=== PATIENT | female | born 1955 | race Caucasian/White ===

== ENCOUNTER 2021-01-25 14:47 | Emergency (ER) | payer OTHER, SELFPAY ==
--- NOTE | ~2021-01-25 | XR_ITS ---
EXAMINATION: XR CHEST CLINICAL INFORMATION: Upper back pain COMPARISON: None TECHNIQUE: Frontal view of the chest was obtained. FINDINGS: Lungs are well-inflated and clear. Trachea is midline in position. No interstitial disease, consolidation or mass. No pulmonary edema, pleural effusion or pneumothorax. Cardiac silhouette and pulmonary vessels are normal in size. The mediastinum and den have normal contour. The visualized bones, and upper abdomen, are unremarkable. XR/XR chest 1V IMPRESSION: No acute cardiopulmonary abnormality.
[2021-01-25 14:55] VITALS: BP 208/93; PULSE 73; RESP 18; TEMP 36.6; O2SAT 96; BMI 36.3
[2021-01-25 15:13] LABS: Glucose Urine UA NEG (NEG); Leukocyte Esterase Urine NEG (NEG); Nitrite Urine NEG (NEG); PH 6.5 (5.0-8.0); Urine Blood NEG (NEG); Urine Ketones NEG (NEG); Urine Protein NEG (NEG-TRACE)
[2021-01-25 15:16] LABS: Appearance Urine CLEAR; Color Urine YELLOW
--- NOTE | 2021-01-25 16:07 | ED.GENADULT ---
HPI - General Adult General Chief complaint: General Medical Stated complaint: HIGH BLOOD PRESSURE Time Seen by Provider: 01/25/21 15:59 History of Present Illness HPI narrative: Patient had gone to urgent care for some left upper back pain worse with movement for past 4 days without injury, and started gradually and feeling like her urine had a bad smell today they did vital signs at urgent care and noticed that she had elevated blood pressure and was sent to the ER She has no symptoms of this blood pressure she has no chest pain no shortness of breath no headache no weakness She has no radiation of the back pain there is no numbness weakness or tingling there is no chest pain or abdominal pain, there is no changes to bowel or bladder, pain is not present at rest but with movement She had an odor to the urine she thought but there is no frequency of urination no burning with urination no pain with urination no flank pain no abdominal pain no vomiting Related Data Previous Rx's Medication Instructions Recorded cyclobenzaprine 10 mg PO TID PRN #10 tab 01/25/21 ibuprofen 600 mg PO Q6H PRN #20 tab 01/25/21 oxycodone-acetaminophen [Percocet] 1 tab PO Q4-6H PRN #10 tab 01/25/21 Allergies Allergy/AdvReac Type Severity Reaction Status Date / Time No Known Allergies Allergy Verified 01/25/21 15:05 Review of Systems Review of Systems: Review of systems is positive for different smelling urine and left upper back pain Negatives are no fever no chills no dizziness no weakness no fainting no feeling faint no numbness weakness or tingling no changes to bowel or bladder no incontinence no dysuria , there is no headache no neck pain no vision changes there is no chest pain no shortness of breath no palpitations there is no abdominal pain no nausea vomiting or diarrhea there is no skin rash there is no leg swelling no calf pain or swelling, no numbness no weakness Yes all other systems are reviewed and are negative PMFSH Past Medical History [facility] Narrative: Patient is not aware of any significant medical history and has not seen a doctor in a long time until she went to the urgent care today for her 4 days of left upper back pain Source: nursing notes reviewed Medical History (Updated 01/25/21 @ 17:46 by EKATERINA Cortes) Arthritis Surgical History (Updated 01/25/21 @ 15:00 by Franki Pena) History of hysterectomy Social History Social History Advance Directives: No Advance Directives Information Provided: No Physical Exam Vital Signs: Vital Signs: Last Vital Signs Temp 98 F 01/25/21 14:55 Pulse 73 01/25/21 14:55 Resp 18 01/25/21 14:55 BP 208/93 H 01/25/21 14:55 Pulse Ox 96 01/25/21 14:55 Body Mass Index 36.3 General appearance no acute distress A&O x3 comfortable relaxed and cooperative Head is normocephalic atraumatic Pupils equal round reactive to light Extraocular motions are intact Neck is supple The chest is clear to auscultation bilateral with full symmetric equal breath sounds The heart rate with a regular no murmur Abdomen soft nontender The back exam is the left upper lumbar paraspinal area is tender with muscle spasm, no redness or warmth to the skin no focal bony tenderness, no CVA tenderness, pain is easily reproduced with movement and palpation and is relieved at rest Extremities no edema, no calf swelling no calf tenderness Skin no rash Neuro no focal deficit, motor is 5 over 5 times for sensation is intact and symmetrical, gait is normal and balance is normal, conversation has normal speech and comprehension, cranial nerves 2-12 intact as tested, cerebellar normal Course Course Course Narrative: A 1st blood pressure was 208/93 but a repeat was 170/80 No concern for hypertensive emergency at this point as patient has no chest pain no headache no weakness no acute kidney failure no abdominal pain no chest pain and is comfortable and asymptomatic from hypertension, there is no hypertensive emergency No treatment was initiated here as elevated blood pressure could be from stress of being in the hospital or from pain in her back It is is discussed with her that there are many risks of untreated hypertension but we are not ready to start meds now as we want to confirm the diagnosis so she is advised to get a home blood pressure cuff and over the next 2 weeks keep a log twice a day of the readings and she says on Wednesday she will look for a primary care physician No acute lab abnormality, renal function was normal, chest x-ray was normal Pain in the back is most likely musculoskeletal as it is tender in 1 spot and easily reproduced with movement Urine was normal Patient is treated for musculoskeletal back pain and is strongly advised to follow with soon as possible with primary care and keep a log of her blood pressures Medical Decision Making Lab Data Lab results reviewed: Yes I reviewed the patient's lab results. Lab results narrative: Result diagrams: 01/25/21 16:21 01/25/21 16:21 Labs: Lab Results 01/25/21 01/25/21 01/25/21 Range/Units 15:07 16:21 16:21 WBC 8.2 (4.8-10.8) X10*3/uL RBC 5.46 (4.20-5.50) X10*6/uL Hgb 17.2 H (12.0-16.0) g/dl Hct 50.2 H (37-47) % MCV 91.9 (80-98) fL MCH 31.5 (27.0-33.0) pg MCHC 34.3 (31.0-35.0) g/dl RDW 12.6 (11.0-16.0) % Plt Count 189 (160-400) X10*3/uL MPV 9.3 L (9.4-12.3) fL Immature Gran % (Auto) 0.2 (0.0-0.4) % Neut % (Auto) 61.1 (45-73) % Lymph % (Auto) 28.1 (20-40) % [place] % (Auto) 8.1 (2-11) % Eos % (Auto) 1.6 (0-4) % Baso % (Auto) 0.9 (0-2) % Lymph # (Auto) 2.3 (1.2-4.9) X10*3/uL [place] # (Auto) 0.7 (0.1-1.2) X10*3/uL Eos # (Auto) 0.1 (0.0-0.4) X10*3/uL Baso # (Auto) 0.1 (0.0-0.2) X10*3/uL Abs Immat Gran (auto) 0.02 (0.00-0.03) X10*3/uL Absolute Neuts (auto) 5.0 (2.0-8.3) X10*3/uL Absolute Nucleated RBC 0.000 (0.0-0.012) X10*3/uL Nucleated RBC % (auto) 0.0 (0.0-0.2) /100WBC Sodium 140 (135-145) mmol/L Potassium 4.1 (3.3-5.1) mmol/L Chloride 105 (96-108) mmol/L Carbon Dioxide 28 (22-29) mmol/L Anion Gap 11 L (12-20) BUN 10 (9-16) mg/dL Creatinine 0.71 (0.5-1.4) mg/dL Estim Creat Clear Calc 96.5 Estimated GFR > 60 Random Glucose 92 (60-115) mg/dL Calcium 9.1 (8.4-10.2) mg/dL Total Bilirubin 0.5 (0.0-1.0) mg/dL Direct Bilirubin 0.2 (0.0-0.5) mg/dL AST 34 H (5-31) U/L ALT 43 H (0-31) U/L Alkaline Phosphatase 82 (39-117) U/L Total Protein 7.4 (6.5-8.0) g/dL Albumin 4.3 (3.5-5.0) g/dL Urine Color YELLOW Urine Appearance CLEAR Urine pH 6.5 (5.0-8.0) Ur Specific [place] 1.020 (1.005-1.025) Urine Protein NEG (NEG-TRACE) MG/DL Urine Glucose (UA) NEG (NEG) MG/DL Urine Ketones NEG (NEG) MG/DL Urine Blood NEG (NEG) Urine Nitrite NEG (NEG) Ur Leukocyte Esterase NEG (NEG) Discharge Plan Discharge Clinical Impression: Elevated blood pressure reading Back pain Qualifiers: Back pain location: back pain in unspecified location Chronicity: acute Back pain laterality: left Qualified Code(s): M54.9 - Dorsalgia, unspecified Patient Disposition: Home, Self-Care Additional Instructions: You had 2 elevated blood pressure readings so we are concerned he may have high blood pressure so the best plan to know for sure is to buy a home blood pressure cuff and measure your blood pressure twice a day when you are calm and see if the numbers are high Normal blood pressure is below 140/80 Your urine test was normal The exam of her back for your back pain showed some muscle spasm and is consistent with muscle strain in her back so you can use the medications as prescribed This also will benefit from follow-up with primary care as they can refer you for physical therapy if it does not get better by itself Return to the ER any time for chest pain weakness abdominal pain any worse condition or any concerns You can contact our financial counselor on Wednesday for help applying for emergency [facility] Prescriptions: New oxycodone-acetaminophen [Percocet] 5-325 mg tablet 1 tab PO Q4-6H PRN (Reason: pain) Qty: 10 RF: 0 cyclobenzaprine 10 mg tablet 10 mg PO TID PRN (Reason: muscle spasm) Qty: 10 RF: 0 ibuprofen 600 mg tablet 600 mg PO Q6H PRN (Reason: pain) Qty: 20 RF: 0
[2021-01-25 16:25] LABS: MANUAL DIFF FLAG NO
[2021-01-25 16:27] LABS: Basophils Absolute Auto 0.1 X10*3/uL (0.0-0.2); Basophils Percent Auto 0.9 % (0-2); Eosinophils Absolute Auto 0.1 X10*3/uL (0.0-0.4); Eosinophils Percent Auto 1.6 % (0-4); Hematocrit 50.2 % (37-47); Hemoglobin 17.2 g/dl (12.0-16.0); Imm Gran Abs Auto 0.02 X10*3/uL (0.00-0.03); Imm Gran Pct Auto 0.2 % (0.0-0.4); Lymphocytes Absolute Auto 2.3 X10*3/uL (1.2-4.9); Lymphocytes Percent Auto 28.1 % (20-40); Mean Corpuscular HGB Conc 34.3 g/dl (31.0-35.0); Mean Corpuscular Hemoglobin 31.5 pg (27.0-33.0); Mean Corpuscular Volume 91.9 fL (80-98); Mean Platelet Volume 9.3 fL (9.4-12.3); Monocytes Absolute Auto 0.7 X10*3/uL (0.1-1.2); Monocytes Percent Auto 8.1 % (2-11); Neutrophils Percent Auto 61.1 % (45-73); Platelet Count 189 X10*3/uL (160-400); Red Blood Count 5.46 X10*6/uL (4.20-5.50); Red Cell Distribution Width 12.6 % (11.0-16.0); White Blood Count 8.2 X10*3/uL (4.8-10.8)
[2021-01-25 16:48] LABS: Alanine Aminotransferase 43 U/L (0-31); Albumin Level 4.3 g/dL (3.5-5.0); Alkaline Phosphatase 82 U/L (39-117); Anion Gap 11 (12-20); Aspartate Amino Transferase 34 U/L (5-31); Bilirubin Direct 0.2 mg/dL (0.0-0.5); Bilirubin Total 0.5 mg/dL (0.0-1.0); Blood Urea Nitrogen 10 mg/dL (9-16); Calcium 9.1 mg/dL (8.4-10.2); Carbon Dioxide 28 mmol/L (22-29); Chloride 105 mmol/L (96-108); Creatinine Clr Calc Pharmacy 96.5; Estimated Glomerular Filt Rate > 60; Glucose Random 92 mg/dL (60-115); Potassium 4.1 mmol/L (3.3-5.1); Sodium 140 mmol/L (135-145); Total Protein 7.4 g/dL (6.5-8.0)
[2021-01-25 17:42] VITALS: BP 171/105; PULSE 76; RESP 16; O2SAT 98
== END 2021-01-25 18:11 | disposition home or self-care (01) ==
PROVIDERS: Physician Assistant Medical; Emergency Provider Emergency Medicine
DX: R03.0 Elevated blood-pressure reading, without diagnosis of hypertension (principal); M54.9 Dorsalgia, unspecified
CPT/HCPCS: 36415; 71045; 80048; 80076; 81003; 85025; 99283

== ENCOUNTER 2021-03-22 07:16 | Outpatient (REF) | payer OTHER, SELFPAY ==
--- NOTE | ~2021-03-22 | XR_ITS ---
EXAMINATION: BILATERAL HAND. CLINICAL INFORMATION: Primary osteoarthritis. COMPARISON: None TECHNIQUE: 3 views each hand. FINDINGS: LEFT HAND: There is mild reduction in PIP and DIP joint space with periarticular spurring DIP joints. No visible fractures, dislocation or loose body seen. The soft tissues are normal. RIGHT HAND: There is loss of PIP and DIP joint space with periarticular spurring. No bony erosive changes seen. The soft tissues are normal. XR/XR hand RT 2V IMPRESSION: Mild degenerative arthritic changes bilateral hands. The MCP and intercarpal joint spaces are normal.
--- NOTE | ~2021-03-22 | XR_ITS ---
EXAMINATION: BILATERAL HAND. CLINICAL INFORMATION: Primary osteoarthritis. COMPARISON: None TECHNIQUE: 3 views each hand. FINDINGS: LEFT HAND: There is mild reduction in PIP and DIP joint space with periarticular spurring DIP joints. No visible fractures, dislocation or loose body seen. The soft tissues are normal. RIGHT HAND: There is loss of PIP and DIP joint space with periarticular spurring. No bony erosive changes seen. The soft tissues are normal. XR/XR hand LT 2V IMPRESSION: Mild degenerative arthritic changes bilateral hands. The MCP and intercarpal joint spaces are normal.
[2021-03-22 08:10] LABS: Alanine Aminotransferase 28 U/L (0-31); Albumin Level 4.3 g/dL (3.5-5.0); Alkaline Phosphatase 87 U/L (39-117); Anion Gap 11 (12-20); Aspartate Amino Transferase 25 U/L (5-31); Bilirubin Total 0.5 mg/dL (0.0-1.0); Blood Urea Nitrogen 15 mg/dL (9-16); Calcium 9.8 mg/dL (8.4-10.2); Carbon Dioxide 32 mmol/L (22-29); Chloride 101 mmol/L (96-108); Cholesterol 213 mg/dL; Estimated Glomerular Filt Rate > 60; Glucose Fasting 129 mg/dL (60-99); HDL Cholesterol 38 mg/dL; LDL Cholesterol Calculated 144 mg/dl; Potassium 4.1 mmol/L (3.3-5.1); Rheumatoid Factor < 15.0 IU/mL (<15.0); Sodium 140 mmol/L (135-145); Total Protein 7.4 g/dL (6.5-8.0); Triglycerides 156 mg/dL
[2021-03-22 08:31] LABS: TSH reflex Free T4 2.54 uIU/mL (0.32-4.0)
[2021-03-22 09:09] LABS: Appearance Urine HAZY; Color Urine YELLOW; Glucose Urine UA NEG (NEG); Leukocyte Esterase Urine NEG (NEG); Nitrite Urine NEG (NEG); Urine Blood NEG (NEG); Urine Ketones NEG (NEG); Urine Protein NEG (NEG-TRACE)
[2021-03-22 09:11] LABS: Erythrocyte Sedimentation Rate 12 MM/HR (0-20)
[2021-03-22 09:27] LABS: Creatinine Urine 194.72 mg/dL; Microalbum/Creatinine Ratio Ur 11.8 ug/mg cr
[2021-03-24 12:06] LABS: CRP High Sensitivity 9.5 mg/L
== END 2021-03-22 07:17 | disposition home or self-care (01) ==
LOC: HO.LAB 07:16
PROVIDERS: PCP Family Medicine; Visit Provider Family Medicine
DX: Z00.00 Encounter for general adult medical examination without abnormal findings (principal); I10 Essential (primary) hypertension; M19.042 Primary osteoarthritis, left hand; M19.041 Primary osteoarthritis, right hand
CPT/HCPCS: 36415; 73120; 80053; 80061; 81003; 82043; 84443; 85652; 86141; 86431

== ENCOUNTER 2021-04-02 13:17 | Outpatient (REF) | payer OTHER, SELFPAY ==
--- NOTE | ~2021-04-02 | US_ITS ---
EXAMINATION: US SOFT TISSUE HEAD/NECK CLINICAL INFORMATION: Localized swelling, mass and lump, head. COMPARISON: None TECHNIQUE: Ultrasound of the right mandibular soft tissues was performed with high-frequency montes-scale imaging and color Doppler. FINDINGS: Limited ultrasound imaging through hard palpable lump area was performed along the right mandible. There is an ill-defined isoechoic lesion measuring 0.9 x 0.8 x 0.6 cm. It is nonvascular and appears similar to the adjacent background. US/US soft tiss head and/or neck IMPRESSION: Small ill-defined solid lesion similar to background adjacent to the mandible. Differential diagnosis includes lipoma versus lymph node. However, it does not have typical lymph node appearance.
== END 2021-04-02 13:18 | disposition home or self-care (01) ==
LOC: HO.US 13:17
PROVIDERS: Visit Provider Family Medicine
DX: R22.0 Localized swelling, mass and lump, head (principal)
CPT/HCPCS: 76536

== ENCOUNTER 2021-04-16 12:00 | Outpatient (RCR) | payer OTHER, SELFPAY ==
[2021-04-09 10:55] VITALS: BP 160/100
--- NOTE | 2021-04-09 13:46 | MHC.PT.EP ---
[facility] [place] [facility] [place] Office [address] [place] [address] [phone] F: [phone] F: [phone] F: [phone] F: [phone] Physical Therapy Plan of Care Date of Evaluation: Date of Surgery: NA Diagnosis: Dorsalgia Assessment: Alanna is a 65 y.o. referred to PT for dorsalgia . On PT examination she presents with increased TTP and tightness in her lumbar paravertebrals and SI region L>R, decreased TrA activation, decreased B hip strength, decreased B knee strength, postural abnormalities, and gait deviations. She would benefit from skilled PT to address the aforementioned impairments to improve her tolerance for ADLs which would include standing for long periods of time and walking for more than 10 minutes. Her sacrum appears rotated, not significantly, but PT was unable to palpate d/t increased tenderness. We will reassess SI as needed. She appears to be motivated to participate in therapy. Frequency and Duration: The patient will be seen 2x week for 5 weeks Short Term Goals: 1. In 2 weeks patient will have decreased tissue tightness that will decrease her pain and improve her ability for dressing and self care. 2. In 3 weeks patient will be able to move her trunk through all planes of motion without pain which will improve her ability for cooking and cleaning at home. Stevedoring Supervisor Goals: 1. In 4 weeks patient will improve LE MMT and TrA strength by 1 grade to improve her ability to stand and walk for long periods of time. 2. In 5 weeks patient will be independent with HEP to for symptom management and maintenance after d/c. Treatment Plan: Modalities to reduce pain, spasms and effusion. Manual therapy to restore motion and function. Therapeutic exercise to improve strength and flexibility. Neuromuscular re-education for posture and balance. Therapeutic activities to return to functional activities of daily living. Electronically signed by: Susan García PT DPT Please sign and return to therapist. Thank you for your referral.
--- NOTE | 2021-05-16 14:59 | MHC.PT.DC ---
[facility] [place] Office [place] Office [place] Office [address] [place] [address] [phone] F: [phone] F: [phone] F: [phone] F: [phone] Physical Therapy Discharge Report Diagnosis: Dorsalgia Date of Surgery: NA Date of Evaluation: 04/09/21 Date of Discharge: 05/16/21 Treatments to Date: 2 Cancellations to Date: 3 No Shows to Date: 1 Discharge Status: Visit Non-compliance Discharge Summary: Alanna d/c from therapy for non compliance. She has had 3 cancellation and 1 no show. Electronically signed by: Susan García PT DPT Please sign and return to therapist. Thank you for your referral.
== END 2021-05-16 14:59 | disposition home or self-care (01) ==
LOC: HO.PT 12:00
PROVIDERS: PCP Family Medicine; Visit Provider Family Medicine
DX: M54.9 Dorsalgia, unspecified (principal); R42 Dizziness and giddiness
CPT/HCPCS: 95992; 97110; 97161

== ENCOUNTER 2021-10-09 13:58 | Outpatient (REF) | payer OTHER, SELFPAY ==
--- NOTE | ~2021-10-09 | MM_ITS ---
EXAMINATION: MM SCREENING DIGITAL BREAST TOMOSYNTHESIS, BILATERAL CLINICAL INFORMATION: Screening. Asymptomatic. The lifetime risk of breast cancer based on the Tyrer-Cuzick Model is 3.3%. COMPARISON: Mammography: None TECHNIQUE: Digital breast tomosynthesis is performed in both the craniocaudal and mediolateral oblique views along with computer-aided detection (CAD). Synthesized 2D images are generated from the tomosynthesis. FINDINGS: There are scattered areas of fibroglandular density (ACR BI-RADS breast composition Category b). There are no significant masses, abnormal calcifications, or other abnormalities. Some scattered calcifications are seen bilaterally with one grouping medially in the right breast being vascular. MM/MM tomosynthesis screening BI IMPRESSION: No specific mammographic evidence to suggest malignancy. ASSESSMENT: BI-RADS 1: Negative RECOMMENDATION: Routine annual mammography screening. This patient's information was entered into a reminder system with a target due date for their next mammogram.
== END 2021-10-09 13:59 | disposition home or self-care (01) ==
LOC: HO.MAMMO 13:58
PROVIDERS: Visit Provider Family Medicine
DX: Z12.31 Encounter for screening mammogram for malignant neoplasm of breast (principal)
CPT/HCPCS: 77063; 77067

== ENCOUNTER 2022-02-14 11:17 | Emergency (ER) | payer MEDICARE, SELFPAY ==
--- NOTE | ~2022-02-14 | CT_ITS ---
EXAMINATION: CT ABDOMEN AND PELVIS WITH CONTRAST CLINICAL INFORMATION: Right lower quadrant pain COMPARISON: None TECHNIQUE: Multidetector volumetric images were obtained from the superior aspect of the liver through the pubic symphysis following administration 85 mL of Omnipaque 350 intravenous contrast. Sagittal and coronal reformatted images were obtained on the technologist's workstation. Oral contrast: No This CT examination was performed using dose optimization techniques as appropriate, variously including the following: *Automated exposure control *Adjustment of mA and/or kV according to patient size (this includes techniques or standardized protocols for targeted exams where dose is matched to indication/reason for exam; i.e. extremities or head) *Use of iterative reconstruction technique DLP: 1072 mGy-cm FINDINGS: LUNG BASES: The visualized lung bases are unremarkable. LIVER, GALLBLADDER, AND BILIARY TREE: The liver is normal in size, shape, and attenuation. No focal hepatic lesion or biliary ductal dilatation is present. The gallbladder is unremarkable with no evidence of radiopaque gallstones, gallbladder wall thickening, or obvious pericholecystic inflammatory changes. PANCREAS: Unremarkable. SPLEEN: Unremarkable. ADRENAL GLANDS: Unremarkable. KIDNEYS AND URETERS: Kidneys normal in size. Symmetric bilateral enhancement. Numerous bilateral renal cysts, some of which definitively characterized as simple, others are too small to characterize. No further follow-up required. Nonobstructing 5 mm calculus, left kidney and nonobstructive 3 mm calculus, right kidney. Focal scarring along the lateral interpolar cortex of the right kidney, chronic. No hydronephrosis. No ureteral calculi. BLADDER: Unremarkable. GASTROINTESTINAL TRACT: Left colonic diverticulosis. No evidence of diverticulitis. Normal appendix. Stomach and small bowel unremarkable. ABDOMINAL WALL: No significant hernia is appreciated. LYMPH NODES: Normal. VASCULAR: Aorta is atherosclerotic but normal caliber. Patent vascular structures. PELVIC VISCERA: Hysterectomy. Ovaries unremarkable. OSSEOUS STRUCTURES: No acute or suspicious osseous abnormalities. CT/CT abdomen pelvis w con IMPRESSION: * No acute findings within the abdomen or pelvis. * Bilateral nonobstructive intrarenal calculi. No ureteral calculi or hydronephrosis left colonic diverticulosis without evidence of diverticulitis. * Hysterectomy.
[2022-02-14 11:27] VITALS: BP 125/92; PULSE 71; RESP 20; TEMP 36; O2SAT 95; BMI 35.5
--- NOTE | 2022-02-14 12:46 | ED.ABDPAIN ---
HPI - Abdominal Pain General Chief Complaint: Abdominal Pain Stated Complaint: R side abd pain Time Seen by Provider: 02/14/22 12:41 Source: patient Mode of arrival: ambulatory Limitations: no limitations History of Present Illness HPI narrative: this is a 66 years old of female presented to the ED with a chief complaint of right lower quadrant abdominal pain times 4 days, denies any vomiting any diarrhea MD elicited complaint: abdominal pain Pertinent past history: none Onset (ago): day(s) (4) Pain Consistency: constant Location: RLQ Severity: moderate Quality: aching Radiation: RLQ Migration to: no migration Exacerbating factors: nothing Relieving factors: nothing Related Data Previous Rx's Medication Instructions Recorded ibuprofen 600 mg tablet 600 mg PO Q6H PRN #20 tab 01/25/21 cetirizine 10 mg capsule (All Day 10 mg PO DAILY 30 Days #30 cap 01/21/22 Allergy (cetirizine)) guaifenesin 600 mg tablet, 600 mg PO BID 30 Days #60 tab 01/21/22 extended release 12 hr (Mucinex) lisinopril 20 1 tab PO DAILY 30 Days #30 tab 01/21/22 mg-hydrochlorothiazide 12.5 mg tablet meloxicam 15 mg tablet 15 mg PO DAILY 30 Days #30 tab 01/21/22 oxycodone 5 mg tablet 5 mg PO Q6H PRN #15 tab 02/14/22 Allergies Allergy/AdvReac Type Severity Reaction Status Date / Time No Known Allergies Allergy Verified 01/21/22 11:36 Review of Systems Review of Systems Yes all other systems are reviewed and are negative Cardiovascular: Reports no additional cardiovascular complaints Respiratory: Reports no additional respiratory complaints Gastrointestinal: Reports no additional gastrointestinal complaints Musculoskeletal: Reports no additional musculoskeletal complaints Reports system reviewed and no additional complaints, except as documented [facility] Past Medical History [facility] Narrative: she has history of hypertension Medical History (Updated 02/14/22 @ 15:28 by Jose Tomlin MD) Arthritis Surgical History History of bladder surgery History of hysterectomy Family History Family History Mother No problems noted. Father No problems noted. Social History Social History Housing: House Alcohol intake: former Patient Tobacco Use Status: Current everyday Tobacco user Cigarettes Per Day: 10 Advance Directives: No service: No Current occupational status: retired Physical Exam ED Vital Signs: Vital Signs - 24 hr 02/14/22 11:27 Temperature 96.8 F Pulse Rate 71 Respiratory Rate 20 Blood Pressure 125/92 H Pulse Oximetry 95 BMI result Body Mass Index 35.5 Const General: cooperative and healthy appearing Orientation/consciousness: patient oriented x3 Limitations: no limitations HENMT Head: Yes normal to inspection Ears: hearing grossly normal bilaterally General nose exam: Normal external nose present Face and sinus: Yes normal facial exam Mouth: Normal oral and palatal mucosa present Neck Neck: Yes normal visual inspection Resp Effort & Inspection: normal respiratory effort and able to speak in complete sentences Auscultation: clear to auscultation bilaterally Cardio Rate: regular rate GI Other: tenderness in the right lower quadrant no guarding and no rebound Skin General skin exam: no rashes or lesions noted, elasticity normal and turgor normal Rashes: no rashes Neuro General: patient oriented x3 Extrem General: Yes normal to inspection, Yes full ROM and Yes capillary refill normal Right upper extremity: normal to inspection and full ROM Right lower extremity: normal to inspection Left lower extremity: normal to inspection Course Reevaluation(s) Reevaluation #1: she is feeling better she is nontoxic appearing , CT scan is nondiagnostic,at this point we could discharge home the patient will follow-up with the primary care physician MDM - Abdominal Pain Lab Data Result diagrams: 02/14/22 13:09 02/14/22 13:09 Labs: Lab Results 02/14/22 02/14/22 02/14/22 Range/Units 13:09 13:09 13:09 WBC 7.9 (4.8-10.8) X10*3/uL RBC 5.62 H (4.20-5.50) X10*6/uL Hgb 17.5 H (12.0-16.0) g/dl Hct 51.2 H (37.0-47.0) % MCV 91.1 (80.0-98.0) fL MCH 31.1 (27.0-33.0) pg MCHC 34.2 (31.0-35.0) g/dl RDW 12.7 (11.0-16.0) % Plt Count 216 (160-400) X10*3/uL MPV 9.2 L (9.4-12.3) fL Immature Gran % (Auto) 0.3 (0.0-0.4) % Neut % (Auto) 55.5 (45-73) % Lymph % (Auto) 33.8 (20-40) % [place] % (Auto) 8.1 (2-11) % Eos % (Auto) 1.4 (0-4) % Baso % (Auto) 0.9 (0-2) % Lymph # (Auto) 2.7 (1.2-4.9) X10*3/uL [place] # (Auto) 0.6 (0.1-1.2) X10*3/uL Eos # (Auto) 0.1 (0.0-0.4) X10*3/uL Baso # (Auto) 0.1 (0.0-0.2) X10*3/uL Abs Immat Gran (auto) 0.02 (0.00-0.03) X10*3/uL Absolute Neuts (auto) 4.4 (2.0-8.3) x10*3/uL Absolute Nucleated RBC 0.000 (0.0-0.012) X10*3/uL Nucleated RBC % (auto) 0.0 (0.0-0.2) /100WBC Sodium 139 (135-145) mmol/L Potassium 3.9 (3.3-5.1) mmol/L Chloride 100 (96-108) mmol/L Carbon Dioxide 31 H (22-29) mmol/L Anion Gap 12 (12-20) BUN 13 (9-16) mg/dL Creatinine 0.80 (0.5-1.4) mg/dL Estim Creat Clear Calc 83.6 Estimated GFR > 60 Random Glucose 95 (60-115) mg/dL Calcium 10.0 (8.4-10.2) mg/dL Total Bilirubin 0.7 (0.0-1.0) mg/dL AST 32 H (5-31) U/L ALT 33 H (0-31) U/L Alkaline Phosphatase 71 (39-117) U/L Total Protein 7.7 (6.5-8.0) g/dL Albumin 4.5 (3.5-5.0) g/dL Lipase 20 (8-78) U/L Urine Color YELLOW Urine Appearance HAZY Urine pH 6.5 (5.0-8.0) Ur Specific [place] 1.010 (1.005-1.025) Urine Protein NEG (NEG-TRACE) MG/DL Urine Glucose (UA) NEG (NEG) MG/DL Urine Ketones NEG (NEG) MG/DL Urine Blood NEG (NEG) Urine Nitrite NEG (NEG) Ur Leukocyte Esterase NEG (NEG) Urine RBC 0 (0) /HPF Urine WBC 1-4 (0-4) /HPF Ur Squamous Epith Cells 1+ /LPF Urine Bacteria NONE /LPF Imaging Data CT scan - abdomen: Radiologist's impression: y, chronic. No hydronephrosis. No ureteral calculi.? BLADDER: Unremarkable.? GASTROINTESTINAL TRACT: Left colonic diverticulosis. No evidence of diverticulitis. Normal appendix. Stomach and small bowel unremarkable. ABDOMINAL WALL: No significant hernia is appreciated.? LYMPH NODES: Normal. VASCULAR: Aorta is atherosclerotic but normal caliber. Patent vascular structures. PELVIC VISCERA: Hysterectomy. Ovaries unremarkable.? OSSEOUS STRUCTURES: No acute or suspicious osseous abnormalities.? CT/CT abdomen pelvis w con IMPRESSION: *? No acute findings within the abdomen or pelvis. *? Bilateral nonobstructive intrarenal calculi. No ureteral calculi or hydronephrosis left colonic diverticulosis without evidence of diverticulitis. *? Hysterectomy.? Discharge Plan Discharge Clinical Impression: Abdominal pain Patient Disposition: Home, Self-Care Instructions: Abdominal Pain (ED) Prescriptions: New oxycodone 5 mg tablet 5 mg PO Q6H PRN (Reason: pain) Qty: 15 0RF Rx Instructions: partial filing upon pt request No Action ibuprofen 600 mg tablet 600 mg PO Q6H PRN (Reason: pain) Qty: 20 0RF meloxicam 15 mg tablet 15 mg PO DAILY 30 Days Qty: 30 1RF All Day Allergy (cetirizine) 10 mg capsule 10 mg PO DAILY 30 Days Qty: 30 1RF guaifenesin [Mucinex] 600 mg tablet extended release 12hr 600 mg PO BID 30 Days Qty: 60 1RF lisinopril-hydrochlorothiazide 20-12.5 mg tablet 1 tab PO DAILY 30 Days Qty: 30 1RF Referrals: Valeria,Alexis, MD [Primary Care Provider] - 02/16/22 Discharge Date/Time: 02/14/22 15:59
[2022-02-14] MEDS: Ketorolac Tromethamine 30 MG/ML VIAL IVPUSH (13:10)
[2022-02-14 13:15] LABS: MANUAL DIFF FLAG NO
--- NOTE | 2022-02-14 13:17 | PC.NURSE ---
Pt comes in from home with complaints of abd pain since wednesday, denies N/V/D, pain made better with BM, difficulty sleeping and laying flat from the pain. Pt is A&OX4, LCA, abd soft, TTP on R quadrants. Call caceres within reach, IV established, medicated as per MAR orders. Will cotinue to monitor.
[2022-02-14 13:24] LABS: Appearance Urine HAZY; Color Urine YELLOW; Glucose Urine UA NEG (NEG); Leukocyte Esterase Urine NEG (NEG); Nitrite Urine NEG (NEG); PH 6.5 (5.0-8.0); Urine Blood NEG (NEG); Urine Ketones NEG (NEG); Urine Protein NEG (NEG-TRACE)
[2022-02-14 13:25] LABS: Basophils Absolute Auto 0.1 X10*3/uL (0.0-0.2); Basophils Percent Auto 0.9 % (0-2); Eosinophils Absolute Auto 0.1 X10*3/uL (0.0-0.4); Eosinophils Percent Auto 1.4 % (0-4); Hematocrit 51.2 % (37.0-47.0); Hemoglobin 17.5 g/dl (12.0-16.0); Imm Gran Abs Auto 0.02 X10*3/uL (0.00-0.03); Imm Gran Pct Auto 0.3 % (0.0-0.4); Lymphocytes Absolute Auto 2.7 X10*3/uL (1.2-4.9); Lymphocytes Percent Auto 33.8 % (20-40); Mean Corpuscular HGB Conc 34.2 g/dl (31.0-35.0); Mean Corpuscular Hemoglobin 31.1 pg (27.0-33.0); Mean Corpuscular Volume 91.1 fL (80.0-98.0); Mean Platelet Volume 9.2 fL (9.4-12.3); Monocytes Absolute Auto 0.6 X10*3/uL (0.1-1.2); Monocytes Percent Auto 8.1 % (2-11); Neutrophils Absolute Auto 4.4 x10*3/uL (2.0-8.3); Neutrophils Percent Auto 55.5 % (45-73); Platelet Count 216 X10*3/uL (160-400); Red Blood Count 5.62 X10*6/uL (4.20-5.50); Red Cell Distribution Width 12.7 % (11.0-16.0); White Blood Count 7.9 X10*3/uL (4.8-10.8)
[2022-02-14 13:35] LABS: RBC Urine 0 /HPF (0); Squamous Epithelial Cell Urine 1+ /LPF
[2022-02-14 13:40] LABS: Alanine Aminotransferase 33 U/L (0-31); Albumin Level 4.5 g/dL (3.5-5.0); Alkaline Phosphatase 71 U/L (39-117); Anion Gap 12 (12-20); Aspartate Amino Transferase 32 U/L (5-31); Bilirubin Total 0.7 mg/dL (0.0-1.0); Blood Urea Nitrogen 13 mg/dL (9-16); Carbon Dioxide 31 mmol/L (22-29); Chloride 100 mmol/L (96-108); Creatinine Clr Calc Pharmacy 83.6; Estimated Glomerular Filt Rate > 60; Glucose Random 95 mg/dL (60-115); Lipase 20 U/L (8-78); Potassium 3.9 mmol/L (3.3-5.1); Sodium 139 mmol/L (135-145); Total Protein 7.7 g/dL (6.5-8.0)
[2022-02-14] MEDS: iohexoL 350 MG/ML 100 ML INFUS..BTL IV (14:01)
== END 2022-02-14 15:59 | disposition home or self-care (01) ==
PROVIDERS: Emergency Provider Emergency Medicine; PCP Family Medicine
DX: R10.31 Right lower quadrant pain (principal); Z79.899 Other long term (current) drug therapy; F17.210 Nicotine dependence, cigarettes, uncomplicated; Z71.6 Tobacco abuse counseling
CPT/HCPCS: 36415; 74177; 80053; 81001; 83690; 85025; 96374; 99284; 99285; J1885; Q9967

== ENCOUNTER 2022-03-21 07:16 | Outpatient (REF) | payer MEDICARE, SELFPAY ==
[2022-03-21 07:30] LABS: MANUAL DIFF FLAG NO
[2022-03-21 07:42] LABS: Basophils Absolute Auto 0.1 X10*3/uL (0.0-0.2); Basophils Percent Auto 0.8 % (0-2); Eosinophils Absolute Auto 0.2 X10*3/uL (0.0-0.4); Eosinophils Percent Auto 2.6 % (0-4); Hemoglobin 17.3 g/dl (12.0-16.0); Imm Gran Abs Auto 0.03 X10*3/uL (0.00-0.03); Imm Gran Pct Auto 0.4 % (0.0-0.4); Lymphocytes Absolute Auto 2.7 X10*3/uL (1.2-4.9); Lymphocytes Percent Auto 37.2 % (20-40); Mean Corpuscular HGB Conc 33.9 g/dl (31.0-35.0); Mean Corpuscular Hemoglobin 30.8 pg (27.0-33.0); Mean Corpuscular Volume 90.9 fL (80.0-98.0); Mean Platelet Volume 9.4 fL (9.4-12.3); Monocytes Absolute Auto 0.5 X10*3/uL (0.1-1.2); Monocytes Percent Auto 7.4 % (2-11); Neutrophils Absolute Auto 3.7 x10*3/uL (2.0-8.3); Neutrophils Percent Auto 51.6 % (45-73); Platelet Count 247 X10*3/uL (160-400); Red Blood Count 5.61 X10*6/uL (4.20-5.50); Red Cell Distribution Width 12.6 % (11.0-16.0); White Blood Count 7.2 X10*3/uL (4.8-10.8)
[2022-03-21 08:07] LABS: Alanine Aminotransferase 26 U/L (0-31); Albumin Level 4.2 g/dL (3.5-5.0); Alkaline Phosphatase 74 U/L (39-117); Anion Gap 13 (12-20); Aspartate Amino Transferase 25 U/L (5-31); Bilirubin Total 0.5 mg/dL (0.0-1.0); Blood Urea Nitrogen 15 mg/dL (9-16); Calcium 9.7 mg/dL (8.4-10.2); Carbon Dioxide 29 mmol/L (22-29); Chloride 105 mmol/L (96-108); Cholesterol 208 mg/dL; Estimated Glomerular Filt Rate > 60; Glucose Fasting 115 mg/dL (60-99); HDL Cholesterol 40 mg/dL; LDL Cholesterol Calculated 145 mg/dl; Potassium 4.6 mmol/L (3.3-5.1); Sodium 142 mmol/L (135-145); Total Protein 7.5 g/dL (6.5-8.0); Triglycerides 118 mg/dL
[2022-03-21 08:28] LABS: TSH reflex Free T4 1.87 uIU/mL (0.32-4.0)
[2022-03-21 09:57] LABS: Appearance Urine CLOUDY; Color Urine YELLOW; Glucose Urine UA NEG (NEG); Leukocyte Esterase Urine NEG (NEG); Nitrite Urine NEG (NEG); PH 5.5 (5.0-8.0); Specific Gravity - Urine 1.025 (1.005-1.025); Urine Blood NEG (NEG); Urine Ketones NEG (NEG); Urine Protein TRACE MG/DL (NEG-TRACE)
[2022-03-21 12:05] LABS: Creatinine Urine 293.53 mg/dL; Microalbum/Creatinine Ratio Ur 13.6 ug/mg cr
== END 2022-03-21 07:17 | disposition home or self-care (01) ==
LOC: HO.LAB 07:16
PROVIDERS: PCP Family Medicine; Visit Provider Family Medicine
DX: Z00.00 Encounter for general adult medical examination without abnormal findings (principal); Z13.820 Encounter for screening for osteoporosis; I10 Essential (primary) hypertension
CPT/HCPCS: 36415; 80053; 80061; 81003; 82043; 84443; 85025

== ENCOUNTER 2022-04-17 11:02 | Outpatient (REF) | payer MEDICARE, SELFPAY ==
--- NOTE | ~2022-04-17 | MM_ITS ---
EXAMINATION: BONE DENSITOMETRY CLINICAL INDICATION: Screening for osteoporosis. COMPARISON: This is the patient's baseline examination. TECHNIQUE: Using a [employer] DXA System (software version: 13.1) manufactured by [employer], dual-energy x-ray absorptiometry was performed of the lumbar spine and left hip. The images are of good technical quality. Summary results are attached. FINDINGS: AP SPINE L1-L2 (excluding L3 and L4): The data of L1-L4 has been changed to exclude the L3 and L4 vertebral bodies, because degenerative sclerosis at these levels may cause overestimation of lumbar spine density. BMD 1.342 g/cm2, Z-score 2.0, T-score 1.5, normal. LEFT FEMUR, NECK: BMD 1.082 g/cm2, Z-score 1.1, T-score 0.3, normal. LEFT FEMUR, TOTAL: BMD 1.173 g/cm2, Z-score 1.7, T-score 1.3, normal. IDENTIFIED RISK FACTORS: Early menopause, height loss, hysterectomy, right oophorectomy, secondary osteoporosis, Thiazide. HISTORY OF FRACTURE: None listed. MEDICATIONS: Vitamin D. MM/XR DEXA axial skeleton IMPRESSION: 1. DIAGNOSIS: Normal bone density based on the lowest T-score value of 0.3 in the femoral neck applying World Health Organization criteria. 2. 10-YEAR FRACTURE RISK PREDICTION, FRAX: Major osteoporotic fracture (clinical spine, forearm, hip or shoulder) 5.8%. Hip fracture 0.1%. 3. Treatment Recommendations: NOF guidelines recommend consideration for treatment in postmenopausal women and men age 50 and older presenting with the following: -A hip or vertebral (clinical or morphometric) fracture. -T-score less than or equal to -2.5 at the femoral neck or spine after appropriate evaluation to exclude secondary causes. -Low bone mass at the hip or spine and a 10-year fracture probability by FRAX of greater than or equal to 3% for hip fracture or greater than or equal to 20% for major osteoporotic fracture based on the [place] adapted WHO algorithm. 4. Other Recommendations: All treatment decisions require clinical judgment and consideration of individual patient factors, including patient preferences, comorbidities, previous drug use, risk factors not captured in the FRAX model (e.g. frailty, falls, vitamin D deficiency, increased bone turnover, interval significant decline in bone density) and possible under or overestimation of fracture risk by FRAX. FUTURE SCAN RECOMMENDATION: People with diagnosed cases of osteoporosis or at high risk for fracture should have regular bone mineral density tests. For patients eligible for Medicare, routine testing is allowed once every 2 years. The testing frequency can be increased to one year for patients who have rapidly progressing disease, those who are receiving or discontinuing medical therapy to restore bone mass, or have additional risk factors.
== END 2022-04-17 11:03 | disposition home or self-care (01) ==
LOC: HO.MAMMO 11:02
PROVIDERS: Visit Provider Family Medicine
DX: Z01.818 Encounter for other preprocedural examination (principal); Z13.820 Encounter for screening for osteoporosis; Z78.0 Asymptomatic menopausal state; K21.9 Gastro-esophageal reflux disease without esophagitis; K59.00 Constipation, unspecified
CPT/HCPCS: 77080; 99202

== ENCOUNTER 2022-06-01 08:36 | Outpatient (REF) | payer MEDICARE, SELFPAY ==
--- NOTE | ~2022-06-01 | FL_ITS ---
EXAMINATION: FL BARIUM SWALLOW CLINICAL INFORMATION: Dysphagia in proximal esophagus. COMPARISON: None TECHNIQUE: Barium swallow examination is performed using fluoroscopic evaluation in addition to multiple fluoroscopic spot views. The patient is imaged both upright and prone and using both thick and thin sulfate along with effervescent granules. Fluoroscopy time: 2.6 minutes DAP: 26.584 Gycm2 Images: 57 FINDINGS: Following oral administration of thick barium, there is normal propagation of bolus from the oral cavity through the pharynx, esophagus into stomach without any evidence of obstruction, narrowing or stricture. On oral administration of barium-coated turkey, there is normal oral mastication and propagation bolus from the oral cavity, pharynx and esophagus and stomach without any evidence of obstruction, narrowing or stricture. On placing patient prone lying, an oral administration of thin barium, there is good distention of the esophagus without intraluminal filling defect or extrinsic compression. There is no gastroesophageal reflux or hiatal hernia in supine lying position. FL/FL barium swallow IMPRESSION: Unremarkable barium swallow exam in upright and lying position.
== END 2022-06-01 08:37 | disposition home or self-care (01) ==
LOC: HO.XRAY 08:36
PROVIDERS: PCP Family Medicine; Visit Provider Nurse Practitioner
DX: K21.9 Gastro-esophageal reflux disease without esophagitis (principal)
CPT/HCPCS: 74220

== ENCOUNTER 2022-08-24 10:15 | Day surgery (SDC) | payer MEDICARE, SELFPAY ==
[2022-08-20 09:19] VITALS: BMI 34.2
[2022-08-24 10:33] VITALS: BP 165/86; PULSE 75; RESP 18; TEMP 36.1; O2SAT 94
[2022-08-24] MEDS: Lactated Ringers 1,000 ML 50 ML IVCONT (11:06)
--- NOTE | 2022-08-24 11:09 | HO.ANESPROP2 ---
HPI - Anesthesia Eval Consult details Narrative: Colonic Surveillance [facility] Active Problems Active Problems: All Active Problems (Updated 06/04/22 @ 15:07 by Travis Gusman) Lower extremity edema (Acute) Abnormal sensation of lower extremity (Acute) Tickle in throat (Acute) Paresthesia (Acute) Left knee pain (Acute) Colon cancer screening (Acute) GERD (gastroesophageal reflux disease) (Acute) Hypercholesterolemia (Acute) Screening for osteoporosis (Acute) Neoplasm of uncertain behavior of skin (Acute) Elevated liver enzymes (Acute) Polycythemia (Chronic) Difficulty sleeping (Acute) Constipation (Acute) Abdominal pain (Acute) Nasal congestion (Acute) Viral illness (Acute) Xanthelasma (Acute) Adult general medical exam (Acute) Sleep apnea (Acute) Pre-diabetes (Acute) Screening for colon cancer (Acute) Breast cancer screening by mammogram (Acute) Vertigo (Acute) Essential hypertension (Acute) Smoker (Acute) Mass of mandible (Acute) Arthritis of both hands (Acute) Back pain (Acute) Past Medical History Medical History Arthritis Family History Family History Mother No problems noted. Father No problems noted. Family history of problems with anesthesia: No Surgical History Surgical History History of bladder surgery History of hysterectomy History of Problems with Anesthesia: No Social History Social History Housing: House Alcohol intake: former Patient Tobacco Use Status: Former Tobacco user Quit Date: 5 months ago Tobacco use type: Cigarette e-Cigarette/Vaping Use: Never Used Second Hand Smoke Exposure: No Use of substances other than those prescribed or required for medical reasons: No Are you DNR?: No Advance Directives: No Advance Directives Information Provided: Yes Advance Directives on File: No service: No Current occupational status: retired Current occupational exposures/hazards: No Cognitive needs: No Hearing needs: No Vision needs: No Meds Allergies Allergy/AdvReac Type Severity Reaction Status Date / Time No Known Allergies Allergy Verified 06/04/22 14:45 Home Medications Medication Instructions Recorded Confirmed Last Taken Type cholecalciferol (vitamin D3) 25 25 mcg PO DAILY 04/03/22 04/03/22 Unknown History mcg (1,000 unit) tablet (Vitamin D3) psyllium husk 3.4 gram/5.4 gram 1 tbsp PO DAILY 04/03/22 04/03/22 Unknown History oral powder Exam Exam Date and Time: August 24, 2022 1109 Height,Weight and Vital Signs: Height 5 ft 6 in Weight 96.162 kg Last Vital Signs Temp 97.0 F 08/24/22 10:33 Pulse 75 08/24/22 10:33 Resp 18 08/24/22 10:33 BP 165/86 H 08/24/22 10:33 Pulse Ox 94 08/24/22 10:33 O2 Del Method 08/24/22 10:33 Airway Mallampati Class: III TM Dist: >3cm Neck ROM: Full Loose/Missing/Broken Teeth: No Heart: rrr+[id number] Lungs: cta b/l Assessment and Plan Assessment Anesthesia Assessment: Anesthesia Plan Discussed and Chart Reviewed Final Anesthetic Review Family History of Problems with Anesthesia: No History of Problems with Anesthesia: No NPO: Yes ASA Class: III Final Preanesthetic Review: No Changes in Pt Med Stat, Meds/Allgs Chart Reviewed and Consent Obtained/Reviewed Patient Risk: Intermediate Procedure Risk: Intermediate Assessment/Block/Sedation in SS: Assess/Block/Sedation-SS Anesthetic Plan Anesthetic Plan: MAC: and Agree w/ Assess. and Plan Disposition: Standard PACU
--- NOTE | 2022-08-24 11:30 | MHC.SHP ---
Pre-Procedural Eval Section A Date of Service: 08/24/22 The patient is an INPATIENT: No The History & Physical has been completed within 30 days and I have reviewed it.: No Section B Chief Complaint: constipation,screening Details of Present Illness: Colon cancer screening, chronic constipation Relevant Family History (Specify if Yes): No Relevant Social History: Tobacco Use (Former smoker) Present Medications: see Short Stay Collaborative assessment Medical History: Significant History (Hypertension MAKENZIE High cholesterol Elevated liver enzymes Polycythemia Mass of the mandible Smoker Vertigo Arthritis of the hands Back pain) History of Previous Operations: Relevant previous surgery/procedure and date(s) (History of bladder surgery History of hysterectomy) Allergies: Allergies Allergy/AdvReac Type Severity Reaction Status Date / Time No Known Allergies Allergy Verified 06/04/22 14:45 Review of Systems Sugical H&P ROS: Negative: Constitution, Cardiovascular, Respiratory and Gastrointestinal Exam Surgical H&P Exam: Normal: Heart, Normal: Lungs, Normal: Extremities and Normal: Abdomen Plan Diagnosis/Plan: Unchanged I have reviewed the history and physical and performed a pertinent physical examination on my patient. No changes have occurred unless specified.
--- NOTE | 2022-08-24 12:14 | PM.OP ---
Brief Operative Note Date of Service: 08/24/22 Pre-op diagnosis: Colon cancer screening, chronic constipation Post-op diagnosis: other (Colon polyps, diverticulosis, hemorrhoids) Procedure: COLONOSCOPY TO CECUM WITH BIOPSIES Surgeon: Yoel Escamilla MD Anesthesia: MAC Was an Customer Response Representative used for this Procedure?: Yes Customer Response Representative: Katt Ware Estimated blood loss (mL): 0 Pathology: other ( A) Polyp Cecum B) Polyp Rectum) Condition: stable Disposition: PACU
--- NOTE | 2022-08-24 12:15 | W.PM.OPN ---
Operative Note Operative Note Date of Service: 08/24/22 Narrative: Pre-op diagnosis: Colon cancer screening, chronic constipation Post-op diagnosis:?other (Colon polyps, diverticulosis, hemorrhoids) Surgeon: Yoel Escamilla MD Anesthesia:?MAC COLONOSCOPY TILL CECUM WITH BIOPSIES Consent: Indications for the procedure and potential complications of bleeding, perforation, reaction to medications and missed diagnosis were discussed with the patient and informed consent was obtained. Instrument: Olympus PCF H 190 L variable stiffness pediatric colonoscope Monitoring: Vital signs and clinical assessment, intermittent blood pressure monitoring, continuous EKG monitoring, Pulse oximetry and Carbon Dioxide monitoring were done throughout the procedure. Colon withdrawl time was 37 minutes. Procedure: The patient was placed in the left lateral decubitis position and pre-procedure medications were administered. After a digital rectal examination of the ano-rectum, the video colonoscope was inserted into the rectum and advanced through the colon to the cecum. The colonoscope was slowly withdrawn in a retrograde panoramic fashion and the colon mucosa was carefully examined including a retroflexed view of the rectum. Findings and interventions are described below. Procedure Difficulty: Without difficulty Findings: Terminal Ileum: Not evaluated Cecum: A 3-4 mm diminutive appearing polyp removed with a cold bx. Ascending Colon: Normal Transverse Colon: Normal Descending Colon: Moderate diverticulosis Sigmoid Colon: Moderate diverticulosis Rectum: A few 3-5 mm diminutive appearing polyps - two were removed with a cold bx Ano-rectum: Small internal hemorrhoids Colon preparation: Good after copious irrigation Impression and Post Procedure Diagnosis: Colonoscopy Findings: Three small polyps removed Moderate diverticulosis seen in the left colon Moderate hemorrhoids on retroflexed exam. Plan: Await pathology results Patient has an appointment on 09/08/22 in the [facility] with Nalini Pan NP. Repeat Colonoscopy interval based on path results - in 3-5 years if polyps are adenomatous and 10 years if polyps are hyperplastic. Above findings were reviewed with the patient and colon polyps and diverticulosis handouts were given in the discharge area
[2022-08-24 13:17] VITALS: BP 112/68; PULSE 74; RESP 16; TEMP 36.1; O2SAT 97
[2022-08-24 13:32] VITALS: BP 115/76; PULSE 69; RESP 20; TEMP 36.6; O2SAT 98
--- NOTE | 2022-08-24 13:34 | PC.NURSE ---
dr merrill at bedside speaking to pt
[2022-08-24 13:50] VITALS: BP 137/82; PULSE 74; RESP 18; TEMP 36.2; O2SAT 96
== END 2022-08-24 14:25 | disposition home or self-care (01) ==
PROVIDERS: PCP Family Medicine; Visit Provider Internal Medicine Gastroenterology
PROC: 0DJD8ZZ Inspection of Lower Intestinal Tract, Via Natural or Artificial Opening Endoscopic (ICD-10-PCS; CPT 45378; principal; 2022-08-24 11:50)
DX: Z12.11 Encounter for screening for malignant neoplasm of colon (principal); K63.5 Polyp of colon; K62.1 Rectal polyp; K57.30 Diverticulosis of large intestine without perforation or abscess without bleeding; K64.8 Other hemorrhoids; K59.00 Constipation, unspecified; K21.9 Gastro-esophageal reflux disease without esophagitis; I10 Essential (primary) hypertension; G47.33 Obstructive sleep apnea (adult) (pediatric); E78.00 Pure hypercholesterolemia, unspecified; D75.1 Secondary polycythemia; R74.8 Abnormal levels of other serum enzymes; Z79.899 Other long term (current) drug therapy; F17.210 Nicotine dependence, cigarettes, uncomplicated
CPT/HCPCS: 45380; 88305

== ENCOUNTER 2022-09-02 11:08 | Emergency (ER) | payer MEDICARE, SELFPAY ==
[2022-09-02 13:14] VITALS: BP 155/76; PULSE 75; RESP 16; TEMP 36.4; O2SAT 94; BMI 32.3
--- NOTE | 2022-09-02 13:16 | ED.GENADULT ---
HPI - General Adult General Chief complaint: Dental/Oral <EKATERINA Núñez - Last Filed: 09/07/22 15:23> Stated complaint: Dental Abscess <EKATERINA Núñez - Last Filed: 09/07/22 15:23> Time Seen by Provider: 09/02/22 13:52 <EKATERINA Núñez - Last Filed: 09/07/22 15:23> History of Present Illness HPI narrative: Patient complains of worsening dental infection She has a left upper molar which started hurting, went to primary doctor who prescribed penicillin, has been taking it for 3 days and it is somewhat worse with some facial swelling There is no fever there is no swelling under the tongue there is no impairment of breathing speaking or swallowing <EKATERINA Cortes - Last Filed: 09/02/22 18:21> Related Data Home medications: Home Medications Medication Instructions Recorded Confirmed cholecalciferol (vitamin D3) 25 25 mcg PO DAILY 04/03/22 04/03/22 mcg (1,000 unit) tablet (Vitamin D3) psyllium husk 3.4 gram/5.4 gram 1 tbsp PO DAILY 04/03/22 04/03/22 oral powder Previous Rx's Medication Instructions Recorded cetirizine 10 mg capsule (All Day 10 mg PO DAILY 30 days #30 caps 01/21/22 Allergy (cetirizine)) omeprazole 40 mg capsule,delayed 40 mg PO DAILY 30 days #30 caps 04/17/22 release meloxicam 15 mg tablet 15 mg PO DAILY 30 days #30 tabs 07/30/22 lisinopril 20 1 tab PO DAILY 30 days #30 tabs 07/31/22 mg-hydrochlorothiazide 12.5 mg tablet penicillin V potassium 500 mg 500 mg PO TID 10 days #30 tabs 08/31/22 tablet acetaminophen 500 mg tablet 1,000 mg PO QID PRN pain #30 tabs 09/02/22 amoxicillin 875 mg-potassium 1 tab PO BID 7 days #14 tabs 09/02/22 clavulanate 125 mg tablet clindamycin HCl 300 mg capsule 300 mg PO Q6H 7 days #28 caps 09/05/22 ibuprofen 600 mg tablet 600 mg PO Q8H PRN fever or pain 09/05/22 #20 tabs oxycodone 5 mg tablet 5 mg PO Q8H PRN severe pain (scale 11/12/22 score 7-10) #7 tabs <EKATERINA Núñez - Last Filed: 09/07/22 15:23> Allergies/adverse reactions: Allergies Allergy/AdvReac Type Severity Reaction Status Date / Time No Known Allergies Allergy Verified 09/03/22 11:51 <EKATERINA Núñez - Last Filed: 09/07/22 15:23> Review of Systems Review of Systems: Positive for dental infection Negatives are no fever no chills no dizziness no weakness no headache no neck pain no difficulty breathing or swallowing no voice change no drooling no swelling under the tongue no sore throat no stiff neck no chest pain no shortness of breath no vomiting no rash <EKATERINA Cortes - Last Filed: 09/02/22 18:21> Yes all other systems are reviewed and are negative <EKATERINA Cortes - Last Filed: 09/02/22 18:21> PMFSH Past Medical History Source: nursing notes reviewed <EKATERINA Cortes - Last Filed: 09/02/22 18:21> Medical History: Medical History Arthritis <EKATERINA Núñez - Last Filed: 09/07/22 15:23> Surgical History: Surgical History History of bladder surgery History of hysterectomy <EKATERINA Núñez - Last Filed: 09/07/22 15:23> Family History Family History: Family History Mother No problems noted. Father No problems noted. <EKATERINA Núñez - Last Filed: 09/07/22 15:23> Social History Social History: Social History Housing: House Alcohol intake: former Patient Tobacco Use Status: Former Tobacco user Quit Date: 5 months ago Tobacco use type: Cigarette e-Cigarette/Vaping Use: Never Used Second Hand Smoke Exposure: No service: No Current occupational status: retired Current occupational exposures/hazards: No Cognitive needs: No Hearing needs: No Vision needs: No <EKATERINA Núñez - Last Filed: 09/07/22 15:23> Physical Exam ED Vital Signs: Vital Signs - 24 hr 09/02/22 13:14 Temperature 97.5 F Pulse Rate 75 Respiratory Rate 16 Blood Pressure 155/76 H Pulse Oximetry 94 Oxygen Delivery Method Room Air BMI result Body Mass Index 32.3 <EKATERINA Núñez - Last Filed: 09/07/22 15:23> Vital Signs - 24 hr 09/02/22 13:14 Temperature 97.5 F Pulse Rate 75 Respiratory Rate 16 Blood Pressure 155/76 H Pulse Oximetry 94 Oxygen Delivery Method Room Air BMI result Body Mass Index 32.3 <EKATERINA Cortes - Last Filed: 09/02/22 18:21> General appearance no acute distress, comfortable appearing The ears are clear with no redness no narrowing of canal, normal tympanic membrane Eyes no redness or discharge there is no swelling around the orbits Facial exam there is mild redness around the left upper maxilla as well as some mild swelling and tenderness, no fluctuance Dental exam there is no swelling under the tongue there is no trismus no drooling, there is tenderness to the left upper molar area the gum is red but there was no obvious fluctuance, the tooth was broken and appear to be decayed The pharynx was clear with no redness swelling or exudate, mucous membranes were moist, voice was normal Neck is supple Chest clear to auscultation bilateral no respiratory distress Extremities for edge motion x4 Skin no rash <EKATERINA Cortes - Last Filed: 09/02/22 18:21> Course Course Course Narrative: DEBRA. Left sided facial swelling due to tooth ache. no drooling or foaming. upper molar pain. Patient upper facial swelling now radiating to lower mandible. VItal signs are stable. labs ordered in case ED provider would like soft tissue neck CT. CHeck kidney function. <EKATERINA Núñez - Last Filed: 09/07/22 15:23> DEBRA. Left sided facial swelling due to tooth ache. no drooling or foaming. upper molar pain. Patient upper facial swelling now radiating to lower mandible. VItal signs are stable. labs ordered in case ED provider would like soft tissue neck CT. CHeck kidney function. 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 swallowing, patient will return if redness and swelling worsened while taking the Augmentin or if any swelling under the tongue or in the neck She was comfortable and pain was relieved well enough with Tylenol She is advised to find a dentist if possible and be seen at earliest possible date and given a list of dentists <EKATERINA Cortes - Last Filed: 09/02/22 18:21> Medications Administered Discontinued Medications Generic Name Dose Route Start Last Admin Trade Name Freq PRN Reason Stop Dose Admin Acetaminophen 975 mg 09/02/22 14:34 09/02/22 14:39 Acetaminophen 325 Mg Tablet PO 09/02/22 14:35 975 mg ONCE ONE Administration Amoxicillin/Clavulanate Potassium 875 mg 09/02/22 14:34 09/02/22 14:39 Amoxicillin/Potassium Clav 875 Mg Tablet PO 09/02/22 14:35 875 mg ONCE ONE Administration <EKATERINA Núñez - Last Filed: 09/07/22 15:23> Medications Administered Discontinued Medications Generic Name Dose Route Start Last Admin Trade Name Freq PRN Reason Stop Dose Admin Acetaminophen 975 mg 09/02/22 14:34 09/02/22 14:39 Acetaminophen 325 Mg Tablet PO 09/02/22 14:35 975 mg ONCE ONE Administration Amoxicillin/Clavulanate Potassium 875 mg 09/02/22 14:34 09/02/22 14:39 Amoxicillin/Potassium Clav 875 Mg Tablet PO 09/02/22 14:35 875 mg ONCE ONE Administration <EKATERINA Cortes - Last Filed: 09/02/22 18:21> Medical Decision Making Lab Data Result diagrams: : 09/02/22 13:52 09/02/22 13:52 <EKATERINA Núñez - Last Filed: 09/07/22 15:23> Labs: Lab Results 09/02/22 09/02/22 Range/Units 13:52 13:52 WBC 4.6 L (4.8-10.8) X10*3/uL RBC 5.31 (4.20-5.50) X10*6/uL Hgb 16.1 H (12.0-16.0) g/dl Hct 47.1 H (37.0-47.0) % MCV 88.7 (80.0-98.0) fL MCH 30.3 (27.0-33.0) pg MCHC 34.2 (31.0-35.0) g/dl RDW 13.0 (11.0-16.0) % Plt Count 147 L D (160-400) X10*3/uL MPV 9.4 (9.4-12.3) fL Immature Gran % (Auto) 0.2 (0.0-0.4) % Neut % (Auto) 53.0 (45-73) % Lymph % (Auto) 36.7 (20-40) % [place] % (Auto) 9.0 (2-11) % Eos % (Auto) 0.4 (0-4) % Baso % (Auto) 0.7 (0-2) % Lymph # (Auto) 1.7 (1.2-4.9) X10*3/uL [place] # (Auto) 0.4 (0.1-1.2) X10*3/uL Eos # (Auto) 0.0 (0.0-0.4) X10*3/uL Baso # (Auto) 0.0 (0.0-0.2) X10*3/uL Abs Immat Gran (auto) 0.01 (0.00-0.03) X10*3/uL Absolute Neuts (auto) 2.4 (2.0-8.3) x10*3/uL Absolute Nucleated RBC 0.000 (0.0-0.012) X10*3/uL Nucleated RBC % (auto) 0.0 (0.0-0.2) /100WBC Sodium 141 (135-145) mmol/L Potassium 3.9 (3.3-5.1) mmol/L Chloride 101 (96-108) mmol/L Carbon Dioxide 28 (22-29) mmol/L Anion Gap 16 (12-20) BUN 13 (9-16) mg/dL Creatinine 0.77 (0.5-1.4) mg/dL Estim Creat Clear Calc 82.6 Estimated GFR > 60 Random Glucose 92 (60-115) mg/dL Calcium 9.1 D (8.4-10.2) mg/dL Total Bilirubin 0.6 (0.0-1.0) mg/dL AST 45 H D (5-31) U/L ALT 54 H (0-31) U/L Alkaline Phosphatase 72 (39-117) U/L Total Protein 7.4 (6.5-8.0) g/dL Albumin 4.3 (3.5-5.0) g/dL <EKATERINA Núñez - Last Filed: 09/07/22 15:23> Lab Results 09/02/22 09/02/22 Range/Units 13:52 13:52 WBC 4.6 L (4.8-10.8) X10*3/uL RBC 5.31 (4.20-5.50) X10*6/uL Hgb 16.1 H (12.0-16.0) g/dl Hct 47.1 H (37.0-47.0) % MCV 88.7 (80.0-98.0) fL MCH 30.3 (27.0-33.0) pg MCHC 34.2 (31.0-35.0) g/dl RDW 13.0 (11.0-16.0) % Plt Count 147 L D (160-400) X10*3/uL MPV 9.4 (9.4-12.3) fL Immature Gran % (Auto) 0.2 (0.0-0.4) % Neut % (Auto) 53.0 (45-73) % Lymph % (Auto) 36.7 (20-40) % [place] % (Auto) 9.0 (2-11) % Eos % (Auto) 0.4 (0-4) % Baso % (Auto) 0.7 (0-2) % Lymph # (Auto) 1.7 (1.2-4.9) X10*3/uL [place] # (Auto) 0.4 (0.1-1.2) X10*3/uL Eos # (Auto) 0.0 (0.0-0.4) X10*3/uL Baso # (Auto) 0.0 (0.0-0.2) X10*3/uL Abs Immat Gran (auto) 0.01 (0.00-0.03) X10*3/uL Absolute Neuts (auto) 2.4 (2.0-8.3) x10*3/uL Absolute Nucleated RBC 0.000 (0.0-0.012) X10*3/uL Nucleated RBC % (auto) 0.0 (0.0-0.2) /100WBC Sodium 141 (135-145) mmol/L Potassium 3.9 (3.3-5.1) mmol/L Chloride 101 (96-108) mmol/L Carbon Dioxide 28 (22-29) mmol/L Anion Gap 16 (12-20) BUN 13 (9-16) mg/dL Creatinine 0.77 (0.5-1.4) mg/dL Estim Creat Clear Calc 82.6 Estimated GFR > 60 Random Glucose 92 (60-115) mg/dL Calcium 9.1 D (8.4-10.2) mg/dL Total Bilirubin 0.6 (0.0-1.0) mg/dL AST 45 H D (5-31) U/L ALT 54 H (0-31) U/L Alkaline Phosphatase 72 (39-117) U/L Total Protein 7.4 (6.5-8.0) g/dL Albumin 4.3 (3.5-5.0) g/dL <EKATERINA Cortes - Last Filed: 09/02/22 18:21> Discharge Plan Discharge Clinical Impression: Abscess, dental <EKATERINA Núñez - Last Filed: 09/07/22 15:23> Patient Disposition: Home, Self-Care <EKATERINA Núñez - Last Filed: 09/07/22 15:23> Additional Instructions: Follow with dentist which is most important We are adding a stronger antibiotic Augmentin instead of the penicillin, so you can stop the penicillin and use the Augmentin It is a good idea to take probiotics with antibiotics to prevent diarrhea Return to the ER any time infection gets worse, spreading redness, increased pain and swelling, swelling under the tongue, difficulty speaking or swallowing, any worse condition or any concerns <EKATERINA Núñez - Last Filed: 09/07/22 15:23> Prescriptions: New amoxicillin-pot clavulanate 875-125 mg tablet 1 tab PO BID 7 Days Qty: 14 0RF acetaminophen 500 mg tablet 1,000 mg PO QID PRN (Reason: pain) Qty: 30 0RF No Action meloxicam 15 mg tablet 15 mg PO DAILY 30 Days Qty: 30 1RF lisinopril-hydrochlorothiazide 20-12.5 mg tablet 1 tab PO DAILY 30 Days Qty: 30 1RF cholecalciferol (vitamin D3) [Vitamin D3] 25 mcg (1,000 unit) Tablet 25 mcg PO DAILY psyllium husk 3.4 gram/5.4 gram Powder 1 tbsp PO DAILY Rx Instructions: mix into at least 8 oz of water or juice before administering clindamycin HCl 300 mg capsule 300 mg PO Q6H 7 Days Qty: 28 0RF ibuprofen 600 mg tablet 600 mg PO Q8H PRN (Reason: fever or pain) Qty: 20 0RF oxycodone 5 mg tablet 5 mg PO Q8H PRN (Reason: severe pain (scale score 7-10)) Qty: 7 0RF Rx Instructions: Partial Fill upon patient request. penicillin V potassium 500 mg tablet 500 mg PO TID 10 Days Qty: 30 0RF All Day Allergy (cetirizine) 10 mg capsule 10 mg PO DAILY 30 Days Qty: 30 1RF omeprazole 40 mg capsule,delayed release(DR/EC) 40 mg PO DAILY 30 Days Qty: 30 6RF <EKATERINA Núñez - Last Filed: 09/07/22 15:23> Interventions: ED Discharge Assessment Last Done: 09/02/22 15:12 <EKATERINA Núñez - Last Filed: 09/07/22 15:23> Discharge Date/Time: 09/02/22 15:10 <EKATERINA Núñez - Last Filed: 09/07/22 15:23>
[2022-09-02 13:56] LABS: MANUAL DIFF FLAG NO
[2022-09-02 13:58] LABS: Basophils Percent Auto 0.7 % (0-2); Eosinophils Percent Auto 0.4 % (0-4); Hematocrit 47.1 % (37.0-47.0); Hemoglobin 16.1 g/dl (12.0-16.0); Imm Gran Abs Auto 0.01 X10*3/uL (0.00-0.03); Imm Gran Pct Auto 0.2 % (0.0-0.4); Lymphocytes Absolute Auto 1.7 X10*3/uL (1.2-4.9); Lymphocytes Percent Auto 36.7 % (20-40); Mean Corpuscular HGB Conc 34.2 g/dl (31.0-35.0); Mean Corpuscular Hemoglobin 30.3 pg (27.0-33.0); Mean Corpuscular Volume 88.7 fL (80.0-98.0); Mean Platelet Volume 9.4 fL (9.4-12.3); Monocytes Absolute Auto 0.4 X10*3/uL (0.1-1.2); Neutrophils Absolute Auto 2.4 x10*3/uL (2.0-8.3); Red Blood Count 5.31 X10*6/uL (4.20-5.50); White Blood Count 4.6 X10*3/uL (4.8-10.8)
[2022-09-02 14:20] LABS: Alanine Aminotransferase 54 U/L (0-31); Albumin Level 4.3 g/dL (3.5-5.0); Alkaline Phosphatase 72 U/L (39-117); Anion Gap 16 (12-20); Aspartate Amino Transferase 45 U/L (5-31); Bilirubin Total 0.6 mg/dL (0.0-1.0); Blood Urea Nitrogen 13 mg/dL (9-16); Calcium 9.1 mg/dL (8.4-10.2); Carbon Dioxide 28 mmol/L (22-29); Chloride 101 mmol/L (96-108); Creatinine Clr Calc Pharmacy 82.6; Estimated Glomerular Filt Rate > 60; Glucose Random 92 mg/dL (60-115); Potassium 3.9 mmol/L (3.3-5.1); Sodium 141 mmol/L (135-145); Total Protein 7.4 g/dL (6.5-8.0)
[2022-09-02 14:31] LABS: Platelet Count 147 X10*3/uL (160-400)
[2022-09-02] MEDS: Amoxicillin/Potassium Clav 875 MG TABLET PO (14:39)
[2022-09-02] MEDS: Acetaminophen 325 MG TABLET 975 MG PO (14:39)
== END 2022-09-02 15:10 | disposition home or self-care (01) ==
PROVIDERS: Physician Assistant; Emergency Provider Emergency Medicine; PCP Family Medicine
DX: K04.7 Periapical abscess without sinus (principal); Z87.891 Personal history of nicotine dependence; Z79.899 Other long term (current) drug therapy
CPT/HCPCS: 36415; 80053; 85025; 99283

== ENCOUNTER 2022-09-05 07:33 | Emergency (ER) | payer MEDICARE, SELFPAY ==
--- NOTE | ~2022-09-05 | CT_ITS ---
CT SOFT TISSUE NECK WITH CONTRAST CLINICAL INFORMATION: Submandibular swelling status post tooth extraction. COMPARISON: None available. TECHNIQUE: Following the intravenous administration of 60 mL of Omnipaque 350 intravenous contrast, helical imaging was performed in the axial plane with generation of coronal and sagittal reformatted images. This CT examination was performed using dose optimization techniques as appropriate, variously including the following: *Automated exposure control *Adjustment of mA and/or kV according to patient size (this includes techniques or standardized protocols for targeted exams where dose is matched to indication/reason for exam; i.e. extremities or head) *Use of iterative reconstruction technique FINDINGS: Left second maxillary premolar extraction site containing gas. There is enhancing phlegmon within the left dina-maxillary soft tissues best seen on coronal image 13 of series 6. There is likely a very small left dina-maxillary abscess measuring 1 mm in thickness which is not drainable at this time best seen on axial image 37 of series 2 located just anterior to the extraction site. There is some cellulitis within the adjacent left facial soft tissues. The thyroid gland, the parotid glands, and the submandibular glands are unremarkable. No retropharyngeal fluid collections. Cervical arterial vasculature remains patent. No pathologic size criteria cervical lymphadenopathy. No superficial mucosal space lesions. There is multilevel cervical spondylosis. There is mild mucosal thickening throughout the paranasal sinuses. Small fluid level within the right sphenoid sinus. Small right mastoid effusion. TMJs are unremarkable. The imaged lungs are clear. Imaged upper mediastinum is unremarkable. The imaged intracranial compartment is unremarkable. CT/CT soft tissue neck w IV con IMPRESSION: Left second maxillary premolar extraction site containing gas. There is enhancing phlegmon within the left dina-maxillary soft tissues best seen on coronal image 13 of series 6. There is likely a very small left dina-maxillary abscess measuring 1 mm in thickness which is not drainable at this time best seen on axial image 37 of series 2 located just anterior to the extraction site. There is some cellulitis within the adjacent left facial soft tissues.
[2022-09-05 07:53] VITALS: BP 141/89; PULSE 72; RESP 16; O2SAT 94; BMI 35.5
--- NOTE | 2022-09-05 08:06 | ED_ITS ---
HPI - Dental/Oral General Chief complaint: Dental/Oral Stated complaint: tooth pain swelling Time Seen by Provider: 09/05/22 08:01 Source: patient Mode of arrival: ambulatory Limitations: no limitations History of Present Illness HPI Narrative: 66 yo female presents to the ER for evaluation of ongoing dental pain and swelling s/p extraction of upper left sided tooth on 09/03. She states she tasted foul drainage in her mouth today and is concerned about ongoing infection. She is already on Augmentin. She also reports some fullness under her chin and tenderness there as well. The dentist told her to get evaluated if she notices swelling had gotten worse. She states the swelling is persistent. It is not causing any issues with swallowing. She has any fever or chills. Denies trismus. She is worried about evolving infection. MD Complaint: tooth pain Teeth map: 1. Extraction site with erythema and tenderness. No visible drainage. Onset (ago): day(s) Duration: constant Severity: severe Relieving factors: NSAIDs Exacerbating factors: chewing and cold Context: trauma (mechanism) and poor dental care Treatment prior to arrival: none Related Data Home Medications Medication Instructions Recorded Confirmed cholecalciferol (vitamin D3) 25 25 mcg PO DAILY 04/03/22 04/03/22 mcg (1,000 unit) tablet (Vitamin D3) psyllium husk 3.4 gram/5.4 gram 1 tbsp PO DAILY 04/03/22 04/03/22 oral powder Previous Rx's Medication Instructions Recorded cetirizine 10 mg capsule (All Day 10 mg PO DAILY 30 days #30 caps 01/21/22 Allergy (cetirizine)) omeprazole 40 mg capsule,delayed 40 mg PO DAILY 30 days #30 caps 04/17/22 release meloxicam 15 mg tablet 15 mg PO DAILY 30 days #30 tabs 07/30/22 lisinopril 20 1 tab PO DAILY 30 days #30 tabs 07/31/22 mg-hydrochlorothiazide 12.5 mg tablet penicillin V potassium 500 mg 500 mg PO TID 10 days #30 tabs 08/31/22 tablet acetaminophen 500 mg tablet 1,000 mg PO QID PRN pain #30 tabs 09/02/22 amoxicillin 875 mg-potassium 1 tab PO BID 7 days #14 tabs 09/02/22 clavulanate 125 mg tablet clindamycin HCl 300 mg capsule 300 mg PO Q6H 7 days #28 caps 09/05/22 ibuprofen 600 mg tablet 600 mg PO Q8H PRN fever or pain 09/05/22 #20 tabs oxycodone 5 mg tablet 5 mg PO Q8H PRN severe pain (scale 09/05/22 score 7-10) #7 tabs Allergies Allergy/AdvReac Type Severity Reaction Status Date / Time No Known Allergies Allergy Verified 09/03/22 11:51 Review of Systems Review of Systems: Constitutional: No Fever, No Chills ENT/Mouth: No sore throat, No Rhinorrhea, No Swallowing Difficulty, +dental pain, +oral swelling, +facial swelling Eyes: No Eye Pain, No Swelling, No Redness Cardiovascular: No Chest Pain, No SOB, No Orthopnea, No Edema Respiratory: No Cough, No Sputum, Gastrointestinal: + Nausea, No Vomiting, No Diarrhea, No abdominal Pain Musculoskeletal: No joint pain, No Myalgias Skin: No Skin Lesions, No rash Neuro: No Weakness, No Numbness, No Dizziness, + Headache Psych: + Anxiety/Panic, + Depression Heme/Lymph: No Bruising, No Lymphadenopathy PMFSH Past Medical History Medical History Arthritis Surgical History History of bladder surgery History of hysterectomy Family History Family History Mother No problems noted. Father No problems noted. Social History Social History Housing: House Alcohol intake: former Patient Tobacco Use Status: Former Tobacco user Quit Date: 5 months ago Tobacco use type: Cigarette e-Cigarette/Vaping Use: Never Used Second Hand Smoke Exposure: No Advance Directives: No Advance Directives Information Provided: Yes service: No Current occupational status: retired Current occupational exposures/hazards: No Cognitive needs: No Hearing needs: No Vision needs: No Physical Exam Vital Signs: Vital Signs: Last Vital Signs Temp 98.7 F 09/05/22 10:09 Pulse 72 09/05/22 07:53 Resp 16 09/05/22 07:53 BP 141/89 H 09/05/22 07:53 Pulse Ox 94 09/05/22 07:53 O2 Del Method 09/05/22 07:53 BMI result Body Mass Index 35.5 Appearance: Alert. Oriented X3. No acute distress. Head/face: there is slight swelling and fullness of the left maxillary area with tenderness. No overlying erythema or warmth. Eyes: Pupils equal, round and reactive to light. ENT: Pharynx With moist mucous membranes. Left upper maxillary pre molar extraction site with erythema and tenderness, no area of fluctuance, no visible drainage. Normal inspection and range of motion of the tongue. Normal speech, handling secretions normally. Neck: Mild submandibular fullness and tenderness, no palpable abscess. No palpable lymphadenopathy. Neck supple. Normal range of motion. Trachea is midline. CVS: Normal heart rate and rhythm. Pulses normal. Respiratory: No respiratory distress. Breath sounds normal. Skin: Skin warm and dry. Normal skin color. Normal skin turgor. No rashes. Extremities: No lower extremity edema. Neuro: Oriented X 3. Grossly normal, nonfocal Course Course Course Narrative: 66 yo female s/p recent tooth extraction presents to the ER for evaluation of ongoing dental pain and facial pain. Palpable swelling submadibularly but it is mild, has been present for several days and is not worsening. she is on augmentin. Will get CT scan and labs for further evaluation. Reevaluation(s) Reevaluation #1: CT SCAN SHOWING: Left second maxillary premolar extraction site containing gas.? There is enhancing phlegmon within the left dina-maxillary soft tissues best seen on coronal image 13 of series 6. There is likely a very small left dina-maxillary abscess measuring 1 mm in thickness which is not drainable at this time best seen on axial image 37 of series 2 located just anterior to the extraction site. There is some cellulitis within the adjacent left facial soft tissues. no drainable abscess at this time. No evidence Jim's angina. No subm andibular space infection. Will plan to increase antibiotic coverage in add clindamycin. She did receive a dose of IV clindamycin IV Decadron here. At this time comfortable discharge home with pain medication, oral antibiotics and follow up closely with her dentist. Patient agrees with plan. Return precautions were discussed. Medications Administered Discontinued Medications Generic Name Dose Route Start Last Admin Trade Name Freq PRN Reason Stop Dose Admin Dexamethasone Sodium Phosphate 8 mg 09/05/22 08:27 09/05/22 09:14 Dexamethasone Sod Phosphate 4 Mg/Ml Vial IVPUSH 09/05/22 08:28 8 mg ONCE ONE Administration Clindamycin Phosphate 300 mg in 50 mls @ 100 mls/hr 09/05/22 09:25 09/05/22 10:08 Cleocin IV 09/05/22 09:54 100 mls/hr ONCE ONE Administration Iohexol 60 ml 09/05/22 10:07 09/05/22 10:07 Iohexol 350 Mg/Ml 75 Ml Infus..Btl IV 09/05/22 10:08 60 ml ONCE ONE Administration Morphine Sulfate 4 mg 09/05/22 08:26 09/05/22 09:13 Morphine Sulfate 4 Mg/Ml Cartridge IVPUSH 09/05/22 08:27 4 mg ONCE ONE Administration Protocol Ondansetron HCl 4 mg 09/05/22 08:26 09/05/22 09:13 Ondansetron Hcl 4 Mg/2 Ml Vial IVPUSH 09/05/22 08:27 4 mg ONCE ONE Administration MDM - Dental/Oral Lab Data Result diagrams: 09/05/22 09:06 09/05/22 09:06 Labs: Lab Results 09/05/22 09/05/22 09/05/22 Range/Units 09:06 09:06 09:06 WBC 3.5 L (4.8-10.8) X10*3/uL RBC 5.47 (4.20-5.50) X10*6/uL Hgb 16.4 H (12.0-16.0) g/dl Hct 48.2 H (37.0-47.0) % MCV 88.1 (80.0-98.0) fL MCH 30.0 (27.0-33.0) pg MCHC 34.0 (31.0-35.0) g/dl RDW 12.9 (11.0-16.0) % Plt Count 186 D (160-400) X10*3/uL MPV 9.3 L (9.4-12.3) fL Immature Gran % (Auto) 0.3 (0.0-0.4) % Neut % (Auto) 46.1 (45-73) % Lymph % (Auto) 43.3 H (20-40) % Sebastian % (Auto) 9.1 (2-11) % Eos % (Auto) 0.6 (0-4) % Baso % (Auto) 0.6 (0-2) % Lymph # (Auto) 1.5 (1.2-4.9) X10*3/uL Sebastian # (Auto) 0.3 (0.1-1.2) X10*3/uL Eos # (Auto) 0.0 (0.0-0.4) X10*3/uL Baso # (Auto) 0.0 (0.0-0.2) X10*3/uL Abs Immat Gran (auto) 0.01 (0.00-0.03) X10*3/uL Absolute Neuts (auto) 1.6 L (2.0-8.3) x10*3/uL Absolute Nucleated RBC 0.000 (0.0-0.012) X10*3/uL Nucleated RBC % (auto) 0.0 (0.0-0.2) /100WBC ESR 16 (0-20) MM/HR Sodium 142 (135-145) mmol/L Potassium 3.9 (3.3-5.1) mmol/L Chloride 103 (96-108) mmol/L Carbon Dioxide 26 (22-29) mmol/L Anion Gap 17 (12-20) BUN 11 (9-16) mg/dL Creatinine 0.76 (0.5-1.4) mg/dL Estim Creat Clear Calc 87.9 Estimated GFR > 60 Random Glucose 103 (60-115) mg/dL Calcium 9.1 (8.4-10.2) mg/dL C-Reactive Protein 1.59 H (< or = 0.50) mg/dL Discharge Plan Discharge Clinical Impression: Abscess, dental Patient Disposition: Home, Self-Care Instructions: Dental Abscess (ED) Additional Instructions: your CT scan showed Left second maxillary premolar extraction site containing gas.? There is enhancing phlegmon within the left dina-maxillary soft tissues best seen on coronal image 13 of series 6. There is likely a very small left dina-maxillary abscess measuring 1 mm in thickness which is not drainable at this time best seen on axial image 37 of series 2 located just anterior to the extraction site. There is some cellulitis within the adjacent left facial soft tissues. recommend ADDING clindamycin to your antibiotic regimen. start taking it tonight - you were given 1st dose in the ER IV. CONTINUE your Augmentin Take the prescribed anti-inflammatory medication As needed for pain and swelling. Take the prescribed narcotic pain medication as needed for severe pain. Avoid food that is very high and very cold. Follow-up with your dentist early next week, as soon as possible. If you develop new or worsening symptoms call 911 or come back to the ER for further evaluation. Prescriptions: New clindamycin HCl 300 mg capsule 300 mg PO Q6H 7 Days Qty: 28 0RF ibuprofen 600 mg tablet 600 mg PO Q8H PRN (Reason: fever or pain) Qty: 20 0RF oxycodone 5 mg tablet 5 mg PO Q8H PRN (Reason: severe pain (scale score 7-10)) Qty: 7 0RF Rx Instructions: Partial Fill upon patient request. No Action meloxicam 15 mg tablet 15 mg PO DAILY 30 Days Qty: 30 1RF lisinopril-hydrochlorothiazide 20-12.5 mg tablet 1 tab PO DAILY 30 Days Qty: 30 1RF cholecalciferol (vitamin D3) [Vitamin D3] 25 mcg (1,000 unit) Tablet 25 mcg PO DAILY psyllium husk 3.4 gram/5.4 gram Powder 1 tbsp PO DAILY Rx Instructions: mix into at least 8 oz of water or juice before administering amoxicillin-pot clavulanate 875-125 mg tablet 1 tab PO BID 7 Days Qty: 14 0RF acetaminophen 500 mg tablet 1,000 mg PO QID PRN (Reason: pain) Qty: 30 0RF penicillin V potassium 500 mg tablet 500 mg PO TID 10 Days Qty: 30 0RF All Day Allergy (cetirizine) 10 mg capsule 10 mg PO DAILY 30 Days Qty: 30 1RF omeprazole 40 mg capsule,delayed release(DR/EC) 40 mg PO DAILY 30 Days Qty: 30 6RF Referrals: Alexis Shaw MD [Primary Care Provider] - Interventions: ED Discharge Assessment Last Done: 09/05/22 11:56 Discharge Date/Time: 09/05/22 11:56
[2022-09-05 09:10] LABS: MANUAL DIFF FLAG NO
[2022-09-05 09:12] LABS: Basophils Percent Auto 0.6 % (0-2); Eosinophils Percent Auto 0.6 % (0-4); Hematocrit 48.2 % (37.0-47.0); Hemoglobin 16.4 g/dl (12.0-16.0); Imm Gran Abs Auto 0.01 X10*3/uL (0.00-0.03); Imm Gran Pct Auto 0.3 % (0.0-0.4); Lymphocytes Absolute Auto 1.5 X10*3/uL (1.2-4.9); Lymphocytes Percent Auto 43.3 % (20-40); Mean Corpuscular Volume 88.1 fL (80.0-98.0); Mean Platelet Volume 9.3 fL (9.4-12.3); Monocytes Absolute Auto 0.3 X10*3/uL (0.1-1.2); Monocytes Percent Auto 9.1 % (2-11); Neutrophils Absolute Auto 1.6 x10*3/uL (2.0-8.3); Neutrophils Percent Auto 46.1 % (45-73); Platelet Count 186 X10*3/uL (160-400); Red Blood Count 5.47 X10*6/uL (4.20-5.50); Red Cell Distribution Width 12.9 % (11.0-16.0); White Blood Count 3.5 X10*3/uL (4.8-10.8)
[2022-09-05] MEDS: ondansetron HCL 4 MG/2 ML VIAL IVPUSH (09:13)
[2022-09-05] MEDS: Morphine Sulfate 4 MG/ML CARTRIDGE IVPUSH (09:13)
[2022-09-05] MEDS: dexAMETHasone sod phosphate 4 MG/ML VIAL 8 MG IVPUSH (09:14)
[2022-09-05 09:28] LABS: Anion Gap 17 (12-20); Blood Urea Nitrogen 11 mg/dL (9-16); C Reactive Protein 1.59 mg/dL (< or = 0.50); Calcium 9.1 mg/dL (8.4-10.2); Carbon Dioxide 26 mmol/L (22-29); Chloride 103 mmol/L (96-108); Creatinine Clr Calc Pharmacy 87.9; Estimated Glomerular Filt Rate > 60; Glucose Random 103 mg/dL (60-115); Potassium 3.9 mmol/L (3.3-5.1); Sodium 142 mmol/L (135-145)
[2022-09-05] MEDS: iohexoL 350 MG/ML 75 ML INFUS..BTL 60 ML IV (10:07)
[2022-09-05] MEDS: Clindamycin Phosphate/D5W 300 MG/50 ML PIGGYBACK 100 MG IV (10:08)
[2022-09-05 10:09] VITALS: TEMP 37.1
--- NOTE | 2022-09-05 10:13 | PC.NURSE ---
IV established, labs drawn and sent. Antibiotics running. CT scan taken
[2022-09-05 10:33] LABS: Erythrocyte Sedimentation Rate 16 MM/HR (0-20)
== END 2022-09-05 11:56 | disposition home or self-care (01) ==
PROVIDERS: Physician Assistant; Emergency Provider Emergency Medicine; PCP Family Medicine
DX: K04.7 Periapical abscess without sinus (principal); K08.89 Other specified disorders of teeth and supporting structures; Z87.891 Personal history of nicotine dependence
CPT/HCPCS: 36415; 70491; 80048; 85025; 85652; 86140; 96374; 96375; 99283; 99284; J1100; J2270; J2405; Q9967

== ENCOUNTER 2022-09-23 09:54 | Outpatient (REF) | payer MEDICARE, SELFPAY ==
--- NOTE | ~2022-09-23 | XR_ITS ---
EXAMINATION: XR CHEST CLINICAL INFORMATION: R06.02 - Shortness of breath COMPARISON: Chest radiograph 01/25/2021 TECHNIQUE: 2 views of the chest were obtained. FINDINGS: No hyperinflation, airspace consolidation, pleural reaction, or groundglass opacity. The costophrenic sulci are clear. The heart is normal in size. The hilar and mediastinal contours are normal. No acute bony abnormality. There is small focal calcification adjacent to the right humeral head consistent with calcific tendinosis. XR/XR chest 2V IMPRESSION: Lungs clear. No acute intrathoracic disease.
== END 2022-09-23 09:55 | disposition home or self-care (01) ==
LOC: HO.XRAY 09:54
PROVIDERS: PCP Family Medicine; Visit Provider Family Medicine
DX: K21.9 Gastro-esophageal reflux disease without esophagitis (principal); R06.02 Shortness of breath; Z72.0 Tobacco use
CPT/HCPCS: 71046; 99212

== ENCOUNTER 2023-02-26 12:19 | Outpatient (REF) | payer MEDICARE, MEDICAID, SELFPAY ==
--- NOTE | ~2023-02-26 | XR_ITS ---
EXAMINATION: XR LUMBOSACRAL SPINE CLINICAL INFORMATION: Back pain COMPARISON: None available. TECHNIQUE: Three views of the lumbosacral spine. FINDINGS: Bone alignment is normal. No fracture or dislocation. Degenerative disc disease at L5-S1. Lower lumbar spine facet arthritis. XR/XR lumbar spine 2-3V IMPRESSION: Degenerative changes.
--- NOTE | ~2023-02-26 | XR_ITS ---
EXAMINATION: XR CHEST CLINICAL INFORMATION: Shortness of breath COMPARISON: Previous chest x-ray most recent August 2022 TECHNIQUE: 2 views of the chest were obtained. FINDINGS: No significant abnormality is noted involving the heart, lungs, mediastinum, bony thorax or soft tissues. XR/XR chest 2V IMPRESSION: Unremarkable examination.
== END 2023-02-26 12:20 | disposition home or self-care (01) ==
LOC: HO.XRAY 12:19
PROVIDERS: PCP Family Medicine; Visit Provider Family Medicine
DX: M54.9 Dorsalgia, unspecified (principal); R05.9 Cough, unspecified; R06.02 Shortness of breath
CPT/HCPCS: 71046; 72100

== ENCOUNTER 2023-03-06 09:49 | Emergency (ER) | payer MEDICARE, SELFPAY ==
[2023-03-06 09:56] VITALS: BP 112/93; PULSE 88; RESP 18; TEMP 36.6; O2SAT 98; BMI 36.6
--- NOTE | 2023-03-06 10:03 | ED.FEMALEGU ---
HPI - Female Genitourinary General Chief complaint: Urogenital-Female Stated complaint: fever quest uti Time Seen by Provider: 03/06/23 10:00 Source: patient Mode of arrival: ambulatory Limitations: no limitations History of Present Illness HPI Narrative: 67 yo female wit history of arthritis, COPD, seasonal allergies here with complaints of one week of sneezing, nasal congestion. developed tactile temps, dysuria, suprapubic discomfort, decreased appetitie. No nausea, vomiting, diarrhea, hematuria, back pain, shortness of breath, chest pain. Related Data Home Medications Medication Instructions Recorded Confirmed cholecalciferol (vitamin D3) 25 25 mcg PO DAILY 04/03/22 04/03/22 mcg (1,000 unit) tablet (Vitamin D3) psyllium husk 3.4 gram/5.4 gram 1 tbsp PO DAILY 04/03/22 04/03/22 oral powder Previous Rx's Medication Instructions Recorded cetirizine 10 mg capsule (All Day 10 mg PO DAILY 30 days #30 caps 01/21/22 Allergy (cetirizine)) acetaminophen 500 mg tablet 1,000 mg PO QID PRN pain #30 tabs 09/02/22 ibuprofen 600 mg tablet 600 mg PO Q8H PRN fever or pain 09/05/22 #20 tabs azithromycin 250 mg tablet See Rx Instructions PO .COMPLEX 5 12/03/22 (Zithromax Z-Eduardo) days #6 tabs prednisone 20 mg tablet 40 mg PO DAILY 5 days #10 tabs 12/03/22 omeprazole 40 mg capsule,delayed 40 mg PO DAILY 30 days #30 caps 12/14/22 release albuterol sulfate 90 mcg/actuation 2 puff inhalation Q4-6H PRN 01/11/23 aerosol inhaler (ProAir HFA) shortness of breath or wheezing 30 days #8.5 grams lisinopril 20 1 tab PO DAILY 90 days #90 tabs 01/11/23 mg-hydrochlorothiazide 25 mg tablet meloxicam 15 mg tablet 15 mg PO DAILY 30 days #30 tabs 01/14/23 cephalexin 500 mg capsule 500 mg PO Q12H 10 days #20 caps 02/11/23 fluticasone propionate 110 1 puff inhalation Q12H 30 days #12 02/11/23 mcg/actuation HFA aerosol inhaler grams (Flovent HFA) cefuroxime axetil 500 mg tablet 500 mg PO BID #14 tabs 03/06/23 fluconazole 150 mg tablet 150 mg PO Q3D 2 doses #2 tabs 03/06/23 (Diflucan) phenazopyridine 200 mg tablet 200 mg PO TID PRN pain 6 doses #14 03/06/23 (Pyridium) tabs Allergies Allergy/AdvReac Type Severity Reaction Status Date / Time No Known Allergies Allergy Verified 01/11/23 10:49 Review of Systems Review of Systems: Yes all other systems are reviewed and are negative Constitutional: Constitutional: Reports no additional constitutional complaints, Denies body ache(s), Denies chills, Reports fever(s), Denies headache(s) and Denies weakness Eyes: Eyes: Reports no additional eye complaints and Denies change in vision ENT: Reports system reviewed and no additional complaints, except as documented, Denies dizziness, Denies headache(s), Reports nasal congestion, Denies nasal discharge and Denies neck pain Cardiovascular: Cardiovascular: Reports no additional cardiovascular complaints, Denies chest pain, Denies leg edema and Denies dyspnea Respiratory: Respiratory: Reports no additional respiratory complaints, Denies cough and Denies dyspnea Gastrointestinal: Gastrointestinal: Reports no additional gastrointestinal complaints, Reports abdominal pain, Denies diarrhea, Denies nausea and Denies vomiting Genitourinary: Genitourinary: Reports no additional female genitourinary complaints, Reports dysuria, Denies urinary incontinence, Denies urinary hesitancy and Denies urinary urgency Musculoskeletal: Musculoskeletal: Reports no additional musculoskeletal complaints, Denies back pain, Denies arthralgias, Denies joint swelling, Denies neck pain, Denies numbness and Denies tingling Integumentary/Breasts: Skin/Breast: Reports system reviewed and no additional complaints, except as docu and Denies rash Neurologic: Reports system reviewed and no additional complaints, except as documented, Denies Abnormal speech present, Denies dizziness, Denies headache(s), Denies numbness, Denies tingling and Denies weakness PMFSH Past Medical History Attestation statement: The following information was validated with the patient. Source: old records reviewed and nursing notes reviewed Medical History Arthritis Surgical History H/O colonoscopy History of bladder surgery History of hysterectomy Family History Family History Mother No problems noted. Father No problems noted. Social History Social History Housing: House Alcohol intake: former Patient Tobacco Use Status: Former Tobacco user Quit Date: 5 months ago Tobacco use type: Cigarette Smoked in Last 30 Days: No e-Cigarette/Vaping Use: Never Used Second Hand Smoke Exposure: No Use of substances other than those prescribed or required for medical reasons: No Advance Directives: No Advance Directives Information Provided: No service: No Current occupational status: retired Current occupational exposures/hazards: No Cognitive needs: No Hearing needs: No Vision needs: No Physical Exam Vital Signs: Vital Signs: Last Vital Signs Temp 98 F 03/06/23 09:56 Pulse 88 03/06/23 09:56 Resp 18 03/06/23 09:56 BP 112/93 H 03/06/23 09:56 Pulse Ox 98 03/06/23 09:56 O2 Del Method Room Air 03/06/23 09:56 BMI result Body Mass Index 36.6 Const: General: cooperative, healthy appearing, comfortable and no acute distress Orientation/consciousness: patient oriented x3 Limitations: no limitations HEENT: Head: Yes normal to inspection Ears: hearing grossly normal bilaterally and TM's normal bilaterally General nose exam: Normal external nose present Face and sinus: Yes normal facial exam Mouth: Normal oral and palatal mucosa present Throat: Yes posterior oropharynx normal, Yes tonsils normal and Yes uvula midline Eyes: General: appearance normal, both eyes and all related structures Pupils: Equal, round and reactive pupils present Neck: Neck: Yes normal visual inspection, Yes full ROM, Yes no lymphadenopathy and Yes no meningeal signs Chest: Chest palpation & inspection: normal inspection of the chest Resp: Effort & Inspection: normal respiratory effort Auscultation: clear to auscultation bilaterally Cardio: Rate: regular rate Rhythm: regular rhythm Peripheral pulses: Peripheral pulses 2+ throughout GI: Inspection: Yes normal to inspection Palpation (GI): Soft to palpation and nontender Auscultation: normal bowel sounds : General: Yes no CVA tenderness Back/Spine/Pelvis: Back: no CVA tenderness Thoracic/Lumbar Spine: thoracic and lumbar spine normal to inspection Skin: General skin exam: no rashes or lesions noted Neuro: General: patient oriented x3, no meningeal signs, no focal motor deficits and normal sensation to monofilament Cranial nerves: Yes Equal, round and reactive pupils present Cognition (Neuro): normal cognition Speech: No Abnormal speech present Gait exam (Neuro): Normal gait present Motor exam (neuro): 5/5 motor strength present throughout Extrem: General: Yes normal to inspection Course Course Course Narrative: Urine is consistent with a urinary tract infection. Patient is nontoxic appearing. Afebrile here. No CVA tenderness, abdominal pain, vomiting to suggest pyelonephritis. Patient was treated with course of antibiotics. Patient reports she tends to get yeast infection whenever she takes antibiotics I will give her prescription for Diflucan. Her COVID screen was negative. Reviewed worrisome signs and symptoms of when to return to the emergency room. Comfortable plan for discharge home. Medical Decision Making Medical Decision Making [facility] Narrative: 67 yo female here with what sounds like allergic rhinitis symptoms x 1 week, now with tactile temps, dysuria, suprapubic discomfort since . No focal abdominal pain on exam. No fever here. No CVAT. WIll send covid screen, UA Differential Diagnosis Differential Diagnoses: The differential diagnosis associated with the presentation includes UTI, viral syndrome, allergic rhinitis Doubt pyelonephritis, intra-abdominal pathology Lab Data Labs: Lab Results 03/06/23 03/06/23 Range/Units 10:08 10:08 Urine Color Yellow Urine Appearance Cloudy Urine pH 6.5 (5.0-9.0) Ur Specific [place] 1.010 (1.005-1.025) Urine Protein Negative (Neg-Trace) mg/dL Urine Glucose (UA) Negative (Negative) mg/dL Urine Ketones Negative (Negative) mg/dL Urine Blood Trace H (Negative) Urine Nitrite Negative (Negative) Ur Leukocyte Esterase Large (3+) H (Negative) Urine RBC 3-5 H (0-2) /HPF Urine WBC >50 H (0-5) /HPF Ur Squamous Epith Cells 3-5 (0-2) /HPF Urine Bacteria 4+ (None Seen) Hyaline Casts 0-2 (0-2) /LPF COVID-19 (MICHAEL) Negative (Negative) COVID-19 Clin Com See Note Discharge Plan Discharge Clinical Impression: Urinary tract infection Patient Disposition: Home, Self-Care Instructions: Urinary Tract Infection in Women (DC) Additional Instructions: Increase fluids at home Take all the antibiotics as prescribed Return for worsening back or abdominal pain, multiple episodes of vomiting, weakness, fever greater than 100.4 Prescriptions: New cefuroxime axetil 500 mg tablet 500 mg PO BID Qty: 14 0RF phenazopyridine [Pyridium] 200 mg tablet 200 mg PO TID PRN (Reason: pain) Qty: 14 0RF fluconazole [Diflucan] 150 mg tablet 150 mg PO Q3D Qty: 2 0RF Rx Instructions: May repeat dose in 3 days if continuing to have symptoms No Action omeprazole 40 mg capsule,delayed release(DR/EC) 40 mg PO DAILY 30 Days Qty: 30 6RF meloxicam 15 mg tablet 15 mg PO DAILY 30 Days Qty: 30 1RF cholecalciferol (vitamin D3) [Vitamin D3] 25 mcg (1,000 unit) Tablet 25 mcg PO DAILY psyllium husk 3.4 gram/5.4 gram Powder 1 tbsp PO DAILY Rx Instructions: mix into at least 8 oz of water or juice before administering acetaminophen 500 mg tablet 1,000 mg PO QID PRN (Reason: pain) Qty: 30 0RF ibuprofen 600 mg tablet 600 mg PO Q8H PRN (Reason: fever or pain) Qty: 20 0RF azithromycin [Zithromax Z-Eduardo] 250 mg tablet See Rx Instructions PO .COMPLEX 5 Days Qty: 6 0RF Rx Instructions: take 500 mg today (day 1), then 250 mg for 4 days (days 2-5) PO prednisone 20 mg tablet 40 mg PO DAILY 5 Days Qty: 10 0RF lisinopril-hydrochlorothiazide 20-25 mg tablet 1 tab PO DAILY 90 Days Qty: 90 2RF albuterol sulfate [ProAir HFA] 90 mcg/actuation HFA aerosol inhaler 2 puff inhalation Q4-6H PRN (Reason: shortness of breath or wheezing) 30 Days Qty: 8.5 0RF All Day Allergy (cetirizine) 10 mg capsule 10 mg PO DAILY 30 Days Qty: 30 1RF cephalexin 500 mg capsule 500 mg PO Q12H 10 Days Qty: 20 0RF fluticasone propionate [Flovent HFA] 110 mcg/actuation HFA aerosol inhaler 1 puff inhalation Q12H 30 Days Qty: 12 2RF Referrals: Alexis Shaw MD [Primary Care Provider] - 1 week (as needed)
[2023-03-06 10:21] LABS: Appearance Urine Cloudy; Color Urine Yellow; Glucose Urine UA Negative (Negative); Leukocyte Esterase Urine Large (3+) (Negative); Nitrite Urine Negative (Negative); PH 6.5 (5.0-9.0); UMIC TRIGGER UACC YES; Urine Blood Trace (Negative); Urine Ketones Negative (Negative); Urine Protein Negative (Neg-Trace)
[2023-03-06 10:26] LABS: Bacteria Urine 4+ (None Seen); Hyaline Casts Urine 0-2 /LPF (0-2); UACC Culture Trigger YES; WBC Urine >50 /HPF (0-5)
[2023-03-06 10:36] LABS: COVID-19 Test Negative (Negative); IDNOW Serial# BCCEAD1C
--- NOTE | 2023-03-06 10:43 | PC.NURSE ---
Patient presents with UTI symptoms. Patient is complaining of generalized pain but especially in her groin area. Patient is otherwise well appearing, no other complaints at this time.
[2023-03-06 10:53] VITALS: BP 106/77; PULSE 84; RESP 19; O2SAT 94
== END 2023-03-06 10:54 | disposition home or self-care (01) ==
PROVIDERS: Nurse Practitioner Family; Emergency Provider Emergency Medicine; PCP Family Medicine
DX: N39.0 Urinary tract infection, site not specified (principal); B96.1 Klebsiella pneumoniae [K. pneumoniae] as the cause of diseases classified elsewhere; R50.9 Fever, unspecified; Z20.822 Contact with and (suspected) exposure to COVID-19
CPT/HCPCS: 81001; 87086; 87088; 87186; 87635; 99283; 99284

== ENCOUNTER 2023-03-27 23:15 | Inpatient (IN) | payer MEDICARE, MEDICAID, SELFPAY ==
--- NOTE | ~2023-03-27 | XR_ITS ---
EXAMINATION: XR CHEST CLINICAL INFORMATION: Postcentral line placement COMPARISON: 03/28/2023 TECHNIQUE: Frontal view of the chest was obtained. FINDINGS: Right IJ central line tip lies in the region of the distal SVC. There is slight elevation of the right hemidiaphragm. No focal consolidation is seen bilaterally. No evidence of pneumothorax, pleural effusion, or pulmonary edema. The cardiomediastinal contour is unremarkable. No acute osseous findings are seen. XR/XR chest 1V IMPRESSION: Right IJ central line tip in the region of the distal SVC.
--- NOTE | ~2023-03-27 | XR_ITS ---
EXAMINATION: XR CHEST CLINICAL INFORMATION: Shortness of breath COMPARISON: 02/26/2023 TECHNIQUE: Frontal view of the chest was obtained. FINDINGS: The lungs are clear with no focal consolidation. No evidence of pneumothorax, pulmonary edema, or pleural effusions. The cardiomediastinal silhouette is unremarkable. No acute osseous findings. XR/XR chest 1V IMPRESSION: No acute cardiopulmonary findings.
--- NOTE | ~2023-03-27 | CT_ITS ---
EXAMINATION: CT ABDOMEN AND PELVIS WITHOUT CONTRAST CLINICAL INFORMATION: Pain COMPARISON: 02/14/2022 TECHNIQUE: Multidetector volumetric imaging was performed from the superior aspect of the liver through the pubic symphysis. Sagittal and coronal reformatted images were obtained on the technologist's workstation. This CT examination was performed using dose optimization techniques as appropriate, variously including the following: *Automated exposure control *Adjustment of mA and/or kV according to patient size (this includes techniques or standardized protocols for targeted exams where dose is matched to indication/reason for exam; i.e. extremities or head) *Use of iterative reconstruction technique DLP: 733 mGy-cm FINDINGS: LUNG BASES: The visualized lung bases are unremarkable. LIVER, GALLBLADDER, AND BILIARY TREE: The liver is normal in size, shape, and attenuation. No focal hepatic lesion or biliary ductal dilatation is identified on this noncontrast exam. The gallbladder is unremarkable with no evidence of radiopaque gallstones, gallbladder wall thickening, or obvious pericholecystic inflammatory changes. PANCREAS: Unremarkable. SPLEEN: Unremarkable. ADRENAL GLANDS: Unremarkable. KIDNEYS AND URETERS: No hydronephrosis or obstructing calculus bilaterally. Few scattered bilateral renal calculi are noted measuring up to 6 mm. Small bilateral renal cysts are noted; no follow-up recommended. BLADDER: Nearly empty and not adequately evaluated. GASTROINTESTINAL TRACT: Colonic diverticulosis is noted. Assessment for wall thickening in some segments of the colon is limited due to luminal collapse, though no significant pericolonic stranding is seen to strongly suggest a colitis. No evidence of bowel obstruction. No free fluid or free air is seen. ABDOMINAL WALL: No significant hernia is appreciated. LYMPH NODES: Normal. VASCULAR: Scattered atherosclerotic calcifications. PELVIC VISCERA: Patient is status post hysterectomy. OSSEOUS STRUCTURES: Degenerative changes of the lower lumbar spine including facet arthropathy. CT/CT abdomen pelvis wo IV con IMPRESSION: No acute findings identified in the abdomen/pelvis. Bilateral renal calculi without hydronephrosis. Colonic diverticulosis without diverticulitis.
[2023-03-27 23:24] VITALS: BP 125/79; PULSE 143; RESP 22; TEMP 36.7; O2SAT 95; BMI 33.9
--- NOTE | 2023-03-27 23:27 | ECG_ITS ---
Test Reason : TACHYCARDIA Blood Pressure : / mmHG Vent. Rate : 119 BPM Atrial Rate : 119 BPM P-R Int : 156 ms QRS Dur : 088 ms QT Int : 298 ms P-R-T Axes : 048 089 060 degrees QTc Int : 419 ms Sinus tachycardia Otherwise normal ECG No previous ECGs available Referred By: Generic ED Physician Electronically Signed By:HEATHER NORTH MD
[2023-03-27 23:54] VITALS: PULSE 114; RESP 24
[2023-03-28] VITALS (42 sets, daily range): BP systolic 61–177; BP diastolic 32–113; PULSE 67–99; RESP 14–30; TEMP 36.9–39.9; O2SAT 91–97; BMI 39.5
[2023-03-28 00:04] LABS: MANUAL DIFF FLAG NO
[2023-03-28 00:09] LABS: Basophils Percent Auto 0.3 % (0-2); Eosinophils Percent Auto 0.2 % (0-4); Hematocrit 43.3 % (37.0-47.0); Hemoglobin 14.8 g/dl (12.0-16.0); Imm Gran Abs Auto 0.08 X10*3/uL (0.00-0.03); Imm Gran Pct Auto 0.7 % (0.0-0.4); Lymphocytes Percent Auto 8.6 % (20-40); Mean Corpuscular HGB Conc 34.2 g/dl (31.0-35.0); Mean Corpuscular Hemoglobin 30.2 pg (27.0-33.0); Mean Corpuscular Volume 88.4 fL (80.0-98.0); Mean Platelet Volume 9.2 fL (9.4-12.3); Monocytes Absolute Auto 0.2 X10*3/uL (0.1-1.2); Monocytes Percent Auto 1.8 % (2-11); Neutrophils Absolute Auto 10.7 x10*3/uL (2.0-8.3); Neutrophils Percent Auto 88.4 % (45-73); Platelet Count 264 X10*3/uL (160-400); Red Cell Distribution Width 13.8 % (11.0-16.0); White Blood Count 12.1 X10*3/uL (4.8-10.8)
[2023-03-28] MEDS: ondansetron HCL 4 MG/2 ML VIAL IVPUSH (00:09)
--- NOTE | 2023-03-28 00:18 | ED.GENADULT ---
HPI - General Adult General Chief complaint: Nausea/Vomiting/Diarrhea Stated complaint: n/v after taking medication Time Seen by Provider: 03/27/23 23:59 Source: patient, RN notes reviewed and old records reviewed Mode of arrival: ambulatory Limitations: no limitations History of Present Illness HPI narrative: A 67-year-old female presents for evaluation nausea vomiting and chills. Patient reports that her primary doctor prescribed her a prednisone taper to treat asthma/COPD The patient also reports being on antibiotics separately with the last few weeks for UTI and a dental infection Patient reports that around 9:00 p.m. she started having frequent vomiting and ?I was shaking like had a fever but I did not have a fever. ? She reports mild abdominal discomfort Reports 1 episode of diarrhea Patient's medical history also includes GERD, hyperlipidemia, obstructive sleep apnea, obesity Related Data Home Medications Medication Instructions Recorded Confirmed biotin 2,500 mcg chewable tablet 2,500 mcg PO TID 03/28/23 03/28/23 fexofenadine 180 mg tablet 180 mg PO DAILY 03/28/23 03/28/23 omeprazole 40 mg capsule,delayed 40 mg PO DAILY@0630 03/28/23 03/28/23 release prednisone 10 mg tablet 10 mg PO DAILY 03/28/23 03/28/23 Previous Rx's Medication Instructions Recorded lisinopril 20 1 tab PO DAILY 90 days #90 tabs 01/11/23 mg-hydrochlorothiazide 25 mg tablet fluticasone propionate 110 1 puff inhalation Q12H 30 days #12 02/11/23 mcg/actuation HFA aerosol inhaler grams (Flovent HFA) acetaminophen 500 mg tablet 1,000 mg PO QID PRN pain #30 tabs 03/18/23 albuterol sulfate 90 mcg/actuation 2 puff inhalation Q4-6H PRN 03/18/23 aerosol inhaler (ProAir HFA) shortness of breath or wheezing 30 days #8.5 grams meloxicam 15 mg tablet 15 mg PO DAILY 30 days #30 tabs 03/18/23 triamcinolone acetonide 0.5 % 1 appl topical BID 14 days #30 03/18/23 topical ointment grams Allergies Allergy/AdvReac Type Severity Reaction Status Date / Time No Known Allergies Allergy Verified 03/27/23 23:26 Review of Systems Constitutional: Constitutional: Reports chills, Denies fatigue, Denies fever(s), Denies headache(s) and Reports malaise ENT: Denies headache(s) Cardiovascular: Cardiovascular: Denies chest pain and Denies dyspnea Respiratory: Respiratory: Denies cough and Denies dyspnea Gastrointestinal: Gastrointestinal: Reports abdominal pain, Denies constipation, Reports diarrhea, Reports nausea and Reports vomiting Genitourinary: Genitourinary: Denies dysuria Neurologic: Denies headache(s) and Denies focal weakness Endocrine: Endocrine: Denies fatigue PMFSH Past Medical History Medical History Arthritis Surgical History H/O colonoscopy History of bladder surgery History of hysterectomy Family History Family History Mother No problems noted. Father No problems noted. Social History Social History Household Members: Spouse Housing: House Do you presently have visiting nurse or other home services: No Alcohol intake: former Patient Tobacco Use Status: Former Tobacco user Quit Date: 5 months ago Tobacco use type: Cigarette e-Cigarette/Vaping Use: Never Used Second Hand Smoke Exposure: No Use of substances other than those prescribed or required for medical reasons: No Currently Displaying Signs/Symptoms of Drug Intoxication Withdrawal: No Have you been hit, kicked, punched, or otherwise hurt by someone within the past year? If so, by whom?: No Do you feel safe in your current relationship?: Yes Is there a partner from a previous relationship who is making you feel unsafe now?: No Are you made to feel afraid or neglected: No Evangelical Healthcare Practices: islam Advance Directives: No Advance Directives Information Provided: No Advance Directives on File: No Do you have thoughts of harming others: None Do you have a plan to hurt others: No Plan Recently lost weight without trying: No Eating poorly because of decreased appetite: Yes Nutrition Risks: No Nutritional Risk Patient : No : No Poor oral hygiene: No service: No Current occupational status: retired Current occupational exposures/hazards: No Cognitive needs: No Hearing needs: No Vision needs: No Physical Exam ED Vital Signs: Vital Signs - 24 hr 06/03/23 23:24 03/27/23 23:54 03/28/23 01:30 Temperature 98.0 F Pulse Rate 143 H 114 H Respiratory Rate 22 H 24 H Blood Pressure 125/79 61/32 L Pulse Oximetry 95 Oxygen Delivery Method Room Air 03/28/23 01:45 03/28/23 02:00 03/28/23 02:11 Temperature 101.3 F H Pulse Rate 98 Respiratory Rate 16 Blood Pressure 77/50 L 108/68 Pulse Oximetry 95 Oxygen Delivery Method Room Air 03/28/23 02:58 03/28/23 03:00 03/28/23 03:34 Temperature Pulse Rate 94 95 92 Respiratory Rate 21 H 23 H 22 H Blood Pressure 81/47 L 92/52 L 80/40 L Pulse Oximetry 94 94 94 Oxygen Delivery Method Room Air Room Air Room Air 03/28/23 03:49 03/28/23 04:18 03/28/23 04:22 Temperature Pulse Rate 91 90 90 Respiratory Rate 22 H 19 Blood Pressure 91/50 L 85/48 L 85/48 L Pulse Oximetry 94 93 Oxygen Delivery Method Room Air Room Air 03/28/23 05:10 03/28/23 05:05 03/28/23 04:38 Temperature Pulse Rate 83 Respiratory Rate 18 Blood Pressure 89/37 L 81/34 L 148/87 H Pulse Oximetry 93 Oxygen Delivery Method Room Air 03/28/23 04:57 03/28/23 04:38 03/28/23 05:09 Temperature Pulse Rate 88 82 Respiratory Rate Blood Pressure 94/48 L 148/87 H 81/34 L Pulse Oximetry Oxygen Delivery Method 03/28/23 05:16 Temperature Pulse Rate 82 Respiratory Rate 22 H Blood Pressure 130/60 Pulse Oximetry 95 Oxygen Delivery Method Room Air BMI result Body Mass Index 33.9 Const General: healthy appearing, no acute distress, alert and awake Nutritional Appearance: well nourished Orientation/consciousness: patient oriented x3 HENMT Head: Yes normocephalic and Yes atraumatic Eyes Eyelids: Yes eyelids normal Conjunctivae: conjunctivae normal Sclerae: sclerae normal Corneas: corneas normal Pupils: Equal, round and reactive pupils present EOM: EOMs intact bilaterally Neck Neck: Yes full ROM Resp Effort & Inspection: normal respiratory effort, able to speak in complete sentences, no audible wheezes and not labored Auscultation: clear to auscultation bilaterally Cardio Rhythm: regular rhythm GI Inspection: No distended Palpation (GI): Soft to palpation, not firm, nontender, no guarding and not rigid Auscultation: normoactive bowel sounds Skin General skin exam: no rashes or lesions noted and elasticity normal Neuro General: patient oriented x3 Cranial nerves: Yes Equal, round and reactive pupils present and Yes Bilaterally intact EOM present Cognition (Neuro): normal cognition Extrem Other: Moving all extremities well without any obvious deformities Course Reevaluation(s) Reevaluation #1: 0155. I went to re-evaluate the patient and found to be hypotensive at 77/50. She reports continued to have abdominal pain. CT scan of the abdomen pelvis is pending. Given the lactate was elevated 2.8, she meets sepsis criteria with a white count of 12.1. Given the hypertension she required 30 mL per kilos of IV fluids. Therefore sepsis alert called at this time Time: 01:56 Reevaluation #2: Patient had 2 L of fluid running on a pressure bag in her pressure at this time is 108/68. I ordered 1/3 L to get the patient total of 3000 mL which is above the 2850 that would need for 30 milliliters/kilos. Still awaiting UA and stool samples. I ordered a dose of vancomycin and Zosyn given the severe sepsis. If the patient does not having C diff, she maybe transition to oral vancomycin. Blood cultures have already been obtained Time: 02:01 Reevaluation #3: Patient's blood pressure continued to drop. She was hypotensive. A central line was placed. X-rays pending confirmation of placement. Levophed has been ordered. She tolerated the procedure well. See procedure note. Time: 04:21 Additional Reevaluation(s): X-ray confirmed appropriate placement of the central line. The central line is located in the right IJ. The tip of the catheter abuts the cavoatrial junction. There is no pneumothorax. 5:12 a.m. turned off Levophed, blood pressure became hypotensive again. She has had approximately 4 L of intravenous fluids. Despite fluid resuscitation, she remains hypotensive. Will contact ICU attending. Five hundred twenty-one: Spoke with the furnace installer. Patient will go to the ICU. When patient is on Levophed, pressure significantly elevated however off the Levophed, she becomes hypotensive. Medications Administered Generic Name Dose Route Start Last Admin Trade Name Freq PRN Reason Stop Dose Admin Enoxaparin Sodium 40 mg 03/28/23 06:00 03/28/23 06:46 Enoxaparin Sodium 40 Mg/0.4 Ml Syringe SUBCUT 40 mg Q24H CHRISTIANA Administration Fentanyl 25 mcg 03/28/23 10:12 03/28/23 10:18 Fentanyl Citrate/Pf 100 Mcg/2 Ml Vial IVPUSH 25 mcg Q3H PRN Administration Pain, Moderate(Pain Scale 4-6) Protocol Norepinephrine Bitartrate 8 mg in 250 mls @ 0 mls/hr 03/28/23 04:00 03/28/23 14:54 Levophed IV 0 mcg/kg/min .Q0M CHRISTIANA 0 mls/hr Titration Protocol Per Protocol Piperacillin Sod/Tazobactam 100 mls @ 200 mls/hr 03/28/23 09:00 03/28/23 15:55 Sod 4.5 gm/ Sodium Chloride IV Infused Q6H CHRISTIANA Infusion Pantoprazole Sodium 40 mg 03/28/23 06:30 03/28/23 06:46 Pantoprazole Sodium 40 Mg/10 Ml Vial IVPUSH 40 mg DAILY@0630 CHRISTIANA Administration Discontinued Medications Generic Name Dose Route Start Last Admin Trade Name Madelyn PRN Reason Stop Dose Admin Acetaminophen 975 mg 03/28/23 02:12 03/28/23 02:30 Acetaminophen 325 Mg Tablet PO 03/28/23 02:13 975 mg ONCE ONE Administration Acetaminophen 650 mg 03/28/23 14:52 03/28/23 14:59 Acetaminophen 325 Mg Tablet PO 03/28/23 14:53 650 mg ONCE ONE Administration Fentanyl 25 mcg 03/28/23 15:13 03/28/23 15:19 Fentanyl Citrate/Pf 100 Mcg/2 Ml Vial IVPUSH 03/28/23 15:14 25 mcg ONCE ONE Administration Protocol Sodium Chloride 1,000 mls @ 999 mls/hr 03/28/23 00:30 03/28/23 01:44 Ns IV 03/28/23 01:30 Infused .Q1H1M CHRISTIANA Infusion Sodium Chloride 1,000 mls @ 999 mls/hr 03/28/23 01:45 03/28/23 03:06 Ns IV 03/28/23 02:45 Infused .Q1H1M CHRISTIANA Infusion Sodium Chloride 1,000 mls @ 999 mls/hr 03/28/23 02:15 03/28/23 03:06 Ns IV 03/28/23 03:15 Infused .Q1H1M CHRISTIANA Infusion Vancomycin HCl 1,500 mg/ 500 mls @ 333.333 mls/hr 03/28/23 02:06 03/28/23 04:08 Sodium Chloride IV 03/28/23 03:35 Infused ONCE ONE Infusion Piperacillin Sod/Tazobactam 50 mls @ 100 mls/hr 03/28/23 02:06 03/28/23 02:48 Sod 3.375 gm/ Sodium Chloride IV 03/28/23 02:35 Infused ONCE ONE Infusion Sodium Chloride 1,000 mls @ 999 mls/hr 03/28/23 03:45 03/28/23 04:40 Ns IV 03/28/23 04:45 Infused .Q1H1M CHRISTIANA Infusion Lactated Ringer's 1,000 mls @ 80 mls/hr 03/28/23 06:15 03/28/23 09:52 Lr IVCONT Infused .[id number] CHRISTIANA Infusion Ondansetron HCl 4 mg 03/28/23 00:03 03/28/23 00:09 Ondansetron Hcl 4 Mg/2 Ml Vial IVPUSH 03/28/23 00:04 4 mg ONCE ONE Administration Procedures Central Line Placement Right IJ: Time Out Performed: Yes Patient Placed on Monitor/Pulse Ox: Yes MD Prep: mask, gown and gloves Central Line Prep: Chlorhexidine scrub Local Anesthetic: lidocaine 1% Amount of anesthesia used (mL): 4 Ultrasound Used for Placement: Yes Central Line Lumen Inserted: triple Post Procedure: sutured in place, good blood return, all ports aspirated, flushed, capped and sterile dressing applied Post Procedure X-Ray: tip of catheter in good position and no pneumothorax seen Patient Tolerated Procedure: well Complications: none Medical Decision Making Medical Decision Making MDM Narrative: 67-year-old female presents for evaluation of vomiting and chills. Her temperature is 99.2?, she was quite tachycardic to 142 on arrival. It was sinus on the monitor. She reports to recent episodes of antibiotics, will check C diff test. will get labs including blood cultures. Chest x-ray, UA. Patient's lungs are clear to auscultation, she has been treated for COPD with prednisone. Patient medicated IV fluids and Zofran to start. Differential Diagnosis Viral syndrome Influenza C diff Sepsis Pneumonia Lab Data 03/28/23 00:00 03/28/23 00:00 Labs: Lab Results 03/28/23 03/28/23 03/28/23 Range/Units 00:00 00:00 00:23 WBC 12.1 H (4.8-10.8) X10*3/uL RBC 4.90 (4.20-5.50) X10*6/uL Hgb 14.8 (12.0-16.0) g/dl Hct 43.3 (37.0-47.0) % MCV 88.4 (80.0-98.0) fL MCH 30.2 (27.0-33.0) pg MCHC 34.2 (31.0-35.0) g/dl RDW 13.8 (11.0-16.0) % Plt Count 264 D (160-400) X10*3/uL MPV 9.2 L (9.4-12.3) fL Immature Gran % (Auto) 0.7 H (0.0-0.4) % Neut % (Auto) 88.4 H (45-73) % Lymph % (Auto) 8.6 L (20-40) % [place] % (Auto) 1.8 L (2-11) % Eos % (Auto) 0.2 (0-4) % Baso % (Auto) 0.3 (0-2) % Lymph # (Auto) 1.0 L (1.2-4.9) X10*3/uL [place] # (Auto) 0.2 (0.1-1.2) X10*3/uL Eos # (Auto) 0.0 (0.0-0.4) X10*3/uL Baso # (Auto) 0.0 (0.0-0.2) X10*3/uL Abs Immat Gran (auto) 0.08 H (0.00-0.03) X10*3/uL Absolute Neuts (auto) 10.7 H (2.0-8.3) x10*3/uL Absolute Nucleated RBC 0.000 (0.0-0.012) X10*3/uL Nucleated RBC % (auto) 0.0 (0.0-0.2) /100WBC Sodium 139 (135-145) mmol/L Potassium 4.1 (3.3-5.1) mmol/L Chloride 103 (96-108) mmol/L Carbon Dioxide 23 (22-29) mmol/L Anion Gap 17 (12-20) BUN 30 H (9-16) mg/dL Creatinine 1.10 (0.5-1.4) mg/dL Estim Creat Clear Calc 58.5 Estimated GFR 50 Random Glucose 190 H (60-115) mg/dL Lactic Acid 2.8 H* (0.5-2.0) mmol/L Lactic Acid F/U @ 2Hr (0.5-2.0) mmol/L Calcium 9.0 (8.4-10.2) mg/dL Phosphorus 2.9 (2.7-4.5) mg/dL Magnesium 1.7 (1.6-2.6) mg/dL Total Bilirubin 0.6 (0.0-1.0) mg/dL Direct Bilirubin 0.2 (0.0-0.5) mg/dL AST 25 (5-31) U/L ALT 33 H (0-31) U/L Alkaline Phosphatase 116 (39-117) U/L Total Protein 6.9 (6.5-8.0) g/dL Albumin 3.9 (3.5-5.0) g/dL Urine Color Urine Appearance Urine pH (5.0-9.0) Ur Specific [place] (1.005-1.025) Urine Protein (Neg-Trace) mg/dL Urine Glucose (UA) (Negative) mg/dL Urine Ketones (Negative) mg/dL Urine Blood (Negative) Urine Nitrite (Negative) Ur Leukocyte Esterase (Negative) Urine RBC (0-2) /HPF Urine WBC (0-5) /HPF Ur Squamous Epith Cells (0-2) /HPF Urine Bacteria (None Seen) Hyaline Casts (0-2) /LPF COVID-19 (MICHAEL) (Negative) COVID-19 Clin Com Influenza Type A (SHAUN) (Negative) Influenza Type B (SHAUN) (Negative) Influenza A & B Note 03/28/23 03/28/23 03/28/23 Range/Units 00:25 00:25 02:27 WBC (4.8-10.8) X10*3/uL RBC (4.20-5.50) X10*6/uL Hgb (12.0-16.0) g/dl Hct (37.0-47.0) % MCV (80.0-98.0) fL MCH (27.0-33.0) pg MCHC (31.0-35.0) g/dl RDW (11.0-16.0) % Plt Count (160-400) X10*3/uL MPV (9.4-12.3) fL Immature Gran % (Auto) (0.0-0.4) % Neut % (Auto) (45-73) % Lymph % (Auto) (20-40) % [place] % (Auto) (2-11) % Eos % (Auto) (0-4) % Baso % (Auto) (0-2) % Lymph # (Auto) (1.2-4.9) X10*3/uL [place] # (Auto) (0.1-1.2) X10*3/uL Eos # (Auto) (0.0-0.4) X10*3/uL Baso # (Auto) (0.0-0.2) X10*3/uL Abs Immat Gran (auto) (0.00-0.03) X10*3/uL Absolute Neuts (auto) (2.0-8.3) x10*3/uL Absolute Nucleated RBC (0.0-0.012) X10*3/uL Nucleated RBC % (auto) (0.0-0.2) /100WBC Sodium (135-145) mmol/L Potassium (3.3-5.1) mmol/L Chloride (96-108) mmol/L Carbon Dioxide (22-29) mmol/L Anion Gap (12-20) BUN (9-16) mg/dL Creatinine (0.5-1.4) mg/dL Estim Creat Clear Calc Estimated GFR Random Glucose (60-115) mg/dL Lactic Acid (0.5-2.0) mmol/L Lactic Acid F/U @ 2Hr (0.5-2.0) mmol/L Calcium (8.4-10.2) mg/dL Phosphorus (2.7-4.5) mg/dL Magnesium (1.6-2.6) mg/dL Total Bilirubin (0.0-1.0) mg/dL Direct Bilirubin (0.0-0.5) mg/dL AST (5-31) U/L ALT (0-31) U/L Alkaline Phosphatase (39-117) U/L Total Protein (6.5-8.0) g/dL Albumin (3.5-5.0) g/dL Urine Color Dark Yellow Urine Appearance Turbid Urine pH 5.5 (5.0-9.0) Ur Specific [place] 1.020 (1.005-1.025) Urine Protein 100 (2+) H (Neg-Trace) mg/dL Urine Glucose (UA) Negative (Negative) mg/dL Urine Ketones Trace (Negative) mg/dL Urine Blood Trace H (Negative) Urine Nitrite Positive H (Negative) Ur Leukocyte Esterase Moderate (2+) H (Negative) Urine RBC 3-5 H (0-2) /HPF Urine WBC >50 H (0-5) /HPF Ur Squamous Epith Cells 6-10 (0-2) /HPF Urine Bacteria 1+ (None Seen) Hyaline Casts >20 (0-2) /LPF COVID-19 (MICHAEL) Negative (Negative) COVID-19 Clin Com See Note Influenza Type A (SHAUN) Negative (Negative) Influenza Type B (SHAUN) Negative (Negative) Influenza A & B Note See Note 03/28/23 Range/Units 02:45 WBC (4.8-10.8) X10*3/uL RBC (4.20-5.50) X10*6/uL Hgb (12.0-16.0) g/dl Hct (37.0-47.0) % MCV (80.0-98.0) fL MCH (27.0-33.0) pg MCHC (31.0-35.0) g/dl RDW (11.0-16.0) % Plt Count (160-400) X10*3/uL MPV (9.4-12.3) fL Immature Gran % (Auto) (0.0-0.4) % Neut % (Auto) (45-73) % Lymph % (Auto) (20-40) % [place] % (Auto) (2-11) % Eos % (Auto) (0-4) % Baso % (Auto) (0-2) % Lymph # (Auto) (1.2-4.9) X10*3/uL [place] # (Auto) (0.1-1.2) X10*3/uL Eos # (Auto) (0.0-0.4) X10*3/uL Baso # (Auto) (0.0-0.2) X10*3/uL Abs Immat Gran (auto) (0.00-0.03) X10*3/uL Absolute Neuts (auto) (2.0-8.3) x10*3/uL Absolute Nucleated RBC (0.0-0.012) X10*3/uL Nucleated RBC % (auto) (0.0-0.2) /100WBC Sodium (135-145) mmol/L Potassium (3.3-5.1) mmol/L Chloride (96-108) mmol/L Carbon Dioxide (22-29) mmol/L Anion Gap (12-20) BUN (9-16) mg/dL Creatinine (0.5-1.4) mg/dL Estim Creat Clear Calc Estimated GFR Random Glucose (60-115) mg/dL Lactic Acid (0.5-2.0) mmol/L Lactic Acid F/U @ 2Hr 2.5 H* (0.5-2.0) mmol/L Calcium (8.4-10.2) mg/dL Phosphorus (2.7-4.5) mg/dL Magnesium (1.6-2.6) mg/dL Total Bilirubin (0.0-1.0) mg/dL Direct Bilirubin (0.0-0.5) mg/dL AST (5-31) U/L ALT (0-31) U/L Alkaline Phosphatase (39-117) U/L Total Protein (6.5-8.0) g/dL Albumin (3.5-5.0) g/dL Urine Color Urine Appearance Urine pH (5.0-9.0) Ur Specific [place] (1.005-1.025) Urine Protein (Neg-Trace) mg/dL Urine Glucose (UA) (Negative) mg/dL Urine Ketones (Negative) mg/dL Urine Blood (Negative) Urine Nitrite (Negative) Ur Leukocyte Esterase (Negative) Urine RBC (0-2) /HPF Urine WBC (0-5) /HPF Ur Squamous Epith Cells (0-2) /HPF Urine Bacteria (None Seen) Hyaline Casts (0-2) /LPF COVID-19 (MICHAEL) (Negative) COVID-19 Clin Com Influenza Type A (SHAUN) (Negative) Influenza Type B (SHAUN) (Negative) Influenza A & B Note Critical Care Time Critical Care Time Critical Care Time: Yes Total Critical Care Time: 90 Attestation: Approximate 90 minutes of critical care time spent with bedside assessment, reassessment, interpretation and medical doubt, management of potentially life-threatening conditions such as severe sepsis, hypotension, consultation with other providers. All outside of medical procedures. Discharge Plan Discharge Clinical Impression: Vomiting, Severe sepsis Patient Disposition: Admitted As Inpatient Interventions: Admission Worksheet (ED) Last Done: 03/28/23 06:40 Discharge Date/Time: 03/28/23 06:53
[2023-03-28 00:32] LABS: Anion Gap 17 (12-20); Blood Urea Nitrogen 30 mg/dL (9-16); Carbon Dioxide 23 mmol/L (22-29); Chloride 103 mmol/L (96-108); Creatinine Clr Calc Pharmacy 58.5; Estimated Glomerular Filt Rate 50; Glucose Random 190 mg/dL (60-115); Potassium 4.1 mmol/L (3.3-5.1); Sodium 139 mmol/L (135-145)
[2023-03-28] MEDS: 0.9 % Sodium Chloride 1,000 ML 999 ML IV ×4 (00:43→03:39)
[2023-03-28 00:53] LABS: COVID-19 Test Negative (Negative); IDNOW Serial# 08D9AD1C; IDNOW Serial# BCCEAD1C; Influenza A Negative (Negative); Influenza B2 Negative (Negative)
[2023-03-28 01:02] LABS: Lactic Acid 2.8 mmol/L (0.5-2.0)
--- NOTE | 2023-03-28 01:45 | PC.NURSE ---
BP 77/50. Attempting 2nd PIV access.
--- NOTE | 2023-03-28 01:55 | PC.NURSE ---
sepsis alert called for pt at this time.
--- NOTE | 2023-03-28 01:58 | PC.NURSE ---
2nd #20 PIV initiated to left forearm
--- NOTE | 2023-03-28 02:00 | PC.NURSE ---
BP improved at this time. Additional nacl fluid hung at this time.
[2023-03-28] MEDS: Piperacillin Sodium/Tazobactam 3.375 GM in 0.9 % Sodium Chloride 50 ML IV (02:18)
[2023-03-28 02:30] LABS: Reflex Lactate? Lactic Acid Added
[2023-03-28] MEDS: Acetaminophen 325 MG TABLET 975 MG PO (02:30)
[2023-03-28 02:33] LABS: Appearance Urine Turbid; Color Urine Dark Yellow; Glucose Urine UA Negative (Negative); Leukocyte Esterase Urine Moderate (2+) (Negative); Nitrite Urine Positive (Negative); PH 5.5 (5.0-9.0); UMIC TRIGGER UACC YES; Urine Blood Trace (Negative); Urine Ketones Trace mg/dL (Negative); Urine Protein 100 (2+) mg/dL (Neg-Trace)
[2023-03-28] MEDS: vancomycin HCL 1,500 MG in 0.9 % Sodium Chloride 500 ML 333.33 MG IV (02:37)
[2023-03-28 03:06] LABS: Bacteria Urine 1+ (None Seen); Hyaline Casts Urine >20 /LPF (0-2); UACC Culture Trigger YES; WBC Urine >50 /HPF (0-5)
--- NOTE | 2023-03-28 03:06 | MHC.EDTECH ---
Belongings list done
[2023-03-28 03:08] LABS: ~Lactic Acid-LAB USE ONLY 2.5 mmol/L (0.5-2.0)
--- NOTE | 2023-03-28 03:39 | PC.NURSE ---
SBP 80. Provider made aware and Nacl bolus hung at this time.
--- NOTE | 2023-03-28 03:55 | PC.NURSE ---
Dr Almeida at bedside for Central line placement.
--- NOTE | 2023-03-28 04:12 | PC.NURSE ---
7fr triple lumen central line placed per Dr. Almeida per sterile technique and hospital policy without incident.
[2023-03-28] MEDS: Norepinephrine Bitartrate/D5W 8 MG/250 ML PLAST..BAG 8.93 MG IV (04:22)
--- NOTE | 2023-03-28 04:22 | PC.NURSE ---
Levophed infusion initiated at 0.05 mcg/kg/min at this time.
--- NOTE | 2023-03-28 04:32 | PC.NURSE ---
Per Dr. Almeida central line okay to use. Levophed transitioned to central line from right AC.
--- NOTE | 2023-03-28 04:38 | PC.NURSE ---
BP 148/87 and pt reporting palpitations. Levophed paused at this time.
[2023-03-28 04:48] LABS: Reflex Lactate? 2 Y
--- NOTE | 2023-03-28 05:09 | PC.NURSE ---
Levo restarted at this time.
[2023-03-28 05:47] LABS: ~Lactic Acid-LAB USE ONLY 1.6 mmol/L (0.5-2.0)
--- NOTE | 2023-03-28 06:23 | PM.CCHP ---
History of Present Illness Date of Service: 03/28/23 Attending physician on admission: Maximiliano Leon Chief Complaint: Nausea, vomiting, diarrhea Ms. Lancaster is a 67-year-old female with a past medical history of? COPD, GERD, HLD, MAKENZIE, and obesity? who presents to the ER with complaint of nausea, vomiting, diarrhea and mild abdominal discomfort. ? She reports that she was recently prescribed antibiotics for a UTI and a dental infection as well as a prednisone taper to treat asthma / COPD.? On arrival to the emergency room? she was afebrile, heart rate 143, blood pressure 125/79, respiratory rate 22, ? O2 sat 95 on room air. Laboratory data was significant for WBC 12.1,? BUN 30, lactic acid 2.8.? Urinalysis positive for UTI.? Imaging: CXR:The lungs are clear with no focal consolidation. No evidence of pneumothorax, pulmonary edema, or pleural effusions. CT ABDOMEN AND PELVIS WITHOUT CONTRAST: No acute findings identified in the abdomen/pelvis. Bilateral renal calculi without hydronephrosis. Colonic diverticulosis without diverticulitis. ED course: The patient met sepsis criteria and was fluid resuscitated.? Her lactic acid went from 2.8-2.5, however,? she developed a temp of 101.3?F and her blood pressure continued to drop. A CVC was placed? and she was started on Levophed. She received a total 4 L of fluids, Vancomycin 1 g,? Zosyn 3.375 g, Acetaminophen and Zofran.?Blood pressure initially improved on Levophed to 148/87?but the patient reported headache and palpitations.The Levophed was stopped.? She became hypotensive within a few minutes?with a drop in blood pressure to?81/34.?The patient is admitted to ICU? for management of septic shock. Review of Systems Constitutional: Constitutional: Reports as per HPI and Reports no additional constitutional complaints PMFSH Past Medical History Medical History Arthritis Family History Family History Mother No problems noted. Father No problems noted. Surgical History Surgical History H/O colonoscopy History of bladder surgery History of hysterectomy Social History Social History Housing: House Alcohol intake: former Patient Tobacco Use Status: Former Tobacco user Quit Date: 5 months ago Tobacco use type: Cigarette e-Cigarette/Vaping Use: Never Used Second Hand Smoke Exposure: No Advance Directives: No Advance Directives Information Provided: No service: No Current occupational status: retired Current occupational exposures/hazards: No Cognitive needs: No Hearing needs: No Vision needs: No Meds Allergies Allergy/AdvReac Type Severity Reaction Status Date / Time No Known Allergies Allergy Verified 03/27/23 23:26 Active Medications: Current Medications Albuterol Sulfate (Albuterol Sulfate (0.083%) 2.5 Mg/3 Ml Vial.Neb) 2.5 mg INHALE Q4H PRN PRN Reason: Wheezing Enoxaparin Sodium (Enoxaparin Sodium 40 Mg/0.4 Ml Syringe) 40 mg SUBCUT Q24H [facility] Norepinephrine Bitartrate (Levophed) 8 mg in 250 mls @ 0 mls/hr IV .Q0M [facility]; Protocol Last Titration: 03/28/23 05:09 Dose: 0.05 mcg/kg/min, 8.93 mls/hr Piperacillin Sod/Tazobactam (Sod 4.5 gm/ Sodium Chloride) 100 mls @ 200 mls/hr IV Q6H [facility] Lactated Ringer's (Lr) 1,000 mls @ 80 mls/hr IVCONT .[id number] [facility] Pantoprazole Sodium (Pantoprazole Sodium 40 Mg/10 Ml Vial) 40 mg IVPUSH DAILY@0630 [facility] Pharmacy Consult (Consult Rx Perform Med Rec) 1 each MISCELLANE ONCE PRN PRN Reason: Consult order Home Medications Medication Instructions Recorded Confirmed Last Taken Type cholecalciferol (vitamin D3) 25 25 mcg PO DAILY 04/03/22 04/03/22 Unknown History mcg (1,000 unit) tablet (Vitamin D3) psyllium husk 3.4 gram/5.4 gram 1 tbsp PO DAILY 04/03/22 04/03/22 Unknown History oral powder Physical Exam Vital Signs: Vital Signs: Last Vital Signs Temp 98.6 F 03/28/23 06:14 Pulse 76 03/28/23 06:14 Resp 16 03/28/23 06:14 BP 137/50 L 03/28/23 06:14 Pulse Ox 94 03/28/23 06:14 O2 Del Method Room Air 03/28/23 05:26 BMI result Body Mass Index 33.9 Const: General: cooperative, healthy appearing and alert Nutritional Appearance: overweight Orientation/consciousness: patient oriented x3 Limitations: no limitations HEENT: Head: Yes normocephalic and Yes atraumatic General nose exam: Normal external nose present (Nares patent, septum midline, sinuses nontender bilaterally.) Mouth: Normal oral and palatal mucosa present (No thrush, tongue in midline, mucosa moist.) Throat: Yes other (No erythema, no exudate.) Eyes: Pupils: Equal, round and reactive pupils present Neck: Neck: Yes supple (no thyromegaly, trachea midline.) Carotids: normal carotid upstroke Resp: Auscultation: clear to auscultation bilaterally (normal work of breathing, no accessory muscle use) Cardio: Jugular venous distension: no JVD Rate: regular rate Rhythm: regular rhythm Heart sounds: no gallops, no murmurs and no rubs Peripheral pulses: Peripheral pulses 2+ throughout GI: Inspection: Yes normal to inspection and No distended Palpation (GI): Soft to palpation (nondistended.), Tenderness to palpation present (GI), no guarding and not rigid Auscultation: normal bowel sounds Skin: General skin exam: no rashes or lesions noted Neuro: General: patient oriented x3 Cranial nerves: Yes Equal, round and reactive pupils present Cognition (Neuro): normal cognition Extrem: General: Yes full ROM, Yes capillary refill normal and Yes no clubbing, cyanosis or edema Psych: Appearance: grossly normal Speech and movement: Normal speech and movement present Affect: normal affect Attitude: cooperative Thought process: Normal thought process present Results Labs 03/28/23 00:00 03/28/23 00:00 Labs: Laboratory Results - last 24 hr 03/28/23 03/28/23 03/28/23 00:00 00:00 00:23 MCV 88.4 MCH 30.2 MCHC 34.2 RDW 13.8 Plt Count 264 D MPV 9.2 L Immature Gran % (Auto) 0.7 H Neut % (Auto) 88.4 H Lymph % (Auto) 8.6 L [place] % (Auto) 1.8 L Eos % (Auto) 0.2 Baso % (Auto) 0.3 Lymph # (Auto) 1.0 L [place] # (Auto) 0.2 Eos # (Auto) 0.0 Baso # (Auto) 0.0 Abs Immat Gran (auto) 0.08 H Absolute Neuts (auto) 10.7 H Absolute Nucleated RBC 0.000 Nucleated RBC % (auto) 0.0 Anion Gap 17 Estim Creat Clear Calc 58.5 Estimated GFR 50 Random Glucose 190 H Lactic Acid 2.8 H* Lactic Acid F/U @ 2Hr Lactic Acid F/U @ 4Hr Calcium 9.0 Urine Color Urine Appearance Urine pH Ur Specific [place] Urine Protein Urine Glucose (UA) Urine Ketones Urine Blood Urine Nitrite Ur Leukocyte Esterase Urine RBC Urine WBC Ur Squamous Epith Cells Urine Bacteria Hyaline Casts COVID-19 (MICHAEL) COVID-19 Clin Com Influenza Type A (SHAUN) Influenza Type B (SHAUN) Influenza A & B Note 03/28/23 03/28/23 03/28/23 00:25 00:25 02:27 MCV MCH MCHC RDW Plt Count MPV Immature Gran % (Auto) Neut % (Auto) Lymph % (Auto) [place] % (Auto) Eos % (Auto) Baso % (Auto) Lymph # (Auto) [place] # (Auto) Eos # (Auto) Baso # (Auto) Abs Immat Gran (auto) Absolute Neuts (auto) Absolute Nucleated RBC Nucleated RBC % (auto) Anion Gap Estim Creat Clear Calc Estimated GFR Random Glucose Lactic Acid Lactic Acid F/U @ 2Hr Lactic Acid F/U @ 4Hr Calcium Urine Color Dark Yellow Urine Appearance Turbid Urine pH 5.5 Ur Specific [place] 1.020 Urine Protein 100 (2+) H Urine Glucose (UA) Negative Urine Ketones Trace Urine Blood Trace H Urine Nitrite Positive H Ur Leukocyte Esterase Moderate (2+) H Urine RBC 3-5 H Urine WBC >50 H Ur Squamous Epith Cells 6-10 Urine Bacteria 1+ Hyaline Casts >20 COVID-19 (MICHAEL) Negative COVID-19 Clin Com See Note Influenza Type A (SHAUN) Negative Influenza Type B (SHAUN) Negative Influenza A & B Note See Note 03/28/23 03/28/23 02:45 05:34 MCV MCH MCHC RDW Plt Count MPV Immature Gran % (Auto) Neut % (Auto) Lymph % (Auto) [place] % (Auto) Eos % (Auto) Baso % (Auto) Lymph # (Auto) [place] # (Auto) Eos # (Auto) Baso # (Auto) Abs Immat Gran (auto) Absolute Neuts (auto) Absolute Nucleated RBC Nucleated RBC % (auto) Anion Gap Estim Creat Clear Calc Estimated GFR Random Glucose Lactic Acid Lactic Acid F/U @ 2Hr 2.5 H* Lactic Acid F/U @ 4Hr 1.6 Calcium Urine Color Urine Appearance Urine pH Ur Specific [place] Urine Protein Urine Glucose (UA) Urine Ketones Urine Blood Urine Nitrite Ur Leukocyte Esterase Urine RBC Urine WBC Ur Squamous Epith Cells Urine Bacteria Hyaline Casts COVID-19 (MICHAEL) COVID-19 Clin Com Influenza Type A (SHAUN) Influenza Type B (SHAUN) Influenza A & B Note ECG Attestation: I personally reviewed and interpreted this ECG as follows: (Sinus tachycardia. HR 119. No previous for comparison. ) Prior ECG tracings: not available for review Imaging Radiologist's Impressions: Impressions Chest X-Ray 03/28/23 00:36 IMPRESSION: No acute cardiopulmonary findings. Abdomen/Pelvis CT 03/28/23 01:35 IMPRESSION: No acute findings identified in the abdomen/pelvis. Bilateral renal calculi without hydronephrosis. Colonic diverticulosis without diverticulitis. Chest X-Ray 03/28/23 04:33 IMPRESSION: Right IJ central line tip in the region of the distal SVC. Assessment and Plan (1) Severe sepsis: Status: Acute (2) Urinary tract infection: Status: Inactive (3) Vomiting: Status: Acute (4) Abdominal pain: Status: Acute Plan Assessment: ? 67-year-old female with past medical history of COPD, GERD, HLD, MAKENZIE,? obesity presented to the ER with complaint of n/v/d,? became hypotensive and found to be in septic shock.? Neuro: No acute issues. Cardiac: ?Septic shock-? patient has elevated lactic acid,? elevated white count, hypotension,? fever. ? No specific reason noted on imaging. Urine is positive for UTI? which is likely the source.? Continue antibiotics.? Pulmonary: No acute issues. Renal:? Baseline BUN/creatinine 13/0.8.? Now measuring 30/1.10 most likely related to hypoperfusion, nonoliguric.? 4L in the floor.? Continue to check renal induces and urine output.? Endo:? No acute issues. GI: N/V/D. ? No? acute findings on CT.? Collect stool for C diff;? patient recently on antibiotics. ? Keep NPO. ? Zofran for nausea. ID: Septic shock likely from UTI. ? Has history of Klebsiella pneumoniae.? Received 4 L,? vanco, Zosyn in the ER. ? Continue empiric antibiotics until cultures are? resulted.? Heme/Onc: ?No acute issues. Psych:? No acute issues. Prophylaxis:? Lovenox Diet:? NPO? Time Spent With Patient Time: Total time managing care of this patient today ____ minutes.
--- NOTE | 2023-03-28 06:39 | PC.NURSE ---
Report to Ghulam RN in ICU. Denies any further questions.
[2023-03-28 06:43] LABS: Alanine Aminotransferase 33 U/L (0-31); Albumin Level 3.9 g/dL (3.5-5.0); Alkaline Phosphatase 116 U/L (39-117); Aspartate Amino Transferase 25 U/L (5-31); Bilirubin Direct 0.2 mg/dL (0.0-0.5); Bilirubin Total 0.6 mg/dL (0.0-1.0); Magnesium 1.7 mg/dL (1.6-2.6); Phosphorus 2.9 mg/dL (2.7-4.5); Total Protein 6.9 g/dL (6.5-8.0)
[2023-03-28] MEDS: Enoxaparin Sodium 40 MG/0.4 ML SYRINGE SUBCUT (06:46)
[2023-03-28] MEDS: Pantoprazole Sodium 40 MG/10 ML VIAL IVPUSH (06:46)
[2023-03-28] MEDS: Lactated Ringers 1,000 ML 80 ML IVCONT (08:02)
--- NOTE | 2023-03-28 09:21 | PHA.MEDREC ---
Pharmacy Consult ? Medication Reconciliation Pharmacy has completed the medication reconciliation. Spoke to patient to confirm meds.
[2023-03-28] MEDS: Piperacillin Sodium/Tazobactam 4.5 GM in 0.9 % Sodium Chloride 100 ML IV ×3 (09:32→21:00)
[2023-03-28 10:08] LABS: MANUAL DIFF FLAG NO
[2023-03-28 10:09] LABS: Basophils Absolute Auto 0.1 X10*3/uL (0.0-0.2); Basophils Percent Auto 0.3 % (0-2); Eosinophils Absolute Auto 0.1 X10*3/uL (0.0-0.4); Eosinophils Percent Auto 0.3 % (0-4); Hematocrit 37.6 % (37.0-47.0); Hemoglobin 12.7 g/dl (12.0-16.0); Imm Gran Abs Auto 0.12 X10*3/uL (0.00-0.03); Imm Gran Pct Auto 0.6 % (0.0-0.4); Lymphocytes Absolute Auto 1.8 X10*3/uL (1.2-4.9); Lymphocytes Percent Auto 8.5 % (20-40); Mean Corpuscular HGB Conc 33.8 g/dl (31.0-35.0); Mean Corpuscular Hemoglobin 30.5 pg (27.0-33.0); Mean Corpuscular Volume 90.2 fL (80.0-98.0); Monocytes Absolute Auto 1.3 X10*3/uL (0.1-1.2); Neutrophils Absolute Auto 18.2 x10*3/uL (2.0-8.3); Neutrophils Percent Auto 84.3 % (45-73); Platelet Count 229 X10*3/uL (160-400); Red Blood Count 4.17 X10*6/uL (4.20-5.50); Red Cell Distribution Width 14.1 % (11.0-16.0); White Blood Count 21.6 X10*3/uL (4.8-10.8)
[2023-03-28] MEDS: fentaNYL citrate/PF 100 MCG/2 ML VIAL 25 MCG IVPUSH ×2 (10:18→15:19)
[2023-03-28 10:28] LABS: Albumin Level 3.2 g/dL (3.5-5.0); Anion Gap 10 (12-20); Blood Urea Nitrogen 24 mg/dL (9-16); Carbon Dioxide 25 mmol/L (22-29); Chloride 110 mmol/L (96-108); Creatinine Clr Calc Pharmacy 79.4; Estimated Glomerular Filt Rate > 60; Glucose Random 163 mg/dL (60-115); Magnesium 1.9 mg/dL (1.6-2.6); Potassium 4.2 mmol/L (3.3-5.1); Sodium 141 mmol/L (135-145)
[2023-03-28 10:39] LABS: Calcium 7.9 mg/dL (8.4-10.2)
--- NOTE | 2023-03-28 12:28 | MHC.CM.PN ---
IMM 03/28/23 DELIVERED TO BEDSIDE, EMR REVIEWED, PT ADMITTED W/SEPTIC SHOCK, CM MET W/PT WHO IS A&O X4, PT REPORTS SHE LIVES W/ AND HER CAT, PT IS INDEPENDENT W/ALL CARE, DENIES USE OF DME AND HOME SERVICES. PT DENIES NEED FOR VNA/HOME SERVICES ON D/C. PT VERIFIES PCP IS HELGA CALDWELL, DENIES BEING VAX'D FOR COVID19 AND HAS BEEN EDUCATED ON AND DECLINES TO COMPLETE A HCP AT THIS TIME D/T NOT HAVING CONTACT INFO FOR PT, PT PROVIDED W/INFORMATIONAL HANDOUT AND BLANK HCP PER HER REQUEST. ANTIC PT WILL D/C HOME NO SERVICES ON THURSDAY 03/29, [facility] FOR TRANSPORT.
[2023-03-28] MEDS: Acetaminophen 325 MG TABLET 650 MG PO ×2 (14:59→19:41)
[2023-03-29] VITALS (20 sets, daily range): BP systolic 96–166; BP diastolic 40–79; PULSE 70–100; RESP 15–22; TEMP 36–39.7; O2SAT 88–96; BMI 39.0
[2023-03-29] MEDS: Acetaminophen 325 MG TABLET 650 MG PO ×2 (02:55→17:04)
[2023-03-29] MEDS: ondansetron HCL 4 MG/2 ML VIAL IVPUSH ×2 (02:58→13:14)
[2023-03-29] MEDS: Piperacillin Sodium/Tazobactam 4.5 GM in 0.9 % Sodium Chloride 100 ML IV ×4 (03:07→21:15)
[2023-03-29] MEDS: fentaNYL citrate/PF 100 MCG/2 ML VIAL 25 MCG IVPUSH ×2 (03:39→13:15)
[2023-03-29] MEDS: Pantoprazole Sodium 40 MG/10 ML VIAL IVPUSH (05:37)
[2023-03-29] MEDS: Enoxaparin Sodium 40 MG/0.4 ML SYRINGE SUBCUT (05:37)
[2023-03-29 05:50] LABS: VBG Base Excess 6.6 mmol/L; VBG HCO3 31 mmol/L (22-26); VBG pCO2 47 mmHg; VBG pH 7.43 (7.32-7.43); VBG pO2 60 mmHg
[2023-03-29 05:55] LABS: Venous Blood Gas Refer to POC result
[2023-03-29 06:06] LABS: MANUAL DIFF FLAG NO
[2023-03-29 06:34] LABS: Albumin Level 3.1 g/dL (3.5-5.0); Anion Gap 11 (12-20); Blood Urea Nitrogen 14 mg/dL (9-16); Calcium 8.2 mg/dL (8.4-10.2); Carbon Dioxide 26 mmol/L (22-29); Chloride 105 mmol/L (96-108); Creatinine Clr Calc Pharmacy 86.6; Estimated Glomerular Filt Rate > 60; Glucose Random 190 mg/dL (60-115); Phosphorus 2.8 mg/dL (2.7-4.5); Potassium 3.8 mmol/L (3.3-5.1); Sodium 138 mmol/L (135-145)
[2023-03-29 06:53] LABS: Basophils Absolute Auto 0.1 X10*3/uL (0.0-0.2); Basophils Percent Auto 0.8 % (0-2); Eosinophils Absolute Auto 0.1 X10*3/uL (0.0-0.4); Eosinophils Percent Auto 0.7 % (0-4); Hematocrit 38.2 % (37.0-47.0); Hemoglobin 12.7 g/dl (12.0-16.0); Imm Gran Abs Auto 0.07 X10*3/uL (0.00-0.03); Imm Gran Pct Auto 0.5 % (0.0-0.4); Lymphocytes Absolute Auto 0.9 X10*3/uL (1.2-4.9); Lymphocytes Percent Auto 6.9 % (20-40); Mean Corpuscular HGB Conc 33.2 g/dl (31.0-35.0); Mean Corpuscular Hemoglobin 30.6 pg (27.0-33.0); Mean Platelet Volume 9.8 fL (9.4-12.3); Monocytes Percent Auto 7.4 % (2-11); Neutrophils Absolute Auto 10.9 x10*3/uL (2.0-8.3); Neutrophils Percent Auto 83.7 % (45-73); Platelet Count 168 X10*3/uL (160-400); Red Blood Count 4.15 X10*6/uL (4.20-5.50); Red Cell Distribution Width 14.3 % (11.0-16.0)
--- NOTE | 2023-03-29 10:13 | P.PNCC_ITS ---
Subjective Subjective Date of Service: 03/29/23 Interval History: 67-year-old lady with underlying history of COPD, GERD, MAKENZIE, prior Klebsiella UTI admitted on 03/28/2023 with Gram-negative bacteremia and septic shock requiring vasopressor support and intensive care monitoring. CT abdomen and pelvis with no acute findings. No events overnight. Being titrated off pressor support. Critical Care Time (minutes): 30 Physical Exam Vital Signs: Vital Signs: Last Vital Signs Temp 100.0 F 03/29/23 09:00 Pulse 73 03/29/23 09:00 Resp 17 03/29/23 09:00 BP 99/51 L 03/29/23 09:00 Pulse Ox 91 L 03/29/23 09:00 O2 Del Method Nasal Cannula 03/29/23 09:00 O2 Flow Rate 1 03/29/23 09:00 BMI result Body Mass Index 39.0 Const: General: no acute distress, alert and awake Eyes: Sclerae: sclerae normal EOM: EOMs intact bilaterally Neck: Neck: Yes no lymphadenopathy, Yes trachea midline and Yes supple Resp: Effort & Inspection: normal respiratory effort and no respiratory distress Auscultation: clear to auscultation bilaterally Cardio: Rate: regular rate Rhythm: regular rhythm Heart sounds: no gallops, no murmurs and no rubs GI: Palpation (GI): Soft to palpation and Other GI palpation findings present ( Nontender) Auscultation: normal bowel sounds Extrem: General: No clubbing, No cyanosis and Yes edema (Trace bilateral) Objective Data Labs 03/29/23 05:40 03/29/23 05:40 Labs: Laboratory Results - last 24 hr 03/28/23 03/29/23 03/29/23 10:02 05:40 05:40 WBC 13.0 H RBC 4.15 L Hgb 12.7 Hct 38.2 MCV 92.0 MCH 30.6 MCHC 33.2 RDW 14.3 Plt Count 168 D MPV 9.8 Immature Gran % (Auto) 0.5 H Neut % (Auto) 83.7 H Lymph % (Auto) 6.9 L [place] % (Auto) 7.4 Eos % (Auto) 0.7 Baso % (Auto) 0.8 Lymph # (Auto) 0.9 L [place] # (Auto) 1.0 Eos # (Auto) 0.1 Baso # (Auto) 0.1 Abs Immat Gran (auto) 0.07 H Absolute Neuts (auto) 10.9 H Absolute Nucleated RBC 0.000 Nucleated RBC % (auto) 0.0 VBG pH VBG pCO2 VBG pO2 VBG HCO3 VBG O2 Saturation VBG Base Excess Sodium 141 138 Potassium 4.2 3.8 Chloride 110 H 105 Carbon Dioxide 25 26 Anion Gap 10 L 11 L BUN 24 H 14 Creatinine 0.88 0.80 Estim Creat Clear Calc 79.4 86.6 Estimated GFR > 60 > 60 Random Glucose 163 H 190 H Calcium 7.9 L D 8.2 L Phosphorus 3.0 2.8 Magnesium 1.9 2.0 Albumin 3.2 L 3.1 L 03/29/23 05:41 WBC RBC Hgb Hct MCV MCH MCHC RDW Plt Count MPV Immature Gran % (Auto) Neut % (Auto) Lymph % (Auto) [place] % (Auto) Eos % (Auto) Baso % (Auto) Lymph # (Auto) [place] # (Auto) Eos # (Auto) Baso # (Auto) Abs Immat Gran (auto) Absolute Neuts (auto) Absolute Nucleated RBC Nucleated RBC % (auto) VBG pH 7.43 VBG pCO2 47 VBG pO2 60 VBG HCO3 31 H VBG O2 Saturation 89.0 VBG Base Excess 6.6 Sodium Potassium Chloride Carbon Dioxide Anion Gap BUN Creatinine Estim Creat Clear Calc Estimated GFR Random Glucose Calcium Phosphorus Magnesium Albumin Microbiology Microbiology Results: Microbiology 03/28/23 00:23 Blood - Venous Blood Culture - Preliminary Gram negative tanisha 03/28/23 05:34 Urine clean catch - Clean Catch Midstream Urine Culture - Preliminary Gram negative tanisha 03/28/23 00:27 Blood - Venous Blood Culture - Preliminary Prelim: GNR Gram Stain only Progress Note: A&P Assessment and plan (1) Gram-negative bacteremia: Status: Acute (2) Urinary tract infection: Status: Inactive Plan Assessment: 67-year-old lady admitted with septic shock secondary to Gram- negative bacteremia with urinary source, initially requiring pressor support. Plan: Neuro: No acute issues. Cardiac: Septic shock, resolved. Titrated off pressor support. Pulmonary: No acute issues. Renal: No acute issues. Endo: No acute issues. GI: No acute issues. ID: Gram-negative bacteremia with source. Continue broad-spectrum antibiotics until cultures are finalized. Heme/Onc: No acute issues. Psych: No acute issues. Miscellaneous: No acute issues. Prophylaxis: Heparin Diet: Regular Critical care time spent: 30 minutes Quality Stroke Does the patient have a stroke diagnosis?: No VTE Prior VTE?: No VTE Risk Level:: Medical - moderate - high VTE Device Contraindication: N/A - Device Ordered VTE Drug Contraindication: N/A - Med Ordered
--- NOTE | 2023-03-29 13:00 | PM.EVENT ---
Event Note Date of Service: 03/29/23 Event Note: Discussed case with Dr. Leon. Plan to tx to medical floor. Off pressors. Sepsis resolved Septic shock secondary to GNR UTI GNR bacteremia on zosyn Time Spent With Patient Time: Total time managing care of this patient today ____ minutes.
[2023-03-29] MEDS: Fluticasone Propionate 100 MCG BLST.W.DEV 1 PUFF INHALE (19:23)
[2023-03-29] MEDS: Triamcinolone Acet 0.5 % Oint 15 GM TUBE 1 APPL TOPICAL (21:15)
[2023-03-30] VITALS: BP 138/83; PULSE 96; RESP 20; TEMP 36.8; O2SAT 94
[2023-03-30 03:21] VITALS: BP 135/74; PULSE 77; RESP 18; TEMP 36.6; O2SAT 92
[2023-03-30] MEDS: Piperacillin Sodium/Tazobactam 4.5 GM in 0.9 % Sodium Chloride 100 ML IV ×2 (03:25→09:33)
[2023-03-30] MEDS: Acetaminophen 325 MG TABLET 650 MG PO (04:07)
[2023-03-30] MEDS: Omeprazole 40 MG CAPSULE.DR PO (05:12)
[2023-03-30] MEDS: Enoxaparin Sodium 40 MG/0.4 ML SYRINGE SUBCUT (05:12)
[2023-03-30] MEDS: Pantoprazole Sodium 40 MG/10 ML VIAL IVPUSH (05:12)
[2023-03-30 06:00] VITALS: BMI 37.5
--- NOTE | 2023-03-30 06:23 | PC.NURSE ---
Nursing Electric Range Preparer and Dr Gómez lopez/anna patients telemetry this am.
[2023-03-30 07:06] LABS: MANUAL DIFF FLAG NO
[2023-03-30 07:11] LABS: Basophils Absolute Auto 0.1 X10*3/uL (0.0-0.2); Basophils Percent Auto 0.7 % (0-2); Eosinophils Absolute Auto 0.2 X10*3/uL (0.0-0.4); Eosinophils Percent Auto 2.4 % (0-4); Hematocrit 37.6 % (37.0-47.0); Hemoglobin 12.7 g/dl (12.0-16.0); Imm Gran Abs Auto 0.02 X10*3/uL (0.00-0.03); Imm Gran Pct Auto 0.3 % (0.0-0.4); Lymphocytes Absolute Auto 1.3 X10*3/uL (1.2-4.9); Lymphocytes Percent Auto 19.6 % (20-40); Mean Corpuscular HGB Conc 33.8 g/dl (31.0-35.0); Mean Corpuscular Hemoglobin 30.3 pg (27.0-33.0); Mean Corpuscular Volume 89.7 fL (80.0-98.0); Mean Platelet Volume 9.2 fL (9.4-12.3); Monocytes Absolute Auto 0.7 X10*3/uL (0.1-1.2); Monocytes Percent Auto 9.9 % (2-11); Neutrophils Absolute Auto 4.5 x10*3/uL (2.0-8.3); Neutrophils Percent Auto 67.1 % (45-73); Platelet Count 133 X10*3/uL (160-400); Red Blood Count 4.19 X10*6/uL (4.20-5.50); Red Cell Distribution Width 14.1 % (11.0-16.0); White Blood Count 6.7 X10*3/uL (4.8-10.8)
[2023-03-30 07:16] VITALS: BP 128/69; PULSE 72; RESP 19; TEMP 36.4; O2SAT 93
[2023-03-30 07:33] LABS: Anion Gap 9 (12-20); Blood Urea Nitrogen 14 mg/dL (9-16); Calcium 8.5 mg/dL (8.4-10.2); Carbon Dioxide 28 mmol/L (22-29); Chloride 108 mmol/L (96-108); Creatinine Clr Calc Pharmacy 92.9; Estimated Glomerular Filt Rate > 60; Glucose Random 134 mg/dL (60-115); Magnesium 2.1 mg/dL (1.6-2.6); Potassium 3.8 mmol/L (3.3-5.1); Sodium 141 mmol/L (135-145)
[2023-03-30] MEDS: Fluticasone Propionate 100 MCG BLST.W.DEV 1 PUFF INHALE (08:28)
[2023-03-30 08:31] VITALS: PULSE 71; RESP 18; O2SAT 96
[2023-03-30] MEDS: lisinopriL 20 MG TABLET PO (09:35)
[2023-03-30] MEDS: NaPROXEN 500 MG TABLET PO (09:35)
[2023-03-30] MEDS: predniSONE 10 MG TABLET PO (09:36)
[2023-03-30] MEDS: hydroCHLOROthiazide 25 MG TABLET PO (09:36)
[2023-03-30] MEDS: Triamcinolone Acet 0.5 % Oint 15 GM TUBE 1 APPL TOPICAL (09:40)
[2023-03-30 11:21] VITALS: BP 133/77; PULSE 62; RESP 20; TEMP 36.4; O2SAT 95
--- NOTE | 2023-03-30 11:26 | PC.NURSE ---
TLC removed patient tolerated well, no bleeding, tip intact
--- NOTE | 2023-03-30 12:34 | PM.DS ---
DS: Providers Provider Date of Service: 03/30/23 Date of admission: 03/28/23 05:26 Primary care physician: Unknown Physician Consults: 03/30/23 12:05 Consult to Infectious Diseases Routine Consulting Provider: [facility] Infectious Disease Reason for consultation: bacteremia DS: Diagnosis Discharge Diagnosis (1) Gram-negative bacteremia: Status: Acute (2) Urinary tract infection: Status: Inactive DS: Summary Hospital Course Hospital Course: HP as per admitting provider Ms. Lancaster is a 67-year-old female with a past medical history of? COPD, GERD, HLD, MAKENZIE, and obesity? who presents to the ER with complaint of nausea, vomiting, diarrhea and mild abdominal discomfort. ? She reports that she was recently prescribed antibiotics for a UTI and a dental infection as well as a prednisone taper to treat asthma / COPD.?On arrival to the emergency room? she was afebrile, heart rate 143, blood pressure 125/79, respiratory rate 22, ? O2 sat 95 on room air. Laboratory data was significant for WBC 12.1,? BUN 30, lactic acid 2.8.? Urinalysis positive for UTI.?Imaging: CXR:The lungs are clear with no focal consolidation. No evidence of pneumothorax, pulmonary edema, or pleural effusions.CT ABDOMEN AND PELVIS WITHOUT CONTRAST: No acute findings identified in the abdomen/pelvis. Bilateral renal calculi without hydronephrosis. Colonic diverticulosis without diverticulitis.ED course: The patient met sepsis criteria and was fluid resuscitated.? Her lactic acid went from 2.8-2.5, however,? she developed a temp of 101.3?F and her blood pressure continued to drop. A CVC was placed? and she was started on Levophed. She received a total 4 L of fluids, Vancomycin 1 g,? Zosyn 3.375 g, Acetaminophen and Zofran.?Blood pressure initially improved on Levophed to 148/87?but the patient reported headache and palpitations.The Levophed was stopped.? She became hypotensive within a few minutes?with a drop in blood pressure to?81/34.?The patient is admitted to ICU? for management of septic shock . 67-year-old woman admitted to the ICU for septic shock secondary to Klebsiella bacteremia and UTI. She was treated with vasopressor support and subsequently titrated off within 24 hours. Treated with broad-spectrum antibiotics. Discussed with infectious disease provider. Will treat with 14 total days of levaquin as patient was initially treated with Ceftin for UTI which seems as though treatment failed. Other chronic medical problems: Hypertension Asthma GERD Time Spent with Patient Time attestation: Total time managing care of this patient today ____ minutes. Discharge coordination time: Greater than 30 minutes Quality: Safe Use of Opioids Does Pt have an Active Cancer Diagnosis on the Problem List?: No Quality: Stroke Does the patient have a stroke diagnosis?: No Physical Exam Vital Signs: Vital Signs: Last Vital Signs Temp 97.6 F 03/30/23 11:21 Pulse 62 03/30/23 11:21 Resp 20 03/30/23 11:21 BP 133/77 03/30/23 11:21 Pulse Ox 95 03/30/23 11:21 O2 Del Method Room Air 03/30/23 11:21 O2 Flow Rate 1 03/29/23 10:00 BMI result Body Mass Index 37.5 Appearing in no acute distress head is normocephalic atraumatic eyes pupils are PERRLA sclera is anicteric mouth throat mucous membranes are intact and moist neck is supple no lymphadenopathy, no JVD noted lung sounds are clear to auscultation heart regular rate rhythm, clear S1, S2 positive bowel sounds, abdomen is soft, nontender neuro patient is alert x3, no focal deficits DS: Data Data Completed and Pending Labs on day of discharge: Laboratory Results - last 24 hr 03/30/23 03/30/23 06:52 06:52 WBC 6.7 RBC 4.19 L Hgb 12.7 Hct 37.6 MCV 89.7 MCH 30.3 MCHC 33.8 RDW 14.1 Plt Count 133 L MPV 9.2 L Immature Gran % (Auto) 0.3 Neut % (Auto) 67.1 Lymph % (Auto) 19.6 L [place] % (Auto) 9.9 Eos % (Auto) 2.4 Baso % (Auto) 0.7 Lymph # (Auto) 1.3 [place] # (Auto) 0.7 Eos # (Auto) 0.2 Baso # (Auto) 0.1 Abs Immat Gran (auto) 0.02 Absolute Neuts (auto) 4.5 Absolute Nucleated RBC 0.000 Nucleated RBC % (auto) 0.0 Sodium 141 Potassium 3.8 Chloride 108 Carbon Dioxide 28 Anion Gap 9 L BUN 14 Creatinine 0.73 Estim Creat Clear Calc 92.9 Estimated GFR > 60 Random Glucose 134 H Calcium 8.5 Phosphorus 3.0 Magnesium 2.1 Albumin 3.0 L Discharge Plan Discharge Anticipated Discharge Date/Time: 03/30/23 12:06 Patient Disposition: Home, Self-Care Discharge Diagnosis: Septic shock Klebsiella bacteremia Klebsiella UTI Discharge Medications: New levofloxacin 750 mg tablet 750 mg PO DAILY Qty: 12 0RF Continued prednisone 10 mg tablet 10 mg PO DAILY Rx Instructions: LAST DOSE / STOP DATE: 03/29/23 @2100 fexofenadine 180 mg Tablet 180 mg PO DAILY omeprazole 40 mg capsule,delayed release(DR/EC) 40 mg PO DAILY@0630 biotin 2,500 mcg Tablet,Chewable 2,500 mcg PO TID lisinopril-hydrochlorothiazide 20-25 mg tablet 1 tab PO DAILY 90 Days Qty: 90 2RF albuterol sulfate [ProAir HFA] 90 mcg/actuation HFA aerosol inhaler 2 puff inhalation Q4-6H PRN (Reason: shortness of breath or wheezing) 30 Days Qty: 8.5 4RF meloxicam 15 mg tablet 15 mg PO DAILY 30 Days Qty: 30 1RF acetaminophen 500 mg tablet 1,000 mg PO QID PRN (Reason: pain) Qty: 30 2RF triamcinolone acetonide 0.5 % ointment 1 appl topical BID 14 Days Qty: 30 0RF Rx Instructions: APPLY TO BACK fluticasone propionate [Flovent HFA] 110 mcg/actuation HFA aerosol inhaler 1 puff inhalation Q12H 30 Days Qty: 12 2RF Discharge Orders: Discharge Order (Routine); Ordered 03/30/23 Ordered By: Yeni Lerma Diet: Advance to usual diet Activity on Discharge: As tolerated Stand Alone Forms: Patient Portal Discharge page Care Plan Goals: Complete resolution of symptoms Health Concerns: Septic shock Klebsiella bacteremia Klebsiella UTI Plan of Treatment: Follow-up with primary care provider as needed Take all medications as prescribed Assessment: See discharge summary
--- NOTE | 2023-03-30 12:42 | MHC.CM.PN ---
Patient has been medically cleared for dc to home today, self care. Last IMM addressed on 03/28/2023.
[2023-03-30 15:32] VITALS: BP 118/76; PULSE 74; RESP 20; TEMP 36; O2SAT 95
== END 2023-03-30 16:01 | disposition home or self-care (01) | DRG 871 ==
LOC: HO.ED 03-28 05:23 → HO.EDOVER 03-28 05:32 → HO.ICU 03-28 08:12 → HO.IMC 03-29 14:00
PROVIDERS: Internal Medicine Pulmonary Disease; Nurse Practitioner Family; Physician Assistant; Admitting Provider Internal Medicine; Emergency Provider Emergency Medicine; Visit Provider Nurse Practitioner Acute Care
DX: A41.59 Other Gram-negative sepsis (principal); R65.21 Severe sepsis with septic shock; N39.0 Urinary tract infection, site not specified; K21.9 Gastro-esophageal reflux disease without esophagitis; E78.5 Hyperlipidemia, unspecified; E66.9 Obesity, unspecified; G47.33 Obstructive sleep apnea (adult) (pediatric); Z68.37 Body mass index [BMI] 37.0-37.9, adult; Z20.822 Contact with and (suspected) exposure to COVID-19; Z87.891 Personal history of nicotine dependence; Z79.52 Long term (current) use of systemic steroids; Z79.51 Long term (current) use of inhaled steroids; Z79.899 Other long term (current) drug therapy
CPT/HCPCS: 36415; 71045; 74176; 80048; 80076; 81001; 82040; 82803; 83605; 83735; 84100; 85025; 87040; 87077; 87086; 87088; 87186; 87205; 87502; 87635; 93005; 94640; 99285; J1650; J2405; J2543; J3010; J3371

== ENCOUNTER 2023-04-06 11:06 | Outpatient (REF) | payer MEDICARE, SELFPAY | END 2023-04-06 11:07 | disposition home or self-care (01) | LOC: HO.LAB 11:06 | PROVIDERS: Visit Provider Family Medicine | DX: Z13.89 Encounter for screening for other disorder (principal) ==

== ENCOUNTER 2023-04-06 11:17 | Outpatient (REF) | payer MEDICARE, SELFPAY ==
[2023-04-06 14:09] LABS: MANUAL DIFF FLAG NO
[2023-04-06 14:20] LABS: Basophils Absolute Auto 0.1 X10*3/uL (0.0-0.2); Basophils Percent Auto 0.6 % (0-2); Eosinophils Absolute Auto 0.1 X10*3/uL (0.0-0.4); Eosinophils Percent Auto 1.3 % (0-4); Hematocrit 43.5 % (37.0-47.0); Hemoglobin 14.5 g/dl (12.0-16.0); Imm Gran Abs Auto 0.04 X10*3/uL (0.00-0.03); Imm Gran Pct Auto 0.4 % (0.0-0.4); Lymphocytes Absolute Auto 3.1 X10*3/uL (1.2-4.9); Lymphocytes Percent Auto 32.9 % (20-40); Mean Corpuscular HGB Conc 33.3 g/dl (31.0-35.0); Mean Corpuscular Hemoglobin 30.1 pg (27.0-33.0); Mean Corpuscular Volume 90.2 fL (80.0-98.0); Mean Platelet Volume 9.6 fL (9.4-12.3); Monocytes Absolute Auto 0.8 X10*3/uL (0.1-1.2); Monocytes Percent Auto 8.4 % (2-11); Neutrophils Absolute Auto 5.4 x10*3/uL (2.0-8.3); Neutrophils Percent Auto 56.4 % (45-73); Platelet Count 261 X10*3/uL (160-400); Red Blood Count 4.82 X10*6/uL (4.20-5.50); Red Cell Distribution Width 14.1 % (11.0-16.0); White Blood Count 9.5 X10*3/uL (4.8-10.8)
[2023-04-06 14:25] LABS: Estimated Average Glucose 140 mg/dL; Hemoglobin A1c % 6.5 %
[2023-04-06 14:36] LABS: Alanine Aminotransferase 37 U/L (0-31); Albumin Level 4.2 g/dL (3.5-5.0); Alkaline Phosphatase 76 U/L (39-117); Anion Gap 13 (12-20); Aspartate Amino Transferase 32 U/L (5-31); Bilirubin Total 0.4 mg/dL (0.0-1.0); Blood Urea Nitrogen 18 mg/dL (9-16); Calcium 10.1 mg/dL (8.4-10.2); Carbon Dioxide 29 mmol/L (22-29); Chloride 101 mmol/L (96-108); Estimated Glomerular Filt Rate > 60; Glucose Random 77 mg/dL (60-115); Potassium 4.3 mmol/L (3.3-5.1); Sodium 139 mmol/L (135-145); Total Protein 7.9 g/dL (6.5-8.0)
[2023-04-06 15:06] LABS: Appearance Urine Clear; Color Urine Yellow; Glucose Urine UA Negative (Negative); Leukocyte Esterase Urine Small (1+) (Negative); Nitrite Urine Negative (Negative); UMIC TRIGGER UA YES; Urine Blood Negative (Negative); Urine Ketones Negative (Negative); Urine Protein Negative (Neg-Trace)
[2023-04-06 15:26] LABS: Bacteria Urine None Seen (None Seen); Hyaline Casts Urine 0-2 /LPF (0-2); RBC Urine 0-2 /HPF (0-2)
== END 2023-04-06 11:18 | disposition home or self-care (01) ==
LOC: HO.WFDLDS 11:17
PROVIDERS: Visit Provider Family Medicine
DX: Z00.00 Encounter for general adult medical examination without abnormal findings (principal); R53.83 Other fatigue; R06.02 Shortness of breath; R73.01 Impaired fasting glucose; R73.03 Prediabetes; R73.02 Impaired glucose tolerance (oral)
CPT/HCPCS: 36415; 80053; 81001; 81003; 83036; 85025; 87086; 87088

== ENCOUNTER → 2023-04-19 10:46 | Outpatient (BNVA) | payer MEDICARE, SELFPAY | PROVIDERS: PCP Family Medicine; Visit Provider Nurse Practitioner Family | DX: M51.36 Other intervertebral disc degeneration, lumbar region (principal); M47.816 Spondylosis without myelopathy or radiculopathy, lumbar region; M25.551 Pain in right hip; M25.552 Pain in left hip | CPT/HCPCS: 99202 ==

== ENCOUNTER 2023-04-30 10:44 | Outpatient (REF) | payer MEDICARE, SELFPAY ==
--- NOTE | ~2023-04-30 | XR_ITS ---
EXAMINATION: XR BILATERAL HIPS WITH AP PELVIS CLINICAL INFORMATION: Reason for Exam M25.551 - Pain in right hip COMPARISON: None TECHNIQUE: Two views of each hip. One view of the pelvis. FINDINGS: No acute fracture or dislocation. Moderate degenerative changes of the pubic symphysis with loss of joint space. Mild degenerative changes of the right hip with subchondral sclerosis. Right os acetabuli. Left hip and bilateral sacroiliac joint spaces are maintained. Few well-corticated calcification Station to the right greater trochanter may reflect heterotopic ossification. Calcified phleboliths in the pelvis. XR/XR hip BI w PEL1V IMPRESSION: 1. Moderate degenerative changes of the pubic symphysis with loss of joint space. 2. Mild degenerative changes of the right hip with a right os acetabuli. Left hip and sacroiliac joint spaces are maintained.
== END 2023-04-30 10:45 | disposition home or self-care (01) ==
LOC: CF 10:44
PROVIDERS: PCP Family Medicine; Visit Provider Nurse Practitioner Family
DX: M25.551 Pain in right hip (principal); M25.552 Pain in left hip; J44.9 Chronic obstructive pulmonary disease, unspecified
CPT/HCPCS: 73521; 99202

== ENCOUNTER → 2023-05-06 10:44 | Outpatient (REF) | payer MEDICARE, SELFPAY ==
--- NOTE | 2023-05-06 10:46 | CA_ITS ---
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 Normal LV systolic function with mild LVH with LVEF of 60 65% with normal filling pattern 2. Normal cardiac valvular Doppler 3. Normal RV systolic pressure 4. No gross pericardial effusion Findings Left Ventricle Normal left ventricular size and systolic function. There is mildly increased left ventricular wall thickness. The visually estimated ejection fraction is between 60-65%. Regional wall motion abnormalities can not be excluded due to suboptimal endocardial definition. Spectral Doppler is indicative of a normal filling pattern. Peak GLS is -17.6%, borderline normal. Right Ventricle Normal right ventricular cavity size and systolic function. Atria Both atria are normal in size. Interatrial shunt cannot be excluded. Aortic Valve The aortic valve was not well visualized. There is no aortic valve stenosis. There is no aortic valve regurgitation. Mitral Valve Normal mitral valve structure and function. There is mild mitral annular calcification. There is trace mitral valve regurgitation. There is no mitral valve stenosis. Pulmonic Valve The pulmonic valve was not well visualized. Tricuspid Valve Likely normal tricuspid valve structure and function. There is trace tricuspid valve regurgitation. The right ventricular systolic pressure is normal. The right ventricular systolic pressure is 15 mmHg. Normal right atrial pressure. There is no evidence of pulmonary hypertension. Great Vessels All visible segments of the aorta are normal in size. The pulmonary artery was not well visualized. Venous The inferior vena cava is normal in size and collapses greater than 50% with inspiration. Pericardium/Pleural There is no evidence of pericardial effusion. Prior Study Comparison No prior study available for comparison. Measurements 2D Linear Measurements IVSd: 1.26 0.6-0.9/0.6-1.0 cm LVIDd: 4.41 3.9-5.3/4.2-5.9 cm LVIDd Index: 2.14 2.4-3.2/2.2-3.1 cm/m2 LVIDs: 2.62 2.0-3.6 cm LVPWd: 1.21 0.7-1.1 cm LA Diam: 3.20 2.7-3.8/3.0-4.0 cm LAIDs Index: 1.55 1.5-2.3 cm/m2 LV Mass: 249.49 67-162/88-224 g LV Mass Index: 121.11 43-95/49-115 g/m2 LVOT Diam: 2.10 3.0+(-)1.3 cm 2D Systolic Function EF 4C: 59.50 >55% EF 2C: 64.70 >55% EF BiP: 60.20 >55% Mitral Valve MV Pk E: 0.78 MV PK A: 0.66 MV Decel Time: 218.00 E/A: 1.20 E'Lateral: 10.30 E'Medial: 8.70 E/E' Med: 9.00 E/E' Lat: 7.60 PHT: 64.00 MVA PHT: 3.44 Decel [place]: 3.57 Aortic Valve AoV Pk Fredo: 1.43 AoV Mn Fredo: 0.94 AoV VTI: 0.30 AoV Pk Grad: 8.00 Aov Mn Grad: 4.00 HAO Cont.VTI: 2.64 LVOT LVOT Pk Fredo: 1.01 LVOT Mn Fredo: 0.65 LVOT VTI: 0.23 LVOT Pk Grad: 4.00 LVOT Mn Grad: 2.00 LVOT Diam: 2.10 LVOT Area: 3.46 Diastolic Function MV Pk E: 0.78 MV Pk A: 0.66 E/A: 1.20 E'Medial: 8.70 E/E' Med: 9.00 E' Laterial: 10.30 E/E' Lat: 7.60 Right Ventricle TAPSE (mm): 24.90 TVS' Fredo: 14.00 Tricuspid Valve TR Pk Fredo: 1.72 TR Pk Grad: 12.00 RA Press: 3.00 RVSP: 15.00 Great Vessels Aorta Sinus of Valsalva: 3.54 2.0-3.[address] [place]: 3.17 1.7-3.4 cm Ao Asc: 3.40 2.1-3.4 cm Updated in Other Vendor System with Status of Final Arnoldo Faulkner MD electronically signed on 05/07/2023 11:40:44 AM with status of Final
== END ==
LOC: HO.CARD 10:44
PROVIDERS: PCP Family Medicine; Visit Provider Family Medicine
DX: R06.02 Shortness of breath (principal)
CPT/HCPCS: 93306; 93356

== ENCOUNTER → 2023-05-06 10:46 | Outpatient (BNV) | payer MEDICARE, SELFPAY | PROVIDERS: PCP Family Medicine; Visit Provider Internal Medicine Cardiovascular Disease | DX: I34.81 Nonrheumatic mitral (valve) annulus calcification (principal); R06.02 Shortness of breath | CPT/HCPCS: 93306 ==

== ENCOUNTER 2023-05-19 11:16 | Outpatient (AMB) | payer MEDICARE, SELFPAY ==
[2023-05-19 11:18] VITALS: BP 128/68; PULSE 91; RESP 15; TEMP 37.1; O2SAT 96; BMI 39.5
--- NOTE | 2023-05-19 11:18 | MHC.PC.OV ---
Vital Signs 05/19/23 11:18 Height 5 ft 4 in Weight 230 lb 4 oz BMI 39.5 BP 128/68 Blood Pressure Location Rt brachial Position Sitting Respiration 15 Pulse 91 Temp 98.7 F Temp Source Temporal Artery Scan Pulse Oximetry (%) 96 Oxygen Delivery Method Room Air Intake Visit Reasons: Follow up-SOB, rescheduled from 05/28 Intake Note: Patient is here to follow up on shortness of breath. 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 Had seen Pulmonology and she states they had recommended her to use her albuterol more. She continues to use her flovent every morning and evening and states shortness of breath has improved. She reports a ? thrush. She reports ongoing bilateral hand pain as well as back and hip pain [facility] Medical History Arthritis Surgical History H/O colonoscopy History of bladder surgery History of hysterectomy Family History Mother No problems noted. Father No problems noted. Social History Household Members: Spouse Housing: House Do you presently have visiting nurse or other home services: No Alcohol intake: former Patient Tobacco Use Status: Former Tobacco user Quit Date: 5 months ago Tobacco use type: Cigarette Cigarette Packs Per Day: 1 Cigarettes Per Day: 20 Years Smoked: 40 e-Cigarette/Vaping Use: Never Used Second Hand Smoke Exposure: No service: No Current occupational status: retired Current occupational exposures/hazards: No Cognitive needs: No Hearing needs: No Vision needs: No Questionnaire Thrive Questionnaire Date Thrive assessed: 12/03/22 TOYA-7 AMB Questionnaire TOYA-7 Date TOYA - 7 assessed: 12/03/22 Source: Developed by Drs. Jose Washington, Liliana Rodrigues, Ze Briones and colleagues, with an educational mario from [employer]. ACT Questionnaire In the past 4 weeks, how much of the time did your asthma keep you from getting as much done at work, school or at home?: Some of the time During the past 4 weeks, how often have you had shortness of breath?: 1-2 times a week During the past 4 weeks, how often did your asthma symptoms wake you up at night or earlier than usual in the morning?: Not at all During the past 4 weeks, how often have you had to use your rescue inhaler or nebulizer medication?: 1-2 times a week How would you rate your asthma control during the past 4 weeks?: Somewhat controlled Score: 17 Review of Systems Const Denies chills, Denies fatigue, Denies fever(s), Denies headache(s) and Denies weakness ENT Denies dizziness and Denies headache(s) Card Denies chest pain, Denies lightheadedness, Denies dyspnea and Denies other (Palpitations) Resp Denies cough, Denies dyspnea, Denies wheezing and Denies other ( shortness of breath) Musc Denies numbness and Denies tingling Neuro Denies dizziness, Denies headache(s), Denies numbness, Denies tingling, Denies paresthesias and Denies weakness Psych Denies anxiety and Denies depression Endo Denies fatigue Aller/Immun Denies wheezing Physical exam (Primary Care) Vital Signs: Last Vital Signs Temp 98.7 F 05/19/23 11:18 Pulse 91 05/19/23 11:18 Resp 15 05/19/23 11:18 BP 128/68 05/19/23 11:18 Pulse Ox 96 05/19/23 11:18 Oxygen Delivery Method Room Air 05/19/23 11:18 BMI result Body Mass Index 39.5 Tobacco/Smoking Status: Tobacco use Status Tobacco use date assessed 04/06/23 05/19/23 11:29 Patient Tobacco Use Status Former Tobacco user 05/19/23 11:29 Tobacco use type Cigarette 05/19/23 11:29 e-Cigarette/Vaping Use Never Used 05/19/23 11:29 Thrive Assessment: Date of Thrive Assessment Date Thrive assessed 12/03/22 05/19/23 11:29 Const General: no acute distress and well developed Nutritional Appearance: well nourished Orientation/consciousness: patient oriented x3 HENMT Head: Yes normocephalic and Yes atraumatic Eyes General: appearance normal, both eyes and all related structures Pupils: Equal, round and reactive pupils present EOM: EOMs intact bilaterally Resp Effort & Inspection: normal respiratory effort Auscultation: clear to auscultation bilaterally Cardio Rate: regular rate Rhythm: regular rhythm Heart sounds: S1 normal heart sound present, S2 normal heart sound present, no gallops, no murmurs and no rubs Neuro General: patient oriented x3 and gait normal Cranial nerves: Yes Equal, round and reactive pupils present Psych Affect: normal affect Assessment and Plan Assessment & Plan (1) Shortness of breath: Code(s): R06.02 - Shortness of breath Plan: Improved with increased use of her albuterol and Flovent. Echocardiogram was negative Follow-up with pulmonology (2) Thrush: Code(s): B37.0 - Candidal stomatitis Plan: Rinse with water after each use with Flovent Will give her nystatin swish and swallow to resolve thrush and then return to rinsing with water. (3) Polyarthralgia: Code(s): M25.50 - Pain in unspecified joint Plan: Pain in bilateral hands as well as hips and back Referred to rheumatology Orders: Referrals Rheumatology Referral M25.50 - Pain in unspecified joint Medications: New nystatin swish and swallow 1 mL PO DAILY 10 mL 0RF 10 days Coding Level of Care Code Est Pt Level 4 (88357) Diagnoses Shortness of breath R06.02 Thrush B37.0 Polyarthralgia M25.50
== END 2023-05-19 12:13 | disposition home or self-care (01) ==
PROVIDERS: PCP Family Medicine; Visit Provider Family Medicine
DX: R06.02 Shortness of breath (principal); B37.0 Candidal stomatitis; M25.50 Pain in unspecified joint
CPT/HCPCS: 99214

== ENCOUNTER 2023-07-14 10:41 | Outpatient (AMB) | payer MEDICARE, SELFPAY ==
[2023-07-14 10:52] VITALS: BP 130/74; PULSE 76; O2SAT 96; BMI 39.9
--- NOTE | 2023-07-14 10:52 | MHC.PC.OV ---
Vital Signs 07/14/23 10:52 Height 5 ft 4 in Weight 232 lb 4 oz BMI 39.9 BP 130/74 Blood Pressure Location Lt brachial Position Sitting Pulse 76 Pulse Source Pulse Oximeter Pulse Oximetry (%) 96 Oxygen Delivery Method Room Air Intake Visit Reasons: f/u chronic conditions Intake Note: Patient is here for a follow up, but can't see chairman president and chief executive officer until August 18. Allergies No Known Allergies Allergy (Verified 07/14/23 10:54) Tobacco use date assessed: 07/14/23 Fall risk assessment: No Falls in past year Last assessed Fall Risk: 07/14/23 HPI f/u chronic conditions HPI Details 67 y/o female presents to f/u polyarthralgias. She has had pain in b/L hips as well as bilateral hands. She has an appt. with Rheumatology in a month. She has been taking meloxicam 15mg which does help. She is not taking tylenol. Pt reports a vaginal yeast infection that she has had for awhile. Pt reports leg cramps. HPI Comments History of Present Illness Details Documentation assistance for Alexis Shaw MD, was provided by Travis Gusman,? Medical Chemist on 07/14/2023 11:41 AM EST. I, Dr. Shaw, have read, observed, and verified documentation. [facility] Medical History Arthritis Surgical History H/O colonoscopy History of bladder surgery History of hysterectomy Family History Mother No problems noted. Father No problems noted. Social History Household Members: Spouse Housing: House Do you presently have visiting nurse or other home services: No Alcohol intake: former Patient Tobacco Use Status: Former Tobacco user Quit Date: 5 months ago Tobacco use type: Cigarette Cigarette Packs Per Day: 1 Cigarettes Per Day: 20 Years Smoked: 40 e-Cigarette/Vaping Use: Never Used Second Hand Smoke Exposure: No service: No Current occupational status: retired Current occupational exposures/hazards: No Cognitive needs: No Hearing needs: No Vision needs: No Questionnaire Thrive Questionnaire Date Thrive assessed: 12/03/22 TOYA-7 AMB Questionnaire TOYA-7 Date TOYA - 7 assessed: 12/03/22 Source: Developed by Drs. Jose Washington, Liliana Rodrigues, Ze Briones and colleagues, with an educational mario from [employer]. Review of Systems Const Denies chills, Denies fatigue, Denies fever(s), Denies headache(s) and Denies weakness ENT Denies dizziness and Denies headache(s) Card Denies chest pain, Denies lightheadedness, Denies dyspnea and Denies other (Palpitations) Resp Denies cough, Denies dyspnea, Denies wheezing and Denies other ( shortness of breath) Musc Denies numbness and Denies tingling Neuro Denies dizziness, Denies headache(s), Denies numbness, Denies tingling, Denies paresthesias and Denies weakness Psych Denies anxiety and Denies depression Endo Denies fatigue Aller/Immun Denies wheezing Physical exam (Primary Care) Vital Signs: Last Vital Signs Pulse 76 07/14/23 10:52 BP 130/74 07/14/23 10:52 Pulse Ox 96 07/14/23 10:52 Oxygen Delivery Method Room Air 07/14/23 10:52 BMI result Body Mass Index 39.9 Tobacco/Smoking Status: Tobacco use Status Tobacco use date assessed 07/14/23 07/14/23 10:56 Patient Tobacco Use Status Former Tobacco user 07/14/23 10:56 Tobacco use type Cigarette 07/14/23 10:56 e-Cigarette/Vaping Use Never Used 07/14/23 10:56 Thrive Assessment: Date of Thrive Assessment Date Thrive assessed 12/03/22 07/14/23 10:56 Const General: no acute distress and well developed Nutritional Appearance: well nourished Orientation/consciousness: patient oriented x3 HENMT Head: Yes normocephalic and Yes atraumatic Eyes General: appearance normal, both eyes and all related structures Pupils: Equal, round and reactive pupils present EOM: EOMs intact bilaterally Resp Effort & Inspection: normal respiratory effort Auscultation: clear to auscultation bilaterally Cardio Rate: regular rate Rhythm: regular rhythm Heart sounds: S1 normal heart sound present, S2 normal heart sound present, no gallops, no murmurs and no rubs Neuro General: patient oriented x3 and gait normal Cranial nerves: Yes Equal, round and reactive pupils present Psych Affect: normal affect Assessment and Plan Assessment & Plan (1) Polyarthralgia: Code(s): M25.50 - Pain in unspecified joint Plan: Ongoing polyarthralgias. Meloxicam is helping and No adverse effects from this. Continue meloxicam Has appointment with rheumatology next month. (2) Bilateral hip pain: Code(s): M25.551 - Pain in right hip; M25.552 - Pain in left hip Plan: As above (3) GERD (gastroesophageal reflux disease): Code(s): K21.9 - Gastro-esophageal reflux disease without esophagitis Plan: Symptoms well controlled with omeprazole (4) Yeast infection: Code(s): B37.9 - Candidiasis, unspecified Plan: Has done well with Diflucan in the past and I have sent her a new script for this (5) Leg cramps: Code(s): R25.2 - Cramp and spasm Plan: Unclear cause Advised good hydration and regular meals She may be periodically exerting herself beyond her fitness level. Encouraged gradual but regular increases in her exercise. Medications: Refilled fluconazole (Diflucan) May repeat dose in 3 days if continuing to have symptoms 150 mg PO Q3D 2 tabs 0RF Coding Level of Care Code Est Pt Level 4 (30414) Diagnoses Polyarthralgia M25.50 Bilateral hip pain M25.551; M25.552 GERD (gastroesophageal reflux disease) K21.9 Yeast infection B37.9 Leg cramps R25.2
== END 2023-07-14 11:51 | disposition home or self-care (01) ==
PROVIDERS: PCP Family Medicine; Visit Provider Family Medicine
DX: M25.50 Pain in unspecified joint (principal); M25.551 Pain in right hip; M25.552 Pain in left hip; K21.9 Gastro-esophageal reflux disease without esophagitis; B37.9 Candidiasis, unspecified; R25.2 Cramp and spasm
CPT/HCPCS: 99214

== ENCOUNTER 2023-08-18 08:38 | Outpatient (AMB) | payer MEDICARE, SELFPAY ==
--- NOTE | 2023-08-18 08:46 | MHC.OFFVIS ---
Intake Vital Signs 08/18/23 08:47 Height 5 ft 4 in Weight 234 lb 9.149 oz BMI 40.3 BP 132/74 Blood Pressure Location Rt brachial Position Sitting Pulse 78 Pulse Source Pulse Oximeter Temp 97.2 F Temp Source Skin Pulse Oximetry (%) 94 Intake Visit Reasons: Joint Pain Intake Note: New pt presents today for consult at the request of PCP. C/o pain in multiple joints. 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: No Accompanied by: Self / Same As Patient Allergies No Known Allergies Allergy (Verified 08/18/23 08:51) Medication List - Last Reconciled 08/18/23 by Ilsa Carrasquillo MD acetaminophen 1,000 mg (2 x 500 mg) PO QID PRN albuterol sulfate 90 mcg/actuation (ProAir HFA) 2 puffs inhalation Q4-6H PRN 30 days biotin 2,500 mcg PO TID fexofenadine 180 mg PO DAILY fluticasone propionate 50 mcg/actuation (Flonase Allergy Relief) 1 spray intranasal Q12H 30 days fluticasone propionate 110 mcg/actuation (Flovent HFA) 1 puff inhalation Q12H 30 days lisinopril-hydrochlorothiazide 20-25 mg 1 tab PO DAILY 90 days meloxicam 15 mg PO DAILY metformin 250 mg (1/2 x 500 mg) PO DAILY 30 days nystatin 1 mL PO DAILY 10 days omeprazole 40 mg PO DAILY@0630 90 days triamcinolone acetonide 0.5% 1 appl topical BID 14 days HPI HPI Comments History of Present Illness Details This is a 67-year-old female who presents for evaluation of multiple joint pain. States that for many years she has had pain in her fingers, toes, lower back. States however that her pain has been worse over the last year. She is noticing some changes in the tips of her fingers. Sometimes her right middle finger gets stuck, this happens about once a month. She has been taking meloxicam 15 mg daily which does seem to help. She is unaware of any family history of an autoimmune rheumatic disease. Denies any history of DVT/PE [facility] Medical History Arthritis Surgical History H/O colonoscopy History of bladder surgery History of hysterectomy Family History Mother No problems noted. Father No problems noted. Social History Household Members: Spouse Housing: House Do you presently have visiting nurse or other home services: No Alcohol intake: former Patient Tobacco Use Status: Former Tobacco user Quit Date: March 2022 Tobacco use type: Cigarette Cigarette Packs Per Day: 1 Cigarettes Per Day: 20 Years Smoked: 40 e-Cigarette/Vaping Use: Never Used Second Hand Smoke Exposure: No service: No Current occupational status: retired Current occupational exposures/hazards: No Cognitive needs: No Hearing needs: No Vision needs: No Female Reproductive History Menstrual Total pregnancies: 5 Number of Living Children: 3 Ab spontaneous: 2 Review of Systems Const Reports fatigue and Reports weakness ENT Reports dysphagia and Reports hearing loss Card Reports dyspnea Resp Reports dyspnea and Reports wheezing GI Reports dysphagia Musc Reports arthralgias, Reports joint swelling, Reports limited range of motion and Reports stiffness Neuro Reports weakness Endo Reports fatigue Aller/Immun Reports wheezing Physical Exam Vital Signs: Last Vital Signs Temp 97.2 F 08/18/23 08:47 Pulse 78 08/18/23 08:47 BP 132/74 08/18/23 08:47 Pulse Ox 94 08/18/23 08:47 BMI result Body Mass Index 40.3 Const General: cooperative, healthy appearing and comfortable Nutritional Appearance: obese morbidly obese Orientation/consciousness: patient oriented x3 Limitations: no limitations HEENT Head: Yes normocephalic and Yes atraumatic Mouth: moist mucous membranes Resp Effort & Inspection: normal respiratory effort and able to speak in complete sentences Auscultation: clear to auscultation bilaterally Cardio Rate: regular rate Skin General skin exam: no rashes or lesions noted Neuro General: patient oriented x3 Extrem Other: Osteoarthritic changes of both hands with prominent Heberden's nodes Few Heberden'sare tender, few PIP joints are tender without swelling Bilateral 1st CMC joint tenderness Normal range of motion of both elbows and shoulders without pain No triggering of flexor tendons bilaterally bilateral foot bunions Assessment & Plan Assessment & Plan (1) Osteoarthritis of hands, bilateral: Code(s): M19.041 - Primary osteoarthritis, right hand; M19.042 - Primary osteoarthritis, left hand Qualifiers: Osteoarthritis type: primary Qualified Code(s): M19.041 - Primary osteoarthritis, right hand; M19.042 - Primary osteoarthritis, left hand Plan: This is a 67-year-old female who presents for evaluation of multiple joint pain. Clinical picture consistent with osteoarthritis. I discussed nature of osteoarthritis with patient. Discussed different management strategies. Patient is not interested in occupational therapy. I suggested buying a paraffin wax machine. I suggested using Tylenol up to 2500 mg daily and using topical Voltaren gel 4 times a day on affected joints in an attempt to reduce dependence on meloxicam. Follow-up as needed Plan I spent 32 minutes reviewing patient's chart, evaluating patient, counseling patient and documenting in the chart Medications: Changed From meloxicam 15 mg PO DAILY 30 days 30 tabs 1RF To meloxicam 15 mg PO DAILY Coding Level of Care Code New Pt Level 3 (79965) Diagnoses Primary osteoarthritis of both hands M19.041; M19.042 Osteoarthritis type: primary
[2023-08-18 08:47] VITALS: BP 132/74; PULSE 78; TEMP 36.2; O2SAT 94; BMI 40.3
== END 2023-08-18 09:24 | disposition home or self-care (01) ==
PROVIDERS: PCP Family Medicine; Visit Provider Student in an Organized Health Care Education/Training Program
DX: M19.041 Primary osteoarthritis, right hand (principal); M19.042 Primary osteoarthritis, left hand
CPT/HCPCS: 99203

== ENCOUNTER → 2023-08-18 08:38 | Outpatient (BNVA) | payer MEDICARE, SELFPAY | PROVIDERS: PCP Family Medicine; Visit Provider Student in an Organized Health Care Education/Training Program ==

== ENCOUNTER → 2023-08-24 11:20 | Outpatient (REF) | payer MEDICARE, SELFPAY ==
--- NOTE | ~2023-08-24 | CT_ITS ---
EXAMINATION: CT CHEST WITHOUT CONTRAST CLINICAL INFORMATION: COPD COMPARISON: Previous chest x-rays most recent March 2023 TECHNIQUE: Multidetector volumetric CT imaging of the chest was done. Axial MIP volume rendering provided. Sagittal and coronal reformatted images were obtained. This CT examination was performed using dose optimization techniques as appropriate, variously including the following: *Automated exposure control *Adjustment of mA and/or kV according to patient size (this includes techniques or standardized protocols for targeted exams where dose is matched to indication/reason for exam; i.e. extremities or head) *Use of iterative reconstruction technique DLP: 255 mGy-cm FINDINGS: NETWORK COORDINATOR: Unremarkable LUNGS: 2 mm right upper lobe nodule axial image 22 series 11. 2 mm peripheral or subpleural superior segment right lower lobe nodule adjacent to the major fissure axial image 55 series 11. 2 mm peripheral or subpleural right middle lobe nodule adjacent to the minor fissure axial image 111 series 11. 2 mm peripheral left lower lobe nodule axial image 139 series 11. Scarring or subsegmental atelectasis at the left lung base in the left lower lobe. No evidence of emphysema interstitial lung disease or bronchiectasis. No endobronchial or endotracheal lesion. MEDIASTINUM: The mediastinum is normal. CORONARY ARTERY CALCIFICATION: None visualized on this study. PLEURA: There is no pleural effusion. No pleural mass or thickening. AXILLA: No lymphadenopathy. UPPER ABDOMEN: Left renal stone. OSSEOUS STRUCTURES: Degenerative changes of the spine. CT/CT chest wo IV con IMPRESSION: Small pulmonary nodules or micronodules. According to the UPDATED 2017 Fleischner Society recommendations, the advised follow-up imaging for less than 6 mm solid nodule: Low risk, no chest CT follow-up and high risk, optional chest CT follow-up in one year. Left renal stone. Fleischner guidelines were followed.
--- NOTE | 2023-08-26 07:50 | PFT_ITS ---
FLOWS: 1. FEV1 109% of predicted at 1.77 L. 2. FVC 108% of predicted at 2.82 L. 3. FEV1 to FVC ratio of 0.63. 4. No bronchodilator response. LUNG VOLUMES: 1. Total lung capacity 92% of predicted at 4.96 L. 2. Residual volume 117% of predicted at 2.35 L. 3. Slow vital capacity 78% of predicted at 2.62 L. 4. Expiratory reserve volume 36% of predicted at 0.30 L. 5. Diffusion capacity is normal. IMPRESSION: Moderate obstructive ventilatory defect with no bronchodilator response. Decreased expiratory reserve volume suggest extrathoracic restriction likely secondary to abdominal obesity. Maximiliano Leon MD AP/MODL / [id number]
== END ==
LOC: HO.SL 11:20
PROVIDERS: PCP Family Medicine; Visit Provider Nurse Practitioner Family
DX: R06.00 Dyspnea, unspecified (principal); J44.9 Chronic obstructive pulmonary disease, unspecified; R06.02 Shortness of breath; R06.83 Snoring; Z87.891 Personal history of nicotine dependence
CPT/HCPCS: 71250; 94010; 94727; 94729; 95806

== ENCOUNTER → 2023-08-24 13:12 | Outpatient (BNV) | payer MEDICARE, SELFPAY | PROVIDERS: PCP Family Medicine; Visit Provider Internal Medicine | DX: R06.83 Snoring (principal) | CPT/HCPCS: 95806 ==

== ENCOUNTER → 2023-08-26 07:50 | Outpatient (BNV) | payer MEDICARE, SELFPAY | PROVIDERS: PCP Family Medicine; Visit Provider Internal Medicine Pulmonary Disease | DX: J44.9 Chronic obstructive pulmonary disease, unspecified (principal); Z87.891 Personal history of nicotine dependence; R06.83 Snoring | CPT/HCPCS: 94060; 94727; 94729 ==

== ENCOUNTER 2023-09-02 10:32 | Outpatient (AMB) | payer MEDICARE, SELFPAY ==
--- NOTE | 2023-09-02 10:36 | A.OFFPC_ITS ---
Vital Signs 09/02/23 10:39 Height 5 ft 4 in Weight 238 lb 4 oz BMI 40.9 BP 126/80 Blood Pressure Location Lt brachial Position Sitting Pulse 77 Pulse Source Pulse Oximeter Pulse Oximetry (%) 97 Oxygen Delivery Method Room Air Intake Visit Reasons: f/u polyarthalgias and chronic conditions Intake Note: Patient is here for follow up on polyarthalgias and chronic conditions. She had a question of mushrooms. Patient is complaining of right foot spot. Allergies No Known Allergies Allergy (Verified 09/02/23 10:41) Medication List - Last Reconciled 09/02/23 by Alexis Shaw MD acetaminophen 1,000 mg (2 x 500 mg) PO QID PRN albuterol sulfate 90 mcg/actuation (ProAir HFA) 2 puffs inhalation Q4-6H PRN 30 days biotin 2,500 mcg PO TID fexofenadine 180 mg PO DAILY fluticasone propionate 50 mcg/actuation (Flonase Allergy Relief) 1 spray intranasal Q12H 30 days fluticasone propionate 110 mcg/actuation (Flovent HFA) 1 puff inhalation Q12H 30 days lisinopril-hydrochlorothiazide 20-25 mg 1 tab PO DAILY 90 days meloxicam 15 mg PO DAILY metformin 250 mg (1/2 x 500 mg) PO DAILY 30 days nystatin 1 mL PO DAILY 10 days omeprazole 40 mg PO DAILY@0630 90 days triamcinolone acetonide 0.5% 1 appl topical BID 14 days Tobacco use date assessed: 09/02/23 Fall risk assessment: No Falls in past year Last assessed Fall Risk: 09/02/23 Dental Screening Dental Screen Date: 09/02/23 HPI f/u polyarthalgias and chronic conditions HPI Details 67 y/o female presents to f/u polyarthal gias and chronic conditions. Had seen Rheumatology 08/18/23. Was diagnosed with osteoarthritis of hands and suggested using tylenol up to 2500mg daily and using topical Voltaren gel 4x a day on affected joints to reduce dependence on meloxicam. Recommended f/u as needed. Pt has complaints of a rash on her R foot. Pt had questions about dietary supplements she wants to take. Pt has ongoing complaints of shortness of breath/COPD. [facility] Medical History Arthritis Surgical History H/O colonoscopy History of bladder surgery History of hysterectomy Family History Mother No problems noted. Father No problems noted. Social History Household Members: Spouse Housing: House Do you presently have visiting nurse or other home services: No Alcohol intake: former Patient Tobacco Use Status: Former Tobacco user Quit Date: March 2022 Tobacco use type: Cigarette Cigarette Packs Per Day: 1 Cigarettes Per Day: 20 Years Smoked: 40 e-Cigarette/Vaping Use: Never Used Second Hand Smoke Exposure: No service: No Current occupational status: retired Current occupational exposures/hazards: No Cognitive needs: No Hearing needs: No Vision needs: No Questionnaire Thrive Questionnaire Date Thrive assessed: 12/03/22 TOYA-7 AMB Questionnaire TOYA-7 Date TOYA - 7 assessed: 12/03/22 Source: Developed by Drs. Jose Washington, Liliana Rodrigues, Ze Briones and colleagues, with an educational mario from [employer]. Review of Systems Const Denies chills, Denies fatigue, Denies fever(s), Denies headache(s) and Denies weakness ENT Denies dizziness and Denies headache(s) Card Denies dyspnea Resp Denies cough, Denies dyspnea, Denies wheezing and Denies other (shortness of breath) Musc Denies numbness and Denies tingling Neuro Denies dizziness, Denies headache(s), Denies numbness, Denies tingling and Denies weakness Psych Denies anxiety and Denies depression Endo Denies fatigue Aller/Immun Denies wheezing Physical exam (Primary Care) Vital Signs: Last Vital Signs Pulse 77 09/02/23 10:39 BP 126/80 09/02/23 10:39 Pulse Ox 97 09/02/23 10:39 Oxygen Delivery Method Room Air 09/02/23 10:39 BMI result Body Mass Index 40.9 Tobacco/Smoking Status: Tobacco use Status Tobacco use date assessed 09/02/23 09/02/23 10:47 Patient Tobacco Use Status Former Tobacco user 09/02/23 10:37 Tobacco use type Cigarette 09/02/23 10:37 e-Cigarette/Vaping Use Never Used 09/02/23 10:37 Thrive Assessment: Date of Thrive Assessment Date Thrive assessed 12/03/22 09/02/23 10:37 Const General: well developed; No acute distress Nutritional Appearance: well nourished and obese morbidly obese Orientation/consciousness: patient oriented x3 HENNC Head: Yes normocephalic and Yes atraumatic Eyes General: appearance normal, both eyes and all related structures Pupils: Equal, round and reactive pupils present EOM: EOMs intact bilaterally Resp Effort & Inspection: normal respiratory effort Auscultation: clear to auscultation bilaterally Cardio Rate: regular rate Rhythm: regular rhythm Heart sounds: S1 normal heart sound present, S2 normal heart sound present, no gallops, no murmurs and no rubs Neuro General: patient oriented x3 and gait normal Cranial nerves: Yes Equal, round and reactive pupils present Psych Affect: normal affect Assessment and Plan Assessment & Plan (1) Osteoarthritis of hands, bilateral: Code(s): M19.041 - Primary osteoarthritis, right hand; M19.042 - Primary osteoarthritis, left hand Qualifiers: Osteoarthritis type: primary Qualified Code(s): M19.041 - Primary osteoarthritis, right hand; M19.042 - Primary osteoarthritis, left hand Plan: Ongoing?osteoarthritis?and?polyarthralgia. Rheumatology?recommended?she?rely?more?on?Tylenol?than?meloxicam.??We?discussed? this?and?she?will?try?it. Also?recommended?Voltaren?gel.??I?will?prescribe?that?today. (2) Polyarthralgia: Code(s): M25.50 - Pain in unspecified joint Plan: As?above (3) COPD (chronic obstructive pulmonary disease): Code(s): J44.9 - Chronic obstructive pulmonary disease, unspecified Plan: COPD/asthma?overlap. Still?has?shortness?of?breath?though?no?sherly?exacerbation?today. Using?albuterol?only?about?twice?per?day.??Taking?Flovent?twi ce?a?day?as?prescribed. Will?increase?her?Flovent?dose.??She?can?use?albuterol?up?to?4?times?per?day?or? up?to?every?4?hours?during?an?exacerbation. Follow-up?with?Pulmonary (4) Pulmonary nodules: Code(s): R91.8 - Other nonspecific abnormal finding of lung field Plan: CT?scan?shows?pulmonary?nodules. Patient?recently?quit?smoking She?understands?that?she?needs?to?follow- up?with?Pulmonary?and?she?will?make?an?appointment. (5) Asthma: Code(s): J45.909 - Unspecified asthma, uncomplicated Plan: As?above (6) Sleep apnea: Code(s): G47.30 - Sleep apnea, unspecified Plan: Sleep?study?did?not?demonstrate?sleep?apnea. (7) Rash: Code(s): R21 - Rash and other nonspecific skin eruption Plan: Probable?eczema?on?her?foot.??Possible?contact?dermatitis Will?give?h er?a?script?for?a?steroid?cream?and?advised?she?use?a?moisturizer?that?has?no?dy es?or?perfumes. Medications: New diclofenac sodium 1% apply to single elbow, wrist or hand; for hand includes palm/fingers/back of hand 4 grams topical QID 30 days PRN 200 grams 3RF pain fluticasone propionate 220 mcg/actuation (Flovent HFA) 1 puff inhalation Q12H 30 days 12 grams 2RF betamethasone valerate 0.1% 1 appl topical BID PRN 45 grams 1RF skin irritation 14 days Discontinued fluticasone propionate 110 mcg/actuation (Flovent HFA) Discontinued Reason: Doctor's Order 1 puff inhalation Q12H 30 days 12 grams 2RF Coding Level of Care Code Est Pt Level 4 (15570) Diagnoses Primary osteoarthritis of both hands M19.041; M19.042 Osteoarthritis type: primary Polyarthralgia M25.50 COPD (chronic obstructive pulmonary disease) J44.9 Pulmonary nodules R91.8 Asthma J45.909 Sleep apnea G47.30 Rash R21
[2023-09-02 10:39] VITALS: BP 126/80; PULSE 77; O2SAT 97; BMI 40.9
== END 2023-09-02 11:26 | disposition home or self-care (01) ==
PROVIDERS: PCP Family Medicine; Visit Provider Family Medicine
DX: M19.041 Primary osteoarthritis, right hand (principal); M19.042 Primary osteoarthritis, left hand; M25.50 Pain in unspecified joint; J44.9 Chronic obstructive pulmonary disease, unspecified; R91.8 Other nonspecific abnormal finding of lung field; J45.909 Unspecified asthma, uncomplicated; G47.30 Sleep apnea, unspecified; R21 Rash and other nonspecific skin eruption
CPT/HCPCS: 99214

== ENCOUNTER 2023-09-29 13:49 | Outpatient (AMB) | payer MEDICARE, SELFPAY ==
--- NOTE | 2023-09-29 13:51 | A.OFFPC_ITS ---
Vital Signs 09/29/23 13:52 Height 5 ft 4 in Weight 234 lb BMI 40.2 BP 138/80 Blood Pressure Location Rt brachial Position Sitting Respiration 14 Pulse 95 Pulse Source Pulse Oximeter Temp 97 F Temp Source Temporal Artery Scan Pulse Oximetry (%) 97 Oxygen Delivery Method Room Air Intake Visit Reasons: chest congestion Intake Note: * Patient states that she has stopped taking meloxicam and magda due to taking OTC medication for whatever she has going on. * Patient states shes been feeling like this for the past 15 days and has gone through having a fever, bodyaches and chills, and now shes dealing with sinus pressure, cluster headaches and very thick greeenish yellow phlegm that comes up when she cough. Patient states that last time she felt close to how she feels right now she had sepsis due to an untreated UTI. Patient has left a urine sample just incase. Manager Front Office Required: No Accompanied by: Self / Same As Patient Allergies No Known Allergies Allergy (Verified 09/29/23 14:09) Tobacco use date assessed: 09/02/23 Fall risk assessment: No Falls in past year Last assessed Fall Risk: 09/29/23 Dental Screening Dental Screen Date: 09/29/23 Did you have a dental visit in the last 12 months?: Yes Did you have a dental problem in the last 6 months where you did not have access to dental care?: No Was dental information given to patient?: Patient has dentist HPI chest congestion HPI Details 67 y/o female presents today with compla ints of chest congestion. She reports symptoms x15 days and states she had gone through fevers, bodyaches and chills. She reports is currently dealing with sinus pressure, cluster headaches and thick greenish yellow phlegm that comes up when she coughs. Patient states that last time she felt close to how she feels right now she had sepsis due to an untreated UTI. [facility] Medical History Arthritis Surgical History H/O colonoscopy History of bladder surgery History of hysterectomy Family History Mother No problems noted. Father No problems noted. Social History Household Members: Spouse Housing: House Do you presently have visiting nurse or other home services: No Alcohol intake: former Patient Tobacco Use Status: Former Tobacco user Quit Date: March 2022 Tobacco use type: Cigarette Cigarette Packs Per Day: 1 Cigarettes Per Day: 20 Years Smoked: 40 e-Cigarette/Vaping Use: Never Used Second Hand Smoke Exposure: No service: No Current occupational status: retired Current occupational exposures/hazards: No Cognitive needs: No Hearing needs: Yes Vision needs: Yes Questionnaire Thrive Questionnaire Date Thrive assessed: 12/03/22 TOYA-7 AMB Questionnaire TOYA-7 Date TOYA - 7 assessed: 12/03/22 Source: Developed by Drs. Jose Washington, Liliana Rodrigues, Ze Briones and colleagues, with an educational mario from [employer]. Review of Systems Const Denies chills, Denies fatigue, Denies fever(s), Reports headache(s) and Denies weakness ENT Denies dizziness, Reports headache(s), Reports nasal congestion and Reports nasal discharge Card Denies chest pain, Denies lightheadedness, Denies dyspnea and Denies other (Palpitations) Resp Denies cough, Denies dyspnea, Denies wheezing and Denies other ( shortness of breath) Musc Denies numbness and Denies tingling Neuro Denies dizziness, Reports headache(s), Denies numbness, Denies tingling, Denies paresthesias and Denies weakness Psych Denies anxiety and Denies depression Endo Denies fatigue Aller/Immun Denies wheezing Physical exam (Primary Care) Vital Signs: Last Vital Signs Temp 97 F 09/29/23 13:52 Pulse 95 09/29/23 13:52 Resp 14 09/29/23 13:52 BP 138/80 09/29/23 13:52 Pulse Ox 97 09/29/23 13:52 Oxygen Delivery Method Room Air 09/29/23 13:52 BMI result Body Mass Index 40.2 Tobacco/Smoking Status: Tobacco use Status Tobacco use date assessed 09/02/23 09/29/23 14:14 Patient Tobacco Use Status Former Tobacco user 09/29/23 14:14 Tobacco use type Cigarette 09/29/23 14:14 e-Cigarette/Vaping Use Never Used 09/29/23 14:14 Thrive Assessment: Date of Thrive Assessment Date Thrive assessed 12/03/22 09/29/23 14:14 Const General: no acute distress and well developed Nutritional Appearance: obese morbidly obese Orientation/consciousness: patient oriented x3 HENND Head: Yes normocephalic and Yes atraumatic Eyes General: appearance normal, both eyes and all related structures Pupils: Equal, round and reactive pupils present EOM: EOMs intact bilaterally Resp Effort & Inspection: normal respiratory effort Auscultation: clear to auscultation bilaterally Cardio Rate: regular rate Rhythm: regular rhythm Heart sounds: S1 normal heart sound present, S2 normal heart sound present, no gallops, no murmurs and no rubs Neuro General: patient oriented x3 and gait normal Cranial nerves: Yes Equal, round and reactive pupils present Psych Affect: normal affect Assessment and Plan Assessment & Plan (1) Sinusitis: Code(s): J32.9 - Chronic sinusitis, unspecified Plan: Start?cephalexin (2) Asthma: Code(s): J45.909 - Unspecified asthma, uncomplicated Plan: Exacerbation?likely?secondary?to?upper?respiratory/sinus?infection Will?give?her?prednisone Continue?inhaled?med Orders: Orders UA and rflx microscopic Today Z00.00 - Encounter for general adult medical examination without abnormal findings SARS-CoV2/FLU/RSV Today R09.89 - Other specified symptoms and signs involving the circulatory and respiratory systems Urine Dipstick Today N39.0 - Urinary tract infection, site not specified Medications: New prednisone 40 mg (2 x 20 mg) PO DAILY 6 tabs 0RF 3 days fluconazole 150 mg PO Q3D 2 tabs 0RF 2 doses cephalexin 500 mg PO Q12H 20 caps 0RF 10 days Coding Level of Care Code Est Pt Level 3 (48810) Diagnoses Sinusitis J32.9 Asthma J45.909
[2023-09-29 13:52] VITALS: BP 138/80; PULSE 95; RESP 14; TEMP 36.1; O2SAT 97; BMI 40.2
== END 2023-09-29 15:12 | disposition home or self-care (01) ==
PROVIDERS: PCP Family Medicine; Visit Provider Family Medicine
DX: J32.9 Chronic sinusitis, unspecified (principal); J45.909 Unspecified asthma, uncomplicated
CPT/HCPCS: 99213

== ENCOUNTER 2023-09-29 15:13 | Outpatient (REF) | payer MEDICARE, SELFPAY ==
[2023-09-30 11:23] LABS: Appearance Urine Cloudy; Color Urine Yellow; Glucose Urine UA Negative (Negative); Leukocyte Esterase Urine Large (3+) (Negative); Nitrite Urine Negative (Negative); PH 6.5 (5.0-9.0); Specific Gravity - Urine <= 1.005 (1.005-1.025); UMIC TRIGGER UA YES; Urine Blood Negative (Negative); Urine Ketones Negative (Negative); Urine Protein Negative (Neg-Trace)
[2023-09-30 11:33] LABS: Bacteria Urine 1+ (None Seen); Hyaline Casts Urine 0-2 /LPF (0-2); RBC Urine 0-2 /HPF (0-2); WBC Urine >50 /HPF (0-5)
[2023-09-30 13:13] LABS: Influenza A PCR NEGATIVE (Negative); Influenza B PCR NEGATIVE (Negative); Resp Syncy Virus RNA Qual PCR NEGATIVE (Negative); SARS COV2 PCR INHOUSE NEGATIVE (Negative)
== END 2023-09-29 15:14 | disposition home or self-care (01) ==
LOC: HO.LAB 15:13
PROVIDERS: Visit Provider Family Medicine
DX: R09.89 Other specified symptoms and signs involving the circulatory and respiratory systems (principal); N39.0 Urinary tract infection, site not specified; Z20.822 Contact with and (suspected) exposure to COVID-19
CPT/HCPCS: 0241U; 81001

== ENCOUNTER 2023-11-05 10:31 | Outpatient (AMB) | payer MEDICARE, SELFPAY ==
--- NOTE | 2023-11-05 10:56 | A.OFFPC_ITS ---
Vital Signs 11/05/23 10:57 Height 5 ft 4 in Weight 234 lb BMI 40.2 BP 146/82 H Blood Pressure Location Rt brachial Position Sitting Respiration 15 Pulse 75 Pulse Source Pulse Oximeter Pulse Oximetry (%) 95 Oxygen Delivery Method Room Air Intake Visit Reasons: f/u pre-diabetes Building Rigger Required: No Accompanied by: Self / Same As Patient Allergies No Known Allergies Allergy (Verified 11/05/23 11:01) Tobacco use date assessed: 11/05/23 Fall risk assessment: No Falls in past year Last assessed Fall Risk: 11/05/23 Dental Screening Dental Screen Date: 11/05/23 Did you have a dental visit in the last 12 months?: Yes Did you have a dental problem in the last 6 months where you did not have access to dental care?: No Was dental information given to patient?: Patient has dentist HPI f/u pre-diabetes HPI Details 67 y/o female presents to f/u pre-diabet es. A1c today 11/05/23 is 6.9% - diabetes range. She is on metformin 250mg daily. Pt reports diarrhea and a lot of gas. She denies any new food/new medications. Pt has complaints of varicose vein on top of L foot. HPI Comments History of Present Illness Details Documentation assistance for Alexis Shaw MD, was provided by Travis Gusman,? Motor Builder Winder on 11/05/2023 11:36 AM EST. I, Dr. Shaw, have read, observed, and verified documentation.? [facility] Medical History Arthritis Surgical History H/O colonoscopy History of bladder surgery History of hysterectomy Family History Mother No problems noted. Father No problems noted. Social History Household Members: Spouse Housing: House Do you presently have visiting nurse or other home services: No Alcohol intake: former Patient Tobacco Use Status: Former Tobacco user Quit Date: March 2022 Tobacco use type: Cigarette Cigarette Packs Per Day: 1 Cigarettes Per Day: 20 Years Smoked: 40 e-Cigarette/Vaping Use: Never Used Second Hand Smoke Exposure: No service: No Current occupational status: retired Current occupational exposures/hazards: No Cognitive needs: No Hearing needs: Yes Vision needs: Yes Questionnaire PHQ-9 Over the last 2 weeks, how often have you been bothered by any of the following problems? 1. Little interest or pleasure in doing things: nearly every day 2. Feeling down, depressed, or hopeless: more than half the days 3. Trouble falling or staying asleep, or sleeping too much: not at all 4. Feeling tired or having little energy: more than half the days 5. Poor appetite or overeating: nearly every day 6. Feeling bad about yourself - or that you are a failure or have let yourself or your family down: not at all 7. Trouble concentrating on things, such as reading the newspaper or watching television: not at all 8. Moving or speaking so slowly that other people could have noticed. Or the opposite - being so fidgety or restless that you have been moving around a lot more than usual: not at all 9. Thoughts that you would be better off or of hurting yourself in some way: not at all Total score: 10 93306 - PHQ-9 Billing: Yes Source: Developed by Drs. Jose Washington, Liliana Rodrigues, Ze Briones and colleagues, with an educational mario from [employer]. Thrive Questionnaire Date Thrive assessed: 11/05/23 I am a: Patient What is your living situation today?: I have a steady place to live Within the past 12 months, did the food you bought not last and you didn't have the money to get more?: Never true Within the past 12 months, did you worry whether your food would run out before you got money to buy more?: Never true Do you have trouble paying for medicines?: No Do you have trouble getting transportation to medical appointments?: No Do you have trouble paying your heating and electricity bill?: No Do you have trouble taking care of your child, family member or friend?: No Do you have trouble with day-to-day activities such as bathing, preparing meals, shopping, managing finances, etc.?: No Are you currently unemployed and looking for a job?: No Are you interested in more education?: No Please select the resources that you would like help with: None Currently or been in a relationship where the following occur: no concerns reported AUDIT C Alcohol Use Questionnaire (AUDIT-C) 1. How often do you have a drink containing alcohol?: Never 3. How often do you have six or more drinks on one occasion?: Never Total Score: 0 TOYA-7 AMB Questionnaire TOYA-7 Date TOYA - 7 assessed: 11/05/23 Feeling nervous, anxious, or on edge: 2 = More than half the days Not being able to stop or control worryin = More than half the days Worrying too much about different things: 2 = More than half the days Trouble relaxin = More than half the days Being so restless that it is hard to sit still: 0 = Not at all Becoming easily annoyed or irritable: 0 = Not at all Feeling afraid as if something awful might happen: 3 = Nearly every day Total TOYA-7 score (0-4 normal; 5-9 mild; 10-14 moderate; 15-21 severe): 11 Source: Developed by Drs. Jose Washington, Liliana Rodrigues, Ze Briones and colleagues, with an educational mario from [employer]. TOYA-7 Assessment Billing TOYA-7 Assessment Tool: TOYA-7 Assessment 67230 Review of Systems Const Denies chills, Denies fatigue, Denies fever(s), Denies headache(s) and Denies weakness ENT Denies dizziness and Denies headache(s) Card Denies chest pain, Denies lightheadedness, Denies dyspnea and Denies other (Palpitations) Resp Denies cough, Denies dyspnea, Denies wheezing and Denies other ( shortness of breath) Musc Denies numbness and Denies tingling Neuro Denies dizziness, Denies headache(s), Denies numbness, Denies tingling, Denies paresthesias and Denies weakness Psych Denies anxiety and Denies depression Endo Denies fatigue Aller/Immun Denies wheezing Physical exam (Primary Care) Vital Signs: Last Vital Signs Pulse 75 11/05/23 10:57 Resp 15 11/05/23 10:57 BP 146/82 H 11/05/23 10:57 Pulse Ox 95 11/05/23 10:57 Oxygen Delivery Method Room Air 11/05/23 10:57 BMI result Body Mass Index 40.2 Tobacco/Smoking Status: Tobacco use Status Tobacco use date assessed 11/05/23 11/05/23 11:07 Patient Tobacco Use Status Former Tobacco user 11/05/23 11:05 Tobacco use type Cigarette 11/05/23 11:05 e-Cigarette/Vaping Use Never Used 11/05/23 11:05 PHQ-9: PHQ-9 Score PHQ-9: Total score 10 11/05/23 11:35 Thrive Assessment: Date of Thrive Assessment Date Thrive assessed 11/05/23 11/05/23 11:05 Currently or been in a relationship where the following occur: no concerns reported Const General: no acute distress and well developed Nutritional Appearance: obese morbidly obese Orientation/consciousness: patient oriented x3 HENMT Head: Yes normocephalic and Yes atraumatic Eyes General: appearance normal, both eyes and all related structures Pupils: Equal, round and reactive pupils present EOM: EOMs intact bilaterally Resp Effort & Inspection: normal respiratory effort Auscultation: clear to auscultation bilaterally Cardio Rate: regular rate Rhythm: regular rhythm Heart sounds: S1 normal heart sound present, S2 normal heart sound present, no gallops, no murmurs and no rubs Neuro General: patient oriented x3 and gait normal Cranial nerves: Yes Equal, round and reactive pupils present Psych Affect: normal affect Results AMB Hemoglobin A1c AMB Hemoglobin A1c 6.9 % Last Edit by MAICOL Cabrera on 11/05/23 11:21 Results Reviewed Results Reviewed: Laboratory Last Values Hgb A1c (Clinic) 6.9 % (4.0-6.0) H 11/05/23 10:44 Assessment and Plan Assessment & Plan (1) Diabetes: Code(s): E11.9 - Type 2 diabetes mellitus without complications Plan: A1c?has?risen?slightly?and?is?at?6.9%?which?is?still?controlled.??Goal?is?less?t burnett?7.0% Continue?current?medication?regimen (2) Diarrhea: Code(s): R19.7 - Diarrhea, unspecified Plan: Encouraged?her?to?switch?to?clear?liquid?diet?for?day?and?then?switch?to?ADAT. (3) Varicose vein of leg: Code(s): I83.90 - Asymptomatic varicose veins of unspecified lower extremity Plan: Varicose?vein?at?the?top?of?right?foot?which?gets?itchy?and?painful Advised?compression?with?a?Sujit?bandage. May?need?referral?to?vascular (4) Back pain: Code(s): M54.9 - Dorsalgia, unspecified Plan: Encouraged?good?posture?and?to?take?breaks?from?her?chores?frequently May?need?physical?therapy?if?not?improving Orders: Orders AMB Hemoglobin A1c Today R73.03 - Prediabetes Coding Level of Care Code Est Pt Level 4 (04829) Diagnoses Diabetes E11.9 Diarrhea R19.7 Varicose vein of leg I83.90 Back pain M54.9 Additional Codes TOYA-7 Assessment Billing - TOYA-7 Assessment Tool: TOYA-7 Assessment 33363 ([id number])
[2023-11-05 10:57] VITALS: BP 146/82; PULSE 75; RESP 15; O2SAT 95; BMI 40.2
== END 2023-11-05 11:54 | disposition home or self-care (01) ==
PROVIDERS: PCP Family Medicine; Visit Provider Family Medicine
DX: E11.9 Type 2 diabetes mellitus without complications (principal); R19.7 Diarrhea, unspecified; I83.90 Asymptomatic varicose veins of unspecified lower extremity; M54.9 Dorsalgia, unspecified; R73.03 Prediabetes
CPT/HCPCS: 83036; 99214

== ENCOUNTER 2024-02-11 10:44 | Outpatient (AMB) | payer MEDICARE, SELFPAY ==
[2024-02-11 10:48] VITALS: BP 126/80; PULSE 82; O2SAT 96; BMI 39.8
--- NOTE | 2024-02-11 10:48 | A.OFFPC_ITS ---
Vital Signs 02/11/24 10:48 Height 5 ft 4 in Weight 232 lb BMI 39.8 BP 126/80 Blood Pressure Location Lt brachial Position Sitting Pulse 82 Pulse Source Pulse Oximeter Pulse Oximetry (%) 96 Oxygen Delivery Method Room Air Intake Visit Reasons: CPE with f/u labs and health maint. Intake Note: Patient is here for her physical, and is complaining of a lot of gas, and she did not get her Arnuity inhaler. Allergies No Known Allergies Allergy (Verified 02/11/24 10:53) Medication List - Last Reconciled 02/11/24 by Alexis Shaw MD acetaminophen 1,000 mg (2 x 500 mg) PO QID PRN albuterol sulfate 90 mcg/actuation (ProAir HFA) 2 puffs inhalation Q4-6H PRN 30 days betamethasone valerate 0.1% 1 appl topical BID PRN 14 days biotin 2,500 mcg PO TID diclofenac sodium 1% 4 grams topical QID PRN 30 days fexofenadine 180 mg PO DAILY fluconazole 150 mg PO Q3D 2 doses fluticasone propionate 50 mcg/actuation (Flonase Allergy Relief) 1 spray intranasal Q12H 30 days fluticasone propionate 220 mcg/actuation 1 puff inhalation Q12H 30 days lisinopril-hydrochlorothiazide 20-25 mg 1 tab PO DAILY 90 days meloxicam 15 mg PO DAILY 30 days metformin 250 mg (1/2 x 500 mg) PO DAILY 30 days nystatin 1 mL PO DAILY 10 days omeprazole 40 mg PO DAILY@0630 90 days triamcinolone acetonide 0.5% 1 appl topical BID 14 days Tobacco use date assessed: 02/11/24 Fall risk assessment: No Falls in past year Last assessed Fall Risk: 02/11/24 Dental Screening Dental Screen Date: 02/11/24 Did you have a dental visit in the last 12 months?: Yes Did you have a dental problem in the last 6 months where you did not have access to dental care?: No Was dental information given to patient?: Patient has dentist HPI CPE with f/u labs and health maint. HPI Details 68 y/o female presents for an extended e xam with f/u labs and health maintenance. Diabetic eye exam 12/08/23 showed no diabetic retinopathy. Last A1c 11/05/23 6.9%. She is on metformin 250mg daily. A1c today 02/11/24 6.7%. No recent CPE-labs to review. Blood pressure today 126/80. She is on lisinopril-hydrochlorothiazide 20-25mg daily. Pt reports vertigo had come back - she reports she went through physical therapy for a couple sessions which did help but had felt unpleasant for her. HPI Comments History of Present Illness Details Documentation assistance for Alexis Shaw MD, was provided by Travis Gusman,? Weight Recorder on 02/11/2024 11:25 AM EST. I, Dr. Shaw, have read, observed, and verified documentation. [facility] Medical History Arthritis Surgical History H/O colonoscopy History of bladder surgery History of hysterectomy Family History Mother No problems noted. Father No problems noted. Social History Household Members: Spouse Housing: House Do you presently have visiting nurse or other home services: No Alcohol intake: former Patient Tobacco Use Status: Former Tobacco user Quit Date: March 2022 Tobacco use type: Cigarette Cigarette Packs Per Day: 1 Cigarettes Per Day: 20 Years Smoked: 40 e-Cigarette/Vaping Use: Never Used Second Hand Smoke Exposure: No service: No Current occupational status: retired Current occupational exposures/hazards: No Cognitive needs: No Hearing needs: Yes Vision needs: Yes Questionnaire PHQ-9 Over the last 2 weeks, how often have you been bothered by any of the following problems? 1. Little interest or pleasure in doing things: not at all 2. Feeling down, depressed, or hopeless: not at all 3. Trouble falling or staying asleep, or sleeping too much: not at all 4. Feeling tired or having little energy: not at all 5. Poor appetite or overeating: not at all 6. Feeling bad about yourself - or that you are a failure or have let yourself or your family down: not at all 7. Trouble concentrating on things, such as reading the newspaper or watching television: not at all 8. Moving or speaking so slowly that other people could have noticed. Or the opposite - being so fidgety or restless that you have been moving around a lot more than usual: not at all 9. Thoughts that you would be better off or of hurting yourself in some way: not at all Total score: 0 Depression Screening Interpretation: Negative Depression Screening Done: Yes [id number] - PHQ-9 Billing: Yes Source: Developed by Drs. Jose Washington, Liliana Rodrigues, Ze Briones and colleagues, with an educational mario from [employer]. Thrive Questionnaire Date Thrive assessed: 02/11/24 I am a: Patient What is your living situation today?: I have a steady place to live Within the past 12 months, did the food you bought not last and you didn't have the money to get more?: Never true Within the past 12 months, did you worry whether your food would run out before you got money to buy more?: Never true Do you have trouble paying for medicines?: No Do you have trouble getting transportation to medical appointments?: No Do you have trouble paying your heating and electricity bill?: No Do you have trouble taking care of your child, family member or friend?: No Do you have trouble with day-to-day activities such as bathing, preparing meals, shopping, managing finances, etc.?: No Are you currently unemployed and looking for a job?: No Are you interested in more education?: No THRIVE Score: 0 AUDIT C Alcohol Use Questionnaire (AUDIT-C) 1. How often do you have a drink containing alcohol?: Never 3. How often do you have six or more drinks on one occasion?: Never Total Score: 0 TOYA-7 AMB Questionnaire TOYA-7 Date TOYA - 7 assessed: 02/11/24 Feeling nervous, anxious, or on edge: 0 = Not at all Not being able to stop or control worryin = Not at all Worrying too much about different things: 0 = Not at all Trouble relaxin = Not at all Being so restless that it is hard to sit still: 0 = Not at all Becoming easily annoyed or irritable: 0 = Not at all Feeling afraid as if something awful might happen: 0 = Not at all Total TOYA-7 score (0-4 normal; 5-9 mild; 10-14 moderate; 15-21 severe): 0 Source: Developed by Drs. Jose Washington, Liliana Rodrigues, Ze Briones and colleagues, with an educational mario from [employer]. TOYA-7 Assessment Billing TOYA-7 Assessment Tool: TOYA-7 Assessment 53231 Review of Systems Const Denies chills, Denies fatigue, Denies fever(s), Denies headache(s) and Denies weakness ENT Denies dizziness and Denies headache(s) Card Denies chest pain, Denies lightheadedness, Denies dyspnea and Denies other (Palpitations) Resp Denies cough, Denies dyspnea, Denies wheezing and Denies other ( shortness of br eath) GI Reports abdominal pain Musc Denies numbness and Denies tingling Neuro Denies dizziness, Denies headache(s), Denies numbness, Denies tingling, Denies paresthesias and Denies weakness Psych Denies anxiety and Denies depression Endo Denies fatigue Aller/Immun Denies wheezing Physical exam (Primary Care) Vital Signs: Last Vital Signs Pulse 82 02/11/24 10:48 BP 126/80 02/11/24 10:48 Pulse Ox 96 02/11/24 10:48 Oxygen Delivery Method Room Air 02/11/24 10:48 BMI result Body Mass Index 39.8 Tobacco/Smoking Status: Tobacco use Status Tobacco use date assessed 02/11/24 02/11/24 10:56 Patient Tobacco Use Status Former Tobacco user 02/11/24 10:50 Tobacco use type Cigarette 02/11/24 10:50 e-Cigarette/Vaping Use Never Used 02/11/24 10:50 PHQ-9: PHQ-9 Score PHQ-9: Total score 0 02/11/24 11:13 Depression Screening Interpretation: Negative Thrive Assessment: Date of Thrive Assessment Date Thrive assessed 02/11/24 02/11/24 11:07 Const General: no acute distress and well developed Nutritional Appearance: well nourished Orientation/consciousness: patient oriented x3 HENMT Head: Yes normocephalic and Yes atraumatic Eyes General: appearance normal, both eyes and all related structures Pupils: Equal, round and reactive pupils present EOM: EOMs intact bilaterally Resp Effort & Inspection: normal respiratory effort Auscultation: clear to auscultation bilaterally Cardio Rate: regular rate Rhythm: regular rhythm Heart sounds: S1 normal heart sound present, S2 normal heart sound present, no gallops, no murmurs and no rubs Neuro General: patient oriented x3 and gait normal Cranial nerves: Yes Equal, round and reactive pupils present Psych Affect: normal affect Assessment and Plan Assessment & Plan (1) Essential hypertension: Code(s): I10 - Essential (primary) hypertension Plan: Blood?pressure?is?controlled.??Goal?is?less?than?140/90 Continue?current?medication?regimen (2) Diabetes: Code(s): E11.9 - Type 2 diabetes mellitus without complications Plan: A1c?6.7%?which?is?improved?from?6.9%?at?last?check.??Goal?is?less?than?7.0% Continue?metformin?as?prescribed (3) Asthma: Code(s): J45.909 - Unspecified asthma, uncomplicated Plan: Ongoing?asthma?symptoms. Patient?says?she?did?not?receive?her?last?prescription?for?controller?medication . Send?script?today. (4) Vertigo: Code(s): R42 - Dizziness and giddiness Plan: Return?of?her?vertigo.??This?was?improved?with?physical?t herapy?but?she?says?she?does?not?have?the?ability?to?go?to?repeated?visits?for?p hysical?therapy. She?wants?a?referral?to?ENT?which?is?made?today. (5) Abdominal pain: Code(s): R10.9 - Unspecified abdominal pain Plan: Abdominal?discomfort?and?bloating.??Also?some?early?satiety Checking?abdominal?plain?film?and?referring?her?back?to?her?monkey breeder. She?can?also?trial?some?simethicone?for?bloating. Will?follow-up?at?upcoming?visit (6) Neoplasm of uncertain behavior of skin: Code(s): D48.5 - Neoplasm of uncertain behavior of skin Plan: Numerous?moles?on?face?and?forearms. Had?referred?her?to?Dermatology?in?the?past?but?she?says?she?has?never?been?cont acted. Referring?her?to?a?different?dermatology?group?in?[place]. Gave?her?the?phone?number?for?the?review analyst?and ?she?can?call?if?they?do?not?call?her?within?a?few?days. (7) Breast cancer screening by mammogram: Code(s): Z12.31 - Encounter for screening mammogram for malignant neoplasm of breast Plan: Due?for?mammogram-ordered (8) Screening for colon cancer: Code(s): Z12.11 - Encounter for screening for malignant neoplasm of colon Plan: Follow-up?with?Gastroenterology?as?recommended (9) Screening for osteoporosis: Code(s): Z13.820 - Encounter for screening for osteoporosis Plan: Due?for?bone?density?testing Order (10) Adult general medical exam: Code(s): Z00.00 - Encounter for general adult medical examination without abnormal findings Plan: 68-year-old?female?presents?for?extended?exam Orders: Orders TSH reflex Free T4 Today Z00.00 - Encounter for general adult medical examination without abnormal findings XR DEXA axial skeleton Today M81.0 - Age-related osteoporosis without current pathological fracture Comprehensive [place]. Panel Fast Today Z00.00 - Encounter for general adult medical examination without abnormal findings Complete Blood Count Auto Diff Today Z00.00 - Encounter for general adult medical examination without abnormal findings Lipid Panel Today Z00.00 - Encounter for general adult medical examination without abnormal findings Microalbumin, Random (w Creat) Today I10 - Essential (primary) hypertension UA and rflx microscopic Today Z00.00 - Encounter for general adult medical examination without abnormal findings MM tomosynthesis screening BI Today Z12.31 - Encounter for screening mammogram for malignant neoplasm of breast XR KUB Today R10.9 - Unspecified abdominal pain, R14.0 - Abdominal distension (gaseous) AMB Hemoglobin A1c Today Z13.9 - Encounter for screening, unspecified Referrals Dermatology Referral D48.5 - Neoplasm of uncertain behavior of skin Gastroenterology Referral R14.0 - Abdominal distension (gaseous) Ear/Nose/Throat Referral R42 - Dizziness and giddiness Medications: New fluticasone furoate 100 mcg/actuation (Arnuity Ellipta) 1 inh inhalation Q24H 30 days 30 ea 3RF simethicone (Gas Relief (simethicone)) 180 mg PO BID 30 days PRN 60 caps 1RF abdominal distention Coding Level of Care Code Est Pt Level 4 (63302) Diagnoses Essential hypertension I10 Diabetes E11.9 Asthma J45.909 Vertigo R42 Abdominal pain R10.9 Neoplasm of uncertain behavior of skin D48.5 Breast cancer screening by mammogram Z12.31 Screening for colon cancer Z12.11 Screening for osteoporosis Z13.820 Adult general medical exam Z00.00 Additional Codes TOYA-7 Assessment Billing - TOYA-7 Assessment Tool: TOYA-7 Assessment 44048 ([id number])
== END 2024-02-11 12:05 | disposition home or self-care (01) ==
PROVIDERS: PCP Family Medicine; Visit Provider Family Medicine
DX: Z00.00 Encounter for general adult medical examination without abnormal findings (principal); E11.9 Type 2 diabetes mellitus without complications; I10 Essential (primary) hypertension; J45.909 Unspecified asthma, uncomplicated; R42 Dizziness and giddiness; R10.9 Unspecified abdominal pain; D48.5 Neoplasm of uncertain behavior of skin; Z12.31 Encounter for screening mammogram for malignant neoplasm of breast; Z12.11 Encounter for screening for malignant neoplasm of colon; Z13.820 Encounter for screening for osteoporosis
CPT/HCPCS: 83036; 99213; 99397

== ENCOUNTER 2024-02-11 11:47 | Outpatient (REF) | payer MEDICARE, SELFPAY ==
[2024-02-11 14:39] LABS: MANUAL DIFF FLAG NO
[2024-02-11 15:18] LABS: Basophils Absolute Auto 0.1 X10*3/uL (0.0-0.2); Basophils Percent Auto 0.8 % (0-2); Eosinophils Absolute Auto 0.1 X10*3/uL (0.0-0.4); Eosinophils Percent Auto 1.5 % (0-4); Hemoglobin 15.4 g/dl (12.0-16.0); Imm Gran Abs Auto 0.03 X10*3/uL (0.00-0.03); Imm Gran Pct Auto 0.3 % (0.0-0.4); Lymphocytes Absolute Auto 2.6 X10*3/uL (1.2-4.9); Lymphocytes Percent Auto 30.7 % (20-40); Mean Corpuscular HGB Conc 33.5 g/dl (31.0-35.0); Mean Corpuscular Volume 89.5 fL (80.0-98.0); Mean Platelet Volume 9.8 fL (9.4-12.3); Monocytes Absolute Auto 0.8 X10*3/uL (0.1-1.2); Monocytes Percent Auto 9.4 % (2-11); Neutrophils Absolute Auto 4.9 x10*3/uL (2.0-8.3); Neutrophils Percent Auto 57.3 % (45-73); Platelet Count 279 X10*3/uL (160-400); Red Blood Count 5.14 X10*6/uL (4.20-5.50); Red Cell Distribution Width 13.3 % (11.0-16.0); White Blood Count 8.6 X10*3/uL (4.8-10.8)
[2024-02-11 15:31] LABS: Appearance Urine Clear; Color Urine Yellow; Glucose Urine UA Negative (Negative); Leukocyte Esterase Urine Small (1+) (Negative); Nitrite Urine Negative (Negative); PH 7.5 (5.0-9.0); Specific Gravity - Urine <= 1.005 (1.005-1.025); UMIC TRIGGER UA YES; Urine Blood Negative (Negative); Urine Ketones Negative (Negative); Urine Protein Negative (Neg-Trace)
[2024-02-11 15:36] LABS: Bacteria Urine None Seen (None Seen); Hyaline Casts Urine 0-2 /LPF (0-2); RBC Urine 0-2 /HPF (0-2); Squamous Epithelial Cell Urine 0-2 /HPF (0-2)
[2024-02-11 16:38] LABS: Microalbumin Urine < 5.0 mg/L
[2024-02-11 17:01] LABS: TSH reflex Free T4 1.78 uIU/mL (0.32-4.0); Vitamin D 25-OH Total 32.6 ng/mL (>30)
== END 2024-02-11 11:48 | disposition home or self-care (01) ==
LOC: HO.WFDLDS 11:47
PROVIDERS: Visit Provider Family Medicine
DX: Z00.00 Encounter for general adult medical examination without abnormal findings (principal); E55.9 Vitamin D deficiency, unspecified; I10 Essential (primary) hypertension
CPT/HCPCS: 36415; 81001; 81003; 82043; 82306; 82570; 84443; 85025

== ENCOUNTER 2024-02-14 07:27 | Outpatient (REF) | payer MEDICARE, SELFPAY ==
[2024-02-14 11:39] LABS: MANUAL DIFF FLAG NO
[2024-02-14 11:45] LABS: Basophils Absolute Auto 0.1 X10*3/uL (0.0-0.2); Eosinophils Absolute Auto 0.1 X10*3/uL (0.0-0.4); Eosinophils Percent Auto 1.9 % (0-4); Hematocrit 46.1 % (37.0-47.0); Hemoglobin 15.3 g/dl (12.0-16.0); Imm Gran Abs Auto 0.01 X10*3/uL (0.00-0.03); Imm Gran Pct Auto 0.2 % (0.0-0.4); Lymphocytes Absolute Auto 2.2 X10*3/uL (1.2-4.9); Lymphocytes Percent Auto 35.9 % (20-40); Mean Corpuscular HGB Conc 33.2 g/dl (31.0-35.0); Mean Corpuscular Hemoglobin 29.6 pg (27.0-33.0); Mean Corpuscular Volume 89.2 fL (80.0-98.0); Mean Platelet Volume 9.8 fL (9.4-12.3); Monocytes Absolute Auto 0.5 X10*3/uL (0.1-1.2); Monocytes Percent Auto 8.2 % (2-11); Neutrophils Absolute Auto 3.3 x10*3/uL (2.0-8.3); Neutrophils Percent Auto 52.8 % (45-73); Platelet Count 252 X10*3/uL (160-400); Red Blood Count 5.17 X10*6/uL (4.20-5.50); Red Cell Distribution Width 13.4 % (11.0-16.0); White Blood Count 6.2 X10*3/uL (4.8-10.8)
[2024-02-14 12:43] LABS: Alanine Aminotransferase 30 U/L (0-31); Albumin Level 4.1 g/dL (3.5-5.0); Alkaline Phosphatase 79 U/L (39-117); Anion Gap 14 (12-20); Aspartate Amino Transferase 28 U/L (5-31); Bilirubin Total 0.5 mg/dL (0.0-1.0); Blood Urea Nitrogen 13 mg/dL (9-16); Calcium 9.7 mg/dL (8.4-10.2); Carbon Dioxide 32 mmol/L (22-29); Chloride 101 mmol/L (96-108); Cholesterol 228 mg/dL (<200); Estimated Glomerular Filt Rate > 60; Glucose Fasting 115 mg/dL (60-99); HDL Cholesterol 41 mg/dL (>40); LDL Cholesterol Calculated 153 mg/dL (<100); Potassium 4.1 mmol/L (3.3-5.1); Sodium 143 mmol/L (135-145); Total Protein 7.6 g/dL (6.5-8.0); Triglycerides 171 mg/dL (<150)
[2024-02-14 12:47] LABS: TSH reflex Free T4 3.09 uIU/mL (0.32-4.0)
== END 2024-02-14 07:28 | disposition home or self-care (01) ==
LOC: HO.WFDLDS 07:27
PROVIDERS: Visit Provider Family Medicine
DX: Z13.89 Encounter for screening for other disorder (principal)
CPT/HCPCS: 36415; 80053; 80061; 84443; 85025

== ENCOUNTER 2024-02-14 08:55 | Outpatient (REF) | payer MEDICARE, SELFPAY ==
--- NOTE | ~2024-02-14 | XR_ITS ---
EXAMINATION: XR ABDOMEN KUB CLINICAL INDICATION: Unspecified abdominal pain. COMPARISON: X-ray pelvis and bilateral hips 04/30/2023. CT abdomen and pelvis 03/28/2023. TECHNIQUE: 3 AP views supine of the abdomen. FINDINGS: Degenerative changes in the imaged thoracolumbar spine. Moderate degenerative changes in bilateral sacroiliac joints and hips. Innumerable rounded pelvic calcifications. Nonobstructive bowel gas pattern. Moderate amount of stool in the colon. 6 mm calculus with smaller adjacent calcifications overlying the interpolar region of the left kidney. A few tiny calculi overlie the interpolar region of the right kidney, difficult to characterize due to overlying bowel. XR/XR KUB IMPRESSION: 1. Bilateral renal calculi. 2. Nonobstructive bowel gas pattern.
== END 2024-02-14 08:56 | disposition home or self-care (01) ==
LOC: HO.XRAY 08:55
PROVIDERS: PCP Family Medicine; Visit Provider Family Medicine
DX: Z13.6 Encounter for screening for cardiovascular disorders (principal); R10.9 Unspecified abdominal pain; R14.0 Abdominal distension (gaseous)
CPT/HCPCS: 36415; 74018; 80053; 80061; 84443; 85025

== ENCOUNTER 2024-04-19 11:03 | Outpatient (REF) | payer MEDICARE, SELFPAY ==
--- NOTE | ~2024-04-19 | MM_ITS ---
EXAMINATION: BONE DENSITOMETRY CLINICAL INDICATION: Age-related osteoporosis without current pathological fracture. COMPARISON: Baseline BD dated 04/17/2022. TECHNIQUE: Using a [employer] DXA System (software version: 13.1) manufactured by [employer], dual-energy x-ray absorptiometry was performed of the lumbar spine and left hip. The images are of good technical quality. Summary results are attached. FINDINGS: AP SPINE L1-L2 (excluding L3 and L4): The data of L1-L4 has been changed to exclude the L3 and L4 vertebral bodies, because degenerative sclerosis at these levels may cause overestimation of lumbar spine density. Current: BMD 1.339 g/cm2, Z-score 1.9, T-score 1.5, normal, 0.2% decrease from baseline (<5% change is not significant). Baseline: BMD 1.342 g/cm2. LEFT FEMUR, NECK: Current: BMD 1.047 g/cm2, Z-score 0.9, T-score 0.1, normal. Baseline: BMD 1.082 g/cm2. LEFT FEMUR, TOTAL: Current: BMD 1.221 g/cm2, Z-score 2.2, T-score 1.7, normal, 4.1% increase from baseline (<5% change is not significant). Baseline: BMD 1.173 g/cm2. IDENTIFIED RISK FACTORS: Height loss. Secondary osteoporosis (early menopause). Hysterectomy. Right oophorectomy. HISTORY OF FRACTURE: None listed. MEDICATIONS: Vitamin D. MM/XR DEXA axial skeleton IMPRESSION: 1. DIAGNOSIS: Normal bone density based on the lowest T-score value of 0.1 in the femoral neck applying World Health Organization criteria. 2. 10-YEAR FRACTURE RISK PREDICTION, FRAX: According to the guidelines, FRAX calculation should only be performed on patients in the osteopenia bone density category.?Therefore, FRAX was not performed on this patient.? 3. Treatment Recommendations: NOF guidelines recommend consideration for treatment in postmenopausal women and men age 50 and older presenting with the following: -A hip or vertebral (clinical or morphometric) fracture. -T-score less than or equal to -2.5 at the femoral neck or spine after appropriate evaluation to exclude secondary causes. -Low bone mass at the hip or spine and a 10-year fracture probability by FRAX of greater than or equal to 3% for hip fracture or greater than or equal to 20% for major osteoporotic fracture based on the [place] adapted WHO algorithm. 4. Other Recommendations: All treatment decisions require clinical judgment and consideration of individual patient factors, including patient preferences, comorbidities, previous drug use, risk factors not captured in the FRAX model (e.g. frailty, falls, vitamin D deficiency, increased bone turnover, interval significant decline in bone density) and possible under or overestimation of fracture risk by FRAX. FUTURE SCAN RECOMMENDATION: People with diagnosed cases of osteoporosis or at high risk for fracture should have regular bone mineral density tests. For patients eligible for Medicare, routine testing is allowed once every 2 years. The testing frequency can be increased to one year for patients who have rapidly progressing disease, those who are receiving or discontinuing medical therapy to restore bone mass, or have additional risk factors.
== END 2024-04-19 11:04 | disposition home or self-care (01) ==
LOC: HO.MAMMO 11:03
PROVIDERS: PCP Family Medicine; Visit Provider Family Medicine
DX: Z12.31 Encounter for screening mammogram for malignant neoplasm of breast (principal); Z13.820 Encounter for screening for osteoporosis; Z78.0 Asymptomatic menopausal state; M81.0 Age-related osteoporosis without current pathological fracture
CPT/HCPCS: 77063; 77067; 77080

== ENCOUNTER → 2024-04-19 11:15 | Outpatient (BNV) | payer MEDICARE, SELFPAY | PROVIDERS: PCP Family Medicine; Visit Provider Radiology Diagnostic Radiology | DX: Z12.31 Encounter for screening mammogram for malignant neoplasm of breast (principal) | CPT/HCPCS: 77063; 77067 ==

== ENCOUNTER 2024-05-24 08:40 | Outpatient (AMB) | payer MEDICARE, SELFPAY ==
--- NOTE | 2024-05-24 08:47 | A.OFFPC_ITS ---
Vital Signs 05/24/24 08:53 Height 5 ft 5 in Weight 230 lb BMI 38.3 BP 120/60 Blood Pressure Location Lt brachial Position Sitting Respiration 18 Pulse 78 Pulse Source Pulse Oximeter Temp 97.6 F Temp Source Oral Pulse Oximetry (%) 95 Oxygen Delivery Method Room Air Intake Visit Reasons: Lab / X Ray f/u Intake Note: x-ray and lab follow up, patent would like us to use her home phone instead of cell to contact her. Is last menstrual period known: No Post menopausal: Yes Patient : No Allergies No Known Allergies Allergy (Verified 05/24/24 08:49) Medication List - Last Reconciled 05/24/24 by Alexis Shaw MD acetaminophen 1,000 mg (2 x 500 mg) PO QID PRN albuterol sulfate 90 mcg/actuation (ProAir HFA) 2 puffs inhalation Q4-6H PRN 30 days biotin 2,500 mcg PO TID fluticasone furoate 100 mcg/actuation (Arnuity Ellipta) 1 inh inhalation Q24H 30 days fluticasone propionate 220 mcg/actuation 1 puff inhalation Q12H 30 days fluticasone propionate 50 mcg/actuation (Flonase Allergy Relief) 1 spray intranasal Q12H 30 days lisinopril-hydrochlorothiazide 20-25 mg 1 tab PO DAILY 90 days metformin 250 mg (1/2 x 500 mg) PO DAILY 30 days omeprazole 40 mg PO DAILY@0630 90 days Tobacco use date assessed: 05/24/24 Fall risk assessment: No Falls in past year Last assessed Fall Risk: 05/24/24 Dental Screening Dental Screen Date: 05/24/24 Did you have a dental visit in the last 12 months?: No Did you have a dental problem in the last 6 months where you did not have access to dental care?: No Was dental information given to patient?: Yes HPI Lab / X Ray f/u HPI Details 68 y/o female presents to review CPE-lab s and x-rays for abd. discomfort/bloating. Labs drawn 02/14/24. Reviewed labs with pt. Triglycerides 171. TC 228. LDL 153. HDL 41. TSH level 3.09 Last A1c 02/11/24 6.7%. A1c today 05/24/24 is 6.5%. She is on metformin 250mg daily. Pt states she had a recent diabetic eye exam which showed no diabetic retinopathy. Blood pressure today 120/60. She is on lisinopril-hydrochlorothiazide 20-25mg daily. Pt reports ongoing issues with abd. bloating. [facility] Medical History Arthritis Surgical History H/O colonoscopy History of bladder surgery History of hysterectomy Family History Mother No problems noted. Father No problems noted. Social History Household Members: Spouse Housing: House Do you presently have visiting nurse or other home services: No Alcohol intake: former Patient Tobacco Use Status: Former Tobacco user Tobacco use type: Cigarette Cigarette Packs Per Day: 1 Cigarettes Per Day: 20 Years Smoked: 40 e-Cigarette/Vaping Use: Never Used Second Hand Smoke Exposure: No service: No Current occupational status: retired Current occupational exposures/hazards: No Cognitive needs: No Hearing needs: Yes Vision needs: Yes Questionnaire Thrive Questionnaire Date Thrive assessed: 02/11/24 TOYA-7 AMB Questionnaire TOYA-7 Date TOYA - 7 assessed: 02/11/24 Source: Developed by Drs. Jose Washington, Liliana Rodrigues, Ze Briones and colleagues, with an educational mario from [employer]. Review of Systems Const Denies chills, Denies fatigue, Denies fever(s), Denies headache(s) and Denies weakness ENT Denies dizziness and Denies headache(s) Card Denies dyspnea Resp Denies cough, Denies dyspnea, Denies wheezing and Denies other (shortness of breath) GI Reports bloating Musc Denies numbness and Denies tingling Neuro Denies dizziness, Denies headache(s), Denies numbness, Denies tingling and Denies weakness Psych Denies anxiety and Denies depression Endo Denies fatigue Aller/Immun Denies wheezing Physical exam (Primary Care) Vital Signs: Last Vital Signs Temp 97.6 F 05/24/24 08:53 Pulse 78 05/24/24 08:53 Resp 18 05/24/24 08:53 BP 120/60 05/24/24 08:53 Pulse Ox 95 05/24/24 08:53 Oxygen Delivery Method Room Air 05/24/24 08:53 BMI result Body Mass Index 38.3 Tobacco/Smoking Status: Tobacco use Status Tobacco use date assessed 05/24/24 05/24/24 08:55 Patient Tobacco Use Status Former Tobacco user 05/24/24 08:55 Tobacco use type Cigarette 05/24/24 08:55 e-Cigarette/Vaping Use Never Used 05/24/24 08:55 Thrive Assessment: Date of Thrive Assessment Date Thrive assessed 02/11/24 05/24/24 08:55 Const General: well developed; No acute distress Nutritional Appearance: well nourished Orientation/consciousness: patient oriented x3 HENMT Head: Yes normocephalic and Yes atraumatic Eyes General: appearance normal, both eyes and all related structures Pupils: Equal, round and reactive pupils present EOM: EOMs intact bilaterally Resp Effort & Inspection: normal respiratory effort Auscultation: clear to auscultation bilaterally Cardio Rate: regular rate Rhythm: regular rhythm Heart sounds: S1 normal heart sound present, S2 normal heart sound present, no gallops, no murmurs and no rubs Neuro General: patient oriented x3 and gait normal Cranial nerves: Yes Equal, round and reactive pupils present Extrem Other: Julian's cyst back of L knee Psych Affect: normal affect Results AMB Hemoglobin A1c AMB Hemoglobin A1c 6.5 % Last Edit by Aidee Whatley CMA on 05/24/24 09:26 Assessment and Plan Assessment & Plan (1) Diabetes: Code(s): E11.9 - Type 2 diabetes mellitus without complications Plan: A1c?6.5%.??Good?control.??Goal?is?less?than?7.0% Continue?metformin?250?mg?daily Continue?diabetic?diet Recent?eye?exam.??No?diabetic?retinopathy.??Continue?annual?screening (2) Screening for osteoporosis: Code(s): Z13.820 - Encounter for screening for osteoporosis Plan: Bone?density?testing?shows?no?osteoporosis Will?continue?screening?every?other?year (3) Bloating: Code(s): R14.0 - Abdominal distension (gaseous) Plan: KUB?did?not?show?any?cause?for?bloating. Watch?trigger?foods.??Hydrate?well Patient?says?it?is?somewhat?mild?and?tolerable (4) Breast cancer screening by mammogram: Code(s): Z12.31 - Encounter for screening mammogram for malignant neoplasm of breast Plan: Mammogram?shows?no?evidence?of?malignancy Will?continue?annual?screening (5) Nephrolithiasis: Code(s): N20.0 - Calculus of kidney Plan: Incidental?nephrolithiasis?seen?on?KUB No?hydronephrosis Hydrate?well (6) Hyperlipidemia: Code(s): E78.5 - Hyperlipidemia, unspecified Plan: LDL?cholesterol?is?too?high Start?atorvastatin Will?follow-up?in?3?months (7) Julian's cyst: Code(s): M71.20 - Synovial cyst of popliteal space [Julian], unspecified knee Plan: Julian's?cyst?behind?left?knee?without?pain She?will?let?me?know?if?this?worsens?or?changes Orders: Orders AMB Hemoglobin A1c Today E11.9 - Type 2 diabetes mellitus without complications Lipid Panel Today E78.5 - Hyperlipidemia, unspecified, Z00.00 - Encounter for general adult medical examination without abnormal findings Comprehensive [place]. Panel Fast Today E78.5 - Hyperlipidemia, unspecified, Z00.00 - Encounter for general adult medical examination without abnormal findings Medications: New atorvastatin 20 mg PO BEDTIME 90 days 90 tabs 2RF Coding Level of Care Code Est Pt Level 4 (05843) Diagnoses Diabetes E11.9 Screening for osteoporosis Z13.820 Bloating R14.0 Breast cancer screening by mammogram Z12.31 Nephrolithiasis N20.0 Hyperlipidemia E78.5 Julian's cyst M71.20
[2024-05-24 08:53] VITALS: BP 120/60; PULSE 78; RESP 18; TEMP 36.4; O2SAT 95; BMI 38.3
== END 2024-05-24 09:34 | disposition home or self-care (01) ==
PROVIDERS: PCP Family Medicine; Visit Provider Family Medicine
DX: E11.9 Type 2 diabetes mellitus without complications (principal); Z13.820 Encounter for screening for osteoporosis; R14.0 Abdominal distension (gaseous); Z12.31 Encounter for screening mammogram for malignant neoplasm of breast; N20.0 Calculus of kidney; E78.5 Hyperlipidemia, unspecified; M71.20 Synovial cyst of popliteal space [Baker], unspecified knee
CPT/HCPCS: 83036; 99214

== ENCOUNTER 2024-08-08 10:16 | Outpatient (AMB) | payer MEDICARE, SELFPAY ==
--- NOTE | 2024-08-08 10:29 | MHC.PC.OV ---
Vital Signs 08/08/24 10:34 Height 5 ft 5 in Weight 229 lb 8 oz BMI 38.2 BP 112/59 L Blood Pressure Location Rt brachial Position Sitting Respiration 14 Pulse 72 Pulse Source Pulse Oximeter Temp 96.3 F L Temp Source Temporal Artery Scan Pulse Oximetry (%) 95 Oxygen Delivery Method Room Air Intake Visit Reasons: f/u diabetes, HLD Intake Note: f/u DM hld Allergies No Known Allergies Allergy (Verified 08/08/24 10:30) Medication List - Last Reconciled 08/08/24 by Alexis Shaw MD acetaminophen 1,000 mg (2 x 500 mg) PO QID PRN albuterol sulfate 90 mcg/actuation 2 puffs inhalation Q4-6H PRN 30 days atorvastatin 20 mg PO BEDTIME 90 days biotin 2,500 mcg PO TID cholecalciferol (vitamin D3) 25 mcg PO DAILY coenzyme Q10 (Ultra CoQ10) 75 mg PO DAILY fluticasone furoate 100 mcg/actuation (Arnuity Ellipta) 1 inh inhalation Q24H 30 days fluticasone propionate 220 mcg/actuation 1 puff inhalation Q12H 30 days fluticasone propionate 50 mcg/actuation (Flonase Allergy Relief) 1 spray intranasal Q12H 30 days [id number] 1,500-165-67.5 mg (Krill Oil ([place] 3 and 6)) caps PO lisinopril-hydrochlorothiazide 20-25 mg 1 tab PO DAILY 90 days metformin 250 mg (1/2 x 500 mg) PO DAILY 30 days multivit with min-folic acid 80 mcg (Centrum Adult 50 Plus) 1 tab PO DAILY omeprazole 40 mg PO DAILY@0630 90 days Tobacco use date assessed: 05/24/24 Dental Screening Dental Screen Date: 05/24/24 HPI f/u diabetes, HLD HPI Details 68 y/o female presents to f/u diabetes [facility]. A1c 05/24/24 6.5%. She is on metformin 250mg daily. A1c today 08/08/24 is 6.6%. No recent lipid panel to review. She is on artovastatin 20mg. Blood pressure today 112/59, 72p. She is on lisinopril-hydrochlorothiazide 20-25mg daily. Has complaints of plantar fasciitis. Has complaints of a tremor - she notes her head sometimes bobbles and also notes some forgetfulness. HPI Comments History of Present Illness Details Documentation assistance for Alexis Shaw MD, was provided by Travis Gusman, Swing [employer]ender on 08/08/2024 at 10:43 AM EST. I, Dr. Shaw, have read, observed, and verified documentation. [facility], [facility] Medical History Arthritis Surgical History H/O colonoscopy History of bladder surgery History of hysterectomy Family History Mother No problems noted. Father No problems noted. Social History Household Members: Spouse Housing: House Do you presently have visiting nurse or other home services: No Alcohol intake: former Patient Tobacco Use Status: Former Tobacco user Tobacco use type: Cigarette Cigarette Packs Per Day: 1 Cigarettes Per Day: 20 Years Smoked: 40 e-Cigarette/Vaping Use: Never Used Second Hand Smoke Exposure: No service: No Current occupational status: retired Current occupational exposures/hazards: No Cognitive needs: No Hearing needs: Yes Vision needs: Yes Questionnaire Thrive Questionnaire Date Thrive assessed: 02/11/24 TOYA-7 AMB Questionnaire TOYA-7 Date TOYA - 7 assessed: 02/11/24 Source: Developed by Drs. Jose Washington, Liliana Rodrigues, Ze Brioens and colleagues, with an educational mario from [employer]. Review of Systems Const Denies chills, Denies fatigue, Denies fever(s), Denies headache(s) and Denies weakness ENT Denies dizziness and Denies headache(s) Card Denies dyspnea Resp Denies cough, Denies dyspnea, Denies wheezing and Denies other (shortness of breath) Musc Denies numbness and Denies tingling Neuro Denies dizziness, Denies headache(s), Denies numbness, Denies tingling and Denies weakness Psych Denies anxiety and Denies depression Endo Denies fatigue Aller/Immun Denies wheezing Physical exam (Primary Care) Vital Signs: Last Vital Signs Temp 96.3 F L 08/08/24 10:34 Pulse 72 08/08/24 10:34 Resp 14 08/08/24 10:34 BP 112/59 L 08/08/24 10:34 Pulse Ox 95 08/08/24 10:34 Oxygen Delivery Method Room Air 08/08/24 10:34 BMI result Body Mass Index 38.2 Tobacco/Smoking Status: Tobacco use Status Tobacco use date assessed 05/24/24 08/08/24 10:38 Patient Tobacco Use Status Former Tobacco user 08/08/24 10:38 Tobacco use type Cigarette 08/08/24 10:38 e-Cigarette/Vaping Use Never Used 08/08/24 10:38 Thrive Assessment: Date of Thrive Assessment Date Thrive assessed 02/11/24 08/08/24 10:38 Const General: well developed; No acute distress Nutritional Appearance: well nourished Orientation/consciousness: patient oriented x3 HENMT Head: Yes normocephalic and Yes atraumatic Eyes General: appearance normal, both eyes and all related structures Pupils: Equal, round and reactive pupils present EOM: EOMs intact bilaterally Resp Effort & Inspection: normal respiratory effort Auscultation: clear to auscultation bilaterally Cardio Rate: regular rate Rhythm: regular rhythm Heart sounds: S1 normal heart sound present, S2 normal heart sound present, no gallops, no murmurs and no rubs Neuro General: patient oriented x3 and gait normal Cranial nerves: Yes Equal, round and reactive pupils present Psych Affect: normal affect Coding Level of Care Code Est Pt Level 4 (07674) Diagnoses Essential hypertension I10 Diabetes E11.9 Hyperlipidemia E78.5 Plantar fasciitis M72.2 Tremor R25.1 Memory changes R41.3 Assessment & Plan Assessment & Plan (1) Essential hypertension: Code(s): I10 - Essential (primary) hypertension Category: Medical Plan: Blood?pressure?is?well?controlled.??Goal?is?less?than?140/90 Continue?current?medication (2) Diabetes: Code(s): E11.9 - Type 2 diabetes mellitus without complications Category: Medical Plan: 6.6%?A1c?shows?good?control.??Goal?is?less?than?7.0% Continue?current?medication (3) Hyperlipidemia: Code(s): E78.5 - Hyperlipidemia, unspecified Category: Medical Plan: Due?to?recheck?lipids She?will?get?these?drawn?prior?to?next?visit (4) Plantar fasciitis: Code(s): M72.2 - Plantar fascial fibromatosis Category: Medical Plan: Right?plantar?fasciitis Demonstrated?exercises Can?also?use?ice If?not?improving?would?refer?to?Podiatry. (5) Tremor: Code(s): R25.1 - Tremor, unspecified Category: Medical Plan: Patient?notes?new?changing?had?tremor?and?worsening?memory?changes. No?other?neurological?or?focal?neurologic?deficits Check?MRI (6) Memory changes: Code(s): R41.3 - Other amnesia Category: Medical Plan: As?above Orders: Orders MR angio head wo con Today R25.1 - Tremor, unspecified, R41.3 - Other amnesia Comprehensive [place]. Panel Fast Today E78.5 - Hyperlipidemia, unspecified, Z00.00 - Encounter for general adult medical examination without abnormal findings Lipid Panel Today E78.5 - Hyperlipidemia, unspecified, Z00.00 - Encounter for general adult medical examination without abnormal findings
[2024-08-08 10:34] VITALS: BP 112/59; PULSE 72; RESP 14; TEMP 35.7; O2SAT 95; BMI 38.2
== END 2024-08-08 11:05 | disposition home or self-care (01) ==
PROVIDERS: PCP Family Medicine; Visit Provider Family Medicine
DX: I10 Essential (primary) hypertension (principal); E11.9 Type 2 diabetes mellitus without complications; E78.5 Hyperlipidemia, unspecified; M72.2 Plantar fascial fibromatosis; R25.1 Tremor, unspecified; R41.3 Other amnesia

== ENCOUNTER 2024-10-24 12:03 | Outpatient (AMB) | payer MEDICARE, SELFPAY ==
[2024-10-24 12:47] VITALS: BP 126/78; PULSE 87; TEMP 36.9; O2SAT 94
--- NOTE | 2024-10-24 12:47 | AM.OFFWIN_ITS ---
Intake Vital Signs 10/24/24 12:47 Weight 230 lb BP 126/78 Blood Pressure Location Lt brachial Position Sitting Pulse 87 Pulse Source Pulse Oximeter Temp 98.5 F Temp Source Oral Pulse Oximetry (%) 94 Oxygen Delivery Method Room Air Intake Visit Reasons: EP chest cough, sinus, SOB Intake Note: Patient here for cough, chest congestion, runny nose and SOB that has been present for about 1 week. Patient Tobacco Use Status: Former Tobacco user Allergies No Known Allergies Allergy (Verified 10/24/24 12:57) Do you need a note to return to daycare/school/sports/work: No HPI HPI Comments History of Present Illness Details This is a 68-year-old female with a past medical history of hypertension, hyperlipidemia, osteoarthritis, COPD not currently oxygen dependent, [id number] diabetes and gastroesophageal reflux disease presenting for evaluation of rhinorrhea, cough and diarrhea that she has had for the past 1 week. Patient denies having any fevers, chills, otalgia, pharyngitis, chest pain or overt shortness a breath but does report being significantly fatigued. Patient continues to use her inhalers for management of her COPD and is taking Mucinex as well. [facility] Medical History Arthritis Surgical History H/O colonoscopy History of bladder surgery History of hysterectomy Family History Mother No problems noted. Father No problems noted. Social History Household Members: Spouse Housing: House Do you presently have visiting nurse or other home services: No Alcohol intake: former Patient Tobacco Use Status: Former Tobacco user Tobacco use type: Cigarette Cigarette Packs Per Day: 1 Cigarettes Per Day: 20 Years Smoked: 40 e-Cigarette/Vaping Use: Never Used Second Hand Smoke Exposure: No service: No Current occupational status: retired Current occupational exposures/hazards: No Cognitive needs: No Hearing needs: Yes Vision needs: Yes Review of Systems Const All systems reviewed & are unremarkable except as noted in HPI and below Reports no additional complaints Eyes Reports no additional complaints ENT Reports no additional complaints Card Reports as per HPI, Reports no additional complaints and Denies chest pain Resp Reports as per HPI, Reports no additional complaints, Reports cough, Denies hemoptysis, Denies stridor and Denies wheezing GI Reports no additional complaints Reports no additional complaints Musc Reports no additional complaints Skin/Breast Reports system reviewed and no additional complaints, except as documented Neuro Reports no additional complaints Psych Reports no additional complaints Endo Reports no additional complaints Sebastian/Lymph Reports no additional complaints Aller/Immun Reports no additional complaints and Denies wheezing Physical Exam Vital Signs: Last Vital Signs Temp 98.5 F 10/24/24 12:47 Pulse 87 10/24/24 12:47 BP 126/78 10/24/24 12:47 Pulse Ox 94 10/24/24 12:47 Oxygen Delivery Method Room Air 10/24/24 12:47 Patient is afebrile, oxygenating at 94% on room air, no tachypnea Const General: cooperative, healthy appearing, comfortable, no acute distress, well developed, alert and awake; No lethargic Nutritional Appearance: average body habitus and overweight Orientation/consciousness: patient oriented x3 and No lethargic Limitations: no limitations HEENT Head: Yes normal to inspection and Yes normocephalic Ears: hearing grossly normal bilaterally, external ears normal, TM's normal bilaterally and EAC's normal General nose exam: Normal external nose present Face and sinus: Yes normal facial exam and Yes sinuses nontender Mouth: Normal oral and palatal mucosa present and moist mucous membranes Throat: Yes posterior oropharynx normal and No postnasal drainage Eyes General: appearance normal, both eyes and all related structures Neck Lymphatic: no lymphadenopathy noted Resp Effort & Inspection: normal respiratory effort, able to speak in complete sentences, no audible wheezes, no nasal flaring and no stridor Auscultation: clear to auscultation bilaterally and diminished lung sounds bilateral in the lower lung bianchi Cardio Rate: regular rate Rhythm: regular rhythm Skin General skin exam: no rashes or lesions noted Neuro General: patient oriented x3 Psych Appearance: grossly normal Mental Status: mental status grossly normal Insight: Good insight present (Psych) Judgement: Good judgement present (Psych) Assessment & Plan Assessment & Plan (1) Acute upper respiratory infection: Comment: Patient's lungs are clear to auscultation bilaterally and patient's symptoms are more suspicious of a viral etiology. Code(s): J06.9 - Acute upper respiratory infection, unspecified Plan: SARS panel obtained and pending at this time. Patient is instructed to continue Mucinex and increase clear fluids daily. Immodium only as needed if diarrhea recurs. Orders: Orders SARS-CoV2/FLU/RSV Today J06.9 - Acute upper respiratory infection, unspecified Coding Level of Care Code Est Pt Level 3 (70670) Diagnoses Acute upper respiratory infection J06.9 Time Spent (min) 20
== END 2024-10-24 13:53 | disposition home or self-care (01) ==
PROVIDERS: PCP Family Medicine; Visit Provider Physician Assistant
DX: J06.9 Acute upper respiratory infection, unspecified (principal)

== ENCOUNTER 2024-10-24 12:03 | Outpatient (REF) | payer MEDICARE, SELFPAY ==
[2024-10-24 19:16] LABS: Influenza A PCR NEGATIVE (Negative); Influenza B PCR NEGATIVE (Negative); Resp Syncy Virus RNA Qual PCR NEGATIVE (Negative); SARS COV2 PCR INHOUSE NEGATIVE (Negative)
== END 2024-10-24 12:04 | disposition home or self-care (01) ==
LOC: HO.LNP 12:03
PROVIDERS: PCP Family Medicine; Visit Provider Physician Assistant
DX: J06.9 Acute upper respiratory infection, unspecified (principal)
CPT/HCPCS: 0241U; 99212

== ENCOUNTER → 2024-11-16 10:18 | Outpatient (BNV) | payer MEDICARE, SELFPAY | PROVIDERS: PCP Family Medicine; Visit Provider Radiology Diagnostic Radiology | DX: R41.3 Other amnesia (principal) | CPT/HCPCS: 70551 ==

== ENCOUNTER 2024-11-16 11:00 | Outpatient (REF) | payer MEDICARE, SELFPAY ==
--- NOTE | ~2024-11-16 | MR_ITS ---
CLINICAL HISTORY: R41.3 - Other amnesia MR Brain without gadolinium Comparison: None Findings: No acute infarct. Minimal age-related cerebral hemispheric white matter ischemic changes. Mild cerebral hemispheric volume loss within expected range for age. No evidence of asymmetric mesial temporal volume loss. No midline shift. No hydrocephalus. Vascular flow voids are intact. The orbits are normal. Partial opacification of the right mastoid air cells. No focal bone lesion. IMPRESSION: Minimal age-related cerebral hemispheric white matter ischemic changes. No evidence of mesial temporal lobe volume loss. This document has been electronically signed by: Jacquelyn Metzger MD on 11/17/2024 10:02:59
== END 2024-11-16 11:01 | disposition home or self-care (01) ==
LOC: HO.MRI 11:00
PROVIDERS: PCP Family Medicine; Visit Provider Family Medicine
DX: R41.3 Other amnesia (principal); R25.1 Tremor, unspecified
CPT/HCPCS: 70551

== ENCOUNTER 2024-12-02 11:09 | Outpatient (AMB) | payer MEDICARE, SELFPAY ==
[2024-12-02 11:30] VITALS: BP 92/68; PULSE 95; RESP 18; TEMP 36.8; O2SAT 92; BMI 36.6
--- NOTE | 2024-12-02 11:30 | MHC.OFFWIV ---
Intake Vital Signs 12/02/24 11:30 Height 5 ft 5 in Weight 220 lb BMI 36.6 BP 92/68 Blood Pressure Location Lt brachial Position Sitting Respiration 18 Pulse 95 Pulse Source Pulse Oximeter Temp 98.3 F Temp Source Oral Pulse Oximetry (%) 92 Oxygen Delivery Method Room Air Intake Visit Reasons: EP sneezing, coughing,diarreah, SOB Intake Note: Pt is here today c/o sneezing,coughing, diarrhea and SOB Hx of COPD also exposed to 2nd hand smoke Patient Tobacco Use Status: Former Tobacco user Allergies No Known Allergies Allergy (Verified 12/02/24 11:30) HPI EP sneezing, coughing,diarreah, SOB HPI Details Patient is a 68-year-old female with history of COPD comes to the walk-in clinic complaining of upper respiratory symptoms, as well as congestion in her chest, productive cough, dizziness and weakness, and shortness of breath and posterior chest pain. She also reports that she has had diarrhea since the onset of symptoms, and that her stool is black. She did take Pepto-Bismol skilled nursing through the course of her illness. No COVID testing done at home. She reports no known sick contacts. [facility] Medical History Arthritis Surgical History H/O colonoscopy History of bladder surgery History of hysterectomy Family History Mother No problems noted. Father No problems noted. Social History Household Members: Spouse Housing: House Do you presently have visiting nurse or other home services: No Alcohol intake: former Patient Tobacco Use Status: Former Tobacco user Tobacco use type: Cigarette Cigarette Packs Per Day: 1 Cigarettes Per Day: 20 Years Smoked: 40 e-Cigarette/Vaping Use: Never Used Second Hand Smoke Exposure: No service: No Current occupational status: retired Current occupational exposures/hazards: No Cognitive needs: No Hearing needs: Yes Vision needs: Yes Review of Systems Const All systems reviewed & are unremarkable except as noted in HPI and below Physical Exam Vital Signs: Last Vital Signs Temp 98.3 F 12/02/24 11:30 Pulse 95 02/08/25 11:30 Resp 18 12/02/24 11:30 BP 92/68 12/02/24 11:30 Pulse Ox 92 12/02/24 11:30 Oxygen Delivery Method Room Air 12/02/24 11:30 BMI result Body Mass Index 36.6 Const General: cooperative, alert, awake, Physically active, in distress, ill appearing and tired appearing; No healthy appearing, anxious or diaphoretic Nutritional Appearance: obese Orientation/consciousness: patient oriented x3 Chest Chest palpation & inspection: normal inspection of the chest and abnormal inspection of the chest (Left posterior chest wall discomfort) Resp Effort & Inspection: able to speak in complete sentences (Only short phrases), Actively coughing, labored (Especially with exertion), tachypneic, no tripod positioning and no use of accessory muscles Auscultation: crackles, no wheezes and diminished lung sounds Cardio Rate: regular rate Rhythm: regular rhythm Neuro General: patient oriented x3 Assessment & Plan Assessment & Plan (1) Shortness of breath: Code(s): R06.02 - Shortness of breath Plan: Patient is a 68-year-old female with history of COPD who complains of shortness of breath, dizziness with standing, generalized weakness, after having upper respiratory symptoms as well as chest congestion and now with left posterior chest discomfort with frequent diarrhea over the last few days. She did not check for COVID at home. I think she is dehydrated due to her low blood pressure, and this would be consistent with having diarrhea for the last few days. She is also acutely short of breath and has COPD, with possible pneumonia due to her symptoms. We discussed that the emergency department is the best place for her at this point, and she agreed. Emergency medical services arrived and patient requested transport to [facility]. Expect to be called in. Coding Level of Care Code Est Pt Level 4 (14993) Diagnoses Shortness of breath R06.02
== END 2024-12-02 12:37 | disposition home or self-care (01) ==
PROVIDERS: PCP Family Medicine; Visit Provider Physician Assistant Medical
DX: R06.02 Shortness of breath (principal)

== ENCOUNTER → 2024-12-02 11:09 | Outpatient (BNVA) | payer MEDICARE, SELFPAY | PROVIDERS: PCP Family Medicine | DX: R06.02 Shortness of breath (principal) | CPT/HCPCS: 99212 ==

== ENCOUNTER 2024-12-02 12:49 | Inpatient (IN) | payer MEDICARE, SELFPAY ==
[2024-12-02] VITALS (11 sets, daily range): BP systolic 99–122; BP diastolic 55–70; PULSE 71–86; RESP 12–20; TEMP 36.9–37.1; O2SAT 89–96; BMI 36.0
--- NOTE | ~2024-12-02 | XR_ITS ---
CLINICAL HISTORY: cough, dyspnea 2 view chest x-ray Comparison: CR/SR - XR CHEST 1V - 03/28/23 04:25 EDT Findings: No consolidation or effusion. Normal size heart. No acute fracture. IMPRESSION: 1. No acute findings. This document has been electronically signed by: Jailyn Jaquez MD on 12/02/2024 15:38:00
--- NOTE | 2024-12-02 13:06 | ED.GENADULT ---
HPI - General Adult General Chief complaint: Dyspnea Stated complaint: SOB DIARRHEA BODY ACHES Time Seen by Provider: 12/02/24 13:06 History of Present Illness ED Provider: Terrell GEORGES narrative: The patient is a 68-year-old female with a history of COPD who has been feeling ill for the last week. She has had a lot of coughing and some shortness of breath. She has also had some diarrhea. She lives at home with her . Today she had her brother drive her to an urgent care in [place] where they were concerned that she was fairly ill and they arranged an ambulance to bring her here. She has had chills. She does not know if she has had sweats. She has not had any documented fevers. No abdominal pain. Related Data Home Medications ?Medication ?Instructions ?Recorded ?Confirmed cholecalciferol (vitamin D3) 25 25 mcg PO DAILY 08/08/24 08/08/24 mcg (1,000 unit) capsule coenzyme Q10 75 mg capsule (Ultra 75 mg PO DAILY 08/08/24 08/08/24 CoQ10) krill cap PO 08/08/24 08/08/24 cyx-pj2-rde-vkg-np2-rnv-astax 1,500 mg-165 mg-67.5 mg capsule (Krill Oil ([place] 3 and 6)) multivitamin with minerals-folic 1 tab PO DAILY 08/08/24 08/08/24 acid 80 mcg chewable tablet (Centrum Adult 50 Plus) Previous Rx's ?Medication ?Instructions ?Recorded acetaminophen 500 mg tablet 1,000 mg (2 x 500 mg) PO QID PRN 03/18/23 pain #30 tabs atorvastatin 20 mg tablet 20 mg PO BEDTIME 90 days #90 tabs 05/24/24 lisinopril 20 1 tab PO DAILY 90 days #90 tabs 06/12/24 mg-hydrochlorothiazide 25 mg tablet albuterol sulfate 90 mcg/actuation 2 puff inhalation Q4-6H PRN 10/19/24 aerosol inhaler shortness of breath or wheezing 30 days #8.5 grams fluticasone furoate 100 1 inh inhalation Q24H 30 days #30 10/19/24 mcg/actuation blister powder for ea inhalation (Arnuity Ellipta) fluticasone propionate 50 1 spray intranasal Q12H 30 days 10/19/24 mcg/actuation nasal #16 grams spray,suspension (Flonase Allergy Relief) metformin 500 mg tablet 250 mg (1/2 x 500 mg) PO DAILY 30 10/24/24 days #15 tabs Allergies Allergy/AdvReac Type Severity Reaction Status Date / Time No Known Allergies Allergy Verified 12/02/24 13:22 Review of Systems Review of Systems: Yes all other systems are reviewed and are negative [facility] Past Medical History Medical History Arthritis Surgical History H/O colonoscopy History of bladder surgery History of hysterectomy Family History Family History Mother No problems noted. Father No problems noted. Social History Social History Household Members: Spouse Housing: House Do you presently have visiting nurse or other home services: No Alcohol intake: former Patient Tobacco Use Status: Former Tobacco user Tobacco use type: Cigarette Cigarette Packs Per Day: 1 Cigarettes Per Day: 20 Years Smoked: 40 Smoked in Last 30 Days: No e-Cigarette/Vaping Use: Never Used Second Hand Smoke Exposure: No Use of substances other than those prescribed or required for medical reasons: No Advance Directives: Yes Advance Directives on File: Yes Advance Directives Date on File: 04/13/23 Do you have a plan to hurt others: No Plan service: No Current occupational status: retired Current occupational exposures/hazards: No Cognitive needs: No Hearing needs: Yes Vision needs: Yes Physical Exam ED Vital Signs: Vital Signs - 24 hr 12/02/24 13:22 12/02/24 13:27 12/02/24 14:00 Temperature 98.7 F Pulse Rate 80 80 82 Respiratory Rate 18 18 12 Blood Pressure 107/55 L 107/55 L 99/60 Pulse Oximetry 89 L 94 96 Oxygen Delivery Method Room Air Nasal Cannula Room Air Oxygen Flow Rate 2 12/02/24 14:25 12/02/24 14:51 12/02/24 16:06 Temperature Pulse Rate 76 86 74 Respiratory Rate 18 18 19 Blood Pressure 110/57 L Pulse Oximetry 92 Oxygen Delivery Method Room Air Oxygen Flow Rate 12/02/24 16:42 Temperature Pulse Rate 71 Respiratory Rate 18 Blood Pressure Pulse Oximetry Oxygen Delivery Method Oxygen Flow Rate BMI result Body Mass Index 36.0 Const Other: The patient is awake and alert with a normal mental status. She looks somewhat unwell but not in acute distress. Orientation/consciousness: patient oriented x3 HENMT Other: Face is symmetrical. Mucous membranes moist. Eyes General: appearance normal, both eyes and all related structures Neck Neck: Yes full ROM, Yes no lymphadenopathy and Yes no JVD Resp Other: Diminished air entry bilaterally without sherly wheezes or crackles. No increased work of breathing. Cardio Rate: regular rate Rhythm: regular rhythm Heart sounds: S1 normal heart sound present and S2 normal heart sound present GI Other: Abdomen is soft and nontender Skin Other: Skin is pale and dry Neuro General: patient oriented x3, tone normal, moves all extremities, no focal motor deficits and CN's II-XI intact bilaterally Extrem Other: No calf swelling or tenderness, no peripheral edema, no asymmetry Medications Administered Discontinued Medications Generic Name Dose Route Start Last Admin Trade Name Madelyn PRN Reason Stop Dose Admin Albuterol/Ipratropium 3 ml 12/02/24 13:16 12/02/24 14:22 Albuterol/Iprat 2.5/0.5mg 3 Ml Ampul.Neb INHALE 12/02/24 13:17 3 ml ONCE ONE Administration Albuterol/Ipratropium 3 ml 12/02/24 14:42 12/02/24 14:50 Albuterol/Iprat 2.5/0.5mg 3 Ml Ampul.Neb INHALE 12/02/24 14:43 3 ml ONCE ONE Administration Albuterol/Ipratropium 3 ml 12/02/24 16:07 12/02/24 16:41 Albuterol/Iprat 2.5/0.5mg 3 Ml Ampul.Neb INHALE 12/02/24 16:08 3 ml ONCE ONE Administration Sodium Chloride 1,000 mls @ 999 mls/hr 12/02/24 14:45 12/02/24 16:49 Ns IV 12/02/24 15:45 Infused .Q1H1M CHRISTIANA Infusion Acetaminophen 1,000 mg in 100 mls @ 400 mls/hr 12/02/24 14:42 12/02/24 16:49 Ofirmev IV 12/02/24 14:56 Infused ONCE ONE Infusion Lactated Ringer's 1,000 mls @ 999 mls/hr 12/02/24 16:15 12/02/24 16:51 Lr IV 12/02/24 17:15 999 mls/hr .Q1H1M CHRISTIANA Administration Ketorolac Tromethamine 7.5 mg 12/02/24 14:42 12/02/24 15:41 Ketorolac Tromethamine 15 Mg/Ml Vial IVPUSH 12/02/24 14:43 7.5 mg ONCE ONE Administration Methylprednisolone Sodium Succinate 80 mg 12/02/24 14:42 12/02/24 15:42 Methylprednisolone Sod Succ 125 Mg/2 Ml Vial IVPUSH 12/02/24 14:43 80 mg ONCE ONE Administration Medical Decision Making Medical Decision Making [facility] Narrative: The patient is a 68-year-old female who has been feeling unwell for about a week. She has a history of COPD. She lives at home with her . Today she went to an urgent care. At the urgent care center she was placed in an ambulance and sent here. Here the patient is not hemodynamically unstable. She looks mildly unwell but not acutely toxic. She has CBC that shows a white count of 9.1, hemoglobin 15.0, platelet count 196, differential is normal. Basic metabolic panel shows a mild elevation of her BUN at 19. Glucose is 118. Creatinine 1.16. Electrolytes normal. Chest x-ray has been read as negative. EKG is normal. Troponin is normal. BNP is normal. C-reactive protein slightly elevated at 3.5. Viral serology is positive for influenza A. I think the patient has the flu. I suspect that this has triggered some degree of a COPD exacerbation as well. The patient was treated with bronchodilator aerosolized treatments as well as IV steroids. Also IV fluids, ketorolac, and acetaminophen. She was observed. Unfortunately her oxygen saturations at rest seemed to tend to be around 88% on room air. She was still feeling quite weak and worn out. I have asked the hospitalist for hospitalization for further care. Lab Data 12/02/24 13:37 12/02/24 13:37 Labs: Lab Results 12/02/24 Range/Units 13:37 WBC 9.1 (4.8-10.8) X10*3/uL RBC 4.97 (4.20-5.50) X10*6/uL Hgb 15.0 (12.0-16.0) g/dl Hct 42.0 (37.0-47.0) % MCV 84.5 (80.0-98.0) fL MCH 30.2 (27.0-33.0) pg MCHC 35.7 H (31.0-35.0) g/dl RDW 13.3 (11.0-16.0) % Plt Count 196 (160-400) X10*3/uL MPV 9.2 L (9.4-12.3) fL Immature Gran % (Auto) 0.3 (0.0-0.4) % Neut % (Auto) 68.6 (45-73) % Lymph % (Auto) 23.6 (20-40) % [place] % (Auto) 7.3 (2-11) % Eos % (Auto) 0.0 (0-4) % Baso % (Auto) 0.2 (0-2) % Lymph # (Auto) 2.1 (1.2-4.9) X10*3/uL [place] # (Auto) 0.7 (0.1-1.2) X10*3/uL Eos # (Auto) 0.0 (0.0-0.4) X10*3/uL Baso # (Auto) 0.0 (0.0-0.2) X10*3/uL Abs Immat Gran (auto) 0.03 (0.00-0.03) X10*3/uL Absolute Neuts (auto) 6.2 (2.0-8.3) x10*3/uL Absolute Nucleated RBC 0.000 (0.0-0.012) X10*3/uL Nucleated RBC % (auto) 0.0 (0.0-0.2) /100WBC Smear Tech's Comments VERIFIED Sodium 138 (135-145) mmol/L Potassium 3.5 (3.3-5.1) mmol/L Chloride 98 (96-108) mmol/L Carbon Dioxide 28 (22-29) mmol/L Anion Gap 16 (12-20) BUN 19 H (9-16) mg/dL Creatinine 1.16 (0.5-1.4) mg/dL Estim Creat Clear Calc 54.5 Estimated GFR 47 Random Glucose 118 H (60-115) mg/dL Calcium 9.4 (8.4-10.2) mg/dL Magnesium 1.8 (1.6-2.6) mg/dL Total Bilirubin 0.4 (0.0-1.0) mg/dL Direct Bilirubin 0.2 (0.0-0.5) mg/dL AST 54 H (5-31) U/L ALT 39 H (0-31) U/L Alkaline Phosphatase 72 (39-117) U/L Troponin I High Sens 3.2 (<3.5-17.0) ng/L C-Reactive Protein 3.50 H (< or = 0.50) mg/dL B-Natriuretic Peptide 12 (<100) pg/mL Total Protein 7.8 (6.5-8.0) g/dL Albumin 4.2 (3.5-5.0) g/dL Influenza Type A (PCR) POSITIVE A (Negative) Influenza Type B (PCR) NEGATIVE (Negative) RSV RNA Qual (PCR) NEGATIVE (Negative) SARS-CoV-2 RNA (RT-PCR) NEGATIVE (Negative) Independent Interpretation I performed an independent interpretation of an: EKG Interpretation: EKG at 13:21 shows normal sinus rhythm at 74 beats per minute. It is a normal EKG. Discharge Plan Discharge Clinical Impression: Influenza A, COPD (chronic obstructive pulmonary disease) Patient Disposition: Admitted As Inpatient Print Language: Frisian
--- NOTE | 2024-12-02 13:13 | ECG_ITS ---
Test Reason : sob Blood Pressure : */* mmHG Vent. Rate : 74 BPM Atrial Rate : 74 BPM P-R Int : 188 ms QRS Dur : 94 ms QT Int : 390 ms P-R-T Axes : 30 57 48 degrees QTcB Int : 432 ms Normal sinus rhythm Normal ECG When compared with ECG of 27-Mar-2023 23:44, Vent. rate has decreased by 45 bpm Referred By: Rg Tejada Electronically Signed By: Zev Stack
[2024-12-02 13:43] LABS: Basophils Percent Auto 0.2 % (0-2); Imm Gran Abs Auto 0.03 X10*3/uL (0.00-0.03); Imm Gran Pct Auto 0.3 % (0.0-0.4); Lymphocytes Absolute Auto 2.1 X10*3/uL (1.2-4.9); Lymphocytes Percent Auto 23.6 % (20-40); MANUAL DIFF FLAG SCAN; Mean Corpuscular HGB Conc 35.7 g/dl (31.0-35.0); Mean Corpuscular Hemoglobin 30.2 pg (27.0-33.0); Mean Corpuscular Volume 84.5 fL (80.0-98.0); Mean Platelet Volume 9.2 fL (9.4-12.3); Monocytes Absolute Auto 0.7 X10*3/uL (0.1-1.2); Monocytes Percent Auto 7.3 % (2-11); Neutrophils Absolute Auto 6.2 x10*3/uL (2.0-8.3); Neutrophils Percent Auto 68.6 % (45-73); Platelet Count 196 X10*3/uL (160-400); Red Blood Count 4.97 X10*6/uL (4.20-5.50); Red Cell Distribution Width 13.3 % (11.0-16.0); SCAN SMEAR FLAG 1; White Blood Count 9.1 X10*3/uL (4.8-10.8)
[2024-12-02 14:03] LABS: Alanine Aminotransferase 39 U/L (0-31); Albumin Level 4.2 g/dL (3.5-5.0); Alkaline Phosphatase 72 U/L (39-117); Anion Gap 16 (12-20); Aspartate Amino Transferase 54 U/L (5-31); Bilirubin Direct 0.2 mg/dL (0.0-0.5); Bilirubin Total 0.4 mg/dL (0.0-1.0); Blood Urea Nitrogen 19 mg/dL (9-16); Calcium 9.4 mg/dL (8.4-10.2); Carbon Dioxide 28 mmol/L (22-29); Chloride 98 mmol/L (96-108); Creatinine Clr Calc Pharmacy 54.5; Estimated Glomerular Filt Rate 47; Glucose Random 118 mg/dL (60-115); Magnesium 1.8 mg/dL (1.6-2.6); Potassium 3.5 mmol/L (3.3-5.1); Sodium 138 mmol/L (135-145); Total Protein 7.8 g/dL (6.5-8.0)
[2024-12-02 14:07] LABS: SLIDE REVIEW VERIFIED
[2024-12-02 14:09] LABS: B Type Natriuretic Peptide 12 pg/mL (<100)
[2024-12-02 14:10] LABS: Troponin-I High Sensitivity 3.2 ng/L (<3.5-17.0)
[2024-12-02 14:21] LABS: Influenza A PCR POSITIVE (Negative); Influenza B PCR NEGATIVE (Negative); Resp Syncy Virus RNA Qual PCR NEGATIVE (Negative); SARS COV2 PCR INHOUSE NEGATIVE (Negative)
[2024-12-02] MEDS: Albuterol/Iprat 2.5/0.5MG 3 ML AMPUL.NEB INHALE ×3 (14:22→16:41)
[2024-12-02] MEDS: 0.9 % Sodium Chloride 1,000 ML 999 ML IV (15:36)
[2024-12-02] MEDS: Ketorolac Tromethamine 15 MG/ML VIAL 7.5 MG IVPUSH (15:41)
[2024-12-02] MEDS: methylPREDNISolone Sod Succ 125 MG/2 ML VIAL 80 MG IVPUSH (15:42)
[2024-12-02] MEDS: Acetaminophen 1,000 MG/100 ML PIGGYBACK 400 MG IV (15:43)
[2024-12-02] MEDS: Lactated Ringers 1,000 ML 999 ML IV (16:51)
--- NOTE | 2024-12-02 18:29 | PC.NURSE ---
patient sister Ania called for update on patient, patient gave verbal permission to update her sister information on current hospital status. sister stated that she has concerns for patients well being at her current home situation and that it is not safe. Sister reports the patients is heavy ETOH/drug user and the home has not had electricity in a while or hot water, just a wood stove that barely maintains and [employer] in it. sister would like someone to speak to her sister and try and get her out of the situation and if not to have her medically cleared to fly so she can offer her to come reside with her in [place]. made aware.
--- NOTE | 2024-12-02 18:34 | PHA.MEDREC ---
Addendum entered by Victoria Burger RPh 12/02/24 18:48: Med rec was reviewed by [facility]. Original Note: Pharmacy Consult ? Medication Reconciliation Pharmacy has completed the medication reconciliation. Spoke to the pt to confirm meds.
--- NOTE | 2024-12-02 18:38 | PC.NURSE ---
Sister Ania [facility] [phone]
[2024-12-02] MEDS: Benzonatate 100 MG CAPSULE PO (21:10)
--- NOTE | 2024-12-02 21:55 | PM.IMHP ---
History of Present Illness Date of Service: 12/02/24 Attending physician on admission: Sarthak Kendall Chief Complaint: Shortness of breath, weakness and diarrhea x 1 week Patient is a 68 year old pleasant white female with history of type 2 diabetes mellitus, hypertension, hyperlipidemia, COPD who presents to the emergency room complaining of cough, sneezing and diarrhea since 5 days ago. She lives at home with her who is well. Her symptoms have unfortunately persisted prompting her to ask her brother to take her to the urgent care in [place] where they were concerned that she was fairly ill and so had an ambulance bring her here. She reports having a headache and sinus pressure but denies any fevers or chills. She took Pepto bismol with no relief. Initial work up in the ER was notable for a positive Influenza A PCR test with mild hypoxia with oxygen saturation of 89%, mild renal insufficiency with her creatinine up to 1.16 and mild elevation in her liver enzymes. She received Duo Neb updrafts with improvement in her respiratory status. Review of Systems Review of Systems: Yes all other systems are reviewed and are negative [facility] Medical History Arthritis Functional capacity: uses cane/walker Family History Mother No problems noted. Father No problems noted. Surgical History H/O colonoscopy History of bladder surgery History of hysterectomy Social History Household Members: Spouse Housing: House Do you presently have visiting nurse or other home services: No Alcohol intake: former Patient Tobacco Use Status: Former Tobacco user Tobacco use type: Cigarette Cigarette Packs Per Day: 1 Cigarettes Per Day: 20 Years Smoked: 40 Smoked in Last 30 Days: No e-Cigarette/Vaping Use: Never Used Second Hand Smoke Exposure: No Use of substances other than those prescribed or required for medical reasons: No Advance Directives: Yes Advance Directives on File: Yes Advance Directives Date on File: 04/13/23 Do you have a plan to hurt others: No Plan service: No Current occupational status: retired Current occupational exposures/hazards: No Cognitive needs: No Hearing needs: Yes Vision needs: Yes Meds Allergies Allergy/AdvReac Type Severity Reaction Status Date / Time No Known Allergies Allergy Verified 12/02/24 13:22 Home Medications ?Medication ?Instructions ?Recorded ?Confirmed ?Last Taken ?Type cholecalciferol (vitamin D3) 25 25 mcg PO DAILY 08/08/24 12/02/24 12/02/24 09:00 History mcg (1,000 unit) capsule coenzyme Q10 75 mg capsule (Ultra 75 mg PO BEDTIME 08/08/24 12/02/24 Unknown History CoQ10) krill 1 cap PO DAILY 08/08/24 12/02/24 12/02/24 09:00 History zjk-ws7-gbl-wld-jg3-ozb-astax 1,500 mg-165 mg-67.5 mg capsule (Krill Oil ([place] 3 and 6)) multivitamin with minerals-folic 1 tab PO DAILY 08/08/24 12/02/24 12/02/24 09:00 History acid 80 mcg chewable tablet (Centrum Adult 50 Plus) albuterol sulfate 90 mcg/actuation 2 puff inhalation Q6H PRN 12/02/24 12/02/24 Unknown History aerosol inhaler shortness of breath or wheezing fluticasone propionate 50 1 spray intranasal Q12H PRN 12/02/24 12/02/24 Unknown History mcg/actuation nasal Allergic Symptoms spray,suspension (Flonase Allergy Relief) omeprazole 40 mg capsule,delayed 40 mg PO DAILY@0630 12/02/24 12/02/24 12/02/24 09:00 History release Physical Exam Vital Signs and Narrative: Vital Signs: Last Vital Signs Temp 98.4 F 12/02/24 20:00 Pulse 86 12/02/24 20:00 Resp 19 12/02/24 20:00 BP 110/58 L 12/02/24 20:00 Pulse Ox 92 12/02/24 20:00 O2 Del Method Nasal Cannula 12/02/24 20:00 O2 Flow Rate 2 12/02/24 20:00 BMI result Body Mass Index 36.0 General: Obese female. Awake and alert. In no obvious respiratory distress. Psychiatric: Pleasant, well kempt, cooperative with normal thought process, speech, cognition and affect. HEENT: Normocephalic, atraumatic. No pallor or jaundice. Moist oral mucus membranes. Neck: Supple. No JVD Lungs: Good bilateral breath sounds. No rales, rhonchi or wheezes Heart: RRR. Normal s1/s2. No murmurs, rubs or gallops. No peripheral edema. Abdomen: Obese, flabby, soft, non-tender. Normoactive bowel sounds. No visceromegaly. Genitourinary: Deferred Back/Spine/Pelvis: Deferred Skin: Warm, dry, well perfused. Normal turgor. No mottling. Normal capillary refill (< 2 seconds). Neurologic: Awake and alert. Intact speech & cognition. Normal gait & balance. CN II-XII grossly normal. Extremities: Normal muscle bulk, tone and power. No obvious deformities. No peripheral edema. Good peripheral pulses. Results Labs 12/03/24 06:27 12/02/24 13:37 Labs: Laboratory Results - last 24 hr 12/02/24 13:37 MCV 84.5 MCH 30.2 MCHC 35.7 H RDW 13.3 Plt Count 196 MPV 9.2 L Immature Gran % (Auto) 0.3 Neut % (Auto) 68.6 Lymph % (Auto) 23.6 [place] % (Auto) 7.3 Eos % (Auto) 0.0 Baso % (Auto) 0.2 Lymph # (Auto) 2.1 [place] # (Auto) 0.7 Eos # (Auto) 0.0 Baso # (Auto) 0.0 Abs Immat Gran (auto) 0.03 Absolute Neuts (auto) 6.2 Absolute Nucleated RBC 0.000 Nucleated RBC % (auto) 0.0 Smear Tech's Comments VERIFIED Anion Gap 16 Estim Creat Clear Calc 54.5 Estimated GFR 47 Random Glucose 118 H Calcium 9.4 Magnesium 1.8 Total Bilirubin 0.4 Direct Bilirubin 0.2 AST 54 H ALT 39 H Alkaline Phosphatase 72 Troponin I High Sens 3.2 C-Reactive Protein 3.50 H B-Natriuretic Peptide 12 Total Protein 7.8 Albumin 4.2 Influenza Type A (PCR) POSITIVE A Influenza Type B (PCR) NEGATIVE RSV RNA Qual (PCR) NEGATIVE SARS-CoV-2 RNA (RT-PCR) NEGATIVE Assessment and Plan (1) Acute respiratory failure with hypoxia: Status: Acute (2) COPD exacerbation: Status: Acute (3) Influenza A: Status: Acute (4) Acute renal failure: Qualifiers: Acute renal failure type: unspecified Qualified Code(s): N17.9 - Acute kidney failure, unspecified Status: Acute Plan 68 year old pleasant white female with history of type 2 diabetes mellitus, hypertension, hyperlipidemia, COPD here with 1. Acute respiratory failure with hypoxia - improved with supplemental oxygen - continue to treat underlying COPD with steroids and duoneb updrafts 2. COPD exacerbation - mild - treat as above 3. Influenza A infection - likely precipitant - start Tamiflu 4. Acute renal failure - mild with creatinine creeping up to 1.16 from a baseline of 0.8 - likely due to dehydration due to diarrhea - rehydrate and re-assess - hold Zestoretic as BP is soft 5. Elevated liver enzymes - likely with fatty liver given BMI of 36 - monitor Total time managing care of this patient today: 75 minutes. Quality Stroke Does the patient have a stroke diagnosis?: No VTE Prior VTE?: No VTE Risk Level:: Medical - moderate - high VTE Device Contraindication: N/A - Device Ordered VTE Drug Contraindication: N/A - Med Ordered
[2024-12-02] MEDS: Oseltamivir Phosphate 75 MG CAPSULE PO (22:26)
[2024-12-02] MEDS: Enoxaparin Sodium 40 MG/0.4 ML SYRINGE SUBCUT (22:26)
[2024-12-02] MEDS: Melatonin 3 MG TABLET 6 MG PO (22:26)
[2024-12-02] MEDS: Lactated Ringers 1,000 ML 125 ML IVCONT (22:29)
[2024-12-03] VITALS (7 sets, daily range): BP systolic 118–153; BP diastolic 64–86; PULSE 68–73; RESP 15–20; TEMP 36.4–36.8; O2SAT 91–93
[2024-12-03] MEDS: Benzonatate 100 MG CAPSULE PO ×2 (04:40→22:51)
[2024-12-03] MEDS: Acetaminophen 325 MG TABLET 650 MG PO (04:40)
[2024-12-03] MEDS: Lactated Ringers 1,000 ML 125 ML IVCONT ×3 (06:08→22:56)
[2024-12-03 06:44] LABS: MANUAL DIFF FLAG NO
[2024-12-03 06:46] LABS: Basophils Percent Auto 0.2 % (0-2); Hematocrit 39.1 % (37.0-47.0); Hemoglobin 13.7 g/dl (12.0-16.0); Imm Gran Abs Auto 0.02 X10*3/uL (0.00-0.03); Imm Gran Pct Auto 0.3 % (0.0-0.4); Lymphocytes Absolute Auto 1.3 X10*3/uL (1.2-4.9); Lymphocytes Percent Auto 20.1 % (20-40); Mean Corpuscular Hemoglobin 30.2 pg (27.0-33.0); Mean Corpuscular Volume 86.3 fL (80.0-98.0); Mean Platelet Volume 9.4 fL (9.4-12.3); Monocytes Absolute Auto 0.3 X10*3/uL (0.1-1.2); Monocytes Percent Auto 4.2 % (2-11); Neutrophils Absolute Auto 4.8 x10*3/uL (2.0-8.3); Neutrophils Percent Auto 75.2 % (45-73); Platelet Count 197 X10*3/uL (160-400); Red Blood Count 4.53 X10*6/uL (4.20-5.50); Red Cell Distribution Width 13.4 % (11.0-16.0); White Blood Count 6.4 X10*3/uL (4.8-10.8)
--- NOTE | 2024-12-03 07:25 | PC.NURSE ---
pt is alert and oriented, skin pwd, respirations even but ls diminished in the lower bases, pt is currently on oxygen at 2l and just laying in bed is sating at 92%, pt denies pain at this time but pt is cancer about eating her breakfast bc was having really bad diarrhea a home
[2024-12-03 07:52] LABS: Alanine Aminotransferase 30 U/L (0-31); Albumin Level 3.8 g/dL (3.5-5.0); Alkaline Phosphatase 61 U/L (39-117); Bilirubin Total 0.4 mg/dL (0.0-1.0); Blood Urea Nitrogen 20 mg/dL (9-16); Calcium 8.5 mg/dL (8.4-10.2); Creatinine Clr Calc Pharmacy 70.3; Estimated Glomerular Filt Rate > 60; Glucose Random 132 mg/dL (60-115); Magnesium 1.8 mg/dL (1.6-2.6); Thyroid Stimulating Hormone 0.46 uIU/mL (0.32-4.0); Total Protein 7.3 g/dL (6.5-8.0)
[2024-12-03 08:09] LABS: Anion Gap 18 (12-20); Aspartate Amino Transferase 42 U/L (5-31); Carbon Dioxide 22 mmol/L (22-29); Chloride 104 mmol/L (96-108); Potassium 3.7 mmol/L (3.3-5.1); Sodium 140 mmol/L (135-145)
[2024-12-03] MEDS: metFORMIN HCl 500 MG TABLET 250 MG PO (09:01)
[2024-12-03] MEDS: Multivitamin TABLET 1 TAB PO (09:01)
[2024-12-03] MEDS: methylPREDNISolone Sod Succ 40 MG/ML VIAL IVPUSH ×2 (09:01→22:52)
[2024-12-03] MEDS: Oseltamivir Phosphate 75 MG CAPSULE PO ×2 (09:01→22:51)
[2024-12-03] MEDS: Cholecalciferol (Vitamin D3) 25 MCG TABLET PO (09:01)
[2024-12-03] MEDS: Fluticasone Propionate 100 MCG BLST.W.DEV 1 PUFF INHALE ×2 (09:26→21:27)
[2024-12-03] MEDS: Loratadine 10 MG TABLET PO (10:29)
[2024-12-03 13:10] LABS: Glucose, Whole Blood 135 mg/dL (60-115)
--- NOTE | 2024-12-03 16:24 | MHC.CM.PN ---
PT REPORTS SHE LIVES WITH HER AND IS INDEPENDENT WITH CARE SHE HAS NO SERVICES AND NO DME SHE REPORTS HER SISTER IS HER HCP, COPY REQUESTED PCP: HELGA CALDWELL IMM DELIVERED DCP: HOME VIA PRIVATE TRANSPORT
--- NOTE | 2024-12-03 16:44 | HO.PM.IMPN ---
Subjective Subjective Date of Service: 12/03/24 Interval History: hypoxia , influenza Review of Systems seems sob with minimal excersion has aggressive cough no fevers Physical Exam Vital Signs: Vital Signs: Last Vital Signs Temp 97.5 F 12/03/24 07:21 Pulse 70 12/03/24 15:33 Resp 20 12/03/24 15:33 BP 143/72 H 12/03/24 15:33 Pulse Ox 92 12/03/24 15:33 O2 Del Method Nasal Cannula 12/03/24 15:33 O2 Flow Rate 2 12/03/24 15:33 BMI result Body Mass Index 36.0 Appearance: Alert.? Oriented X3.? cvs: [id number], [id number] . res: clear to auscultation ,no rhonchii or wheezing abd: no rebound or guarding ,nt, bs present. ext pulses present , no cyanosis . neuro: axo3 , nonfocal. Objective Data Active Medications Acetaminophen (Acetaminophen 325 Mg Tablet) 650 mg PO Q6H PRN PRN Reason: Pain, Mild 1-3,fever,headache Last Admin: 12/03/24 04:40 Dose: 650 mg Documented By: INOCENCIA Albuterol Sulfate (Albuterol Sulfate 90 Mcg 8 Gm Inhaler) 2 puff INHALE Q6H PRN PRN Reason: shortness of breath or wheezing Albuterol/Ipratropium (Albuterol/Iprat 2.5/0.5mg 3 Ml Ampul.Neb) 3 ml INHALE Q4H PRN PRN Reason: Shortness of Breath/Wheezing Atorvastatin Calcium (Atorvastatin Calcium 20 Mg Tablet) 20 mg PO BEDTIME [facility] Benzonatate (Benzonatate 100 Mg Capsule) 100 mg PO TID PRN PRN Reason: Cough Last Admin: 12/03/24 04:40 Dose: 100 mg Documented By: INOCENCIA Calcium Carbonate (Calcium Carbonate 750 Mg Tab.Chew) 750 mg PO Q4H PRN PRN Reason: Heartburn Dextrose (Dextrose 50 % 25 Gm/50 Ml Syringe) 25 gm IVPUSH Q15M PRN; Protocol PRN Reason: per Hypoglycemia Standing Ord. Enoxaparin Sodium (Enoxaparin Sodium 40 Mg/0.4 Ml Syringe) 40 mg SUBCUT Q24H [facility] Last Admin: 12/02/24 22:26 Dose: 40 mg Documented By: INOCENCIA Fluticasone Propionate (Fluticasone Propionate 100 Mcg Blst.W.Dev) 1 puff INHALE RBID [facility] Last Admin: 12/03/24 09:26 Dose: 1 puff Documented By: MADHURI Glucose (Glucose Gel 15 Gm Gel..Gram.) 15 gm PO Q15M PRN; Protocol PRN Reason: per Hypoglycemia Standing Ord. Lactated Ringer's (Lr) 1,000 mls @ 125 mls/hr IVCONT .Q8H [facility] Last Admin: 12/03/24 06:08 Dose: 125 mls/hr Documented By: INOCENCIA Insulin Human Lispro (Insulin Lispro 100 Unit/Ml 3 Ml Vial) 0 unit SUBCUT QIDACHS [facility]; Protocol Last Admin: 12/03/24 14:28 Dose: Not Given Documented By: JERE Non-Admin Reason: poc 135 Loratadine (Loratadine 10 Mg Tablet) 10 mg PO DAILY [facility] Last Admin: 12/03/24 10:29 Dose: 10 mg Documented By: JERE Magnesium Hydroxide (Milk Of Magnesia 30 Ml Oral.Susp) 30 ml PO DAILY PRN PRN Reason: Constipation Melatonin (Melatonin 3 Mg Tablet) 6 mg PO BEDTIME PRN PRN Reason: Insomnia Last Admin: 12/02/24 22:26 Dose: 6 mg Documented By: INOCENCIA Methylprednisolone Sodium Succinate (Methylprednisolone Sod Succ 40 Mg/Ml Vial) 40 mg IVPUSH BID [facility] Last Admin: 12/03/24 09:01 Dose: 40 mg Documented By: JERE Multivitamins/Vitamin C (Multivitamin Tablet) 1 tab PO DAILY [facility] Last Admin: 12/03/24 09:01 Dose: 1 tab Documented By: JERE Omeprazole (Omeprazole 40 Mg Capsule.Dr) 40 mg PO DAILY@0630 [facility] Last Admin: 12/03/24 06:04 Dose: Not Given Documented By: INOCENCIA Non-Admin Reason: Patient Refused Ondansetron HCl (Ondansetron Hcl 4 Mg/2 Ml Vial) 4 mg IVPUSH Q8H PRN PRN Reason: Nausea and Vomiting Oseltamivir Phosphate (Oseltamivir Phosphate 75 Mg Capsule) 75 mg PO BID [facility] Stop: 12/07/24 09:01 Last Admin: 12/03/24 09:01 Dose: 75 mg Documented By: JERE Oxycodone HCl (Oxycodone Hcl Immed Release 5 Mg Tablet) 5 mg PO Q6H PRN PRN Reason: Pain, Severe (Pain Scale 7-10) Sodium Chloride (0.9 % Sodium Chloride Flush 3 Ml Syringe) 3 ml IVFLUSH QSHIFT [facility] Last Admin: 12/03/24 08:04 Dose: Not Given Documented By: JERE Non-Admin Reason: IV Running Vitamin D (Cholecalciferol (Vitamin D3) 25 Mcg Tablet) 25 mcg PO DAILY [facility] Last Admin: 12/03/24 09:01 Dose: 25 mcg Documented By: JERE Labs 12/03/24 06:27 12/03/24 06:27 Labs: Laboratory Results - last 24 hr 12/03/24 12/03/24 06:27 13:06 MCV 86.3 MCH 30.2 MCHC 35.0 RDW 13.4 Plt Count 197 MPV 9.4 Immature Gran % (Auto) 0.3 Neut % (Auto) 75.2 H Lymph % (Auto) 20.1 Otero % (Auto) 4.2 Eos % (Auto) 0.0 Baso % (Auto) 0.2 Lymph # (Auto) 1.3 Otero # (Auto) 0.3 Eos # (Auto) 0.0 Baso # (Auto) 0.0 Abs Immat Gran (auto) 0.02 Absolute Neuts (auto) 4.8 Absolute Nucleated RBC 0.000 Nucleated RBC % (auto) 0.0 Anion Gap 18 Estim Creat Clear Calc 70.3 Estimated GFR > 60 POC Glucose 135 H Random Glucose 132 H Calcium 8.5 D Magnesium 1.8 Total Bilirubin 0.4 AST 42 H ALT 30 Alkaline Phosphatase 61 Total Protein 7.3 Albumin 3.8 TSH 0.46 Assessment and Plan (1) Acute respiratory failure with hypoxia: Status: Acute (2) Influenza A: Status: Acute Assessment and Plan: 68 year old pleasant white female with history of type 2 diabetes mellitus, hypertension, hyperlipidemia, COPD here with Acute respiratory failure with hypoxia sec to copd excerebation improved with supplemental oxygen continue with steroids and duoneb updrafts, repirtaory sttaus still not optimal -sob with minimun exersion. Influenza A infection - likely precipitant continue Tamiflu Acute renal failure- mild with creatinine creeping up to 1.16 from a baseline of 0.8 - likely due to dehydration due to diarrhea improved with rehydration hold Zestoretic as BP is soft Elevated liver enzymes-thought to be likely with fatty liver given BMI of 36 lft improving , further workup outpatient. ongoing need:Acute respiratory failure with hypoxia sec to copd excerebation-taper oxygen ,nebs ,steriods , respirtaory sttaus still not optimal -sob with minimun exersion. Quality Stroke Does the patient have a stroke diagnosis?: No VTE Prior VTE?: No VTE Risk Level:: Medical - moderate - high VTE Device Contraindication: N/A - Device Ordered VTE Drug Contraindication: N/A - Med Ordered
[2024-12-03 16:55] LABS: Glucose, Whole Blood 127 mg/dL (60-115)
[2024-12-03 21:52] LABS: Glucose, Whole Blood 104 mg/dL (60-115)
[2024-12-03] MEDS: Melatonin 3 MG TABLET 6 MG PO (22:51)
[2024-12-03] MEDS: Atorvastatin Calcium 20 MG TABLET PO (22:52)
[2024-12-03] MEDS: Enoxaparin Sodium 40 MG/0.4 ML SYRINGE SUBCUT (22:52)
[2024-12-04] VITALS (10 sets, daily range): BP systolic 125–179; BP diastolic 65–86; PULSE 65–91; RESP 16–20; TEMP 36.3–37; O2SAT 90–94; BMI 35.9
[2024-12-04] MEDS: Lactated Ringers 1,000 ML 125 ML IVCONT (04:11)
[2024-12-04] MEDS: Albuterol/Iprat 2.5/0.5MG 3 ML AMPUL.NEB INHALE (04:13)
[2024-12-04] MEDS: Benzonatate 100 MG CAPSULE PO (04:58)
[2024-12-04 07:29] LABS: Glucose, Whole Blood 124 mg/dL (60-115)
[2024-12-04] MEDS: Fluticasone Propionate 100 MCG BLST.W.DEV 1 PUFF INHALE ×2 (07:58→19:27)
[2024-12-04] MEDS: Cholecalciferol (Vitamin D3) 25 MCG TABLET PO (09:55)
[2024-12-04] MEDS: methylPREDNISolone Sod Succ 40 MG/ML VIAL IVPUSH ×2 (09:55→21:52)
[2024-12-04] MEDS: Loratadine 10 MG TABLET PO (09:55)
[2024-12-04] MEDS: Multivitamin TABLET 1 TAB PO (09:55)
[2024-12-04] MEDS: Oseltamivir Phosphate 75 MG CAPSULE PO ×2 (10:50→21:52)
[2024-12-04] MEDS: guaiFENesin 200 MG/10 ML 10 ML LIQUID PO ×4 (10:54→21:52)
[2024-12-04 11:47] LABS: Glucose, Whole Blood 121 mg/dL (60-115)
[2024-12-04] MEDS: 0.9 % Sodium Chloride Flush 3 ML SYRINGE IVFLUSH ×2 (15:12→22:13)
--- NOTE | 2024-12-04 15:37 | MHC.CM.PN ---
per rounds pt not ready for dc dc plan remains home no services
[2024-12-04 16:05] LABS: Glucose, Whole Blood 139 mg/dL (60-115)
--- NOTE | 2024-12-04 16:52 | P.PNIM_ITS ---
Subjective Subjective Date of Service: 12/04/24 Interval History: hypoxia , influenza Review of Systems seems sob with minimal excersion has aggressive cough no fevers Physical Exam 2 Vital Signs: Vital Signs: Last Vital Signs Temp 98.0 F 12/04/24 15:53 Pulse 73 12/04/24 15:53 Resp 16 12/04/24 15:53 BP 179/83 H 12/04/24 15:53 Pulse Ox 90 L 12/04/24 15:53 O2 Del Method Nasal Cannula 12/04/24 15:53 O2 Flow Rate 3 12/04/24 15:53 FiO2 90 12/04/24 15:53 BMI result Body Mass Index 36.0 Appearance: Alert.? Oriented X3.? cvs: rrr, [id number] . res: clear to auscultation ,no rhonchii or wheezing abd: no rebound or guarding ,nt, bs present. ext pulses present , no cyanosis . neuro: axo3 , nonfocal. Objective Data Active Medications Acetaminophen (Acetaminophen 325 Mg Tablet) 650 mg PO Q6H PRN PRN Reason: Pain, Mild 1-3,fever,headache Last Admin: 12/03/24 04:40 Dose: 650 mg Documented By: INOCENCIA Albuterol Sulfate (Albuterol Sulfate 90 Mcg 8 Gm Inhaler) 2 puff INHALE Q6H PRN PRN Reason: shortness of breath or wheezing Albuterol/Ipratropium (Albuterol/Iprat 2.5/0.5mg 3 Ml Ampul.Neb) 3 ml INHALE Q4H PRN PRN Reason: Shortness of Breath/Wheezing Last Admin: 12/04/24 04:13 Dose: 3 ml Documented By: REYES Atorvastatin Calcium (Atorvastatin Calcium 20 Mg Tablet) 20 mg PO BEDTIME [facility] Last Admin: 12/03/24 22:52 Dose: 20 mg Documented By: DITOLC Benzonatate (Benzonatate 100 Mg Capsule) 100 mg PO TID PRN PRN Reason: Cough Last Admin: 12/04/24 04:58 Dose: 100 mg Documented By: REYES Calcium Carbonate (Calcium Carbonate 750 Mg Tab.Chew) 750 mg PO Q4H PRN PRN Reason: Heartburn Dextrose (Dextrose 50 % 25 Gm/50 Ml Syringe) 25 gm IVPUSH Q15M PRN; Protocol PRN Reason: per Hypoglycemia Standing Ord. Enoxaparin Sodium (Enoxaparin Sodium 40 Mg/0.4 Ml Syringe) 40 mg SUBCUT Q24H COUNTS INCLUDE 234 BEDS AT THE [facility] Last Admin: 12/03/24 22:52 Dose: 40 mg Documented By: KAYLA Fluticasone Propionate (Fluticasone Propionate 100 Mcg Blst.W.Dev) 1 puff INHALE RBID COUNTS INCLUDE 234 BEDS AT THE [facility] Last Admin: 12/04/24 07:58 Dose: 1 puff Documented By: ISABEL Glucose (Glucose Gel 15 Gm Gel..Gram.) 15 gm PO Q15M PRN; Protocol PRN Reason: per Hypoglycemia Standing Ord. Guaifenesin (Guaifenesin 200 Mg/10 Ml 10 Ml Liquid) 10 ml PO Q4H COUNTS INCLUDE 234 BEDS AT THE [facility] Last Admin: 12/04/24 15:11 Dose: 10 ml Documented By: TRISH Insulin Human Lispro (Insulin Lispro 100 Unit/Ml 3 Ml Vial) 0 unit SUBCUT QIDACHS COUNTS INCLUDE 234 BEDS AT THE [facility]; Protocol Last Admin: 12/04/24 16:51 Dose: Not Given Documented By: TRISH Non-Admin Reason: No Insulin Coverage Loratadine (Loratadine 10 Mg Tablet) 10 mg PO DAILY COUNTS INCLUDE 234 BEDS AT THE [facility] Last Admin: 12/04/24 09:55 Dose: 10 mg Documented By: TRISH Magnesium Hydroxide (Milk Of Magnesia 30 Ml Oral.Susp) 30 ml PO DAILY PRN PRN Reason: Constipation Melatonin (Melatonin 3 Mg Tablet) 6 mg PO BEDTIME PRN PRN Reason: Insomnia Last Admin: 12/03/24 22:51 Dose: 6 mg Documented By: KAYLA Methylprednisolone Sodium Succinate (Methylprednisolone Sod Succ 40 Mg/Ml Vial) 40 mg IVPUSH BID COUNTS INCLUDE 234 BEDS AT THE [facility] Last Admin: 12/04/24 09:55 Dose: 40 mg Documented By: TRISH Multivitamins/Vitamin C (Multivitamin Tablet) 1 tab PO DAILY COUNTS INCLUDE 234 BEDS AT THE [facility] Last Admin: 12/04/24 09:55 Dose: 1 tab Documented By: TRISH Non-Formulary Medication (Coenzyme Q10 [Ultra Coq10]) 75 mg PO BEDTIME COUNTS INCLUDE 234 BEDS AT THE [facility] Non-Formulary Medication (Lisinopril-Hydrochlorothiazide) 1 tab PO DAILY COUNTS INCLUDE 234 BEDS AT THE [facility] Omeprazole (Omeprazole 40 Mg Capsule.) 40 mg PO DAILY@0630 COUNTS INCLUDE 234 BEDS AT THE [facility] Last Admin: 12/04/24 04:51 Dose: Not Given Documented By: REYES Non-Admin Reason: Patient Refused Ondansetron HCl (Ondansetron Hcl 4 Mg/2 Ml Vial) 4 mg IVPUSH Q8H PRN PRN Reason: Nausea and Vomiting Oseltamivir Phosphate (Oseltamivir Phosphate 75 Mg Capsule) 75 mg PO BID COUNTS INCLUDE 234 BEDS AT THE [facility] Stop: 12/07/24 09:01 Last Admin: 12/04/24 10:50 Dose: 75 mg Documented By: TRISH Oxycodone HCl (Oxycodone Hcl Immed Release 5 Mg Tablet) 5 mg PO Q6H PRN PRN Reason: Pain, Severe (Pain Scale 7-10) Sodium Chloride (0.9 % Sodium Chloride Flush 3 Ml Syringe) 3 ml IVFLUSH QSHIFT COUNTS INCLUDE 234 BEDS AT THE [facility] Last Admin: 12/04/24 15:12 Dose: 3 ml Documented By: TRISH Vitamin D (Cholecalciferol (Vitamin D3) 25 Mcg Tablet) 25 mcg PO DAILY COUNTS INCLUDE 234 BEDS AT THE [facility] Last Admin: 12/04/24 09:55 Dose: 25 mcg Documented By: TRISH Labs 12/03/24 06:27 12/03/24 06:27 Labs: Laboratory Results - last 24 hr 12/03/24 12/03/24 12/04/24 16:46 21:47 07:19 POC Glucose 127 H 104 124 H 12/04/24 12/04/24 11:16 16:00 POC Glucose 121 H 139 H Assessment and Plan (1) Acute respiratory failure with hypoxia: Status: Acute (2) Influenza A: Status: Acute Assessment and Plan: 68 year old pleasant white female with history of type 2 diabetes mellitus, hypertension, hyperlipidemia, COPD here with Acute respiratory failure with hypoxia sec to copd excerebation improved with supplemental oxygen continue with steroids and duoneb updrafts, repirtaory sttaus still not optimal -sob with minimun exersion. Influenza A infection - likely precipitant continue Tamiflu Acute renal failure- mild with creatinine creeping up to 1.16 from a baseline of 0.8 - likely due to dehydration due to diarrhea improved with rehydration hold Zestoretic as BP is soft Elevated liver enzymes-thought to be likely with fatty liver given BMI of 36 lft improving , further workup outpatient. htn : bp suboptimal added lisinopril/hctz ongoing need:Acute respiratory failure with hypoxia sec to copd excerebation- taper oxygen ,nebs ,steriods , respirtaory sttaus still not optimal -sob with minimun exersion. Quality Stroke Does the patient have a stroke diagnosis?: No VTE Prior VTE?: No VTE Risk Level:: Medical - moderate - high VTE Device Contraindication: N/A - Device Ordered VTE Drug Contraindication: N/A - Med Ordered
[2024-12-04] MEDS: lisinopriL 20 MG TABLET PO (17:44)
[2024-12-04] MEDS: hydroCHLOROthiazide 25 MG TABLET PO (17:44)
[2024-12-04 19:55] LABS: Glucose, Whole Blood 131 mg/dL (60-115)
[2024-12-04] MEDS: Atorvastatin Calcium 20 MG TABLET PO (21:52)
[2024-12-04] MEDS: Enoxaparin Sodium 40 MG/0.4 ML SYRINGE SUBCUT (21:52)
[2024-12-05] MEDS: guaiFENesin 200 MG/10 ML 10 ML LIQUID PO ×4 (02:01→14:46)
[2024-12-05 03:59] VITALS: BP 150/86; PULSE 76; RESP 18; TEMP 36.4; O2SAT 91
[2024-12-05] MEDS: Benzonatate 100 MG CAPSULE PO (04:04)
[2024-12-05 05:08] VITALS: PULSE 63; RESP 18; O2SAT 90
[2024-12-05] MEDS: Albuterol/Iprat 2.5/0.5MG 3 ML AMPUL.NEB INHALE (05:08)
[2024-12-05] MEDS: Omeprazole 40 MG CAPSULE.DR PO (06:45)
[2024-12-05 07:28] VITALS: BP 163/88; PULSE 69; RESP 18; TEMP 36.3; O2SAT 90
[2024-12-05 07:57] LABS: Glucose, Whole Blood 114 mg/dL (60-115)
[2024-12-05] MEDS: Fluticasone Propionate 100 MCG BLST.W.DEV 1 PUFF INHALE (08:41)
[2024-12-05 08:45] VITALS: PULSE 77; RESP 18; O2SAT 93
[2024-12-05] MEDS: methylPREDNISolone Sod Succ 40 MG/ML VIAL IVPUSH (09:18)
[2024-12-05] MEDS: hydroCHLOROthiazide 25 MG TABLET PO (09:19)
[2024-12-05] MEDS: Cholecalciferol (Vitamin D3) 25 MCG TABLET PO (09:20)
[2024-12-05] MEDS: lisinopriL 20 MG TABLET PO (09:20)
[2024-12-05] MEDS: Multivitamin TABLET 1 TAB PO (09:20)
[2024-12-05] MEDS: Loratadine 10 MG TABLET PO (09:20)
[2024-12-05] MEDS: 0.9 % Sodium Chloride Flush 3 ML SYRINGE IVFLUSH (09:20)
[2024-12-05] MEDS: Oseltamivir Phosphate 75 MG CAPSULE PO (09:20)
--- NOTE | 2024-12-05 10:31 | P.DS_ITS ---
DS: Providers Provider Date of Service: 12/05/24 Date of admission: 12/02/24 21:49 Date of discharge: 12/05/24 Primary care physician: Alexis Shaw MD Attending physician on discharge: Arin Alvarez Discharging clinician: Arin Alvarez DS: Diagnosis Discharge Diagnosis (1) Acute respiratory failure with hypoxia: Status: Acute (2) Influenza A: Status: Acute DS: Summary Hospital Course Hospital Course: HPI:68 year old pleasant white female with history of type 2 diabetes mellitus, hypertension, hyperlipidemia, COPD who presents to the emergency room complaining of cough, sneezing and diarrhea since 5 days ago. She lives at home with her who is well. Her symptoms have unfortunately persisted prompting her to ask her brother to take her to the urgent care in [place] where they were concerned that she was fairly ill and so had an ambulance bring her here. She reports having a headache and sinus pressure but denies any fevers or chills. She took Pepto bismol with no relief. Initial work up in the ER was notable for a positive Influenza A PCR test with mild hypoxia with oxygen saturation of 89%, mild renal insufficiency with her creatinine up to 1.16 and mild elevation in her liver enzymes. She received Duo Neb updrafts with improvement in her respiratory status. Hospital course: Patient was admitted to the hospital because of having cough, shortness of breath, some diarrhea: Patient was admitted to the hospital because of acute hypoxemic respiratory failure with hypoxia secondary to severe copd exacerba tion and influenza infection, in addition patient had mild ROMY secondary to decreased p.o. intake:cxr -no acute findings, Patient was started on nebs, steroids, Tamiflu, also gentle hydration and her lisinopril/hydrochlorothiazide was placed on hold : With above management patient shortness of breaths seems to be improved significantly, hypoxia resolved, off oxygen, diarrhae also improved, denies any other gi symptoms and tolerating diet. Elevated LFTs: Improving, thought to be related to morbid obesity, encouraged to lose weight and cutdown calories. Monitor LFTs outpatient and further workup outpatient. Patient will be going home with prednisone 40 mg p.o. daily for 4 days ,Tamiflu 75 mg b.i.d. for 2 days, encouraged for hydration, started back blood pressure medication. plan: prednisone 40 mg p.o. daily for 4 days ,Tamiflu 75 mg b.i.d. for 2 days and cough medications as prescribed Encouraged for hydration. Monitor LFTs outpatient and further workup outpatient. enouraged to lose weight and cutdown calories. Above management discussed with the patient detail length she understand and in agreement with the above plan, time spent 40 minute. Time Attestation Total time managing care of this patient today: 40 mintues. Discharge Coordination Time (in mins): 40min Quality: Safe Use of Opioids Does Pt have an Active Cancer Diagnosis on the Problem List?: No Quality: Stroke Does the patient have a stroke diagnosis?: No Physical Exam Vital Signs: Vital Signs: Last Vital Signs Temp 97.3 F 12/05/24 07:28 Pulse 77 12/05/24 08:45 Resp 18 12/05/24 08:45 BP 163/88 H 12/05/24 07:28 Pulse Ox 90 L 12/05/24 07:28 O2 Del Method Nasal Cannula 12/05/24 07:28 O2 Flow Rate 2 12/05/24 07:28 FiO2 90 12/04/24 15:53 BMI result Body Mass Index 35.9 Appearance: Alert.? Oriented X3.? cvs: rrr, [id number] . res: clear to auscultation ,no rhonchii or wheezing abd: no rebound or guarding ,nt, bs present. ext pulses present , no cyanosis . neuro: axo3 , nonfocal. DS: Data Data Completed and Pending Completed studies during hospitalization [Text1]: Procedures Introduction of Vasopressor into Peripheral Vein, Percutaneous Approach (03/28/23) Labs on day of discharge: Laboratory Results - last 24 hr 12/04/24 12/04/24 12/04/24 11:16 16:00 19:40 POC Glucose 121 H 139 H 131 H 12/05/24 07:26 POC Glucose 114 Discharge Plan Discharge Anticipated Discharge Date/Time: 12/05/24 10:18 Patient Disposition: Home, Self-Care Discharge Diagnosis: Acute respiratory failure with hypoxia sec to copd excerebation, influenza A, elevated lfts Referrals: Alexis Shaw MD [Primary Care Provider] - 1 Week Discharge Medications: New benzonatate 100 mg Capsule 100 mg PO TID PRN (Reason: Cough) Qty: 15 0RF oseltamivir [Tamiflu] 75 mg Capsule 75 mg PO BID Qty: 4 0RF loratadine 10 mg Tablet 10 mg PO DAILY Qty: 10 0RF guaifenesin 100 mg/5 mL Liquid 100 mg PO Q4H Qty: 180 0RF Continued lisinopril-hydrochlorothiazide 20-25 mg tablet 1 tab PO DAILY 90 Days Qty: 90 2RF Arnuity Ellipta 100 mcg/actuation blister with device 1 inh inhalation Q24H 30 Days Qty: 30 3RF metformin 500 mg tablet 250 mg PO DAILY 30 Days Qty: 15 1RF omeprazole 40 mg capsule,delayed release(DR/EC) 40 mg PO DAILY@0630 albuterol sulfate 90 mcg/actuation HFA aerosol inhaler 2 puff inhalation Q6H PRN (Reason: shortness of breath or wheezing) fluticasone propionate [Flonase Allergy Relief] 50 mcg/actuation spray,suspension 1 spray intranasal Q12H PRN (Reason: Allergic Symptoms) Rx Instructions: administer into each nostril acetaminophen 500 mg tablet 1,000 mg PO QID PRN (Reason: pain) Qty: 30 2RF atorvastatin 20 mg tablet 20 mg PO BEDTIME 90 Days Qty: 90 2RF Centrum Adult 50 Plus 80 mcg tablet,chewable 1 tab PO DAILY cholecalciferol (vitamin D3) 25 mcg (1,000 unit) capsule 25 mcg PO DAILY Ultra CoQ10 75 mg capsule 75 mg PO BEDTIME [employer] ([employer] 3 and 6) 1,500-165-67.5 mg capsule 1 cap PO DAILY Discharge Orders: Discharge Order (Routine); Ordered 12/05/24 Ordered By: Arin Alvarez Diet: Advance to usual diet Activity on Discharge: As tolerated Stand Alone Forms: Patient Portal Discharge page Print Language: Egyptian Other Ambulatory Orders: Comprehensive Met. Panel (Routine) Timeframe: 1 Week Facility: [facility] - Location: Laboratory Ordered By: Arin Alvarez Care Plan Goals: Patient was admitted to the hospital because of having cough, shortness of breath, some diarrhea: Patient was admitted to the hospital because of acute hypoxemic respiratory failure with hypoxia secondary to severe PT exacerbation and influenza infection, in addition patient had mild ROMY secondary to decreased p.o. intake: Patient was started on nebs, steroids, Tamiflu, also gentle hydration and her lisinopril/hydrochlorothiazide was placed on hold : With above management patient shortness of breaths seems to be improved significantly, hypoxia resolved, off oxygen. Elevated LFTs: Improving, thought to be related to obesity, encouraged to lose weight and cutdown calories. Monitor LFTs outpatient and further workup outpatient. Patient will be going home with prednisone 40 mg p.o. daily for 4 days ,Tamiflu 75 mg b.i.d. for 2 days, encouraged for hydration, started back blood pressure medication. Health Concerns: As above. Plan of Treatment: prednisone 40 mg p.o. daily for 4 days ,Tamiflu 75 mg b.i.d. for 2 days and cough medications as prescribed Encouraged for hydration. Monitor LFTs outpatient and further workup outpatient. Assessment: As above.
--- NOTE | 2024-12-05 10:41 | MHC.CM.PN ---
PT LIVES ALONE HAS SERVICES [facility]RU [facility] 02 PT HAS OWN TRANSPORTAION HOME DC PLAN HOME W/[facility] 02
--- NOTE | 2024-12-05 10:44 | MHC.CM.PN ---
PT DCD HOME SELF CARE
[2024-12-05 11:29] VITALS: BP 150/74; PULSE 73; RESP 16; TEMP 36.4; O2SAT 88
[2024-12-05 11:46] LABS: Glucose, Whole Blood 102 mg/dL (60-115)
[2024-12-05 15:26] VITALS: PULSE 76; PULSE 83; PULSE 89; PULSE 93; PULSE 94; O2SAT 84; O2SAT 86; O2SAT 89; O2SAT 90
== END 2024-12-05 16:50 | disposition home or self-care (01) | DRG 193 ==
LOC: HO.ED 18:02 → HO.EDOVER 22:06 → HO.S3 12-04 07:51
PROVIDERS: Admitting Provider Internal Medicine; Emergency Provider Emergency Medicine; PCP Family Medicine; Visit Provider Internal Medicine
DX: J10.1 Influenza due to other identified influenza virus with other respiratory manifestations (principal); J96.01 Acute respiratory failure with hypoxia; J44.1 Chronic obstructive pulmonary disease with (acute) exacerbation; N17.9 Acute kidney failure, unspecified; K76.0 Fatty (change of) liver, not elsewhere classified; E86.0 Dehydration; Z87.891 Personal history of nicotine dependence; Z79.51 Long term (current) use of inhaled steroids; Z79.84 Long term (current) use of oral hypoglycemic drugs; Z79.899 Other long term (current) drug therapy
CPT/HCPCS: 0241U; 36415; 71046; 80048; 80053; 80076; 82947; 83735; 83880; 84443; 84484; 85025; 86140; 93005; 94640; 99212; 99285; J0131; J1650; J1885; J2919; J7120

== ENCOUNTER → 2024-12-02 13:13 | Outpatient (BNV) | payer MEDICARE, SELFPAY | PROVIDERS: Admitting Provider Internal Medicine; Emergency Provider Emergency Medicine; PCP Family Medicine; Visit Provider Internal Medicine Cardiovascular Disease | DX: R06.02 Shortness of breath (principal) | CPT/HCPCS: 93010 ==

== ENCOUNTER → 2024-12-02 13:14 | Outpatient (BNV) | payer MEDICARE, SELFPAY | PROVIDERS: Emergency Provider Emergency Medicine; PCP Family Medicine; Visit Provider Radiology Diagnostic Radiology | DX: R05.9 Cough, unspecified (principal); R06.00 Dyspnea, unspecified | CPT/HCPCS: 71046 ==

== ENCOUNTER → 2024-12-02 21:49 | Outpatient (BNV) | payer MEDICARE, SELFPAY | PROVIDERS: Admitting Provider Internal Medicine; Emergency Provider Emergency Medicine; PCP Family Medicine; Visit Provider Internal Medicine | DX: J96.01 Acute respiratory failure with hypoxia (principal); J44.1 Chronic obstructive pulmonary disease with (acute) exacerbation; J10.1 Influenza due to other identified influenza virus with other respiratory manifestations; N17.9 Acute kidney failure, unspecified | CPT/HCPCS: 99223; 99232 ==

== ENCOUNTER 2024-12-12 10:27 | Outpatient (AMB) | payer MEDICARE, SELFPAY ==
--- NOTE | 2024-12-12 10:39 | MHC.PC.OV ---
Vital Signs 12/12/24 10:55 Height 5 ft 5 in Weight 216 lb 2 oz BMI 36.0 BP 100/60 Blood Pressure Location Rt brachial Position Sitting Respiration 14 Pulse 77 Pulse Source Pulse Oximeter Temp 97.9 F Temp Source Oral Pulse Oximetry (%) 94 Oxygen Delivery Method Room Air Intake Visit Reasons: f/u diabetes, hypertension, HLD Intake Note: follow up on mri, DM and HTN pt was not fasting so she did not get labs done Hand Tacker Required: No Allergies No Known Allergies Allergy (Verified 12/12/24 10:51) Medication List - Last Reconciled 12/12/24 by Alexis Shaw MD acetaminophen 1,000 mg (2 x 500 mg) PO QID PRN albuterol sulfate 90 mcg/actuation 2 puffs inhalation Q6H PRN atorvastatin 20 mg PO BEDTIME 90 days benzonatate 100 mg PO TID PRN cholecalciferol (vitamin D3) 25 mcg PO DAILY coenzyme Q10 (Ultra CoQ10) 75 mg PO BEDTIME fluticasone furoate 100 mcg/actuation (Arnuity Ellipta) 1 inh inhalation Q24H 30 days fluticasone propionate 50 mcg/actuation (Flonase Allergy Relief) 1 spray intranasal Q12H PRN [id number] 1,500-165-67.5 mg (Krill Oil (Justice 3 and 6)) 1 cap PO DAILY lisinopril-hydrochlorothiazide 20-25 mg 1 tab PO DAILY 90 days loratadine 10 mg PO DAILY metformin 250 mg (1/2 x 500 mg) PO DAILY 30 days multivit with min-folic acid 80 mcg (Centrum Adult 50 Plus) 1 tab PO DAILY omeprazole 40 mg PO DAILY@0630 Tobacco use date assessed: 05/24/24 Dental Screening Dental Screen Date: 05/24/24 HPI f/u diabetes, hypertension, HLD HPI Details 69 y/o female presents to f/u diabetes, HTN. Last A1c 08/08/24 6.6%. She is on metformin 250mg daily. A1c today 12/12/24 is 6.8%. Blood pressure today 100/60, 77p. She is on lisinopril-HCTZ 20-25mg daily. Recent hospital visit for cough, shortness of breath, some diarrhea. Pt admitted to hospital due to acute hypoxemic respiratory failure with hypoxia secondary to severe COPD exacerbation, influenza infection. Pt also had mild ROMY secondary to decreased p.o. intake. Patient was started on nebs, steroids, Tamiflu, also gentle hydration and her lisinopril/hydrochlorothiazide was placed on hold : With above management patient shortness of breaths seems to be improved significantly, hypoxia resolved, off oxygen, diarrhae also improved, denies any other gi symptoms and tolerating diet. COPD exacerbation improving. Reports ongoing memory changes, tremors. [facility] Medical History Arthritis Surgical History H/O colonoscopy History of bladder surgery History of hysterectomy Family History Mother No problems noted. Father No problems noted. Social History Household Members: Spouse Housing: House Do you presently have visiting nurse or other home services: No Alcohol intake: former Patient Tobacco Use Status: Former Tobacco user Tobacco use type: Cigarette Cigarette Packs Per Day: 1 Cigarettes Per Day: 20 Years Smoked: 40 Packs Per Year: 40 Packs per year/per ci.00 e-Cigarette/Vaping Use: Never Used Second Hand Smoke Exposure: No Advance Directives Date on File: 04/13/23 service: No Current occupational status: retired Current occupational exposures/hazards: No Cognitive needs: No Hearing needs: Yes Vision needs: Yes Questionnaire PHQ-9 Over the last 2 weeks, how often have you been bothered by any of the following problems? 1. Little interest or pleasure in doing things: several days 2. Feeling down, depressed, or hopeless: several days 3. Trouble falling or staying asleep, or sleeping too much: several days 4. Feeling tired or having little energy: several days 5. Poor appetite or overeating: not at all 6. Feeling bad about yourself - or that you are a failure or have let yourself or your family down: not at all Source: Developed by Drs. Jose Washington, Liliana Rodrigues, Ze Briones and colleagues, with an educational mario from [employer]. Thrive Questionnaire Date Thrive assessed: 12/03/24 TOYA-7 AMB Questionnaire TOYA-7 Date TOYA - 7 assessed: 02/11/24 Source: Developed by Drs. Jose Washington, Liliana Rodrigues, Ze Briones and colleagues, with an educational mario from [employer]. Review of Systems Const Denies chills, Denies fatigue, Denies fever(s), Denies headache(s) and Denies weakness ENT Denies dizziness and Denies headache(s) Card Denies chest pain, Denies lightheadedness, Denies dyspnea and Denies other (Palpitations) Resp Denies cough, Denies dyspnea, Denies wheezing and Denies other ( shortness of breath) Musc Denies numbness and Denies tingling Neuro Denies dizziness, Denies headache(s), Denies numbness, Denies tingling, Denies paresthesias and Denies weakness Psych Denies anxiety and Denies depression Endo Denies fatigue Aller/Immun Denies wheezing Physical exam (Primary Care) Vital Signs: Last Vital Signs Temp 97.9 F 12/12/24 10:55 Pulse 77 12/12/24 10:55 Resp 14 12/12/24 10:55 BP 100/60 12/12/24 10:55 Pulse Ox 94 12/12/24 10:55 Oxygen Delivery Method Room Air 12/12/24 10:55 BMI result Body Mass Index 36.0 Tobacco/Smoking Status: Tobacco use Status Tobacco use date assessed 05/24/24 12/12/24 10:40 Patient Tobacco Use Status Former Tobacco user 12/12/24 10:40 Tobacco use type Cigarette 12/12/24 10:40 e-Cigarette/Vaping Use Never Used 12/12/24 10:40 Thrive Assessment: Date of Thrive Assessment Date Thrive assessed 12/03/24 12/12/24 10:40 Const General: no acute distress and well developed Nutritional Appearance: well nourished Orientation/consciousness: patient oriented x3 HENMT Head: Yes normocephalic and Yes atraumatic Eyes General: appearance normal, both eyes and all related structures Pupils: Equal, round and reactive pupils present EOM: EOMs intact bilaterally Resp Other: Adventitious sounds L lung base Effort & Inspection: normal respiratory effort Auscultation: not clear to auscultation bilaterally Cardio Rate: regular rate Rhythm: regular rhythm Heart sounds: S1 normal heart sound present, S2 normal heart sound present, no gallops, no murmurs and no rubs Neuro General: patient oriented x3 and gait normal Cranial nerves: Yes Equal, round and reactive pupils present Psych Affect: normal affect Results AMB Hemoglobin A1c AMB Hemoglobin A1c 6.8 % Last Edit by Luis Gerardo CMA on 12/12/24 11:09 Results Reviewed Results Reviewed: Laboratory Last Values Hgb A1c (Clinic) 6.8 % (4.0-6.0) H 12/12/24 11:08 Coding Level of Care Code Est Pt Level 5 (44025) Diagnoses Acute respiratory failure with hypoxia J96.01 Acute renal failure, unspecified acute renal failure type N17.9 Acute renal failure type: unspecified Diabetes E11.9 Essential hypertension I10 Memory changes R41.3 Assessment & Plan Assessment & Plan (1) Acute respiratory failure with hypoxia: Code(s): J96.01 - Acute respiratory failure with hypoxia Category: Medical Plan: S/p?influenza?and?COPD?exacerbation Improved?though?still?appears?to?have?mild?COPD?exacerbation She?does?also?have?adventitious?sounds?at?left?lung?field?base. Check?new?chest?x-ray Will?give?her?a?script?for?Z-Eduardo?and?steroid?taper Continue?oxygen?2?liters/minute?and?can?use?4?liters/minute?walking?or?with?exertion. (2) Acute renal failure: Code(s): N17.9 - Acute kidney failure, unspecified Category: Medical Qualifiers: Acute renal failure type: unspecified Qualified Code(s): N17.9 - Acute kidney failure, unspecified Plan: Acute?kidney?injury Rechecking?renal?function?labs?today (3) Diabetes: Code(s): E11.9 - Type 2 diabetes mellitus without complications Category: Medical Plan: A1c?6.8%.??Good?control.??Goal?is?less?than?7.0% However,?patient?has?required?increases?in?her?COPD?regimen?prednisone?doses. Will?have?increase?metformin?from?250?mg?daily?to?250?mg?b.i.d.?x5?days?while?high?doses?prednisone?then?can?resume?250?mg?daily (4) Essential hypertension: Code(s): I10 - Essential (primary) hypertension Category: Medical Plan: Blood?pressure?is?controlled.??Goal?less?than?140/90 Blood?pressure?medications?had?been?discontinued?while?sick?in?the?hospital.??These?were?resumed?at?discharge. Continue?current?medications Hydrate?well (5) Memory changes: Code(s): R41.3 - Other amnesia Category: Medical Plan: MRI?shows?microvascular?changes.??No?atrophy Still?has?memory?issues?tremor Will?refer?to?neuropsychiatry Orders: Orders AMB Hemoglobin A1c Today E11.9 - Type 2 diabetes mellitus without complications Comprehensive Met. Panel Today N17.9 - Acute kidney failure, unspecified Complete Blood Count Auto Diff Today J44.1 - Chronic obstructive pulmonary disease with (acute) exacerbation, Z00.00 - Encounter for general adult medical examination without abnormal findings XR chest 2V Today J44.1 - Chronic obstructive pulmonary disease with (acute) exacerbation Referrals Neuropsychiatry Referral R41.3 - Other amnesia Medications: New azithromycin (Zithromax Z-Eduardo) take 500 mg today (day 1), then 250 mg for 4 days (days 2-5) PO 5 days 6 tabs 0RF prednisone 4 tabs daily for 4 days, 3 tabs daily for 2 days, 2 tabs daily for 2 days, 1 tab daily for 2 days PO daily; 10 days 28 tabs 0RF benzonatate 100 mg PO BID 10 days PRN 20 caps 0RF cough
[2024-12-12 10:55] VITALS: BP 100/60; PULSE 77; RESP 14; TEMP 36.6; O2SAT 94; BMI 36.0
== END 2024-12-12 11:47 | disposition home or self-care (01) ==
PROVIDERS: PCP Family Medicine; Visit Provider Family Medicine
DX: J96.01 Acute respiratory failure with hypoxia (principal); N17.9 Acute kidney failure, unspecified; E11.9 Type 2 diabetes mellitus without complications; I10 Essential (primary) hypertension; R41.3 Other amnesia

== ENCOUNTER → 2024-12-12 10:27 | Outpatient (BNVA) | payer MEDICARE, SELFPAY | PROVIDERS: PCP Family Medicine; Visit Provider Family Medicine | DX: E11.9 Type 2 diabetes mellitus without complications (principal); I10 Essential (primary) hypertension; R41.3 Other amnesia; N17.9 Acute kidney failure, unspecified; J96.01 Acute respiratory failure with hypoxia | CPT/HCPCS: 83036; 99212 ==

== ENCOUNTER 2024-12-14 11:05 | Outpatient (REF) | payer MEDICARE, SELFPAY ==
--- NOTE | ~2024-12-14 | XR_ITS ---
CLINICAL HISTORY: J44.1 - Chronic obstructive pulmonary disease with (acute) exacerbation 2 view chest x-ray Comparison: CR - XR CHEST 2V - 12/02/24 14:00 EST Findings: No consolidation or effusion. Heart size is normal. No acute fracture. IMPRESSION: 1. No acute findings. This document has been electronically signed by: Jailyn Jaquez MD on 12/14/2024 15:07:18
[2024-12-14 11:28] LABS: MANUAL DIFF FLAG NO
[2024-12-14 12:30] LABS: Basophils Percent Auto 0.3 % (0-2); Eosinophils Percent Auto 0.1 % (0-4); Hemoglobin 14.1 g/dl (12.0-16.0); Imm Gran Abs Auto 0.04 X10*3/uL (0.00-0.03); Imm Gran Pct Auto 0.4 % (0.0-0.4); Lymphocytes Percent Auto 9.4 % (20-40); Mean Corpuscular HGB Conc 35.3 g/dl (31.0-35.0); Mean Corpuscular Hemoglobin 30.2 pg (27.0-33.0); Mean Corpuscular Volume 85.7 fL (80.0-98.0); Mean Platelet Volume 9.7 fL (9.4-12.3); Monocytes Absolute Auto 0.2 X10*3/uL (0.1-1.2); Neutrophils Absolute Auto 8.9 x10*3/uL (2.0-8.3); Neutrophils Percent Auto 87.8 % (45-73); Platelet Count 313 X10*3/uL (160-400); Red Blood Count 4.67 X10*6/uL (4.20-5.50); Red Cell Distribution Width 13.3 % (11.0-16.0); White Blood Count 10.2 X10*3/uL (4.8-10.8)
[2024-12-14 12:53] LABS: Alanine Aminotransferase 27 U/L (0-31); Alkaline Phosphatase 75 U/L (39-117); Anion Gap 13 (12-20); Aspartate Amino Transferase 27 U/L (5-31); Bilirubin Total 0.4 mg/dL (0.0-1.0); Blood Urea Nitrogen 17 mg/dL (9-16); Calcium 9.8 mg/dL (8.4-10.2); Carbon Dioxide 27 mmol/L (22-29); Chloride 103 mmol/L (96-108); Estimated Glomerular Filt Rate > 60; Glucose Random 172 mg/dL (60-115); Potassium 3.3 mmol/L (3.3-5.1); Sodium 140 mmol/L (135-145); Total Protein 7.8 g/dL (6.5-8.0)
== END 2024-12-14 11:06 | disposition home or self-care (01) ==
LOC: HO.XRAY 11:05
PROVIDERS: PCP Family Medicine; Visit Provider Family Medicine
DX: Z00.00 Encounter for general adult medical examination without abnormal findings (principal); J44.1 Chronic obstructive pulmonary disease with (acute) exacerbation; N17.9 Acute kidney failure, unspecified
CPT/HCPCS: 36415; 71046; 80053; 85025

== ENCOUNTER → 2024-12-14 11:27 | Outpatient (BNV) | payer MEDICARE, SELFPAY | PROVIDERS: PCP Family Medicine; Visit Provider Radiology Diagnostic Radiology | DX: J44.1 Chronic obstructive pulmonary disease with (acute) exacerbation (principal) | CPT/HCPCS: 71046 ==

== ENCOUNTER 2024-12-20 10:54 | Outpatient (AMB) | payer MEDICARE, SELFPAY ==
--- NOTE | 2024-12-20 11:17 | A.OFFPC_ITS ---
Vital Signs 12/20/24 11:21 Height 5 ft 5 in Weight 219 lb 8 oz BMI 36.5 BP 110/60 Blood Pressure Location Lt brachial Position Sitting Respiration 14 Pulse 75 Pulse Source Pulse Oximeter Temp 98.0 F Temp Source Oral Pulse Oximetry (%) 97 Oxygen Delivery Method Room Air Intake Visit Reasons: f/u COPD Exacerbation Intake Note: copd follow up Cognos Analyst Required: No Allergies No Known Allergies Allergy (Verified 12/20/24 11:19) Medication List - Last Reconciled 12/20/24 by Alexis Shaw MD acetaminophen 1,000 mg (2 x 500 mg) PO QID PRN albuterol sulfate 90 mcg/actuation 2 puffs inhalation Q6H PRN atorvastatin 20 mg PO BEDTIME 90 days azithromycin (Zithromax Z-Eduardo) take 500 mg today (day 1), then 250 mg for 4 days (days 2-5) PO 5 days benzonatate 100 mg PO TID PRN benzonatate 100 mg PO BID PRN 10 days cholecalciferol (vitamin D3) 25 mcg PO DAILY coenzyme Q10 (Ultra CoQ10) 75 mg PO BEDTIME fluconazole 150 mg PO Q3D 2 doses fluticasone furoate 100 mcg/actuation (Arnuity Ellipta) 1 inh inhalation Q24H 30 days fluticasone propionate 50 mcg/actuation (Flonase Allergy Relief) 1 spray intranasal Q12H PRN [id number] 1,500-165-67.5 mg (Krill Oil (Gillette 3 and 6)) 1 cap PO DAILY lisinopril-hydrochlorothiazide 20-25 mg 1 tab PO DAILY 90 days loratadine 10 mg PO DAILY metformin 250 mg (1/2 x 500 mg) PO DAILY 30 days multivit with min-folic acid 80 mcg (Centrum Adult 50 Plus) 1 tab PO DAILY omeprazole 40 mg PO DAILY@0630 prednisone 4 tabs daily for 4 days, 3 tabs daily for 2 days, 2 tabs daily for 2 days, 1 tab daily for 2 days PO daily; 10 days Tobacco use date assessed: 05/24/24 Dental Screening Dental Screen Date: 05/24/24 HPI f/u COPD Exacerbation HPI Details 69 y/o female presents to f/u COPD exace rbation. Also f/u lab work regarding recent acute kidney injury. S/p influenza, COPD exacerbation. Had adventitious sounds at L lung field base. Had given her a script for Z-eduardo and steroid taper. Chest x-ray 12/14/24 showed no acute findings. Pt notes significant improvement with her breathing. Has an upcoming f/u appt. with pulmonology. HPI Comments History of Present Illness Details Documentation assistance for Alexis Shaw MD, was provided by Travis Gusman,? Search Engine Optimization Analyst on 12/20/2024 at 11:37 AM EST. I, Dr. Shaw, have read, observed, and verified documentation. ?? [facility] Medical History Arthritis Surgical History H/O colonoscopy History of bladder surgery History of hysterectomy Family History Mother No problems noted. Father No problems noted. Social History Household Members: Spouse Housing: House Do you presently have visiting nurse or other home services: No Alcohol intake: former Patient Tobacco Use Status: Former Tobacco user Tobacco use type: Cigarette Cigarette Packs Per Day: 1 Cigarettes Per Day: 20 Years Smoked: 40 e-Cigarette/Vaping Use: Never Used Second Hand Smoke Exposure: No Advance Directives Date on File: 04/13/23 service: No Current occupational status: retired Current occupational exposures/hazards: No Cognitive needs: No Hearing needs: Yes Vision needs: Yes Questionnaire PHQ-9 Over the last 2 weeks, how often have you been bothered by any of the following problems? 7. Trouble concentrating on things, such as reading the newspaper or watching television: not at all 8. Moving or speaking so slowly that other people could have noticed. Or the opposite - being so fidgety or restless that you have been moving around a lot more than usual: not at all 9. Thoughts that you would be better off or of hurting yourself in some way: not at all Source: Developed by Drs. Jose Washington, Liliana Rodrigues, Ze Briones and colleagues, with an educational mario from [employer]. Thrive Questionnaire Date Thrive assessed: 12/20/24 I am a: Patient What is your living situation today?: I have a steady place to live Within the past 12 months, did the food you bought not last and you didn't have the money to get more?: Never true Within the past 12 months, did you worry whether your food would run out before you got money to buy more?: Never true Do you have trouble paying for medicines?: No Do you have trouble getting transportation to medical appointments?: No Do you have trouble paying your heating and electricity bill?: No Do you have trouble taking care of your child, family member or friend?: No THRIVE Score: 0 TOYA-7 AMB Questionnaire TOYA-7 Date TYOA - 7 assessed: 02/11/24 Source: Developed by Drs. Jose Washington, Liliana Rodrigues, Ze Briones and colleagues, with an educational mario from [employer]. Review of Systems Const Denies chills, Denies fatigue, Denies fever(s), Denies headache(s) and Denies weakness ENT Denies dizziness and Denies headache(s) Card Denies dyspnea Resp Denies cough, Denies dyspnea, Denies wheezing and Denies other (shortness of breath) Musc Denies numbness and Denies tingling Neuro Denies dizziness, Denies headache(s), Denies numbness, Denies tingling and Denies weakness Psych Denies anxiety and Denies depression Endo Denies fatigue Aller/Immun Denies wheezing Physical exam (Primary Care) Vital Signs: Last Vital Signs Temp 98.0 F 12/20/24 11:21 Pulse 75 12/20/24 11:21 Resp 14 12/20/24 11:21 BP 110/60 12/20/24 11:21 Pulse Ox 97 12/20/24 11:21 Oxygen Delivery Method Room Air 12/20/24 11:21 BMI result Body Mass Index 36.5 Tobacco/Smoking Status: Tobacco use Status Tobacco use date assessed 05/24/24 12/20/24 11:18 Patient Tobacco Use Status Former Tobacco user 12/20/24 11:18 Tobacco use type Cigarette 12/20/24 11:18 e-Cigarette/Vaping Use Never Used 12/20/24 11:18 Thrive Assessment: Date of Thrive Assessment Date Thrive assessed 12/20/24 12/20/24 11:18 Const General: well developed; No acute distress Nutritional Appearance: well nourished Orientation/consciousness: patient oriented x3 [facility] [place] Head: Yes normocephalic and Yes atraumatic Eyes General: appearance normal, both eyes and all related structures Pupils: Equal, round and reactive pupils present EOM: EOMs intact bilaterally Resp Effort & Inspection: normal respiratory effort Auscultation: clear to auscultation bilaterally Cardio Rate: regular rate Rhythm: regular rhythm Heart sounds: S1 normal heart sound present, S2 normal heart sound present, no gallops, no murmurs and no rubs Neuro General: patient oriented x3 and gait normal Cranial nerves: Yes Equal, round and reactive pupils present Psych Affect: normal affect Coding Level of Care Code Est Pt Level 3 (77255) Diagnoses COPD exacerbation J44.1 Acute renal failure, unspecified acute renal failure type N17.9 Acute renal failure type: unspecified Assessment & Plan Assessment & Plan (1) COPD exacerbation: Code(s): J44.1 - Chronic obstructive pulmonary disease with (acute) exacerbation Category: Medical Plan: Recent?COPD?exacerbation. Had?check?chest?x-ray?and?CBC.??No?evidence?of?pneumonia/infection. Patient?is?significantly?improved?and?breathing?easily?today?on?2?L?oxygen. Lungs?are?now?clear?bilaterally She?has?an?upcoming?appointment?with?Pulmonary?Medicine. She?can?discuss?oxygen?use?with?them?as?well (2) Acute renal failure: Code(s): N17.9 - Acute kidney failure, unspecified Category: Medical Qualifiers: Acute renal failure type: unspecified Qualified Code(s): N17.9 - Acute kidney failure, unspecified Plan: Rechecked lab?work. Creatinine?and?estimated?GFR?back?within?normal?range Resolved Medications: New fluconazole 150 mg PO Q3D 2 tabs 0RF
[2024-12-20 11:21] VITALS: BP 110/60; PULSE 75; RESP 14; TEMP 36.7; O2SAT 97; BMI 36.5
== END 2024-12-20 11:47 | disposition home or self-care (01) ==
PROVIDERS: PCP Family Medicine; Visit Provider Family Medicine
DX: J44.1 Chronic obstructive pulmonary disease with (acute) exacerbation (principal); N17.9 Acute kidney failure, unspecified

== ENCOUNTER → 2024-12-20 10:54 | Outpatient (BNVA) | payer MEDICARE, SELFPAY | PROVIDERS: PCP Family Medicine; Visit Provider Family Medicine | DX: J44.1 Chronic obstructive pulmonary disease with (acute) exacerbation (principal); N17.9 Acute kidney failure, unspecified | CPT/HCPCS: 99212 ==

== ENCOUNTER 2024-12-27 10:53 | Outpatient (AMB) | payer MEDICARE, SELFPAY ==
[2024-12-27 10:56] VITALS: BP 138/76; PULSE 85; O2SAT 98; BMI 36.4
--- NOTE | 2024-12-27 10:56 | A.OFFVIS_ITS ---
Vital Signs 12/27/24 10:56 Height 5 ft 5 in Weight 219 lb BMI 36.4 BP 138/76 Blood Pressure Location Rt brachial Position Sitting Pulse 85 Pulse Source Pulse Oximeter Pulse Oximetry (%) 98 Oxygen Delivery Method Nasal Cannula Oxygen Flow Rate 2 Intake Visit Reasons: COPD/Hypoxemic Respiratory Failure Aircraft Painter Required: No Bioinformatics Programmer: Bioinformatics Programmer offered & declined Accompanied by: Daughter Allergies No Known Allergies Allergy (Verified 12/27/24 11:05) Medication List - Last Reconciled 12/27/24 by Jerri Torres LPN acetaminophen 1,000 mg (2 x 500 mg) PO QID PRN albuterol sulfate 90 mcg/actuation 2 puffs inhalation Q6H PRN atorvastatin 20 mg PO BEDTIME 90 days benzonatate 100 mg PO BID PRN 10 days cholecalciferol (vitamin D3) 25 mcg PO DAILY coenzyme Q10 (Ultra CoQ10) 75 mg PO BEDTIME fluconazole 150 mg PO Q3D 2 doses fluticasone furoate 100 mcg/actuation (Arnuity Ellipta) 1 inh inhalation Q24H 30 days fluticasone propionate 50 mcg/actuation (Flonase Allergy Relief) 1 spray intranasal Q12H PRN [id number]-[id number]-mmb-rsk-bz5-ewb-astx 1,500-165-67.5 mg (Krill Oil ([place] 3 and 6)) 1 cap PO DAILY lisinopril-hydrochlorothiazide 20-25 mg 1 tab PO DAILY 90 days loratadine 10 mg PO DAILY metformin 250 mg (1/2 x 500 mg) PO DAILY 30 days multivit with min-folic acid 80 mcg (Centrum Adult 50 Plus) 1 tab PO DAILY omeprazole 40 mg PO DAILY@0630 HPI HPI COPD/Hypoxemic Respiratory Failure: Details: Alanna is a pleasant 69 year old female, former smoker with 40 pack year history, quit March 2020, with underlying moderate COPD. She was last evaluated in 2022 and has been lost to follow up. Since the last visit in 2022, she was admitted to [facility]02[facility]12/05 with COPD exacerbation secondary to influenza A. CXR negative. She was treated with IV steroids, nbeulized therapies and tamiflu with significant improvement however discharged with supplemental oxygen 2 L continuously, 3-4 L with exertion. She was also seen by PCP on 12/12 with persistent respiratory symptoms and treated with azithromycin and prednisone. She completed antibiotic and prednisone therapy, reporting improvement in condition but continues to experience a raw sensation potentially associated with ongoing inflammation or previous exacerbations. She experiences shortness of breath exacerbated by physical exertion and sustained work. After recovering from influenza, the patient now resides with her daughter, maintaining a smoke- free environment and denies allergies to her daughter's five cats. She infrequently uses her albuterol inhaler, currently using ICS inhaler QD with suboptimal effect. A chest CT scan in 2022 identified small pulmonary nodules, which, although not currently alarming, warrant continued observation given her smoking background. Plans for follow-up imaging have been discussed to monitor nodule stability. [facility] Medical History Arthritis Surgical History H/O colonoscopy History of bladder surgery History of hysterectomy Family History Mother No problems noted. Father No problems noted. Social History Household Members: Spouse Housing: House Do you presently have visiting nurse or other home services: No Alcohol intake: former Patient Tobacco Use Status: Former Tobacco user Tobacco use type: Cigarette Cigarette Packs Per Day: 1 Cigarettes Per Day: 20 Years Smoked: 40 e-Cigarette/Vaping Use: Never Used Second Hand Smoke Exposure: No Advance Directives Date on File: 04/13/23 service: No Current occupational status: retired Current occupational exposures/hazards: No Cognitive needs: No Hearing needs: Yes Vision needs: Yes Review of Systems Const Denies chills, Denies excessive sweating, Denies fever(s), Denies headache(s) and Denies night sweats Eyes Denies dry eyes, Denies irritation and Denies itchy eyes ENT Reports Normal hearing present, Denies headache(s), Denies nasal congestion, Denies nasal discharge, Denies post nasal drip and Denies sore throat Card Denies chest pain, Denies chest pain at rest, Denies chest pain with activity, Denies claudication, Denies leg edema, Denies orthopnea and Denies paroxysmal nocturnal dyspnea Resp Denies chest congestion, Denies cough, Denies excessive phlegm production, Denies pain on inspiration, Denies pain with cough, Denies stridor and Denies wheezing Musc Denies myalgias Neuro Reports Normal hearing present and Denies headache(s) Endo Denies excessive sweating Sebastian/Lymph Denies lymphadenopathy Aller/Immun Denies itchy eyes, Denies seasonal rhinorrhea and Denies wheezing Physical Exam Vital Signs: Last Vital Signs Pulse 85 12/27/24 10:56 BP 138/76 12/27/24 10:56 Pulse Ox 98 12/27/24 10:56 Oxygen Delivery Method Nasal Cannula 12/27/24 10:56 Oxygen Flow Rate 2 12/27/24 10:56 BMI result Body Mass Index 36.4 Const General: cooperative, healthy appearing, comfortable, no acute distress, well developed and alert Nutritional Appearance: obese Orientation/consciousness: patient oriented x3 Limitations: no limitations HEENT Head: Yes normal to inspection, Yes normocephalic and Yes atraumatic Ears: hearing grossly normal bilaterally and external ears normal Eyes General: appearance normal, both eyes and all related structures Eyelids: Yes eyelids normal Sclerae: sclerae normal EOM: EOMs intact bilaterally Neck Neck: Yes normal visual inspection and Yes no lymphadenopathy Lymphatic: no lymphadenopathy noted Chest Chest palpation & inspection: normal inspection of the chest Resp Effort & Inspection: normal respiratory effort, able to speak in complete sentences, no audible wheezes, no cough, no stridor, not tachypneic, no tripod positioning and no use of accessory muscles Auscultation: diminished lung sounds Cardio Jugular venous distension: no JVD Rate: regular rate Rhythm: regular rhythm Skin Other: warm, dry General skin exam: no rashes or lesions noted Neuro General: patient oriented x3 Cranial nerves: Yes Normal hearing present Cognition (Neuro): normal cognition Gait exam (Neuro): Normal gait present Extrem General: Yes normal to inspection, Yes capillary refill normal, Yes no clubbing, cyanosis or edema and Yes no pedal edema Psych Appearance: grossly normal and well kempt Speech and movement: Normal speech and movement present and Clear speech present Affect: normal affect Attitude: cooperative Thought process: Normal thought process present Thought content: Normal thought content present Insight: Good insight present (Psych) Judgement: Good judgement present (Psych) Assessment & Plan Assessment & Plan (1) COPD (chronic obstructive pulmonary disease): Code(s): J44.9 - Chronic obstructive pulmonary disease, unspecified Category: Medical (2) Personal history of tobacco use: Code(s): Z87.891 - Personal history of nicotine dependence Category: Social Hx (3) Pulmonary nodules: Code(s): R91.8 - Other nonspecific abnormal finding of lung field Category: Medical (4) Nocturnal hypoxemia: Code(s): G47.34 - Idiopathic sleep related nonobstructive alveolar hypoventilation Category: Medical Plan Will transition to a triple therapy regimen with Trelegy, in place of ICS with continuation of albuterol MDI PRN. Pulmonary nodules discovered through a chest CT scan in 2022 are to be monitored annually given her background of smoking. Surveillance will provide insights into any morphological change, ensuring timely intervention. Will enter chest CT. Oxygen therapy parameters are to remain flexible, contingent upon maintaining appropriate oxygen saturation levels during varied activity levels and nocturnal periods. Advised to maintain oxygen saturation >92%. An overnight oximetry evaluation is to be conducted to ascertain the adequacy of supplemental oxygen during sleep on 2L. All questions were answered and patient is in agreement of plan. Will follow up in 6-8 weeks o r sooner if needed. Orders: Orders CT chest wo IV con Today R91.8 - Other nonspecific abnormal finding of lung field Overnight Pulse Oximetry Today G47.34 - Idiopathic sleep related nonobstructive alveolar hypoventilation Medications: New tqpwnbfdrus-rnpzuknhk-igtmcvby 100-62.5-25 mcg (Trelegy Ellipta) 1 inh inhalation DAILY 60 ea 6RF Discontinued fluticasone furoate 100 mcg/actuation (Arnuity Ellipta) Discontinued Reason: Patient Completed Course 1 inh inhalation Q24H 30 days 30 ea 3RF Coding Level of Care Code Est Pt Level 4 (53186) Diagnoses COPD (chronic obstructive pulmonary disease) J44.9 Personal history of tobacco use Z87.891 Pulmonary nodules R91.8 Nocturnal hypoxemia G47.34
== END 2024-12-27 11:42 | disposition home or self-care (01) ==
PROVIDERS: PCP Family Medicine; Visit Provider Nurse Practitioner Family
DX: J44.9 Chronic obstructive pulmonary disease, unspecified (principal); Z87.891 Personal history of nicotine dependence; R91.8 Other nonspecific abnormal finding of lung field; G47.34 Idiopathic sleep related nonobstructive alveolar hypoventilation
CPT/HCPCS: 99214

== ENCOUNTER → 2024-12-27 10:53 | Outpatient (BNVA) | payer MEDICARE, SELFPAY | PROVIDERS: PCP Family Medicine; Visit Provider Nurse Practitioner Family | DX: J44.9 Chronic obstructive pulmonary disease, unspecified (principal); R91.8 Other nonspecific abnormal finding of lung field; G47.34 Idiopathic sleep related nonobstructive alveolar hypoventilation; Z87.891 Personal history of nicotine dependence | CPT/HCPCS: 99212 ==

== ENCOUNTER 2025-02-07 14:03 | Outpatient (AMB) | payer MEDICARE, SELFPAY ==
--- NOTE | 2025-02-07 13:29 | A.OFFVIS_ITS ---
Vital Signs 02/07/25 14:06 Height 5 ft 5 in Weight 224 lb BMI 37.3 Pulse 86 Pulse Source Pulse Oximeter Pulse Oximetry (%) 96 Oxygen Delivery Method Room Air Intake Visit Reasons: COPD/Hypoxemic Respiratory Failure Crib Clerk Required: No Senior Integration Developer: Senior Integration Developer offered & declined Accompanied by: Self / Same As Patient Allergies No Known Allergies Allergy (Verified 02/07/25 14:10) Medication List - Last Reconciled 02/07/25 by Jerri Torres LPN acetaminophen 1,000 mg (2 x 500 mg) PO QID PRN albuterol sulfate 90 mcg/actuation 2 puffs inhalation Q6H PRN atorvastatin 20 mg PO BEDTIME 90 days benzonatate 100 mg PO BID PRN 10 days cholecalciferol (vitamin D3) 25 mcg PO DAILY coenzyme Q10 (Ultra CoQ10) 75 mg PO BEDTIME fluconazole 150 mg PO Q3D 2 doses fluticasone propionate 50 mcg/actuation (Flonase Allergy Relief) 1 spray intranasal Q12H PRN hihsksdydbe-lponlzhrz-dcvwfdxw 100-62.5-25 mcg (Trelegy Ellipta) 1 inh inhalatio n DAILY gxnhp-yc7-tpb-gys-bx9-mqq-astx 1,500-165-67.5 mg (Krill Oil ([place] 3 and 6)) 1 cap PO DAILY lisinopril-hydrochlorothiazide 20-25 mg 1 tab PO DAILY 90 days loratadine 10 mg PO DAILY metformin 250 mg (1/2 x 500 mg) PO DAILY 30 days multivit with min-folic acid 80 mcg (Centrum Adult 50 Plus) 1 tab PO DAILY omeprazole 40 mg PO DAILY@0630 HPI HPI COPD/Hypoxemic Respiratory Failure: Details: Alanna is a pleasant 69 year old female, former smoker with 40 pack year history, quit March 2022, with underlying moderate COPD. At the last visit she was switched to Trelegy, reporting good control of respiratory symptoms using albuterol MDI 1-2 times per day. She notes using albuterol prophylactically rather than when symptomatic. Prior chest CT from 2022 revealed scattered small pulmonary nodules, repeat chest CT scheduled for February 2025. At the last visit an order for overnight oximetry was also sent to [place] to assess need for nocturnal supplemental oxygen however she reports never receiving a phone call. She is interested in discontinuing prescription for supplemental oxygen as she feels she does not required any longer as well as financial concerns. She denies any presents to urgent care or hospitalizations related to respiratory distress since last visit. [facility] Medical History Arthritis Surgical History H/O colonoscopy History of bladder surgery History of hysterectomy Family History Mother No problems noted. Father No problems noted. Social History Household Members: Spouse Housing: House Do you presently have visiting nurse or other home services: No Alcohol intake: former Patient Tobacco Use Status: Former Tobacco user Tobacco use type: Cigarette Cigarette Packs Per Day: 1 Cigarettes Per Day: 20 Years Smoked: 40 e-Cigarette/Vaping Use: Never Used Second Hand Smoke Exposure: No Advance Directives Date on File: 04/13/23 service: No Current occupational status: retired Current occupational exposures/hazards: No Cognitive needs: No Hearing needs: Yes Vision needs: Yes Review of Systems Const Denies chills, Denies excessive sweating, Denies fever(s), Denies headache(s) and Denies night sweats Eyes Denies dry eyes, Denies irritation and Denies itchy eyes ENT Reports Normal hearing present, Denies headache(s), Denies nasal congestion, Denies nasal discharge, Denies post nasal drip and Denies sore throat Card Denies chest pain, Denies chest pain at rest, Denies chest pain with activity, Denies claudication, Denies leg edema, Denies orthopnea and Denies paroxysmal nocturnal dyspnea Resp Denies chest congestion, Denies excessive phlegm production, Denies pain on inspiration, Denies pain with cough, Denies stridor and Denies wheezing Musc Denies myalgias Neuro Reports Normal hearing present and Denies headache(s) Endo Denies excessive sweating Sebastian/Lymph Denies lymphadenopathy Aller/Immun Denies itchy eyes, Denies seasonal rhinorrhea and Denies wheezing Physical Exam Vital Signs: Last Vital Signs Pulse 86 02/07/25 14:06 Pulse Ox 96 02/07/25 14:06 Oxygen Delivery Method Room Air 04/16/25 14:06 BMI result Body Mass Index 37.3 Const General: cooperative, healthy appearing, comfortable, no acute distress, well developed and alert Nutritional Appearance: obese Orientation/consciousness: patient oriented x3 Limitations: no limitations HEENT Head: Yes normal to inspection, Yes normocephalic and Yes atraumatic Ears: hearing grossly normal bilaterally and external ears normal Eyes General: appearance normal, both eyes and all related structures Eyelids: Yes eyelids normal Sclerae: sclerae normal EOM: EOMs intact bilaterally Neck Neck: Yes normal visual inspection and Yes no lymphadenopathy Lymphatic: no lymphadenopathy noted Chest Chest palpation & inspection: normal inspection of the chest Resp Effort & Inspection: normal respiratory effort, able to speak in complete sentences, no audible wheezes, no cough, no stridor, not tachypneic, no tripod positioning and no use of accessory muscles Auscultation: clear to auscultation bilaterally Cardio Jugular venous distension: no JVD Rate: regular rate Rhythm: regular rhythm Skin Other: warm, dry General skin exam: no rashes or lesions noted Neuro General: patient oriented x3 Cranial nerves: Yes Normal hearing present Cognition (Neuro): normal cognition Gait exam (Neuro): Normal gait present Extrem General: Yes normal to inspection, Yes capillary refill normal, Yes no clubbing, cyanosis or edema and Yes no pedal edema Psych Appearance: grossly normal and well kempt Speech and movement: Normal speech and movement present and Clear speech present Affect: normal affect Attitude: cooperative Thought process: Normal thought process present Thought content: Normal thought content present Insight: Good insight present (Psych) Judgement: Good judgement present (Psych) Assessment & Plan Assessment & Plan (1) COPD (chronic obstructive pulmonary disease): Code(s): J44.9 - Chronic obstructive pulmonary disease, unspecified Category: Medical (2) Personal history of tobacco use: Code(s): Z87.891 - Personal history of nicotine dependence Category: Social Hx (3) Pulmonary nodules: Code(s): R91.8 - Other nonspecific abnormal finding of lung field Category: Medical (4) Nocturnal hypoxemia: Code(s): G47.34 - Idiopathic sleep related nonobstructive alveolar hypoventilation Category: Medical Plan At this time she reports good control of respiratory symptoms using Trelegy and albuterol MDI p.r.n., advised to continue. She is aware to call if symptoms worsen and we will consider Trelegy 200 mcg at that time. Prior chest CT in 2022 revealed scattered small pulmonary nodule, and has repeat chest CT scheduled for February. Will look into prior order for overnight oximetry, patient requesting removal of all supplemental oxygen from home. Discussed the need for adequate documentation to prove she does not require supplemental oxygen at this time. Will resend order for overnight oximetry to be performed on room air. All questions were answered and patient is in agreement of plan. Will follow up in 3 months or sooner if needed. Coding Level of Care Code Est Pt Level 4 (09121) Diagnoses COPD (chronic obstructive pulmonary disease) J44.9 Personal history of tobacco use Z87.891 Pulmonary nodules R91.8 Nocturnal hypoxemia G47.34
[2025-02-07 14:06] VITALS: PULSE 86; O2SAT 96; BMI 37.3
== END 2025-02-07 14:39 | disposition home or self-care (01) ==
PROVIDERS: PCP Family Medicine; Visit Provider Nurse Practitioner Family
DX: J44.9 Chronic obstructive pulmonary disease, unspecified (principal); Z87.891 Personal history of nicotine dependence; R91.8 Other nonspecific abnormal finding of lung field; G47.34 Idiopathic sleep related nonobstructive alveolar hypoventilation
CPT/HCPCS: 99214

== ENCOUNTER → 2025-02-07 14:03 | Outpatient (BNVA) | payer MEDICARE, SELFPAY | PROVIDERS: PCP Family Medicine; Visit Provider Nurse Practitioner Family | DX: J44.9 Chronic obstructive pulmonary disease, unspecified (principal); R91.8 Other nonspecific abnormal finding of lung field; G47.34 Idiopathic sleep related nonobstructive alveolar hypoventilation; Z87.891 Personal history of nicotine dependence | CPT/HCPCS: 99212 ==

== ENCOUNTER 2025-03-05 11:14 | Outpatient (AMB) | payer MEDICARE, SELFPAY ==
--- NOTE | 2025-03-05 12:08 | MHC.PC.OV ---
Vital Signs 03/05/25 12:12 Height 5 ft 5 in Weight 221 lb 6 oz BMI 36.8 BP 110/60 Blood Pressure Location Rt brachial Position Sitting Respiration 14 Pulse 80 Pulse Source Pulse Oximeter Temp 97.7 F Temp Source Oral Pulse Oximetry (%) 95 Oxygen Delivery Method Room Air Intake Visit Reasons: Chronic Cond and B/P Intake Note: follow b/p and chronic condition Manager Legal Required: No Allergies No Known Allergies Allergy (Verified 03/05/25 12:09) Medication List - Last Reconciled 03/05/25 by Alexis Shaw MD acetaminophen 1,000 mg (2 x 500 mg) PO QID PRN albuterol sulfate 90 mcg/actuation 2 puffs inhalation Q6H PRN atorvastatin 20 mg PO BEDTIME 90 days benzonatate 100 mg PO BID PRN 10 days cholecalciferol (vitamin D3) 25 mcg PO DAILY coenzyme Q10 (Ultra CoQ10) 75 mg PO BEDTIME fluconazole 150 mg PO Q3D 2 doses fluticasone propionate 50 mcg/actuation (Flonase Allergy Relief) 1 spray intranasal Q12H PRN srcajmevvqc-kncelmowb-lqjuctxu 100-62.5-25 mcg (Trelegy Ellipta) 1 inh inhalation DAILY vsodm-aw3-lym-udw-xy3-zhi-astx 1,500-165-67.5 mg (Krill Oil ([place] 3 and 6)) 1 cap PO DAILY lisinopril-hydrochlorothiazide 20-25 mg 1 tab PO DAILY 90 days loratadine 10 mg PO DAILY metformin 250 mg (1/2 x 500 mg) PO DAILY 30 days multivit with min-folic acid 80 mcg (Centrum Adult 50 Plus) 1 tab PO DAILY omeprazole 40 mg PO DAILY@0630 Tobacco use date assessed: 05/24/24 Dental Screening Dental Screen Date: 05/24/24 HPI Chronic Cond and B/P HPI Details 69 y/o female presents to f/u hypertension, diabetes. A1c today 6.5%. She is on metformin 250mg daily. BP today 110/60, 80p. She is on lisinopril-HCTZ 20-25mg daily. Has complaints of numbness of her toes. [facility] Medical History Arthritis Surgical History H/O colonoscopy History of bladder surgery History of hysterectomy Family History Mother No problems noted. Father No problems noted. Social History Household Members: Spouse Housing: House Do you presently have visiting nurse or other home services: No Alcohol intake: former Patient Tobacco Use Status: Former Tobacco user Tobacco use type: Cigarette Cigarette Packs Per Day: 1 Cigarettes Per Day: 20 Years Smoked: 40 e-Cigarette/Vaping Use: Never Used Second Hand Smoke Exposure: No Advance Directives Date on File: 04/13/23 service: No Current occupational status: retired Current occupational exposures/hazards: No Cognitive needs: No Hearing needs: Yes Vision needs: Yes Questionnaire Thrive Questionnaire Date Thrive assessed: 12/20/24 What is your living situation today?: I have a steady place to live Within the past 12 months, did the food you bought not last and you didn't have the money to get more?: Never true Within the past 12 months, did you worry whether your food would run out before you got money to buy more?: Never true Do you have trouble paying for medicines?: No Do you have trouble getting transportation to medical appointments?: No Do you have trouble paying your heating and electricity bill?: No Do you have trouble taking care of your child, family member or friend?: No Do you have trouble with day-to-day activities such as bathing, preparing meals, shopping, managing finances, etc.?: No Are you currently unemployed and looking for a job?: No Are you interested in more education?: No Please select the resources that you would like help with: None Currently or been in a relationship where the following occur: I choose not to answer THRIVE Score: 0 AUDIT C Alcohol Use Questionnaire (AUDIT-C) 1. How often do you have a drink containing alcohol?: Never Total Score: 0 TOYA-7 AMB Questionnaire TOYA-7 Date TOYA - 7 assessed: 02/11/24 Feeling nervous, anxious, or on edge: 0 = Not at all Not being able to stop or control worryin = Not at all Worrying too much about different things: 0 = Not at all Trouble relaxin = Not at all Being so restless that it is hard to sit still: 0 = Not at all Becoming easily annoyed or irritable: 0 = Not at all Feeling afraid as if something awful might happen: 0 = Not at all Total TOYA-7 score (0-4 normal; 5-9 mild; 10-14 moderate; 15-21 severe): 0 Source: Developed by Drs. Jose Washington, Liliana Rodrigues, Ze Briones and colleagues, with an educational mario from [employer]. Review of Systems Const Denies chills, Denies fatigue, Denies fever(s), Denies headache(s) and Denies weakness ENT Denies dizziness and Denies headache(s) Card Denies dyspnea Resp Denies cough, Denies dyspnea, Denies wheezing and Denies other (shortness of breath) Musc Denies numbness and Denies tingling Neuro Denies dizziness, Denies headache(s), Denies numbness, Denies tingling and Denies weakness Psych Denies anxiety and Denies depression Endo Denies fatigue Aller/Immun Denies wheezing Physical exam (Primary Care) Vital Signs: Last Vital Signs Temp 97.7 F 03/05/25 12:12 Pulse 80 03/05/25 12:12 Resp 14 03/05/25 12:12 BP 110/60 03/05/25 12:12 Pulse Ox 95 03/05/25 12:12 Oxygen Delivery Method Room Air 03/05/25 12:12 BMI result Body Mass Index 36.8 Tobacco/Smoking Status: Tobacco use Status Tobacco use date assessed 05/24/24 03/05/25 12:15 Patient Tobacco Use Status Former Tobacco user 03/05/25 12:15 Tobacco use type Cigarette 03/05/25 12:15 e-Cigarette/Vaping Use Never Used 03/05/25 12:15 Thrive Assessment: Date of Thrive Assessment Date Thrive assessed 12/20/24 03/05/25 12:15 Currently or been in a relationship where the following occur: I choose not to answer Const General: well developed; No acute distress Nutritional Appearance: well nourished Orientation/consciousness: patient oriented x3 HENMT Head: Yes normocephalic and Yes atraumatic Eyes General: appearance normal, both eyes and all related structures Pupils: Equal, round and reactive pupils present EOM: EOMs intact bilaterally Resp Effort & Inspection: normal respiratory effort Neuro General: patient oriented x3 and gait normal Cranial nerves: Yes Equal, round and reactive pupils present Psych Affect: normal affect Coding Level of Care Code Est Pt Level 4 (48218) Diagnoses Essential hypertension I10 Diabetes E11.9 Immunization counseling Z71.85 Paresthesia R20.2 Assessment & Plan Assessment & Plan (1) Essential hypertension: Code(s): I10 - Essential (primary) hypertension Category: Medical Plan: Blood?pressure?is?controlled.??Goal?is?less?than?140/90 Continue?current?medication (2) Diabetes: Code(s): E11.9 - Type 2 diabetes mellitus without complications Category: Medical Plan: A1c?6.5%.??Controlled.??Goal?is?less?than?7.0% (3) Immunization counseling: Code(s): Z71.85 - Encounter for immunization safety counseling Category: Medical Plan: Recommended?pneumonia?shot Recommended?RSV She?can?get?her?flu?shot?in?June/July Patient?has?never?had?MMR?and?she?can?get?this?at?her?pharmacy?as?well. Recommended?shingles?shot (4) Paresthesia: Code(s): R20.2 - Paresthesia of skin Category: Medical Plan: Patient?has?cervical?and?lumbar?radiculopathy?and?also?has?complaints?of?left?arm?paresthesias?as?well?as?bilateral?foot?paresthesias. Microfilament?test?is?normal Blood?sugars?are?well?controlled. Referred?to?neurology Orders: Referrals Neurology Referral M54.12 - Radiculopathy, cervical region, M54.16 - Radiculopathy, lumbar region, R20.2 - Paresthesia of skin
[2025-03-05 12:12] VITALS: BP 110/60; PULSE 80; RESP 14; TEMP 36.5; O2SAT 95; BMI 36.8
== END 2025-03-05 12:46 | disposition home or self-care (01) ==
LOC: HO.HMCFM 11:14
PROVIDERS: PCP Family Medicine; Visit Provider Family Medicine
DX: E11.9 Type 2 diabetes mellitus without complications (principal)

== ENCOUNTER → 2025-03-05 11:14 | Outpatient (BNVA) | payer MEDICARE, SELFPAY | PROVIDERS: PCP Family Medicine; Visit Provider Family Medicine | DX: I10 Essential (primary) hypertension (principal); E11.9 Type 2 diabetes mellitus without complications; R20.2 Paresthesia of skin; M54.12 Radiculopathy, cervical region; M54.16 Radiculopathy, lumbar region; Z71.85 Encounter for immunization safety counseling; Z79.84 Long term (current) use of oral hypoglycemic drugs | CPT/HCPCS: 83036; 99212 ==

== ENCOUNTER 2025-04-25 11:00 | Outpatient (REF) | payer MEDICARE, SELFPAY | END 2025-04-25 11:01 | disposition home or self-care (01) | LOC: HO.MAMMO 11:00 | PROVIDERS: PCP Family Medicine; Visit Provider Family Medicine | DX: Z12.31 Encounter for screening mammogram for malignant neoplasm of breast (principal) | CPT/HCPCS: 77063; 77067 ==

== ENCOUNTER → 2025-04-25 11:15 | Outpatient (BNV) | payer MEDICARE, SELFPAY | PROVIDERS: PCP Family Medicine; Visit Provider Internal Medicine | DX: Z12.31 Encounter for screening mammogram for malignant neoplasm of breast (principal) | CPT/HCPCS: 77063; 77067 ==

== ENCOUNTER 2025-05-03 07:41 | Outpatient (REF) | payer MEDICARE, SELFPAY ==
--- NOTE | ~2025-05-03 | CT_ITS ---
EXAMINATION: CT CHEST WITHOUT IV CONTRAST INDICATION: R91.8 - Other nonspecific abnormal finding of lung field COMPARISON: Comparison is made with the prior examination dated 08/24/2023. TECHNIQUE: Helical CT scan of the chest was performed without intravenous contrast. Coronal and sagittal reformatted images were generated and reviewed. This CT exam was performed with one or more of the following dose reduction techniques: automated exposure control, adjustment of the mA and/or kV according to patient size, use of iterative reconstruction technique. DLP: 235 mGy-cm CHEST: THYROID: The thyroid is unremarkable. LUNGS: Again seen is a 2 mm nodule at the right lung apex (series 4, image 19). A 2 mm nodule in the right lower lobe adjacent to the superior aspect of the major fissure is also unchanged (series 4, image 43). There is scarring in the left lower lobe. No new pulmonary nodules are identified. MEDIASTINUM: There is no mediastinal lymphadenopathy. OLIVIA: Evaluation of the hilar regions is limited by lack of intravenous contrast material. CARDIOVASCULATURE: The heart is normal in size. There is no pericardial effusion. The thoracic aorta is normal in caliber. DEGREE OF CORONARY CALCIFICATION: none PLEURA: There is no pleural effusion. No pneumothorax. MAIN AIRWAYS: The mainstem bronchi and proximal branches are patent. AXILLA: There is no axillary lymphadenopathy. BONES AND SOFT TISSUES: Unremarkable UPPER ABDOMEN: The visualized portions of the liver, spleen, and adrenals have an unremarkable unenhanced appearance. CT/CT chest wo IV con IMPRESSION: Stable tiny pulmonary nodules as described. No acute abnormality is seen. Electronically signed by: Jose Arellano MD 05/03/2025 08:41 AM EDT
== END 2025-05-03 07:42 | disposition home or self-care (01) ==
LOC: HO.CT 07:41
PROVIDERS: PCP Family Medicine; Visit Provider Nurse Practitioner Family
DX: R91.8 Other nonspecific abnormal finding of lung field (principal)
CPT/HCPCS: 71250

== ENCOUNTER → 2025-05-03 07:45 | Outpatient (BNV) | payer MEDICARE, SELFPAY | PROVIDERS: PCP Family Medicine; Visit Provider Radiology Diagnostic Radiology | DX: R91.1 Solitary pulmonary nodule (principal) | CPT/HCPCS: 71250 ==

== ENCOUNTER 2025-05-09 13:39 | Outpatient (AMB) | payer MEDICARE, SELFPAY ==
[2025-05-09 13:42] VITALS: BP 128/66; PULSE 79; O2SAT 96; BMI 37.5
--- NOTE | 2025-05-09 13:42 | A.OFFVIS_ITS ---
Vital Signs 05/09/25 13:42 Height 5 ft 5 in Weight 225 lb 4 oz BMI 37.5 BP 128/66 Blood Pressure Location Lt brachial Position Sitting Pulse 79 Pulse Source Pulse Oximeter Pulse Oximetry (%) 96 Oxygen Delivery Method Room Air Intake Visit Reasons: COPD/Hypoxemic Respiratory Failure Allergies No Known Allergies Allergy (Verified 05/09/25 13:46) HPI HPI COPD/Hypoxemic Respiratory Failure: Details: Alanna is a pleasant 69 year old female, former smoker with 40 pack year history, quit March 2022, with underlying moderate COPD. She has been using Trelegy 100 mcg, rarely requiring albuterol MDI, reporting good control of respiratory symptoms. She denies any presents to urgent care or hospitalizations related to respiratory distress since last visit. Prior chest CT from 2022 revealed scattered small pulmonary nodules, repeat chest CT performed and presents to review results. [facility] Medical History Arthritis Surgical History H/O colonoscopy History of bladder surgery History of hysterectomy Family History Mother No problems noted. Father No problems noted. Social History Household Members: Spouse Housing: House Do you presently have visiting nurse or other home services: No Alcohol intake: former Patient Tobacco Use Status: Former Tobacco user Tobacco use type: Cigarette Cigarette Packs Per Day: 1 Cigarettes Per Day: 20 Years Smoked: 40 e-Cigarette/Vaping Use: Never Used Second Hand Smoke Exposure: No Advance Directives Date on File: 04/13/23 service: No Current occupational status: retired Current occupational exposures/hazards: No Cognitive needs: No Hearing needs: Yes Vision needs: Yes Review of Systems Const Denies chills, Denies excessive sweating, Denies fever(s), Denies headache(s) and Denies night sweats Eyes Denies dry eyes, Denies irritation and Denies itchy eyes ENT Reports Normal hearing present, Denies headache(s), Denies nasal congestion, Denies nasal discharge, Denies post nasal drip and Denies sore throat Card Denies chest pain, Denies chest pain at rest, Denies chest pain with activity, Denies claudication, Denies leg edema, Denies dyspnea, Denies dyspnea on exertion, Denies orthopnea and Denies paroxysmal nocturnal dyspnea Resp Denies chest congestion, Denies cough, Denies excessive phlegm production, Denies pain on inspiration, Denies pain with cough, Denies dyspnea, Denies dyspnea on exertion, Denies stridor and Denies wheezing Musc Denies myalgias Neuro Reports Normal hearing present and Denies headache(s) Endo Denies excessive sweating Sebastian/Lymph Denies lymphadenopathy Aller/Immun Denies itchy eyes, Denies seasonal rhinorrhea and Denies wheezing Physical Exam Vital Signs: Last Vital Signs Pulse 79 05/09/25 13:42 BP 128/66 05/09/25 13:42 Pulse Ox 96 05/09/25 13:42 Oxygen Delivery Method Room Air 05/09/25 13:42 BMI result Body Mass Index 37.5 Const General: cooperative, healthy appearing, comfortable, no acute distress, well developed and alert Nutritional Appearance: obese Orientation/consciousness: patient oriented x3 Limitations: no limitations HEENT Head: Yes normal to inspection, Yes normocephalic and Yes atraumatic Ears: hearing grossly normal bilaterally and external ears normal Eyes General: appearance normal, both eyes and all related structures Eyelids: Yes eyelids normal Sclerae: sclerae normal EOM: EOMs intact bilaterally Neck Neck: Yes normal visual inspection and Yes no lymphadenopathy Lymphatic: no lymphadenopathy noted Chest Chest palpation & inspection: normal inspection of the chest Resp Effort & Inspection: normal respiratory effort, able to speak in complete sent ences, no audible wheezes, no cough, no stridor, not tachypneic, no tripod positioning and no use of accessory muscles Auscultation: clear to auscultation bilaterally Cardio Jugular venous distension: no JVD Rate: regular rate Rhythm: regular rhythm Skin Other: warm, dry General skin exam: no rashes or lesions noted Neuro General: patient oriented x3 Cranial nerves: Yes Normal hearing present Cognition (Neuro): normal cognition Gait exam (Neuro): Normal gait present Extrem General: Yes normal to inspection, Yes capillary refill normal, Yes no clubbing, cyanosis or edema and Yes no pedal edema Psych Appearance: grossly normal and well kempt Speech and movement: Normal speech and movement present and Clear speech present Affect: normal affect Attitude: cooperative Thought process: Normal thought process present Thought content: Normal thought content present Insight: Good insight present (Psych) Judgement: Good judgement present (Psych) Results Reviewed Results Reviewed: [address] [address] [address] Scan Report Signed Patient: Alanna Lancaster MR#: [id number] : 1955 Acct:[id number] Age/Sex: 69 / F ADM Date: 05/03/25 Loc: HO.CT Attending Dr: Delia Coffey NP Ordering Physician: Delia Coffey NP Date of Service: 05/03/25 Procedure(s): CT chest wo IV con Accession Number(s): [id number] cc: Alexis Shaw MD; Delia Coffey NP~ Report Number: [id number]: Total DLP = 235.00 mGy-cm EXAMINATION: CT CHEST WITHOUT IV CONTRAST INDICATION: R91.8 - Other nonspecific abnormal finding of lung field COMPARISON: Comparison is made with the prior examination dated 08/24/2023. TECHNIQUE: Helical CT scan of the chest was performed without intravenous contrast. Coronal and sagittal reformatted images were generated and reviewed. This CT exam was performed with one or more of the following dose reduction techniques: automated exposure control, adjustment of the mA and/or kV according to patient size, use of iterative reconstruction technique. DLP: 235 mGy-cm CHEST: THYROID: The thyroid is unremarkable. LUNGS: Again seen is a 2 mm nodule at the right lung apex (series 4, image 19). A 2 mm nodule in the right lower lobe adjacent to the superior aspect of the major fissure is also unchanged (series 4, image 43). There is scarring in the left lower lobe. No new pulmonary nodules are identified. MEDIASTINUM: There is no mediastinal lymphadenopathy. OLIVIA: Evaluation of the hilar regions is limited by lack of intravenous contrast material. CARDIOVASCULATURE: The heart is normal in size. There is no pericardial effusion. The thoracic aorta is normal in caliber. DEGREE OF CORONARY CALCIFICATION: none PLEURA: There is no pleural effusion. No pneumothorax. MAIN AIRWAYS: The mainstem bronchi and proximal branches are patent. AXILLA: There is no axillary lymphadenopathy. BONES AND SOFT TISSUES: Unremarkable UPPER ABDOMEN: The visualized portions of the liver, spleen, and adrenals have an unremarkable unenhanced appearance. CT/CT chest wo IV con IMPRESSION: Stable tiny pulmonary nodules as described. No acute abnormality is seen. Electronically signed by: Jose Arellano MD 05/03/2025 08:41 AM EDT RP Dictated By: Jose Arellano MD Signed By: <Electronically signed by Jose Arellano MD in OV> 05/03/25840 DD/ 7 TD/TT: 05/03/25814 Author Agent: Assessment & Plan Assessment & Plan (1) COPD (chronic obstructive pulmonary disease): Code(s): J44.9 - Chronic obstructive pulmonary disease, unspecified Category: Medical (2) Personal history of tobacco use: Code(s): Z87.891 - Personal history of nicotine dependence Category: Social Hx (3) Pulmonary nodules: Code(s): R91.8 - Other nonspecific abnormal finding of lung field Category: Medical Plan At this time she reports good control of respiratory symptoms using Trelegy and albuterol DON p.r.n., advised to continue. She is aware to call if symptoms worsen and we will consider Trelegy 200 mcg at that time. Prior chest CT in 2022 revealed scattered small pulmonary nodule, and has repeat chest CT scheduled for February. Previously discussed the need for adequate documentation to prove she does not require supplemental oxygen at this time however she is unsure if concentrator has been picked up as it is currently at daughter's house and is not interested in continuing supplemental oxygen. All questions were answered and patient is in agreement of plan. Will follow up in 3 months or sooner if needed. Coding Level of Care Code Est Pt Level 4 (89052) Diagnoses COPD (chronic obstructive pulmonary disease) J44.9 Personal history of tobacco use Z87.891 Pulmonary nodules R91.8
== END 2025-05-09 14:22 | disposition home or self-care (01) ==
LOC: HO.HPSW 13:40
PROVIDERS: PCP Family Medicine; Visit Provider Nurse Practitioner Family
DX: J44.9 Chronic obstructive pulmonary disease, unspecified (principal); Z87.891 Personal history of nicotine dependence; R91.8 Other nonspecific abnormal finding of lung field
CPT/HCPCS: 99214

== ENCOUNTER → 2025-05-09 13:39 | Outpatient (BNVA) | payer MEDICARE, SELFPAY | PROVIDERS: PCP Family Medicine; Visit Provider Nurse Practitioner Family | DX: R91.8 Other nonspecific abnormal finding of lung field (principal); J44.9 Chronic obstructive pulmonary disease, unspecified; Z87.891 Personal history of nicotine dependence; Z79.899 Other long term (current) drug therapy | CPT/HCPCS: 99212 ==

== ENCOUNTER 2025-05-26 07:45 | Outpatient (REF) | payer MEDICARE, SELFPAY ==
--- OUTSIDE RECORDS SUMMARY | 2025-05-26 07:47 | XMS_ITS | Clinical Summary ---
Author Organization [facility] Address [address] [place] [id number] Phone Care Team Providers Care Jet Inspector Name Role Phone Pcp, Unknown Primary Care Provider Unavailabl e Social History Tobacco Use Types Packs/Day Years Used Date Smoking Tobacco: Never Assessed Education Answer Date Recorded Are you interested in more education? Not on forrest e 02/19/2023 Are you concerned about learning? Not on file 02/19/2023 No 02/19/2023 No 02/19/2023 Digital Access Answer Date Recorded No 03/20/2023 No 03/20/2023 No 03/20/2023 Reliable internet access at home? Not on file 03/20/2023 Device with a working camera? Not on file Comments Unknown Sex and Gender Information Value Date Recorded Sex Assigned at Not on file Legal Sex Female 10:57 AM EDT Gender Identity Not on file Sexual Orientation Not on file Last Filed Vital Signs Vital Sign Reading Time Taken Comments Blood Pressure 175/113 01/25/2021 2:10 PM EDT Pulse 97 01/25/2021 1:58 PM EDT Temperature - - Respiratory Rate - - Oxygen Saturation 94% 01/25/2021 1:58 PM EDT Inhaled Oxygen Concentration - - Weight 102.1 kg (225 lb) 01/25/2021 1:58 PM EDT Height 167.6 cm (5' 6 ) 01/25/2021 1:58 PM EDT Body Mass Index 36.32 01/25/2021 1:58 PM EDT Plan of Treatment Health Maintenance Due Date Last Done Comments Adult Td,Tdap Booster 1955 LIPID PANEL 1955 DEPRESSION SCREENING 1968 SMOKING Hx and SMOKELESS TOB ACCO SCREENING 1969 HEPATITIS C SCREENING 1974 MAMMOGRAM 1996 COLOGUARD 2001 COLONOSCOPY 2001 COLORECTAL CANCER SCREENING 2001 FIT TEST 2001 FOBT 2001 SIGMOIDOSCOPY 2001 VIRTUAL COLONOSCOPY 2001 PNEUMOCOCCAL VACCINES (50+ y ears) (1 of 1 - PCV) 2006 ZOSTER VACCINES (1 of 2) 2006 OSTEOPOROSIS SCREENING INITI AL (ONE-TIME) 2021 COVID-19 VACCINE ( - 2023-2 5 season) 2024 RSV VACCINE (1 - 1-dose 75+ series) 2031 HEPATITIS A VACCINES Aged Out No long er eligible based on patient's age to complete this topic HIB VACCINES Aged Out No longer eligi ble based on patient's age to complete this topic MENINGOCOCCAL VACCINES (ACWY) Aged Out No longer eligible based on patient's age to complete this topic MENINGOCOCCAL VACCINES (B) Aged Out N o longer eligible based on patient's age to complete this topic Medical Devices Not on file Care Teams Jet Inspector Relationship Specialty Start Date End Date Pcp, Unknown PCP - General 01/25/21 Additional Source Comments The information contained in this document represents components of the legal health record. It is not the complete legal health record.[facility]
[2025-05-26 08:09] LABS: MANUAL DIFF FLAG NO
[2025-05-26 08:34] LABS: Hematocrit 41.4 % (37.0-47.0); Hemoglobin 14.4 g/dl (12.0-16.0); Imm Gran Abs Auto 0.06 X10*3/uL (0.00-0.03); Imm Gran Pct Auto 0.8 % (0.0-0.4); Lymphocytes Absolute Auto 2.4 X10*3/uL (1.2-4.9); Mean Corpuscular HGB Conc 34.8 g/dl (31.0-35.0); Mean Corpuscular Hemoglobin 29.8 pg (27.0-33.0); Mean Corpuscular Volume 85.5 fL (80.0-98.0); NRBC Abs Auto 0.000 X10*3/uL (0.0-0.012); NRBC Pct Auto 0.0 /100WBC (0.0-0.2); Platelet Count 213 X10*3/uL (160-400); Red Blood Count 4.84 X10*6/uL (4.20-5.50); White Blood Count 7.3 X10*3/uL (4.8-10.8)
[2025-05-26 08:52] LABS: Appearance Urine Clear; Glucose Urine UA Negative (Negative); PH 6.5 (5.0-9.0); Specific Gravity - Urine 1.010 (1.005-1.025); UMIC TRIGGER UACC YES
[2025-05-26 09:16] LABS: Alanine Aminotransferase 20 U/L (0-31); Albumin Level 4.3 g/dL (3.5-5.0); Alkaline Phosphatase 88 U/L (39-117); Anion Gap 12 (12-20); Aspartate Amino Transferase 28 U/L (5-31); Blood Urea Nitrogen 15 mg/dL (9-16); Calcium 9.3 mg/dL (8.4-10.2); Carbon Dioxide 30 mmol/L (22-29); Chloride 105 mmol/L (96-108); Cholesterol 159 mg/dL (<200); Estimated Glomerular Filt Rate > 60; HDL Cholesterol 39 mg/dL (>40); Potassium 4.1 mmol/L (3.3-5.1); Sodium 143 mmol/L (135-145); Total Protein 7.2 g/dL (6.5-8.0); Triglycerides 130 mg/dL (<150)
== END 2025-05-26 07:46 | disposition home or self-care (01) ==
LOC: HO.LAB 07:45
PROVIDERS: PCP Family Medicine; Visit Provider Family Medicine
DX: Z00.00 Encounter for general adult medical examination without abnormal findings (principal); E78.5 Hyperlipidemia, unspecified
CPT/HCPCS: 36415; 80053; 80061; 81001; 84443; 85025

== ENCOUNTER 2025-05-30 11:48 | Outpatient (AMB) | payer MEDICARE, SELFPAY ==
--- NOTE | 2025-05-30 12:24 | A.OFFPC_ITS ---
Vital Signs 05/30/25 12:34 Height 5 ft 5 in Weight 228 lb 4 oz BMI 38.0 BP 120/70 Blood Pressure Location Rt brachial Position Sitting Respiration 16 Pulse 70 Pulse Source Pulse Oximeter Temp 97.9 F Temp Source Oral Pulse Oximetry (%) 95 Oxygen Delivery Method Room Air Intake Visit Reasons: CPE with f/u labs and health maint.(keep) Intake Note: patient is scheduled for CPE [employer]er Required: No Allergies No Known Allergies Allergy (Verified 05/30/25 12:33) Tobacco use date assessed: 05/24/24 Dental Screening Dental Screen Date: 05/24/24 HPI CPE with f/u labs and health maint.(keep) HPI Details 69 y/o female presents for an extended e xam with f/u labs and health maint. Labs drawn 05/26/25. Reviewed labs with pt. Fasting glucose 142. Last A1c 03/05/25 6.5%. Triglycerides 130. TC 159. LDL 94. HDL low at 39. She is on artovastatin 20mg daily. BP today 120/70, 70p. She is on lisinopril-HCTZ 20-25mg daily. A1c today 6.5%. Has complaints of hair loss. Reports ongoing bilateral hand/forearm pain. [facility] Medical History COPD (chronic obstructive pulmonary disease) Arthritis Surgical History H/O colonoscopy History of bladder surgery History of hysterectomy Family History Mother No problems noted. Father No problems noted. Social History Household Members: Spouse Housing: House Do you presently have visiting nurse or other home services: No Alcohol intake: former Patient Tobacco Use Status: Former Tobacco user Tobacco use type: Cigarette Cigarette Packs Per Day: 1 Cigarettes Per Day: 20 Years Smoked: 40 e-Cigarette/Vaping Use: Never Used Second Hand Smoke Exposure: No Advance Directives Date on File: 04/13/23 service: No Current occupational status: retired Current occupational exposures/hazards: No Cognitive needs: No Hearing needs: Yes Vision needs: Yes Questionnaire PHQ-9 Over the last 2 weeks, how often have you been bothered by any of the following problems? 1. Little interest or pleasure in doing things: not at all 2. Feeling down, depressed, or hopeless: not at all 3. Trouble falling or staying asleep, or sleeping too much: nearly every day 4. Feeling tired or having little energy: nearly every day 5. Poor appetite or overeating: not at all 6. Feeling bad about yourself - or that you are a failure or have let yourself or your family down: not at all 7. Trouble concentrating on things, such as reading the newspaper or watching television: not at all 8. Moving or speaking so slowly that other people could have noticed. Or the opposite - being so fidgety or restless that you have been moving around a lot more than usual: not at all 9. Thoughts that you would be better off or of hurting yourself in some way: not at all Total score: 6 Depression Screening Interpretation: Positive Depression Screening Done: Yes 15481 - PHQ-9 Billing: Yes Source: Developed by Drs. Jose Washington, Liliana Rodrigues, Ze Briones and colleagues, with an educational mario from [employer]. Thrive Questionnaire Date Thrive assessed: 05/30/25 I am a: Patient What is your living situation today?: I have a steady place to live Within the past 12 months, did the food you bought not last and you didn't have the money to get more?: Never true Within the past 12 months, did you worry whether your food would run out before you got money to buy more?: Never true Do you have trouble paying for medicines?: No Do you have trouble getting transportation to medical appointments?: No Do you have trouble paying your heating and electricity bill?: No Do you have trouble taking care of your child, family member or friend?: No Do you have trouble with day-to-day activities such as bathing, preparing meals, shopping, managing finances, etc.?: No Are you currently unemployed and looking for a job?: No Are you interested in more education?: No Please select the resources that you would like help with: None Currently or been in a relationship where the following occur: I choose not to answer THRIVE Score: 0 AUDIT C Alcohol Use Questionnaire (AUDIT-C) 1. How often do you have a drink containing alcohol?: Never 3. How often do you have six or more drinks on one occasion?: Never Total Score: 0 TOYA-7 AMB Questionnaire TOYA-7 Date TOYA - 7 assessed: 05/30/25 Feeling nervous, anxious, or on edge: 0 = Not at all Not being able to stop or control worryin = Not at all Worrying too much about different things: 0 = Not at all Trouble relaxin = Not at all Being so restless that it is hard to sit still: 0 = Not at all Becoming easily annoyed or irritable: 0 = Not at all Feeling afraid as if something awful might happen: 0 = Not at all Total TOYA-7 score (0-4 normal; 5-9 mild; 10-14 moderate; 15-21 severe): 0 Source: Developed by Drs. Jose Washington, Liliana Rodrigues, Ze Briones and colleagues, with an educational mario from [employer]. TOYA-7 Assessment Billing TOYA-7 Assessment Tool: TOYA-7 Assessment 57954 Review of Systems Const Denies chills, Denies fatigue, Denies fever(s), Denies headache(s) and Denies weakness Eyes Denies change in vision ENT Denies dizziness, Denies headache(s), Denies hearing loss, Denies nasal congestion, Denies sinus pain, Denies sinus pressure and Denies sore throat Card Denies chest pain, Denies lightheadedness, Denies dyspnea and Denies other (palpitations) Resp Denies cough, Denies dyspnea and Denies wheezing GI Denies abdominal pain, Denies melena, Reports bloating, Denies hematochezia, Denies change in bowel habits, Denies dyspepsia and Denies nausea Denies hematuria and Denies dysuria Musc Details: Hand pain Denies abnormal gait, Denies myalgias, Denies arthralgias, Denies numbness and Denies tingling Skin/Breast Denies rash, Denies unusual bruising and Denies wounds Neuro Denies abnormal gait, Denies dizziness, Denies headache(s), Denies memory loss, Denies numbness, Denies Sensory deficit (Neuro), Denies tingling and Denies weakness Psych Denies anxiety, Denies depression and Denies memory loss Endo Denies cold intolerance, Denies fatigue, Denies heat intolerance, Denies polydipsia and Denies polyuria Sebastian/Lymph Denies easy bleeding and Denies easy bruising Aller/Immun Denies wheezing Physical exam (Primary Care) Vital Signs: Last Vital Signs Temp 97.9 F 05/30/25 12:34 Pulse 70 05/30/25 12:34 Resp 16 05/30/25 12:34 BP 120/70 05/30/25 12:34 Pulse Ox 95 05/30/25 12:34 Oxygen Delivery Method Room Air 05/30/25 12:34 BMI result Body Mass Index 38.0 Tobacco/Smoking Status: Tobacco use Status Tobacco use date assessed 05/24/24 05/30/25 12:24 Patient Tobacco Use Status Former Tobacco user 05/30/25 12:24 Tobacco use type Cigarette 05/30/25 12:24 e-Cigarette/Vaping Use Never Used 05/30/25 12:24 PHQ-9: PHQ-9 Score PHQ-9: Total score 6 05/30/25 12:45 Depression Screening Interpretation: Positive Thrive Assessment: Date of Thrive Assessment Date Thrive assessed 05/30/25 05/30/25 12:32 Currently or been in a relationship where the following occur: I choose not to answer Const General: no acute distress, well developed, alert and awake Nutritional Appearance: well nourished Orientation/consciousness: patient oriented x3 HENMT Head: Yes normocephalic and Yes atraumatic Ears: hearing grossly normal bilaterally and TM's normal bilaterally General nose exam: Normal external nose present and Normal nares present Mouth: Normal oral and palatal mucosa present and moist mucous membranes Teeth and gingiva: dentition normal Throat: Yes posterior oropharynx normal Eyes General: appearance normal, both eyes and all related structures Pupils: Equal, round and reactive pupils present and Pupil accommodation reflex normal EOM: EOMs intact bilaterally Neck Neck: Yes normal visual inspection, Yes no lymphadenopathy and Yes trachea midline Thyroid: Thyroid normal Carotids: no bruits Lymphatic: no lymphadenopathy noted Chest Chest palpation & inspection: normal inspection of the chest Resp Effort & Inspection: normal respiratory effort Auscultation: clear to auscultation bilaterally Cardio Rate: regular rate Rhythm: regular rhythm Heart sounds: S1 normal heart sound present, S2 normal heart sound present, no gallops, no murmurs and no rubs Bruits: no abdominal aortic bruits and no carotid bruits GI Palpation (GI): No Abdominal aortic bruit present, Soft to palpation, nontender, No hepatosplenomegaly present and No Rebound tenderness present Auscultation: normal bowel sounds General: Yes no CVA tenderness Back/Spine/Pelvis Back: no CVA tenderness Cervical Spine: cervical ROM normal and No Cervical spine tenderness Thoracic/Lumbar Spine: thoraco-lumbar ROM normal, No pain with thoraco-lumbar ROM, No thoracic spinal tenderness and No lumbar spinal tenderness Skin Lesions: no lesions Rashes: no rashes Trauma: no lacerations or abrasions Wounds: no wounds Nails: normal Neuro General: patient oriented x3 Cranial nerves: Yes Equal, round and reactive pupils present Cognition (Neuro): normal cognition Gait exam (Neuro): Normal gait present Motor exam (neuro): 5/5 motor strength present throughout Sensory Exam: No Sensory deficit (Neuro) Deep tendon reflexes (DTR's): Right patellar reflex intensity grade: 2+ and Left patellar reflex intensity grade: 2+ Extrem General: Yes normal to inspection and No edema Psych Appearance: grossly normal Affect: normal affect Attitude: cooperative Thought process: Normal thought process present Coding Level of Care Code Est Pt Level 5 (66316) Diagnoses Essential hypertension I10 Hyperlipidemia E78.5 Diabetes E11.9 Difficulty swallowing R13.10 Hand pain M79.643 Immunization counseling Z71.85 Bloating R14.0 Hair loss L65.9 Adult general medical exam Z00.00 Breast cancer screening by mammogram Z12.31 Screening for colon cancer Z12.11 Additional Codes TOYA-7 Assessment Billing - TOYA-7 Assessment Tool: TOYA-7 Assessment 14693 ([id number]) PHQ-9 - 71828 - PHQ-9 Billing: Yes ([id number]) Assessment & Plan Assessment & Plan (1) Essential hypertension: Code(s): I10 - Essential (primary) hypertension Category: Medical Plan: Blood pressure is controlled. Goal is less than 140/90 Continue current medications (2) Hyperlipidemia: Code(s): E78.5 - Hyperlipidemia, unspecified Category: Medical Plan: HDL is a little below goal. Encouraged exercise as tolerated Her other lipids levels are within normal range. Continue atorvastatin (3) Diabetes: Code(s): E11.9 - Type 2 diabetes mellitus without complications Category: Medical Plan: A1c 6.5% which is good control. Goal is less than 7% Continue current medication (4) Difficulty swallowing: Code(s): R13.10 - Dysphagia, unspecified Category: Medical Plan: Check modified barium swallow test (5) Hand pain: Code(s): M79.643 - Pain in unspecified hand Category: Medical Plan: Bilateral hand and forearm pain with decreased range of motion and stiffness. Start occupational therapy Try naproxen b.i.d. Referred to hand surgeon (6) Immunization counseling: Code(s): Z71.85 - Encounter for immunization safety counseling Category: Medical Plan: Discussed MMR and varicella. Will check titer is Discussed shingles shot (7) Bloating: Code(s): R14.0 - Abdominal distension (gaseous) Category: Medical Plan: Likely constipation Hydrate well Trial soluble fiber Will give her a short course of MiraLax Call your tinning equipment tender if not improving (8) Hair loss: Code(s): L65.9 - Nonscarring hair loss, unspecified Category: Medical Plan: Patient is seen dermatology in the past No laboratory explanation found She would like a referral to a different rental car porter Can use hair skin and Nails vitamins (9) Adult general medical exam: Code(s): Z00.00 - Encounter for general adult medical examination without abnormal findings Category: Medical Plan: 69-year-old female presents for an extended exam (10) Breast cancer screening by mammogram: Code(s): Z12.31 - Encounter for screening mammogram for malignant neoplasm of breast Category: Medical Plan: Patient is up-to-date with her mammogram No evidence of malignancy Continue annual screening (11) Screening for colon cancer: Code(s): Z12.11 - Encounter for screening for malignant neoplasm of colon Category: Medical Plan: Patient had a colonoscopy in 2021 and was advised to follow-up in 2031 Orders: Orders MMR IgG Measles Mumps Rubella Today Z. - Encounter for immunization safety counseling Varicella IgG Antibody Today Z. - Encounter for immunization safety counseling OT Evaluation and Treatment Today M19.041 - Primary osteoarthritis, right hand, M19.042 - Primary osteoarthritis, left hand, M25.60 - Stiffness of unspecified joint, not elsewhere classified, M77.8 - Other enthesopathies, not elsewhere classified, M79.643 - Pain in unspecified hand [place] Modified Barium Swallow Today R13.10 - Dysphagia, unspecified Referrals Dermatology Referral L65.9 - Nonscarring hair loss, unspecified Hand Surgery Referral M19.041 - Primary osteoarthritis, right hand, M19.042 - Primary osteoarthritis, left hand, M25.60 - Stiffness of unspecified joint, not elsewhere classified, M77.8 - Other enthesopathies, not elsewhere classified, M79.643 - Pain in unspecified hand Podiatry Referral M21.619 - Bunion of unspecified foot Medications: New calcium polycarbophil (FiberCon) 625 mg PO DAILY 30 tabs 2RF 30 days polyethylene glycol 3350 (Miralax) 17 grams PO DAILY 14 ea 0RF 14 days tirzepatide (Mounjaro) for 4 weeks 2.5 mg (0.5 mL) subcut QWEEK 2 mL 2RF 28 days
[2025-05-30 12:34] VITALS: BP 120/70; PULSE 70; RESP 16; TEMP 36.6; O2SAT 95; BMI 38.0
--- OUTSIDE RECORDS SUMMARY | 2025-05-30 12:34 | XMS_ITS | Clinical Summary ---
Author Organization [facility] Address [address] [place] [id number] Phone Care Team Providers Care Communication Engineer Name Role Phone Pcp, Unknown Primary Care [...] Medical Devices Not on file Care Teams Communication Engineer Relationship Specialty Start Date End Date Pcp, Unknown PCP - General 01/25/21 Additional Source Comments The information contained in this document represents components of the legal health record. It is not the complete legal health record.[facility]
== END 2025-05-30 13:34 | disposition home or self-care (01) ==
LOC: HO.HMCFM 11:49
PROVIDERS: PCP Family Medicine; Visit Provider Family Medicine
DX: I10 Essential (primary) hypertension (principal); E11.69 Type 2 diabetes mellitus with other specified complication; E78.5 Hyperlipidemia, unspecified; R13.10 Dysphagia, unspecified; M79.641 Pain in right hand; Z71.85 Encounter for immunization safety counseling; M79.642 Pain in left hand; R14.0 Abdominal distension (gaseous); L65.9 Nonscarring hair loss, unspecified; Z12.31 Encounter for screening mammogram for malignant neoplasm of breast; Z12.11 Encounter for screening for malignant neoplasm of colon

== ENCOUNTER → 2025-05-30 11:48 | Outpatient (BNVA) | payer MEDICARE, SELFPAY | PROVIDERS: PCP Family Medicine; Visit Provider Family Medicine | DX: Z00.00 Encounter for general adult medical examination without abnormal findings (principal); I10 Essential (primary) hypertension; E78.5 Hyperlipidemia, unspecified; E11.9 Type 2 diabetes mellitus without complications; R13.10 Dysphagia, unspecified; M79.643 Pain in unspecified hand; R14.0 Abdominal distension (gaseous); L65.9 Nonscarring hair loss, unspecified; M19.041 Primary osteoarthritis, right hand; M19.042 Primary osteoarthritis, left hand; M25.60 Stiffness of unspecified joint, not elsewhere classified; M77.8 Other enthesopathies, not elsewhere classified; Z71.85 Encounter for immunization safety counseling | CPT/HCPCS: 96127; 99212 ==

== ENCOUNTER 2025-07-13 09:39 | Outpatient (REF) | payer MEDICARE, SELFPAY ==
[2025-07-13 14:38] LABS: Appearance Urine Clear; Glucose Urine UA Negative (Negative); PH 6.0 (5.0-9.0); Specific Gravity - Urine 1.015 (1.005-1.025); UMIC TRIGGER UACC YES
[2025-07-13 14:46] LABS: UACC Culture Trigger YES
[2025-07-13 15:10] LABS: Alanine Aminotransferase 23 U/L (0-31); Albumin Level 4.4 g/dL (3.5-5.0); Alkaline Phosphatase 90 U/L (39-117); Anion Gap 10 (12-20); Aspartate Amino Transferase 38 U/L (5-31); Blood Urea Nitrogen 17 mg/dL (9-16); Calcium 9.0 mg/dL (8.4-10.2); Carbon Dioxide 30 mmol/L (22-29); Chloride 106 mmol/L (96-108); Cholesterol 140 mg/dL (<200); Estimated Glomerular Filt Rate > 60; HDL Cholesterol 43 mg/dL (>40); Potassium 4.1 mmol/L (3.3-5.1); Sodium 142 mmol/L (135-145); Total Protein 7.2 g/dL (6.5-8.0); Triglycerides 119 mg/dL (<150)
[2025-07-14 12:24] LABS: Rubeola IgG (Measles) >300.00 AU/mL
== END 2025-07-13 09:40 | disposition home or self-care (01) ==
LOC: HO.WFDLDS 09:39
PROVIDERS: PCP Family Medicine; Visit Provider Family Medicine
DX: Z00.00 Encounter for general adult medical examination without abnormal findings (principal); Z23 Encounter for immunization; Z71.85 Encounter for immunization safety counseling; E11.9 Type 2 diabetes mellitus without complications; R13.10 Dysphagia, unspecified; Z87.891 Personal history of nicotine dependence; Z79.84 Long term (current) use of oral hypoglycemic drugs
CPT/HCPCS: 36415; 80053; 80061; 81001; 83036; 86735; 86762; 86765; 86787; 87086; 90471; 90656; 99212

== ENCOUNTER 2025-07-13 09:39 | Outpatient (AMB) | payer MEDICARE, SELFPAY ==
[2025-07-13 09:48] VITALS: BP 126/90; PULSE 62; O2SAT 97; BMI 37.3
--- NOTE | 2025-07-13 09:48 | A.OFFPC_ITS ---
Vital Signs 07/13/25 09:48 Height 5 ft 5 in Weight 224 lb 2 oz BMI 37.3 BP 126/90 H Blood Pressure Location Rt brachial Position Sitting Pulse 62 Pulse Source Pulse Oximeter Pulse Oximetry (%) 97 Oxygen Delivery Method Room Air Intake Visit Reasons: f/u chronic conditions Allergies No Known Allergies Allergy (Verified 07/13/25 09:50) Tobacco use date assessed: 07/13/25 Fall risk assessment: No Falls in past year Last assessed Fall Risk: 07/13/25 Dental Screening Dental Screen Date: 07/13/25 Did you have a dental visit in the last 12 months?: No Did you have a dental problem in the last 6 months where you did not have access to dental care?: No Was dental information given to patient?: Patient has dentist HPI f/u chronic conditions HPI Details 69 y/o female presents to f/u chronic co nditions. A1c today 6.0%. She is on metformin 250mg daily, Mounjaro 2.5mg. She notes she is tolerating mounjaro well. BP today 126/90, 62p. She is on lisinopril-HCTZ 20-25mg daily. Has a swallowing study scheduled next month. [facility] Medical History COPD (chronic obstructive pulmonary disease) Arthritis Surgical History H/O colonoscopy History of bladder surgery History of hysterectomy Family History Mother No problems noted. Father No problems noted. Social History Household Members: Spouse Housing: House Do you presently have visiting nurse or other home services: No Alcohol intake: former Patient Tobacco Use Status: Former Tobacco user Tobacco use type: Cigarette Cigarette Packs Per Day: 1 Cigarettes Per Day: 20 Years Smoked: 40 e-Cigarette/Vaping Use: Never Used Second Hand Smoke Exposure: No Advance Directives Date on File: 04/13/23 service: No Current occupational status: retired Current occupational exposures/hazards: No Cognitive needs: No Hearing needs: Yes Vision needs: Yes Questionnaire PHQ-9 Over the last 2 weeks, how often have you been bothered by any of the following problems? 1. Little interest or pleasure in doing things: not at all 2. Feeling down, depressed, or hopeless: not at all 3. Trouble falling or staying asleep, or sleeping too much: nearly every day 4. Feeling tired or having little energy: nearly every day 5. Poor appetite or overeating: not at all 6. Feeling bad about yourself - or that you are a failure or have let yourself or your family down: not at all 7. Trouble concentrating on things, such as reading the newspaper or watching television: not at all 8. Moving or speaking so slowly that other people could have noticed. Or the opposite - being so fidgety or restless that you have been moving around a lot more than usual: not at all 9. Thoughts that you would be better off or of hurting yourself in some way: not at all Total score: 6 Depression Screening Interpretation: Positive Depression Screening Done: Yes Source: Developed by Drs. Jose Washington, Liliana Rodrigues, Ze Briones and colleagues, with an educational mario from [employer]. Thrive Questionnaire Date Thrive assessed: 12/20/24 I am a: Patient What is your living situation today?: I have a steady place to live Within the past 12 months, did the food you bought not last and you didn't have the money to get more?: Never true Within the past 12 months, did you worry whether your food would run out before you got money to buy more?: Never true Do you have trouble paying for medicines?: No Do you have trouble getting transportation to medical appointments?: No Do you have trouble paying your heating and electricity bill?: No Do you have trouble taking care of your child, family member or friend?: No Do you have trouble with day-to-day activities such as bathing, preparing meals, shopping, managing finances, etc.?: No Are you currently unemployed and looking for a job?: No Are you interested in more education?: No Please select the resources that you would like help with: None Currently or been in a relationship where the following occur: I choose not to answer THRIVE Score: 0 AUDIT C Alcohol Use Questionnaire (AUDIT-C) 1. How often do you have a drink containing alcohol?: Never 3. How often do you have six or more drinks on one occasion?: Never Total Score: 0 TOYA-7 AMB Questionnaire TOYA-7 Date TOYA - 7 assessed: 05/30/25 Feeling nervous, anxious, or on edge: 0 = Not at all Not being able to stop or control worryin = Not at all Worrying too much about different things: 0 = Not at all Trouble relaxin = Not at all Being so restless that it is hard to sit still: 0 = Not at all Becoming easily annoyed or irritable: 0 = Not at all Feeling afraid as if something awful might happen: 0 = Not at all Total TOYA-7 score (0-4 normal; 5-9 mild; 10-14 moderate; 15-21 severe): 0 Source: Developed by Drs. Jose Washington, Liliana Rodrigues, Ze Briones and colleagues, with an educational mario from [employer]. Review of Systems Const Denies chills, Denies fatigue, Denies fever(s), Denies headache(s) and Denies weakness ENT Denies dizziness and Denies headache(s) Card Denies dyspnea Resp Denies cough, Denies dyspnea, Denies wheezing and Denies other (shortness of breath) Musc Denies numbness and Denies tingling Neuro Denies dizziness, Denies headache(s), Denies numbness, Denies tingling and De nies weakness Psych Denies anxiety and Denies depression Endo Denies fatigue Aller/Immun Denies wheezing Physical exam (Primary Care) Vital Signs: Last Vital Signs Pulse 62 07/13/25 09:48 BP 126/90 H 07/13/25 09:48 Pulse Ox 97 07/13/25 09:48 Oxygen Delivery Method Room Air 07/13/25 09:48 BMI result Body Mass Index 37.3 Tobacco/Smoking Status: Tobacco use Status Tobacco use date assessed 07/13/25 07/13/25 09:53 Patient Tobacco Use Status Former Tobacco user 07/13/25 09:53 Tobacco use type Cigarette 07/13/25 09:53 e-Cigarette/Vaping Use Never Used 07/13/25 09:53 PHQ-9: PHQ-9 Score PHQ-9: Total score 6 07/13/25 09:53 Depression Screening Interpretation: Positive Thrive Assessment: Date of Thrive Assessment Date Thrive assessed 02/26/25 09/19/25 09:53 Currently or been in a relationship where the following occur: I choose not to answer Const General: well developed; No acute distress Nutritional Appearance: well nourished Orientation/consciousness: patient oriented x3 HENMT Head: Yes normocephalic and Yes atraumatic Eyes General: appearance normal, both eyes and all related structures Pupils: Equal, round and reactive pupils present EOM: EOMs intact bilaterally Resp Effort & Inspection: normal respiratory effort Neuro General: patient oriented x3 and gait normal Cranial nerves: Yes Equal, round and reactive pupils present Psych Affect: normal affect Results AMB Hemoglobin A1c AMB Hemoglobin A1c 6.0 % Last Edit by Claudette Bradford CMA on 07/13/25 10:01 Results Reviewed Results Reviewed: Laboratory Last Values Hgb A1c (Clinic) 6.0 % (4.0-6.0) 07/13/25 09:54 Coding Level of Care Code Est Pt Level 3 (82994) Diagnoses Diabetes E11.9 Immunization counseling Z71.85 Difficulty swallowing R13.10 Assessment & Plan Assessment & Plan (1) Diabetes: Code(s): E11.9 - Type 2 diabetes mellitus without complications Category: Medical Plan: A1c improved from 6.5% to 6.0% on Mounjaro. Goal is less than 7.0%. Good control. She has recently run out Of Mounjaro. Was tolerating very well and we will increase her dose. (2) Immunization counseling: Code(s): Z71.85 - Encounter for immunization safety counseling Category: Medical Plan: Patient has not gotten her labs drawn for titers yet but she will do so today We can follow-up on this at her next visit (3) Difficulty swallowing: Code(s): R13.10 - Dysphagia, unspecified Category: Medical Plan: Ongoing difficulty swallowing Her modified barium swallow test is in July. We will follow-up on this at next visit Orders: Orders AMB Hemoglobin A1c Today Z13.9 - Encounter for screening, unspecified Medications: New tirzepatide (Mounjaro) 5 mg (0.5 mL) subcut QWEEK 2 mL 4RF 28 days Refilled lisinopril-hydrochlorothiazide 20-25 mg 1 tab PO DAILY 90 tabs 2RF 90 days Discontinued tirzepatide (Mounjaro) for 4 weeks Discontinued Reason: Doctor's Order 2.5 mg (0.5 mL) subcut QWEEK 28 days 2 mL 2RF
--- OUTSIDE RECORDS SUMMARY | 2025-07-13 10:14 | XMS_ITS | Clinical Summary ---
Author Organization [facility] Address [address] [place] [phone] Phone Care Team Providers Care Traffic Administrator Name Role Phone Pcp, Unknown Primary Care [...] 2006 OSTEOPOROSIS SCREENING INITI AL (ONE-TIME) 2021 INFLUENZA VACCINE (#1) 2025 COVID-19 VACCINE (1 - 2023-2 5 season) 2025 RSV VACCINE (1 - 1-dose 75+ series) [...] Medical Devices Not on file Care Teams Traffic Administrator Relationship Specialty Start Date End Date Pcp, Unknown PCP - General 01/25/21 Additional Source Comments The information contained in this document represents components of the legal health record. It is not the complete legal health record.[facility]
== END 2025-07-13 10:20 | disposition home or self-care (01) ==
LOC: HO.HMCFM 09:39
PROVIDERS: PCP Family Medicine; Visit Provider Family Medicine
DX: E11.9 Type 2 diabetes mellitus without complications (principal); Z71.85 Encounter for immunization safety counseling; R13.10 Dysphagia, unspecified; Z23 Encounter for immunization; Z13.9 Encounter for screening, unspecified

== ENCOUNTER 2025-08-01 10:23 | Outpatient (REF) | payer MEDICARE, SELFPAY ==
--- NOTE | ~2025-08-01 | FL_ITS ---
EXAMINATION: Modified Barium Swallow CLINICAL INFORMATION: Dysphagia. COMPARISON: None. TECHNIQUE: Modified barium swallow was performed under lateral fluoroscopy with patient in standing position. Barium mixed with solids and liquids of different consistencies was administered by the speech pathologist. Examination was recorded in the fluoroscopy suite. FINDINGS: There was intermittent flash laryngeal penetration with thin liquids. There was no evidence of aspiration. No penetration or aspiration on other consistencies. FLUOROSCOPY TIME: 53 seconds Number of Spot Images: N/A DOSE AREA PRODUCT: 579.4 uGy-m2 (microgray-meter squared) FL/FL Modified Barium Swallow IMPRESSION: Intermittent flash laryngeal penetration with thin liquids. No aspiration. Otherwise normal examination. Please refer to the pending sale to [facility] speech therapy report to follow for further details. Electronically signed by: Bc Seymour MD 08/01/2025 10:51 AM EDT
--- NOTE | 2025-08-01 11:15 | MHC.SL.IMP ---
Date of Plan of Treatment: 08/01/25 Onset of Symptoms/Illness: 08/01/24 Date Treatment Started: 08/01/25 Admitting Diagnosis: COPD Primary Speech & Language Diagnosis: R13.12 Oropharyngeal Phase Dysphagia Reason for Today's Visit: 11482 Modified Barium Swallow Study Pre-evaluation Dietary Consistencies: Regular Pre-evaluation Liquid Consistency: Thin Pre-evaluation Medication Administration: Whole with Liquid Medical History: Modified Barium Swallow Study Fluoroscopic Evaluation of Swallowing Function CPT Code 36995 Evaluation Year: 2024 Reason for Study: Pt reporting difficulty swallowing. Referring Physician: Alexis Shaw MD Evaluating Clinician: Laura Katz MA, CCC-MINE FOREMAN Study Number: 1 Patient Name: Alanna Lancaster Status: Outpatient, Ambulatory Age: 69 Sex: Female Medical History Medical History COPD (chronic obstructive pulmonary disease) Arthritis Surgical History H/O colonoscopy History of bladder surgery History of hysterectomy Current (pre-evaluation) Intake/Diet: Route: PO Diet Grade: Regular Liquid Consistencies: Thin Pre-Study Functional Oral Intake Scale (FOIS): 7- Total oral intake with no restrictions Pain: None reported at time of study SUBJECTIVE: Patient is a 69 year old female with history of COPD reporting difficulty swallowing. Patient complains of post nasal drip, phlegm production, and nasal congestion, which she believes is causing her to cough more frequently. Patient also reports ?sometimes? coughing on food and feeling food get stuck in her throat. She reports onset of these symptoms approximately one year ago. She mentions she was recently hospitalized for the flu, and needed supplemental oxygen in the hospital due to her underlying COPD. Per Dr. Shaw, patient is scheduled for follow-up with her diabetes clinical manager this month and then with her PCP in early August. Oral Motor Exam Facial Symmetry: Symmetrical Mouth Occlusion: Normal Oral-Facial Teeth Characteristics: Partially Missing Oral-Facial Teeth Miscellaneous Observation: Some missing molars Oral-Facial Lip Pucker Description: Normal Oral-Facial Smile (Lips) Description: Normal Oral-Facial Puff Cheeks Description: Normal Tongue Size: Normal Tongue Excursion Description: Normal Tongue Range of Movement Description: Normal Tongue Speed of Movement Description: Normal Tongue Strength of Movement (against opposing pressure): Normal Tongue Movement Characteristics: Normal/Absent Is patient able to manage secretions?: Yes Food and Liquid Trials: Oral Impairment: Lip Closure: Did not test Oral Impairment: Tongue Control During Bolus Hold: 1=Escape to lateral buccal cavity/floor of mouth (FOM) Oral Impairment: Bolus Preparation/Mastication: 1=Slow prolonged chewing/mashing with complete re-collection Oral Impairment: Bolus Transport/Lingual Motion: 0=Brisk tongue motion Oral Impairment: Oral Residue: 2=Residue collection on oral structures Oral Impairment:Initiation of Pharyngeal Swallow: 1=Bolus head in valleculae Pharyngeal Impairment: Soft Palate Elevation: 0=No bolus between soft palate (SP)/pharyngeal wall (PW) Pharyngeal Impairment: Laryngeal Elevation: 0=Complete superior movement of thyroid cartilage (see description) Pharyngeal Impairment: Anterior Hyoid Excursion: 0=Complete anterior movement Pharyngeal Impairment: Epiglottic Movement: 1=Partial inversion Pharyngeal Impairment: Laryngeal Vestibular Closure:: 1=Incomplete: narrow column air/contrast in laryngeal vestibule Pharyngeal Impairment: Pharyngeal Stripping Wave: 0=Present: complete Pharyngeal Impairment: Pharyngeal Contraction: Did not test Pharyngeal Impairment: Pharyngoesophageal Segment Openin=Complete distension and complete duration: no obstruction of flow Pharyngeal Impairment: Tongue Base (TB) Retraction: 0=No contrast between tongue base and posterior pharyngeal wall Pharyngeal Impairment: Pharyngeal Residue: 1=Trace residue within or on pharyngeal structures Pharyngeal Impairment: Esophageal Clearance Upright Position: Did not test Impressions and Recommendations OBJECTIVE: Time-out: performed at 10:45 Evaluation Start: 10:30; Stop: 10:40 Patient Positioning: Standing Viewing Planes: LATERAL ONLY Contrast: MBSImP? Standardized Protocol using commercially prepared, standardized Barium viscosities, including: Varibar? THIN LIQUID (40% w/v, <15 cps) , Varibar? PUDDING (40% w/v, <7890-4417 cps) , 1/2 Shortbread Cookie (1 x1 x.25 ) MBSImP ID: [id number] MBSImP Results: Lip closure for intraoral bolus containment could not be assessed due to logistical reasons not related to physiologic impairment. Tongue control during bolus hold allowed bolus escape to the lateral buccal cavity/floor of mouth. Bolus preparation and mastication resulted in slow, prolonged chewing/mashing but with complete re-collection. Bolus transport/lingual motion was with brisk tongue motion. Oral residue was a collection on oral structures. Initiation of the pharyngeal swallow occurred when the bolus head was in the valleculae. Soft palate elevation resulted in no bolus between the soft palate and the pharyngeal wall. Laryngeal elevation demonstrated complete superior movement of the thyroid cartilage with complete approximation of the arytenoids to the epiglottic petiole. Anterior hyoid excursion demonstrated complete anterior movement. Epiglottic movement resulted in partial inversion. Laryngeal vestibular closure was incomplete, with a narrow column of air/contrast noted within the laryngeal vestibule at the height of the swallow. Pharyngeal stripping wave was present and complete. Pharyngeal contraction could not be determined due to logistical reasons not related to physiologic impairment. Pharyngoesophageal segment opening was completely distended for complete duration with no obstruction of bolus flow. Tongue base retraction allowed no contrast between the retracted tongue base and the posterior pharyngeal wall. Pharyngeal residue was a trace within or on pharyngeal structures. Esophageal clearance in the upright position could not be assessed due to logistical reasons not related to physiologic impairment. Oral Impairment Score: 5 (absence of score, component 1) Pharyngeal Impairment Score: 2 (absence of score, component 13) Esophageal Impairment Score: --- (absence of score, component 17) Laryngeal Penetration and Aspiration: Neither penetration nor aspiration was observed in today's study with Cookie, Pudding-thick. Penetration was observed in today's study. Thin Contrast entered the airway, remained above the vocal folds, and was ejected from the airway. ASSESSMENT: This exam was performed by the radiologist and the speech pathologist. Patient was standing for lateral view. Patient fed herself independently and trialed the following consistencies: -thin (via individual cup sips and rapid cup sips) -puree (mixture applesauce with barium pudding) -regular (shortbread cookie coated in barium pudding) Overall good tongue control with no premature posterior escape. Mastication was mildly prolonged, characterized by piece meal deglutition pattern. Posterior lingual motion was timely, with brisk lingual movement. Pharyngeal swallow trigger initiated as the bolus head reached the valleculae. Post-swallow, there was minimal residue on the tongue and palate, which completely cleared on subsequent swallows. No evidence of nasopharyngeal reflux. Complete laryngeal elevation with partial epiglottic inversion and incomplete laryngeal vestibular closure. Flash penetration seen intermittently with thin liquids. A trace amount of contrast entered the laryngeal vestibule above the vocal folds and immediately and spontaneously cleared, with no subsequent aspiration. No aspiration or penetration seen on puree and regular solid textures. There was trace pooling of liquid in the valleculae and pyriforms, which completely cleared on subsequent swallows. Complete clearance seen on solid textures. Liquid Intake Recommendation: Thin Liquid Intake Strategies: Small Sips Dietary Recommendations: Regular Medication Administration: Whole with Liquid Please contact the pharmacy regarding appropriate crushable or liquid drug formulations that are available whenever modified delivery is recommended. Compensatory Strategies Recommended: Sitting Upright (90 deg), Small Bites and Sips, Rate of Ingestion Change Recommendation for Speech Therapy: NA:Typical Evaluation Text Comment: Intake Recommendations: Route: PO Diet Grade: Regular Liquid Consistencies: Thin Post-Study Functional Oral Intake Scale (FOIS): 7- Total oral intake with no restrictions Flash penetration intermittently with thin liquids. No evidence of aspiration during this exam. Good oral and pharyngeal clearance. Suggested Referrals: Otolaryngology Indication for Referral: Patient reports increased phlegm production, post nasal drip, and coughing. Hx COPD. Therapy Recommendations: Diet modification and Speech Therapy is not indicated at this time. Please re-refer with any changes. Clinician - Supplemental, Miscellaneous Communication: It is important to note MBSS objective studies are snapshots in time and Patient function might vary with factors such as time of day or concomitant medical conditions. For this reason, the final treatment plan for this patient should rest with their medical care team. Additional recommendations should be considered with the totality of the Patient in mind. Thank for the opportunity to participate in the care of this patient. If you have any questions about the content of this report, please contact the [facility] at [facility]. Education: Education regarding findings from today's study and plans for therapy were provided to Patient only through Verbal Instruction. Understanding was expressed by the Patient only. Mobile Paint Specialist Clinician/Clinical Fellow: No Supervisory Statement: N/A Speech Language Pathologist: Laura Katz M.A., [facility]
== END 2025-08-01 10:24 | disposition home or self-care (01) ==
LOC: HO.XRAY 10:23
PROVIDERS: PCP Family Medicine; Visit Provider Family Medicine
DX: R13.10 Dysphagia, unspecified (principal)
CPT/HCPCS: 74230; 92611

== ENCOUNTER → 2025-08-01 10:28 | Outpatient (BNV) | payer MEDICARE, SELFPAY | PROVIDERS: PCP Family Medicine; Visit Provider Radiology Diagnostic Radiology | DX: R13.10 Dysphagia, unspecified (principal) | CPT/HCPCS: 74230 ==

== ENCOUNTER 2025-08-22 10:49 | Outpatient (AMB) | payer MEDICARE, SELFPAY ==
[2025-08-22 10:53] VITALS: BP 160/74; PULSE 74; O2SAT 97; BMI 37.2
--- NOTE | 2025-08-22 10:53 | A.OFFVIS_ITS ---
Vital Signs 08/22/25 10:53 Height 5 ft 5 in Weight 223 lb 6 oz BMI 37.2 BP 160/74 H Blood Pressure Location Rt brachial Position Sitting Pulse 74 Pulse Source Pulse Oximeter Pulse Oximetry (%) 97 Oxygen Delivery Method Room Air Intake Visit Reasons: COPD/Hypoxemic Respiratory Failure Allergies No Known Allergies Allergy (Verified 08/22/25 10:57) HPI HPI COPD/Hypoxemic Respiratory Failure: Details: Alanna is a pleasant 69 year old female, former smoker with 40 pack year history, quit March 2022, with underlying moderate COPD. She has been using Trelegy 100 mcg, rarely requiring albuterol MDI, however reports suboptimal control continuing with increased mucous production and cough, occasional dyspnea. Denies wheezing. She denies any visits to urgent care or hospitalizations related to respiratory distress since last visit. Prior chest CT from 04/2025 revealed scattered small pulmonary nodules, will have repeat chest CT performed in one year to assess stability. [facility] Medical History COPD (chronic obstructive pulmonary disease) Arthritis Surgical History H/O colonoscopy History of bladder surgery History of hysterectomy Family History Mother No problems noted. Father No problems noted. Social History Household Members: Spouse Housing: House Do you presently have visiting nurse or other home services: No Alcohol intake: former Patient Tobacco Use Status: Former Tobacco user Tobacco use type: Cigarette Cigarette Packs Per Day: 1 Cigarettes Per Day: 20 Years Smoked: 40 e-Cigarette/Vaping Use: Never Used Second Hand Smoke Exposure: No Advance Directives Date on File: 04/13/23 service: No Current occupational status: retired Current occupational exposures/hazards: No Cognitive needs: No Hearing needs: Yes Vision needs: Yes Review of Systems Const Denies chills, Denies excessive sweating, Denies fever(s), Denies headache(s) and Denies night sweats Eyes Denies dry eyes, Denies irritation and Denies itchy eyes ENT Reports Normal hearing present, Denies headache(s), Denies nasal discharge and Denies sore throat Card Denies chest pain, Denies chest pain at rest, Denies chest pain with activity, Denies claudication, Denies leg edema, Denies dyspnea, Denies dyspnea on exertion, Denies orthopnea and Denies paroxysmal nocturnal dyspnea Resp Denies chest congestion, Denies excessive phlegm production, Denies pain on inspiration, Denies pain with cough, Denies dyspnea, Denies dyspnea on exertion, Denies stridor and Denies wheezing Musc Denies myalgias Neuro Reports Normal hearing present and Denies headache(s) Endo Denies excessive sweating Sebastian/Lymph Denies lymphadenopathy Aller/Immun Denies itchy eyes, Denies seasonal rhinorrhea and Denies wheezing Physical Exam Vital Signs: Last Vital Signs Pulse 74 08/22/25 10:53 BP 160/74 H 08/22/25 10:53 Pulse Ox 97 08/22/25 10:53 Oxygen Delivery Method Room Air 08/22/25 10:53 BMI result Body Mass Index 37.2 Const General: cooperative, healthy appearing, comfortable, no acute distress, well developed and alert Nutritional Appearance: obese Orientation/consciousness: patient oriented x3 Limitations: no limitations HEENT Head: Yes normal to inspection, Yes normocephalic and Yes atraumatic Ears: hearing grossly normal bilaterally and external ears normal Eyes General: appearance normal, both eyes and all related structures Eyelids: Yes eyelids normal Sclerae: sclerae normal EOM: EOMs intact bilaterally Neck Neck: Yes normal visual inspection and Yes no lymphadenopathy Lymphatic: no lymphadenopathy noted Chest Chest palpation & inspection: normal inspection of the chest Resp Effort & Inspection: normal respiratory effort, able to speak in complete sentences, no audible wheezes, no cough, no stridor, not tachypneic, no tripod positioning and no use of accessory muscles Auscultation: clear to auscultation bilaterally Cardio Jugular venous distension: no JVD Rate: regular rate Rhythm: regular rhythm Skin Other: warm, dry General skin exam: no rashes or lesions noted Neuro General: patient oriented x3 Cranial nerves: Yes Normal hearing present Cognition (Neuro): normal cognition Gait exam (Neuro): Normal gait present Extrem General: Yes normal to inspection, Yes capillary refill normal, Yes no clubbing, cyanosis or edema and Yes no pedal edema Psych Appearance: grossly normal and well kempt Speech and movement: Normal speech and movement present and Clear speech present Affect: normal affect Attitude: cooperative Thought process: Normal thought process present Thought content: Normal thought content present Insight: Good insight present (Psych) Judgement: Good judgement present (Psych) Assessment & Plan Assessment & Plan (1) COPD (chronic obstructive pulmonary disease): Code(s): J44.9 - Chronic obstructive pulmonary disease, unspecified Category: Medical (2) Personal history of tobacco use: Code(s): Z87.891 - Personal history of nicotine dependence Category: Social Hx (3) Pulmonary nodules: Code(s): R91.8 - Other nonspecific abnormal finding of lung field Category: Medical Plan Alanna reports suboptimal control on current regimen, will increase Trelegy. She is aware to call if symptoms do not improve. She will have repeat CT through the lung screening program given smoking history, referral placed. All questions were answered and patient is in agreement of plan. Will follow up in 3 months or sooner if needed. Orders: Referrals Lung Cancer Screening Referral Z87.891 - Personal history of nicotine dependence Medications: New [id number] 200-62.5-25 mcg (Trelegy Ellipta) 1 inh inhalation DAILY 60 ea 3RF Coding Level of Care Code Est Pt Level 4 (46601) Diagnoses COPD (chronic obstructive pulmonary disease) J44.9 Personal history of tobacco use Z87.891 Pulmonary nodules R91.8
--- OUTSIDE RECORDS SUMMARY | 2025-08-22 13:40 | XMS_ITS | Clinical Summary ---
Author Organization [facility] Address [address] [place] [id number] Phone Care Team Providers Care Test Rack Operator Name Role Phone Pcp, Unknown Primary Care [...] VACCINE (#1) 2025 COVID-19 VACCINE (1 - 2024-2 6 season) 2025 RSV VACCINE (1 - 1-dose [...] Medical Devices Not on file Care Teams Test Rack Operator Relationship Specialty Start Date End Date Pcp, Unknown PCP - General 01/25/21 Additional Source Comments The information contained in this document represents components of the legal health record. It is not the complete legal health record.[facility]
== END 2025-08-22 11:25 | disposition home or self-care (01) ==
LOC: HO.HPSW 10:51
PROVIDERS: PCP Family Medicine; Visit Provider Nurse Practitioner Family
DX: J44.9 Chronic obstructive pulmonary disease, unspecified (principal); Z87.891 Personal history of nicotine dependence; R91.8 Other nonspecific abnormal finding of lung field
CPT/HCPCS: 99214

== ENCOUNTER → 2025-08-22 10:49 | Outpatient (BNVA) | payer MEDICARE, SELFPAY | PROVIDERS: PCP Family Medicine; Visit Provider Nurse Practitioner Family | DX: R91.8 Other nonspecific abnormal finding of lung field (principal); J44.9 Chronic obstructive pulmonary disease, unspecified; Z87.891 Personal history of nicotine dependence; Z79.899 Other long term (current) drug therapy | CPT/HCPCS: 99212 ==

== ENCOUNTER 2025-08-30 09:41 | Outpatient (AMB) | payer OTHER, SELFPAY ==
--- NOTE | 2025-08-30 09:46 | MHC.PC.OV ---
Vital Signs 08/30/25 09:57 Height 5 ft 5 in Weight 226 lb BMI 37.6 BP 150/65 H Blood Pressure Location Lt brachial Position Sitting Respiration 16 Pulse 67 Pulse Source Pulse Oximeter Temp 97.6 F Temp Source Oral Pulse Oximetry (%) 97 Oxygen Delivery Method Room Air Intake Visit Reasons: f/u chronic conditions Intake Note: patient here for follow up on chronic condition Brine Purifier Required: No Is last menstrual period known: No Post menopausal: No Patient : No Allergies No Known Allergies Allergy (Verified 08/30/25 09:49) Medication List - Last Reconciled 08/30/25 by Alexis Shaw MD albuterol sulfate 90 mcg/actuation 2 puffs inhalation Q6H PRN 30 days atorvastatin 20 mg PO BEDTIME 90 days calcium polycarbophil (Fiber Laxative (calcium polycarbophil)) 625 mg PO DAILY cholecalciferol (vitamin D3) 25 mcg PO DAILY coenzyme Q10 (Ultra CoQ10) 75 mg PO BEDTIME fexofenadine (Arlin Allergy) 180 mg PO DAILY fluticasone propionate 50 mcg/actuation (Flonase Allergy Relief) 1 spray intranasal Q12H PRN umalqncnbck-vdefeiwhx-mefuowhh 200-62.5-25 mcg (Trelegy Ellipta) 1 inh inhalation DAILY kbfnq-zg6-gqz-uwh-ee7-equ-astx 1,500-165-67.5 mg (Krill Oil (Simon 3 and 6)) 1 cap PO DAILY lisinopril-hydrochlorothiazide 20-25 mg 1 tab PO DAILY 90 days metformin 250 mg (1/2 x 500 mg) PO DAILY 30 days multivit with min-folic acid 80 mcg (Centrum Adult 50 Plus) 1 tab PO DAILY omeprazole 40 mg PO DAILY@0630 Tobacco use date assessed: 08/30/25 Fall risk assessment: No Falls in past year Last assessed Fall Risk: 08/30/25 Dental Screening Dental Screen Date: 08/30/25 Did you have a dental visit in the last 12 months?: No Did you have a dental problem in the last 6 months where you did not have access to dental care?: No Was dental information given to patient?: No HPI f/u chronic conditions HPI Details 69 y/o female presents to f/u chronic conditions. Following up on difficulty swallowing. Modified barium swallow test 08/01/25 showed: Intermittent flash laryngeal penetration with thin liquids. No aspiration. Otherwise normal examination. BP today elevated at 150/65, 67p. Had been elevated before. More recent labs show elevated liver enzymes. [facility] Medical History COPD (chronic obstructive pulmonary disease) Arthritis Surgical History H/O colonoscopy History of bladder surgery History of hysterectomy Family History Mother No problems noted. Father No problems noted. Social History (Reviewed 08/22/25 @ 10:57 by Mery Mendez [facility]) Household Members: Spouse Housing: House Do you presently have visiting nurse or other home services: No Alcohol intake: former Patient Tobacco Use Status: Former Tobacco user Tobacco use type: Cigarette Cigarette Packs Per Day: 1 Cigarettes Per Day: 20 Years Smoked: 40 e-Cigarette/Vaping Use: Never Used Second Hand Smoke Exposure: No Advance Directives Date on File: 04/13/23 service: No Current occupational status: retired Current occupational exposures/hazards: No Cognitive needs: No Hearing needs: Yes Vision needs: Yes Questionnaire Thrive Questionnaire Date Thrive assessed: 12/20/24 I am a: Patient What is your living situation today?: I have a steady place to live Within the past 12 months, did the food you bought not last and you didn't have the money to get more?: Never true Within the past 12 months, did you worry whether your food would run out before you got money to buy more?: Never true Do you have trouble paying for medicines?: No Do you have trouble getting transportation to medical appointments?: No Do you have trouble paying your heating and electricity bill?: No Do you have trouble taking care of your child, family member or friend?: No Do you have trouble with day-to-day activities such as bathing, preparing meals, shopping, managing finances, etc.?: No Are you currently unemployed and looking for a job?: No Are you interested in more education?: No Please select the resources that you would like help with: None Currently or been in a relationship where the following occur: I choose not to answer THRIVE Score: 0 TOYA-7 AMB Questionnaire TOYA-7 Date TOYA - 7 assessed: 05/30/25 Source: Developed by Drs. Jose Washington, Liliana Rodrigues, Ze Briones and colleagues, with an educational mario from [employer]. Review of Systems Const Denies chills, Denies fatigue, Denies fever(s), Denies headache(s) and Denies weakness ENT Denies dizziness and Denies headache(s) Card Denies dyspnea Resp Denies cough, Denies dyspnea, Denies wheezing and Denies other (shortness of breath) Musc Denies numbness and Denies tingling Neuro Denies dizziness, Denies headache(s), Denies numbness, Denies tingling and Denies weakness Psych Denies anxiety and Denies depression Endo Denies fatigue Aller/Immun Denies wheezing Physical exam (Primary Care) Vital Signs: Last Vital Signs Temp 97.6 F 08/30/25 09:57 Pulse 67 08/30/25 09:57 Resp 16 08/30/25 09:57 BP 150/65 H 08/30/25 09:57 Pulse Ox 97 08/30/25 09:57 Oxygen Delivery Method Room Air 08/30/25 09:57 BMI result Body Mass Index 37.6 Tobacco/Smoking Status: Tobacco use Status Tobacco use date assessed 08/30/25 08/30/25 09:58 Patient Tobacco Use Status Former Tobacco user 08/30/25 09:48 Tobacco use type Cigarette 08/30/25 09:48 e-Cigarette/Vaping Use Never Used 08/30/25 09:48 Thrive Assessment: Date of Thrive Assessment Date Thrive assessed 12/20/24 08/30/25 09:48 Currently or been in a relationship where the following occur: I choose not to answer Const General: well developed; No acute distress Nutritional Appearance: well nourished Orientation/consciousness: patient oriented x3 HENMT Head: Yes normocephalic and Yes atraumatic Eyes General: appearance normal, both eyes and all related structures Pupils: Equal, round and reactive pupils present EOM: EOMs intact bilaterally Resp Effort & Inspection: normal respiratory effort Neuro General: patient oriented x3 and gait normal Cranial nerves: Yes Equal, round and reactive pupils present Psych Affect: normal affect Coding Level of Care Code Est Pt Level 5 (67294) Diagnoses Difficulty swallowing R13.10 Essential hypertension I10 Diabetes E11.9 Immunization counseling Z71.85 Assessment & Plan Assessment & Plan (1) Difficulty swallowing: Code(s): R13.10 - Dysphagia, unspecified Category: Medical Plan: Ongoing mild difficulty with swallowing and rhinitis with thick mucus and postnasal drip Modified barium swallow showed mild flash penetration but no aspiration. They recommended smaller bites of food, smaller sips of thin liquids and slowing down when eating and drinking. Also recommended that if she is having difficulty with mucus production she could follow-up with ENT Referred to ENT (2) Essential hypertension: Code(s): I10 - Essential (primary) hypertension Category: Medical Plan: Blood pressure is again too high Continue lisinopril hydrochlorothiazide as prescribed Adding amlodipine. Call if any problems with this (3) Diabetes: Code(s): E11.9 - Type 2 diabetes mellitus without complications Category: Medical Plan: A1c had shown good control. Had increase Mounjaro but she did not tolerate this and stopped it. Not due for A1c test again Continue metformin as prescribed and follow-up at next visit (4) Immunization counseling: Code(s): Z71.85 - Encounter for immunization safety counseling Category: Medical Plan: Patient has never had a COVID vaccine and has a history of COPD Had a long discussion with her regarding the COVID vaccine and recommended this. She plans to call her pharmacy to schedule immunization. Also up-to-date with pneumonia shot, RSV and flu shot. Also, patient had requested titers to ensure she is immune to measles mumps rubella and varicella. Titers show she has immunity to all. Orders: Referrals Ear/Nose/Throat Referral J31.0 - Chronic rhinitis, R13.10 - Dysphagia, unspecified Medications: New amlodipine 5 mg PO DAILY 90 tabs 2RF 90 days
[2025-08-30 09:57] VITALS: BP 150/65; PULSE 67; RESP 16; TEMP 36.4; O2SAT 97; BMI 37.6
--- OUTSIDE RECORDS SUMMARY | 2025-08-30 10:56 | XMS_ITS | Clinical Summary ---
Author Organization [facility] Address [address] [place] [id number] Phone Care Team Providers Care Paste Worker Name Role Phone Pcp, Unknown Primary Care [...] Medical Devices Not on file Care Teams Paste Worker Relationship Specialty Start Date End Date Pcp, Unknown PCP - General 01/25/21 Additional Source Comments The information contained in this document represents components of the legal health record. It is not the complete legal health record.[facility]
== END 2025-08-30 10:43 | disposition home or self-care (01) ==
PROVIDERS: PCP Family Medicine; Visit Provider Family Medicine
DX: R13.10 Dysphagia, unspecified (principal); I10 Essential (primary) hypertension; E11.9 Type 2 diabetes mellitus without complications; Z71.85 Encounter for immunization safety counseling

== ENCOUNTER 2025-10-10 13:58 | Outpatient (AMB) | payer OTHER, SELFPAY ==
--- NOTE | 2025-10-10 14:01 | MHC.PC.OV ---
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 Required: No Is last menstrual period known: No Post menopausal: Yes Patient : No Allergies No Known Allergies Allergy (Verified 10/10/25 14:03) Medication List - Last Reconciled 10/10/25 by Alexis Shaw MD albuterol sulfate 90 mcg/actuation 2 puffs inhalation Q6H PRN 30 days amlodipine 5 mg PO DAILY 90 days atorvastatin 20 mg PO BEDTIME 90 days cholecalciferol (vitamin D3) 25 mcg PO DAILY coenzyme Q10 (Ultra CoQ10) 75 mg PO BEDTIME fexofenadine (Arlin Allergy) 180 mg PO DAILY fluticasone propionate 50 mcg/actuation (Flonase Allergy Relief) 1 spray intranasal Q12H PRN enchdgzivgn-yyptjmuec-lzcvgpup 200-62.5-25 mcg (Trelegy Ellipta) 1 inh inhalation DAILY itkdo-lp0-udh-qrg-bb1-zzj-astx 1,500-165-67.5 mg (Krill Oil (Rogerson 3 and 6)) 1 cap PO DAILY lisinopril-hydrochlorothiazide 20-25 mg 1 tab PO DAILY 90 days metformin 250 mg (1/2 x 500 mg) PO DAILY 30 days multivit with min-folic acid 80 mcg (Centrum Adult 50 Plus) 1 tab PO DAILY multivitamin with minerals (Hair,Skin and Nails tablet) 1 tab PO DAILY omeprazole 40 mg PO DAILY@0630 90 days Tobacco use date assessed: 10/10/25 Dental Screening Dental Screen Date: 10/10/25 Did you have a dental visit in the last 12 months?: No Did you have a dental problem in the last 6 months where you did not have access to dental care?: No Was dental information given to patient?: Patient declined HPI Cough HPI Details Patient had complaints for several days of cough and increased secretions in her throat. Was given an appointment today but she notes that she has already begun feeling better. Still has some increased secretions and cough though much milder. Does not feel sick. [facility] Medical History COPD (chronic obstructive pulmonary disease) Arthritis Surgical History H/O colonoscopy History of bladder surgery History of hysterectomy Family History (Updated 10/10/25 @ 14:05 by Pattie Branham CMA) Mother No problems noted. Father No problems noted. Daughter Substance abuse Depression Social History (Updated 10/10/25 @ 14:06 by Pattie Branham CMA) Household Members: Spouse Housing: House Do you presently have visiting nurse or other home services: No Alcohol intake: former Patient Tobacco Use Status: Former Tobacco user Tobacco use type: Cigarette Cigarette Packs Per Day: 1 Cigarettes Per Day: 20 Years Smoked: 40 Packs Per Year: 40 Packs per year/per ci.00 e-Cigarette/Vaping Use: Never Used Second Hand Smoke Exposure: No Use of substances other than those prescribed or required for medical reasons: No Advance Directives Date on File: 04/13/23 Patient : No service: No Current occupational status: retired Current occupational exposures/hazards: No Cognitive needs: No Hearing needs: Yes Vision needs: Yes Questionnaire Thrive Questionnaire Date Thrive assessed: 12/20/24 I am a: Patient What is your living situation today?: I have a steady place to live Within the past 12 months, did the food you bought not last and you didn't have the money to get more?: Never true Within the past 12 months, did you worry whether your food would run out before you got money to buy more?: Never true Do you have trouble paying for medicines?: No Do you have trouble getting transportation to medical appointments?: No Do you have trouble paying your heating and electricity bill?: No Do you have trouble taking care of your child, family member or friend?: No Do you have trouble with day-to-day activities such as bathing, preparing meals, shopping, managing finances, etc.?: No Are you currently unemployed and looking for a job?: No Are you interested in more education?: No Please select the resources that you would like help with: None Currently or been in a relationship where the following occur: I choose not to answer THRIVE Score: 0 TOYA-7 AMB Questionnaire TOYA-7 Date TOYA - 7 assessed: 05/30/25 Source: Developed by Drs. Jose Washington, Liliana Rodrigues, Ze Briones and colleagues, with an educational mario from [employer] Review of Systems Const Denies chills, Denies fatigue, Denies fever(s), Denies headache(s) and Denies weakness ENT Denies dizziness and Denies headache(s) Card Denies dyspnea Resp Reports cough (Mild), Denies dyspnea, Denies wheezing and Denies other ( shortness of breath) Musc Denies numbness and Denies tingling Neuro Denies dizziness, Denies headache(s), Denies numbness, Denies tingling, Denies paresthesias and Denies weakness Psych Denies anxiety and Denies depression Endo Denies fatigue Aller/Immun Denies wheezing Physical exam (Primary Care) Vital Signs: Last Vital Signs Temp 97.5 F 10/10/25 14:06 Pulse 85 10/10/25 14:06 Resp 15 10/10/25 14:06 BP 106/62 10/10/25 14:06 Pulse Ox 94 10/10/25 14:06 Oxygen Delivery Method Room Air 10/10/25 14:06 BMI result Body Mass Index 36.3 Tobacco/Smoking Status: Tobacco use Status Tobacco use date assessed 10/10/25 10/10/25 14:10 Patient Tobacco Use Status Former Tobacco user 10/10/25 14:06 Tobacco use type Cigarette 10/10/25 14:06 e-Cigarette/Vaping Use Never Used 10/10/25 14:06 Thrive Assessment: Date of Thrive Assessment Date Thrive assessed 12/20/24 10/10/25 14:02 Currently or been in a relationship where the following occur: I choose not to answer Const General: no acute distress and well developed Nutritional Appearance: well nourished Orientation/consciousness: patient oriented x3 HENMT Head: Yes normocephalic and Yes atraumatic Eyes General: appearance normal, both eyes and all related structures Pupils: Equal, round and reactive pupils present EOM: EOMs intact bilaterally Resp Effort & Inspection: normal respiratory effort Auscultation: clear to auscultation bilaterally Cardio Rate: regular rate Rhythm: regular rhythm Heart sounds: S1 normal heart sound present, S2 normal heart sound present, no gallops, no murmurs and no rubs Neuro General: patient oriented x3 and gait normal Cranial nerves: Yes Equal, round and reactive pupils present Psych Affect: normal affect Coding Level of Care Code Est Pt Level 3 (23570) Diagnoses Cough R05.9 Assessment & Plan Assessment & Plan (1) Cough: Code(s): R05.9 - Cough, unspecified Category: Medical Plan: Mild cough which is improving. Likely had viral illness Continue inhaled meds as prescribed Can use OTC medication for improving cough and secretions Has appointment in a month. She can let me know if she is still having difficulty. Has appointment with pulmonology in the next day
[2025-10-10 14:06] VITALS: BP 106/62; PULSE 85; RESP 15; TEMP 36.4; O2SAT 94; BMI 36.3
--- OUTSIDE RECORDS SUMMARY | 2025-10-10 18:34 | XMS_ITS | Clinical Summary ---
Author Organization [facility] Address [address] [place] [phone] Phone Care Team Providers Care Maintenance And Utilities Supervisor Name Role Phone Pcp, Unknown Primary Care [...] Medical Devices Not on file Care Teams Maintenance And Utilities Supervisor Relationship Specialty Start Date End Date Pcp, Unknown PCP - General 01/25/21 Additional Source Comments The information contained in this document represents components of the legal health record. It is not the complete legal health record.[facility]
== END 2025-10-10 14:25 | disposition home or self-care (01) ==
LOC: HO.HMCFM 13:59
PROVIDERS: PCP Family Medicine; Visit Provider Family Medicine
DX: R05.9 Cough, unspecified (principal)